=== PATIENT | female | born 1955 | race Caucasian/White ===

== ENCOUNTER 2017-01-24 13:32 | Emergency (ER) | payer OTHER ==
[~2017-01-24] VITALS: Ht 162.6 cm; Wt 53.3 kg
[~2017-01-24 13:32] MED LIST: AUGM875T PO; GABA300 PO; IBUP600 PO; MULT-65 PO; NAPR-576 PO; OXYC30TA3 PO; PROT40TA PO; RISP1 PO; SOMA350T PO; VITA400D PO; XANA0.5T PO; [UNRECOGNIZED DRUG - CODE] SQ
[2017-01-24 14:06] VITALS: BP 122/84; PULSE 88; RESP 16; TEMP 98.1; O2SAT 96
--- NOTE | 2017-01-24 15:42 | PD ---
HPI Chief Complaint: Fall Time Seen by Provider: 15:24 Travel History International Travel<30 days: No Contact w/Intl Traveler<30days: No Traveled to known affect area: No History of Present Illness HPI 61-year-old female presents to the emergency room for evaluation of right hip pain after trip and fall last. Patient fell over her cat. Denies hitting her loss of consciousness. She fell backwards and landed mostly on her right hip. Since then she has had paresthesias in her right lower extremity. She has been able to walk with a cane. She took 600 mg ibuprofen and muscle relaxer earlier today without significant relief in symptoms. Pain is constant, throbbing in nature. Worse with ambulation. She has history of right hip replacement for avascular necrosis that was done 12 years ago. PFSH Past Medical History Arthritis: Yes Asthma: Yes Autoimmune Disease: Yes (MS) Blood Disorders: No Anxiety: Yes Depression: Yes Heart Rhythm Problems: No Cancer: No Cardiovascular Problems: No High Cholesterol: No Chemotherapy: No Chest Pain: No Congestive Heart Failure: No COPD: Yes Cerebrovascular Accident: No Diabetes: No Diminished Hearing: No Endocrine: No Fibromyalgia: Yes Gastrointestinal Disorders: Yes (GERD) GERD: Yes Genitourinary: No Headaches: Yes Hepatitis: No Hiatal Hernia: No Hypertension: No Immune Disorder: Yes (MS) Implanted Vascular Access Dvce: Yes Kidney Stones: No Musculoskeletal: Yes (CERVICAL SPINE; TOTAL RIGHT HIP ) Neurologic: Yes (PT HAS MS;WALKS [place] HAS BALANCE & COORD PROBLEMS; VASNECROSIS; FIB MYALGHIA ) Psychiatric: Yes (ANXIETY & DEPRESSION ) Reproductive: No Respiratory: Yes (COPD) Immunizations Current: Yes Migraines: Yes Radiation Therapy: No Renal Failure: No Seizures: No Sickle Cell Disease: No Sleep Apnea: No Thyroid Disease: No Ulcer: No Menopausal: Yes Tubal Ligation: Yes Past Surgical History Abdominal Surgery: No AICD: No Arteriovenous Shunt: No Body Medical Devices: CERVICAL SCREWS & PLATES Cardiac Surgery: No Ear Surgery: No Endocrine Surgery: No Eye Surgery: No Genitourinary Surgery: No Gynecologic Surgery: Yes (TUBAL LIGATION 1986) Insulin Pump: No Joint Replacement: Yes (RIGHT TOTAL HIP REPLACEMENT) Neurologic Surgery: Yes (CERVICAL FUSION 2000) Oral Surgery: No Pacemaker: No Thoracic Surgery: No Other Surgery: Yes (CERVICAL FUSION 2000; TUBAL LIGATION 1986) Social History Alcohol Use: Yes (4-5 GLASSES WINE/DAY) Tobacco Use: No (1/2 pk) Substance Use: Yes (mariJUANA) Allergies-Medications (Allergen,Severity, Reaction): Coded Allergies: Sulfa (Sulfonamide Antibiotics) (Unverified Allergy, Intermediate, N/V, ) modafinil (Unverified Allergy, Mild, Rash, 01/24/17) Reported Meds & Prescriptions Reported Meds & Active Scripts Active Reported Adderall (Amphetamine-Dextroamphetamine) 30 Mg Tab 30 Mg PO BID Avoid late evening doses. Space doses at least 4 to 6 hours if more than once/day dosing. Ibuprofen 600 Mg Tab 600 Mg PO Q6H PRN Gabapentin 300 Mg Cap 300 Mg PO TID Oxycodone (Oxycodone HCl) 30 Mg Tab 30 Mg PO Q6H PRN Pantoprazole (Pantoprazole Sodium) 40 Mg Tab 40 Mg PO DAILY Soma (Carisoprodol) 350 Mg Tab 350 Mg PO QID PRN Alprazolam 1 Mg Tab 1 Mg PO Q6H PRN Rebif Inj (Interferon Beta 1a) 44 Mcg/0.5 Ml Syr 44 Mcg SQ Spiriva Handihaler (Tiotropium Inh) 18 Mcg Cap 18 Mcg INH DAILY 1 capsule = 18 mcg Review of Systems Except as stated in HPI: all other systems reviewed are Neg Physical Exam Narrative GENERAL: Well-nourished, well-developed female in no acute distress. Afebrile. Ambulatory with a cane. SKIN: Focused skin assessment warm/dry. More ecchymosis. HEAD: Normocephalic. EYES: No scleral icterus. No injection or drainage. NECK: Supple, trachea midline. No JVD or lymphadenopathy. CARDIOVASCULAR: Regular rate and rhythm without murmurs, gallops, or rubs. RESPIRATORY: Breath sounds equal bilaterally. No accessory muscle use. MUSCULOSKELETAL: No cyanosis, or edema. Full range of motion of the right hip. BACK: Nontender without obvious deformity. No CVA tenderness. Data Data Last Documented VS Vital Signs Date Time Temp Pulse Resp B/P (MAP) Pulse Ox O2 Delivery O2 Flow Rate FiO2 01/24/17 14:06 98.1 88 16 122/84 (97) 96 Orders Orders Hip, Uni(Ap&Lat) W Ap Pelvis (01/24/17 ) [facility] Medical Decision Making Medical Screen Exam Complete: Yes Emergency Medical Condition: Yes Medical Record Reviewed: Yes Differential Diagnosis Strain, sprain, fracture, contusion, dislocation Narrative Course 61-year-old female presents to the emergency room for evaluation of right hip pain after mechanical fall yesterday. She has associated paresthesias in the right lower extremity. Patient is ambulatory with a cane in the ED. There is no obvious deformity. No shortening or rotation. Right lower extremity is neurovascularly intact with less than 2 second capillary refill distally. There is no obvious edema, ecchymosis, erythema, or deformity. X-ray performed to evaluate for pelvic fracture. X-ray shows no acute abnormality. Patient has a follow-up appointment with her orthopedic surgeon (who recently performed ankle surgery) in 5 days. She was told to follow-up about her hip at that time as well. Told to return for worsening symptoms. She understands and agrees to plan. Diagnosis Primary Impression: Right hip pain Referrals: Orthopaedic Surgeon Primary Care Physician Additional Instructions: Rest and drink plenty of fluids. Take prescribed pain medications as directed. Apply ice to the affected area for 20 minutes at a time, as needed for pain and swelling. Follow-up with a primary care physician. Return to the emergency room for worsening symptoms. Disposition: 01 DISCHARGE HOME Condition: Stable Hallie Melendez Jan 24, 2017 15:42
[2017-01-24] MEDS ORDERED: REBI44IN SQ (16:05)
[2017-01-24] MEDS ORDERED: IBUP-232 PO (16:05)
[2017-01-24] MEDS ORDERED: ADDE30TA PO (16:05)
[2017-01-24] MEDS ORDERED: ALPR1TAB3 PO (16:05)
[2017-01-24] MEDS ORDERED: PANT40TA3 PO (16:05)
[2017-01-24] MEDS ORDERED: OXYC30TA PO (16:05)
[2017-01-24] MEDS ORDERED: GABA300C5 PO (16:05)
[2017-01-24] MEDS ORDERED: SPIRCAP INH (16:05)
[2017-01-24] MEDS ORDERED: SOMA350T PO (16:05)
--- NOTE | 2017-01-24 16:50 | RADRPT ---
EXAM DATE/TIME: 01/24/2017 16:05 [facility] COMPARISON: No previous studies available for comparison. INDICATIONS : Fall. Right hip pain. MEDICAL HISTORY : Osteoarthritis. SURGICAL HISTORY : None. Total hip ENCOUNTER: Initial ACUITY: 2 days PAIN SCORE: 8/10 LOCATION: Right pelvis FINDINGS: Examination of the right hip was performed with AP Pelvis. Postoperative right total hip replacement. Sclerosis at the left femoral head. Consider avascular necrosis. No acute fracture. CONCLUSION: 1. No acute fracture or dislocation. Postoperative right hip replacement. Avel Ken MD on January 24, 2017 at 16:47 Board Certified Radiologist. This report was verified electronically.
== END 2017-01-24 17:14 | disposition home or self-care (01) ==
LOC: PHED 13:32 → PHEFT 17:14
DX: M25.551 Pain in right hip (principal); Z96.641 Presence of right artificial hip joint
CPT/HCPCS: 73502; 99283

== ENCOUNTER 2017-02-05 14:03 | Emergency (ER) | payer OTHER ==
[~2017-02-05 14:03] MED LIST changes: +ADDE30TA PO; +ALPR1TAB3 PO; -AUGM875T PO; -GABA300 PO; +GABA300C5 PO; +IBUP-232 PO; -IBUP600 PO; -MULT-65 PO; -NAPR-576 PO; +OXYC30TA PO; -OXYC30TA3 PO; +PANT40TA3 PO; -PROT40TA PO; +REBI44IN SQ; -RISP1 PO; +SPIRCAP INH; -VITA400D PO; -XANA0.5T PO; -[UNRECOGNIZED DRUG - CODE] SQ
[2017-02-05 14:06] VITALS: BP 128/65; PULSE 96; RESP 20; TEMP 98.6; O2SAT 94
[2017-02-05 14:18] VITALS: O2SAT 94
[2017-02-05 14:34] LABS: AUTOMATED NEUTROPHIL # 2.1 TH/MM3 (1.8-7.7); BASOPHIL # 0.1 TH/MM3 (0-0.2); BASOPHIL % 3.2 % (0.0-2.0); EOSINOPHIL # 0.1 TH/MM3 (0-0.4); EOSINOPHIL % 1.6 % (0.0-4.0); HEMATOCRIT 39.8 % (35.0-46.0); HEMO FLAGS DIFF FINAL; LYMPH % 28.8 % (9.0-44.0); LYMPHOCYTE # 1.1 TH/MM3 (1.0-4.8); MEAN CELL VOLUME 98.3 FL (80.0-100.0); MEAN CORPUSCULAR HEMOGLOBIN 33.4 PG (27.0-34.0); MONO % 8.9 % (0.0-8.0); NEUT % 57.5 % (16.0-70.0); PLATELET COUNT 103 TH/MM3 (150-450); RED BLOOD COUNT 4.05 MIL/MM3 (4.00-5.30); RED CELL DISTRIBUTION WIDTH 12.5 % (11.6-17.2); WHITE BLOOD COUNT 3.7 TH/MM3 (4.0-11.0)
[2017-02-05 14:47] LABS: BICARBONATE 29.5 MEQ/L (21.0-32.0)
[2017-02-05 15:15] VITALS: BP 154/91; PULSE 77; RESP 17; O2SAT 96
[2017-02-05 15:21] LABS: BLOOD, URINE NEG (NEG); GLUCOSE,URINE NEG (NEG); KETONE, URINE NEG (NEG); NITRITE,URINE NEG (NEG)
[2017-02-05 15:30] LABS: URINE COLOR YELLOW (YELLW/STRAW)
[2017-02-05 15:31] LABS: BACTERIA, URINE FEW /hpf; COMMENT (UR) CULT NOT INDICATED; CULTURE IF INDICATED CULT NOT INDICATED; SQUAMOUS EPITHELIAL CELL URINE 0-5 /hpf (0-5); WBC, URINE 0-2 /hpf (0-5)
--- NOTE | 2017-02-05 16:27 | PD ---
HPI Chief Complaint: Alcohol/Drug Intoxication Time Seen by Provider: 14:44 Travel History International Travel<30 days: No Contact w/Intl Traveler<30days: No Traveled to known affect area: No History of Present Illness HPI Patient is a 61-year-old female who comes in from her physical therapy appointment where she was found unconscious. Patient does take oxycodone, 30 mg , chronic pain. She does not know if she took it this morning. She did say she took a Soma as well as some alcohol. EMS states that when they got there her pupils were pinpoint, they gave her Narcan because she had a respiratory rate of 4 and a low oxygen saturation. EMS does reports that after the Narcan, she was awake and breathing normally. She says she has no symptoms currently. She says she was feeling fine prior to going to physical therapy. She denies ever having any chest pain or shortness of breath. She did not pass out or hit her head. PFSH Past Medical History Arthritis: Yes Asthma: Yes Autoimmune Disease: Yes (MS) Blood Disorders: No Anxiety: Yes Depression: Yes Heart Rhythm Problems: No Cancer: No Cardiovascular Problems: No High Cholesterol: No Chemotherapy: No Chest Pain: No Congestive Heart Failure: No COPD: Yes Cerebrovascular Accident: No Diabetes: No Diminished Hearing: No Endocrine: No Fibromyalgia: Yes Gastrointestinal Disorders: Yes (GERD) GERD: Yes Genitourinary: No Headaches: Yes Hepatitis: No Hiatal Hernia: No Hypertension: No Immune Disorder: Yes (MS) Implanted Vascular Access Dvce: Yes Kidney Stones: No Medical other: Yes (OSTEOPEROSIS; LEGS ARE WEAK & NUMB FROM MS) Musculoskeletal: Yes (CERVICAL SPINE; TOTAL RIGHT HIP ) Neurologic: Yes (PT HAS MS;WALKS [place] HAS BALANCE & COORD PROBLEMS; VASNECROSIS; FIB MYALGHIA ) Psychiatric: Yes (ANXIETY & DEPRESSION ) Reproductive: No Respiratory: Yes (COPD) Immunizations Current: Yes Migraines: Yes Radiation Therapy: No Renal Failure: No Seizures: No Sickle Cell Disease: No Sleep Apnea: No Thyroid Disease: No Ulcer: No Menopausal: Yes Tubal Ligation: Yes Past Surgical History Abdominal Surgery: No AICD: No Arteriovenous Shunt: No Body Medical Devices: CERVICAL SCREWS & PLATES Cardiac Surgery: No Ear Surgery: No Endocrine Surgery: No Eye Surgery: No Genitourinary Surgery: No Gynecologic Surgery: Yes (TUBAL LIGATION 1986) Insulin Pump: No Joint Replacement: Yes (RIGHT TOTAL HIP REPLACEMENT) Neurologic Surgery: Yes (CERVICAL FUSION 2000) Oral Surgery: No Pacemaker: No Thoracic Surgery: No Other Surgery: Yes (CERVICAL FUSION 2000; TUBAL LIGATION 1986) Social History Alcohol Use: Yes (4-5 GLASSES WINE/DAY) Tobacco Use: Yes (e-cig) Substance Use: Yes (mariJUANA) Allergies-Medications (Allergen,Severity, Reaction): Coded Allergies: Sulfa (Sulfonamide Antibiotics) (Unverified Allergy, Intermediate, N/V, ) modafinil (Unverified Allergy, Mild, Rash, 02/05/17) carisoprodol (Verified Allergy, Unknown, 02/05/17) Reported Meds & Prescriptions Reported Meds & Active Scripts Active Reported Spiriva Handihaler (Tiotropium Inh) 18 Mcg Cap 18 Mcg INH DAILY 1 capsule = 18 mcg Adderall (Amphetamine-Dextroamphetamine) 30 Mg Tab 30 Mg PO BID Avoid late evening doses. Space doses at least 4 to 6 hours if more than once/day dosing. Ibuprofen 600 Mg Tab 600 Mg PO Q6H PRN Gabapentin 300 Mg Cap 300 Mg PO TID Oxycodone (Oxycodone HCl) 30 Mg Tab 30 Mg PO Q6H PRN Pantoprazole (Pantoprazole Sodium) 40 Mg Tab 40 Mg PO DAILY Soma (Carisoprodol) 350 Mg Tab 350 Mg PO QID PRN Alprazolam 1 Mg Tab 1 Mg PO Q6H PRN Rebif Inj (Interferon Beta 1a) 44 Mcg/0.5 Ml Syr 44 Mcg SQ Review of Systems Except as stated in HPI: all other systems reviewed are Neg General / Constitutional: No: Fever, Chills Eyes: No: Blurred Vision HENT: No: Headaches, Lightheadedness Cardiovascular: No: Chest Pain or Discomfort, Palpitations Respiratory: No: Shortness of Breath Gastrointestinal: No: Nausea, Vomiting Musculoskeletal: No: Myalgias, Edema Skin: No Rash, No Change in Pigmentation Neurologic: No: Weakness, Dizziness Physical Exam Narrative GENERAL: Awake and alert, in no acute distress. SKIN: Focused skin assessment warm/dry. HEAD: Atraumatic. Normocephalic. EYES: Pupils equal and round. No scleral icterus. Extraocular movements intact. ENT: Mucous membranes pink and moist. NECK: Trachea midline. No JVD. CARDIOVASCULAR: Regular rate and rhythm. No murmur appreciated. RESPIRATORY: No accessory muscle use. Clear to auscultation. Breath sounds equal bilaterally. GASTROINTESTINAL: Abdomen soft, non-tender, nondistended. MUSCULOSKELETAL: No obvious deformities. No clubbing. No cyanosis. No edema. NEUROLOGICAL: Awake and alert. No obvious cranial nerve deficits. Motor grossly within normal limits. Normal speech. PSYCHIATRIC: Appropriate mood and affect; insight and judgment normal. Data Data Last Documented VS Vital Signs Date Time Temp Pulse Resp B/P (MAP) Pulse Ox O2 Delivery O2 Flow Rate FiO2 02/05/17 15:15 77 17 154/91 (112) 96 Nasal Cannula 3.00 02/05/17 14:06 98.6 Orders Orders Oximetry (02/05/17 14:12) Iv Access Insert/Monitor (02/05/17 14:12) Ecg Monitoring (02/05/17 14:12) Oxygen Administration (02/05/17 14:12) Complete Blood Count With Diff (02/05/17 14:12) Basic Metabolic Panel (Bmp) (02/05/17 14:12) Alcohol (Ethanol) (02/05/17 14:12) Urinalysis - C+S If Indicated (02/05/17 14:12) Labs Laboratory Tests Test 02/05/17 14:22 02/05/17 15:10 White Blood Count 3.7 TH/MM3 Red Blood Count 4.05 MIL/MM3 Hemoglobin 13.5 GM/DL Hematocrit 39.8 % Mean Corpuscular Volume 98.3 FL Mean Corpuscular Hemoglobin 33.4 PG Mean Corpuscular Hemoglobin Concent 34.0 % Red Cell Distribution Width 12.5 % Platelet Count 103 TH/MM3 Mean Platelet Volume 8.2 FL Neutrophils (%) (Auto) 57.5 % Lymphocytes (%) (Auto) 28.8 % Monocytes (%) (Auto) 8.9 % Eosinophils (%) (Auto) 1.6 % Basophils (%) (Auto) 3.2 % Neutrophils # (Auto) 2.1 TH/MM3 Lymphocytes # (Auto) 1.1 TH/MM3 Monocytes # (Auto) 0.3 TH/MM3 Eosinophils # (Auto) 0.1 TH/MM3 Basophils # (Auto) 0.1 TH/MM3 CBC Comment DIFF FINAL Differential Comment Blood Urea Nitrogen 9 MG/DL Creatinine 0.76 MG/DL Random Glucose 77 MG/DL Calcium Level 8.6 MG/DL Sodium Level 136 MEQ/L Potassium Level 4.0 MEQ/L Chloride Level 100 MEQ/L Carbon Dioxide Level 29.5 MEQ/L Anion Gap 7 MEQ/L Estimat Glomerular Filtration Rate 78 ML/MIN Ethyl Alcohol Level 22 MG/DL Urine Color YELLOW Urine Turbidity CLEAR Urine pH 7.0 Urine Specific [place] 1.011 Urine Protein NEG mg/dL Urine Glucose (UA) NEG mg/dL Urine Ketones NEG mg/dL Urine Occult Blood NEG Urine Nitrite NEG Urine Bilirubin NEG Urine Leukocyte Esterase NEG Urine WBC 0-2 /hpf Urine Squamous Epithelial Cells 0-5 /hpf Urine Bacteria FEW /hpf Microscopic Urinalysis Comment CULT NOT INDICATED MDM Medical Decision Making Medical Screen Exam Complete: Yes Emergency Medical Condition: Yes Medical Record Reviewed: Yes Differential Diagnosis Opiate overdose versus electrolyte abnormality versus dehydration Narrative Course Patient is a 61-year-old female who comes in after an episode of unresponsiveness after physical therapy office. Symptoms resolved after Narcan. Currently she has no symptoms, and she says she was feeling well before going to physical therapy. Patient advised to be careful with her opiate use. Advised to not combine opiates and alcohol. Labs sent show no acute abnormalities. Patient will be discharged, advised follow-up with her doctor. Advised to return to the ED as needed for any worsening symptoms. Diagnosis Primary Impression: Opiate overdose Qualified Codes: T40.601A - Poisoning by unspecified narcotics, accidental ( unintentional), initial encounter Patient Instructions: General Instructions, Opioid Overdose (ED) Additional Instructions: Be careful in taking her oxycodone, especially when combining with other medications or alcohol. Follow-up with your doctor. Return to the ED as needed for any worsening symptoms. Disposition: 01 DISCHARGE HOME Condition: Stable Barbara Sue MD Feb 05, 2017 16:27
[2017-02-05 16:34] VITALS: BP 129/87
== END 2017-02-05 16:45 | disposition home or self-care (01) ==
LOC: PHED 14:03
DX: T40.601A Poisoning by unspecified narcotics, accidental (unintentional), initial encounter (principal); G89.29 Other chronic pain; J44.9 Chronic obstructive pulmonary disease, unspecified; M79.7 Fibromyalgia; F32.9 Major depressive disorder, single episode, unspecified; Z72.0 Tobacco use; Z79.891 Long term (current) use of opiate analgesic; Z72.89 Other problems related to lifestyle
CPT/HCPCS: 80048; 80307; 81001; 85025; 99283

== ENCOUNTER 2017-02-14 10:55 | Inpatient (IN) | payer OTHER, MEDICARE ==
[2017-02-14] VITALS (12 sets, daily range): BP systolic 110–194; BP diastolic 73–133; PULSE 71–134; RESP 15–19; TEMP 97.3–98.6; O2SAT 95–100
[~2017-02-14] VITALS: Ht 167.6 cm; Wt 52.0 kg
[2017-02-14] MEDS ORDERED: SODIUM CHLOR 0.9% 1000 ML INJ 1,000 ML IV SCH (11:02)
[2017-02-14] MEDS ORDERED: SODIUM CHLOR 0.9% 1000 ML INJ 1,000 ML IV ONE (11:15)
[2017-02-14] MEDS ORDERED: MIDAZOLAM HCL 2 MG/2 ML VIAL IV PUSH ONE ×3 (11:15→13:30)
[2017-02-14] MEDS ORDERED: LABETALOL HCL 100 MG/20 ML VIAL IV PUSH ONE (11:15)
[2017-02-14] MEDS ORDERED: FOSPHENYTOIN INJ 1,000 MGPE in SODIUM CHLORIDE 0.9% INJ 50 ML IV ONE (11:15)
--- NOTE | 2017-02-14 11:33 | PD ---
HPI Chief Complaint: Altered Mental Status Time Seen by Provider: 11:01 Travel History International Travel<30 days: No Contact w/Intl Traveler<30days: No Traveled to known affect area: No History of Present Illness HPI This is a 61-year-old female who presents to the emergency department with altered mental status. She evidently was in bed with her and he tried to wake her up and he couldn't. He told EMS that he witnessed 2 minute seizure. When EMS arrived they found her to be cyanotic and drooling. She's never had seizures before per her . EMS observed a lot of repetitive questioning and leftward gaze deviation. They said the last time she was seen normal was last evening. History is limited as the patient is unable to provide it and his altered and her is not at the bedside. PFSH Past Medical History Arthritis: Yes Asthma: Yes Autoimmune Disease: Yes (MS) Blood Disorders: No Anxiety: Yes Depression: Yes Heart Rhythm Problems: No Cancer: No Cardiovascular Problems: No High Cholesterol: No Chemotherapy: No Chest Pain: No Congestive Heart Failure: No COPD: Yes Cerebrovascular Accident: No Diabetes: No Diminished Hearing: No Endocrine: No Fibromyalgia: Yes Gastrointestinal Disorders: Yes (GERD) GERD: Yes Genitourinary: No Headaches: Yes Hepatitis: No Hiatal Hernia: No Hypertension: No Immune Disorder: Yes (MS) Implanted Vascular Access Dvce: Yes Kidney Stones: No Medical other: Yes (OSTEOPEROSIS; LEGS ARE WEAK & NUMB FROM MS) Musculoskeletal: Yes (CERVICAL SPINE; TOTAL RIGHT HIP ) Neurologic: Yes (PT HAS MS;WALKS [place] HAS BALANCE & COORD PROBLEMS; VASNECROSIS; FIB MYALGHIA ) Psychiatric: Yes (ANXIETY & DEPRESSION ) Reproductive: No Respiratory: Yes (COPD) Immunizations Current: Yes Migraines: Yes Radiation Therapy: No Renal Failure: No Seizures: No Sickle Cell Disease: No Sleep Apnea: No Thyroid Disease: No Ulcer: No Menopausal: Yes Tubal Ligation: Yes Past Surgical History Abdominal Surgery: No AICD: No Arteriovenous Shunt: No Body Medical Devices: CERVICAL SCREWS & PLATES Cardiac Surgery: No Ear Surgery: No Endocrine Surgery: No Eye Surgery: No Genitourinary Surgery: No Gynecologic Surgery: Yes (TUBAL LIGATION 1986) Insulin Pump: No Joint Replacement: Yes (RIGHT TOTAL HIP REPLACEMENT) Neurologic Surgery: Yes (CERVICAL FUSION 2000) Oral Surgery: No Pacemaker: No Thoracic Surgery: No Other Surgery: Yes (CERVICAL FUSION 2000; TUBAL LIGATION 1986) Social History Alcohol Use: Yes (4-5 GLASSES WINE/DAY) Tobacco Use: Yes (e-cig) Substance Use: No Allergies-Medications (Allergen,Severity, Reaction): Coded Allergies: Sulfa (Sulfonamide Antibiotics) (Unverified Allergy, Intermediate, N/V, ) modafinil (Unverified Allergy, Mild, Rash, 02/14/17) carisoprodol (Verified Allergy, Unknown, 02/14/17) Reported Meds & Prescriptions Reported Meds & Active Scripts Active Reported Spiriva Handihaler (Tiotropium Inh) 18 Mcg Cap 18 Mcg INH DAILY 1 capsule = 18 mcg Adderall (Amphetamine-Dextroamphetamine) 30 Mg Tab 30 Mg PO BID Avoid late evening doses. Space doses at least 4 to 6 hours if more than once/day dosing. Ibuprofen 600 Mg Tab 600 Mg PO Q6H PRN Gabapentin 300 Mg Cap 300 Mg PO TID Oxycodone (Oxycodone HCl) 30 Mg Tab 30 Mg PO Q6H PRN Pantoprazole (Pantoprazole Sodium) 40 Mg Tab 40 Mg PO DAILY Soma (Carisoprodol) 350 Mg Tab 350 Mg PO QID PRN Alprazolam 1 Mg Tab 1 Mg PO Q6H PRN Rebif Inj (Interferon Beta 1a) 44 Mcg/0.5 Ml Syr 44 Mcg SQ Review of Systems ROS Limitations: Altered Mental Status Physical Exam Narrative GENERAL: Frail SKIN: Focused skin assessment warm and dry. HEAD: Atraumatic. Normocephalic. EYES: Dilated, equal and reactive. No injection or drainage. Gaze deviation to the left with horizontal nystagmus ENT: Moist mucous membranes NECK: Trachea midline. CARDIOVASCULAR: Regular rate and rhythm. No murmur appreciated. RESPIRATORY: Clear to auscultation. Breath sounds equal bilaterally. GASTROINTESTINAL: Abdomen soft, non-tender, nondistended. MUSCULOSKELETAL: No obvious deformities. NEUROLOGICAL: Able to say her name, does not know where she is, repeats yes or no answers to questions and is unable to follow commands appropriately. Appears to have right sided neglect, has horizontal nystagmus beating to the left. Is able to sustain keeping her arms and legs up and off the bed. Is unable to cooperate with coordination testing or visual field testing. Data Data Last Documented VS Vital Signs Date Time Temp Pulse Resp B/P (MAP) Pulse Ox O2 Delivery O2 Flow Rate FiO2 02/14/17 12:31 91 182/114 02/14/17 11:07 97 Nasal Cannula 2.00 02/14/17 10:59 97.7 18 Orders Orders Electrocardiogram (02/14/17 11:02) Complete Blood Count With Diff (02/14/17 11:02) Comprehensive Metabolic Panel (02/14/17 11:02) Urinalysis - C+S If Indicated (02/14/17 11:02) Ct Brain W/O Iv Contrast(Rout) (02/14/17 11:02) Sodium Chlor 0.9% 1000 Ml Inj (Ns 1000 M (02/14/17 11:02) Drug Screen, Random Urine (02/14/17 11:02) Alcohol (Ethanol) (02/14/17 11:02) Tylenol (Acetaminophen) (02/14/17 11:02) Salicylates (Aspirin) (02/14/17 11:02) Fosphenytoin Inj (Cerebyx Inj) (02/14/17 11:15) Sodium Chlor 0.9% 1000 Ml Inj (Ns 1000 M (02/14/17 11:15) Labetalol Inj (Trandate Inj) (02/14/17 11:15) Midazolam Inj (Versed Inj) (02/14/17 11:15) Midazolam Inj (Versed Inj) (02/14/17 11:15) Nicardipine Inj (Cardene Inj) (02/14/17 12:15) Mri Brain W&W/O Contrast (02/14/17 ) Admit Order (Ed Use Only) (02/14/17 13:01) Labs Laboratory Tests Test 02/14/17 11:10 White Blood Count 8.7 TH/MM3 Red Blood Count 5.59 MIL/MM3 Hemoglobin 19.0 GM/DL Hematocrit 56.3 % Mean Corpuscular Volume 100.8 FL Mean Corpuscular Hemoglobin 34.0 PG Mean Corpuscular Hemoglobin Concent 33.7 % Red Cell Distribution Width 13.2 % Platelet Count 98 TH/MM3 Mean Platelet Volume 8.9 FL Neutrophils (%) (Auto) 81.4 % Lymphocytes (%) (Auto) 8.7 % Monocytes (%) (Auto) 9.7 % Eosinophils (%) (Auto) 0.0 % Basophils (%) (Auto) 0.2 % Neutrophils # (Auto) 7.1 TH/MM3 Lymphocytes # (Auto) 0.8 TH/MM3 Monocytes # (Auto) 0.8 TH/MM3 Eosinophils # (Auto) 0.0 TH/MM3 Basophils # (Auto) 0.0 TH/MM3 CBC Comment AUTO DIFF Differential Comment AUTO DIFF CONFIRMED Platelet Estimate LOW Platelet Morphology Comment NORMAL Blood Urea Nitrogen 14 MG/DL Creatinine 1.17 MG/DL Random Glucose 176 MG/DL Total Protein 8.7 GM/DL Albumin 4.1 GM/DL Calcium Level 10.1 MG/DL Alkaline Phosphatase 134 U/L Aspartate Amino Transf (AST/SGOT) 103 U/L Alanine Aminotransferase (ALT/SGPT) 70 U/L Total Bilirubin 0.8 MG/DL Sodium Level 139 MEQ/L Potassium Level 3.8 MEQ/L Chloride Level 102 MEQ/L Carbon Dioxide Level 25.6 MEQ/L Anion Gap 11 MEQ/L Estimat Glomerular Filtration Rate 47 ML/MIN Salicylates Level 4.1 MG/DL Acetaminophen Level LESS THAN 2.0 MCG/ML Ethyl Alcohol Level LESS THAN 3 MG/DL MDM Medical Decision Making Medical Screen Exam Complete: Yes Emergency Medical Condition: Yes Interpretation(s) afebrile, tachycardic, hypertensive hemoconcentration MCV is 100.8 Platelet count is 98 Transaminitis with AST greater than ALT consistent with possible alcohol liver disease electrolytes within normal limits Drug screen positive for benzodiazepines and cannabinoid Alcohol negative CT of the head is normal Differential Diagnosis Hemorrhagic stroke, ischemic stroke, hypertensive encephalopathy, alcohol withdrawal, benzodiazepine withdrawal Narrative Course This is a 61-year-old female who presents to the emergency department with altered mental status having had a witnessed seizure this morning by her . She's never had seizures before. She was last seen evening. She has an abnormal neurologic exam with leftward beating horizontal nystagmus, repetitive questioning, confusion and poor ability to answer questions. She's also intermittently agitated. On arrival she was hypertensive and tachycardic. She was given IV Versed for possible acute alcohol withdrawal. She was also given IV labetalol in the setting of marked hypertension and fosphenytoin due to her recent seizure. Labs were obtained which demonstrates some evidence of chronic alcoholism. CT of the head was reassuring. I suspect patient's symptoms are either secondary to an ischemic stroke, hypertensive encephalopathy, or severe benzodiazepine or alcohol withdrawal. I did make Dr. Juan with neurology aware of the patient. Patient will be admitted to the intensive care unit for further management. Critical Care Narrative Aggregate critical care time was 60 minutes. Time to perform other separately billable procedures was not included in the critical care time. My time did not include minutes spent treating any other patients simultaneously or on activities that did not directly contribute to the patient's treatment. The services I provided to this patient were to treat and/or prevent clinically significant deterioration that could result in: Disability, I provided critical care services requiring my management, as noted below: Chart data review, documentation time, medication orders and management, vital sign assessments/reviewing monitor data, ordering and reviewing lab tests, ordering and interpreting/reviewing x-rays and diagnostic studies, care of the patient and discussion of the patient with the admitting physicians. Physician Communication Physician Communication Discussed with Dr. Dickerson Diagnosis Primary Impression: Encephalopathy Admitting Information Admitting Physician Requests: Admit Erika Holguin MD Feb 14, 2017 11:33
--- NOTE | 2017-02-14 11:33 | RADRPT ---
EXAM DATE/TIME: 02/14/2017 11:17 [place] COMPARISON: MRI BRAIN W & W/O CONTRAST, April 16, 2014, 12:11. CT BRAIN W/O CONTRAST, April 15, 2014, 20: 04. INDICATIONS : Altered mental status. RADIATION DOSE: 28.41 CTDIvol (mGy) MEDICAL HISTORY : Multiple sclerosis. SURGICAL HISTORY : Fusion, cervical. ENCOUNTER: Initial ACUITY: 1 day PAIN SCALE: 0/10 LOCATION: Bilateral head TECHNIQUE: Multiple contiguous axial images were obtained of the head. Using automated exposure control and adj ustment of the mA and/or kV according to patient size, radiation dose was kept as low as reasonably a chievable to obtain optimal diagnostic quality images. DICOM format image data is available electro nically for review and comparison. FINDINGS: CEREBRUM: The ventricles are normal for age. No evidence of midline shift, mass lesion, hemorrhage or acute in farction. No extra-axial fluid collections are seen. Stable scattered subcortical white matter areas of decreased attenuation are again noted. POSTERIOR FOSSA: The cerebellum and brainstem are intact. The 4th ventricle is midline. The cerebellopontine angle i s unremarkable. EXTRACRANIAL: The visualized portion of the orbits is intact. SKULL: The calvaria is intact. No evidence of skull fracture. CONCLUSION: 1. Stable scattered subcortical white matter areas of decreased attenuation. 2. No acute infarct, acute hemorrhage, mass effect or extra-axial fluid collections. Daniele Cary MD on February 14, 2017 at 11:27 Board Certified Radiologist. This report was verified electronically.
[2017-02-14 11:50] LABS: AUTOMATED NEUTROPHIL # 7.1 TH/MM3 (1.8-7.7); BASOPHIL % 0.2 % (0.0-2.0); HEMATOCRIT 56.3 % (35.0-46.0); LYMPH % 8.7 % (9.0-44.0); LYMPHOCYTE # 0.8 TH/MM3 (1.0-4.8); MEAN CELL VOLUME 100.8 FL (80.0-100.0); MEAN CORPUSCULAR HGB CONC 33.7 % (32.0-36.0); MONO % 9.7 % (0.0-8.0); NEUT % 81.4 % (16.0-70.0); PLATELET COUNT 98 TH/MM3 (150-450); RED BLOOD COUNT 5.59 MIL/MM3 (4.00-5.30); RED CELL DISTRIBUTION WIDTH 13.2 % (11.6-17.2); WHITE BLOOD COUNT 8.7 TH/MM3 (4.0-11.0)
[2017-02-14 11:53] LABS: HEMO FLAGS AUTO DIFF
[2017-02-14 12:10] LABS: ALCOHOL LESS THAN 3 MG/DL (0-5); ALT (GPT) 70 U/L (10-53); ANION GAP 11 MEQ/L (5-15); AST (GOT) 103 U/L (15-37); BICARBONATE 25.6 MEQ/L (21.0-32.0); BLOOD UREA NITROGEN 14 MG/DL (7-18); CHLORIDE 102 MEQ/L (98-107); GLOMERULAR FILTRATION RATE 47 ML/MIN (>89); POTASSIUM 3.8 MEQ/L (3.5-5.1); SODIUM (NA) 139 MEQ/L (136-145)
[2017-02-14 12:11] LABS: ALKALINE PHOSPHATASE 134 U/L (45-117); TOTAL BILIRUBIN ADULT 0.8 MG/DL (0.2-1.0)
[2017-02-14] MEDS ORDERED: niCARdipine INJ 25 MG in SODIUM CHLOR 0.9% 250 ML INJ 240 ML IV ONE (12:15)
[2017-02-14 12:20] LABS: ACETAMINOPHEN LESS THAN 2.0 MCG/ML (10.0-30.0)
[2017-02-14 12:23] LABS: PLATELET ESTIMATE SMEAR LOW (NORMAL); PLATELET MORPHOLOGY NORMAL (NORMAL); SCAN/DIFF AUTO DIFF CONFIRMED
[2017-02-14] MEDS ORDERED: THIAMINE INJ 100 MG in SODIUM CHLORIDE 0.9% INJ 100 ML IV ONE (13:30)
[2017-02-14 13:50] LABS: BACTERIA, URINE RARE /hpf; BLOOD, URINE SMALL (NEG); COMMENT (UR) CATH-CULTURE IND; CULTURE IF INDICATED CATH CULTURE IND; GLUCOSE,URINE NEG (NEG); HYALINE CAST, URINE 7 /lpf (RARE); KETONE, URINE NEG (NEG); MUCUS URINE FEW /lpf (OCC); NITRITE,URINE NEG (NEG); SQUAMOUS EPITHELIAL CELL URINE 1 /hpf (0-5); URINE COLOR LIGHT-YELLOW (YELLW/STRAW)
[2017-02-14] MEDS ORDERED: MAGNESIUM HYDROXIDE SUSP 30 ML CUP PO PRN (14:00)
[2017-02-14] MEDS ORDERED: MAGNESIUM OXIDE 400 MG TAB PO PRN (14:00)
[2017-02-14] MEDS ORDERED: MAGNESIUM SULFATE INJ 4 GM in SODIUM CHLORIDE 0.9% INJ 92 ML IV PRN (14:00)
[2017-02-14] MEDS ORDERED: POTASSIUM CHLORIDE 25 MEQ EFFERVESCENT TAB PO PRN (14:00)
[2017-02-14] MEDS ORDERED: POTASSIUM PHOSPHATE MONOBASIC 500 MG TAB PO/TUBE PRN (14:00)
[2017-02-14] MEDS ORDERED: POTASSIUM PHOSPHATE INJ 30 MMOL in SODIUM CHLOR 0.9% 250 ML INJ 250 ML IV PRN (14:00)
[2017-02-14] MEDS ORDERED: SENNOSIDES 8.6 MG TAB PO PRN (14:00)
[2017-02-14] MEDS ORDERED: POTASSIUM CHLOR 40 MEQ PREMIX 100 ML IV PRN ×2 (14:00)
[2017-02-14] MEDS ORDERED: SODIUM CHLORIDE 0.9% FLUSH 10 ML FLUSH IV FLUSH PRN (14:00)
[2017-02-14] MEDS ORDERED: DEXTROSE 50% IN WATER 50 ML VIAL(D50) IV PUSH PRN (14:00)
[2017-02-14] MEDS ORDERED: ONDANSETRON HCL 4 MG/2 ML VIAL IV PUSH PRN (14:00)
[2017-02-14] MEDS ORDERED: LACTULOSE SYRUP 20 GM/30 ML CUP PO PRN (14:00)
[2017-02-14] MEDS ORDERED: MAGNESIUM SULFATE INJ 2 GM in SODIUM CHLORIDE 0.9% INJ 96 ML IV PRN (14:00)
[2017-02-14] MEDS ORDERED: BISACODYL 10 MG SUPP RECTAL PRN (14:00)
[2017-02-14] MEDS ORDERED: MISCELLANEOUS NURSING INFORMATION XX SCH (14:00)
[2017-02-14] MEDS ORDERED: POTASSIUM CHLOR 20 MEQ PREMIX 100 ML IV PRN (14:00)
[2017-02-14] MEDS ORDERED: DEXMEDETOMIDINE INJ 200 MCG in SODIUM CHLORIDE 0.9% INJ 50 ML IV PRN (14:00)
[2017-02-14] MEDS ORDERED: GLUCAGON 1 MG/ML VIAL OTHER PRN (14:00)
[2017-02-14] MEDS ORDERED: SODIUM PHOSPHATE INJ 30 MMOL in SODIUM CHLOR 0.9% 250 ML INJ 240 ML IV PRN (14:00)
[2017-02-14] MEDS ORDERED: CHLORHEXIDINE GLUCONATE 2 % 1 PACK (2 CLOTHS) TOP PRN (14:00)
[2017-02-14] MEDS ORDERED: POTASSIUM PHOSPHATE MONOBASIC 500 MG TAB PO PRN (14:00)
[2017-02-14] MEDS ORDERED: RESP: ALBUTEROL 2.5 MG/IPRATROPIUM 0.5 MG NEB (PRN) INH (14:00)
--- NOTE | 2017-02-14 14:57 | HHI.HP ---
HPI Service Critical Care Medicine Primary Care Physician Niurka Gillis MD Admission Diagnosis encephalopathy Diagnosis: (1) Thrombocytopenia (2) Altered mental status Diagnosis: Principal (3) Chronic pain Diagnosis: Secondary (4) Polypharmacy Diagnosis: Principal (5) Essential tremor Diagnosis: Secondary (6) Gastroesophageal reflux Diagnosis: Secondary (7) Renal insufficiency Diagnosis: Secondary (8) Fibromyalgia Diagnosis: Secondary (9) Chronic obstructive pulmonary disease Diagnosis: Secondary (10) Multiple sclerosis Diagnosis: Secondary (11) Hypertension Diagnosis: Secondary Travel History International Travel<30 Days: No Contact w/Intl Traveler <30 Da: No Traveled to Known Affected Are: No History of Present Illness This is a 61-year-old female that presented to the ED with altered mental status. Per report from the patient's , she was in bed with her and he tried to wake her up and he couldn't. He told EMS that he witnessed 2 minute seizure described as clenching of teeth, salivation, and unresponsiveness. When EMS arrived they found her to be cyanotic and drooling. She's never had seizures before per her . EMS observed a lot of repetitive questioning and leftward gaze deviation. They said the last time she was seen normal was last evening. The patient was loaded with fosphenytoin 1 g. The patient notably has an alcohol use disorder drinking 4-5 drinks (wine ) per day. Patient presented with hypertensive urgency with BP 180s/110. Nicardipine infusion was initiated. Patient's past medical history is significant for polypharmacy and concomitant use of opiates, antipsychotics, anti-anxiety, anti-depressive drugs in the setting of chronic alcohol use. Patient previously admitted in 2014 with similar presentation of altered mental status. Patient now with new onset seizure disorder. The patient was loaded with fosphenytoin in the ED imaging and lab studies are pending. Neurology has been consulted .Critical care medicine was consulted for management. History PFSH Past Medical History Arthritis: Yes Asthma: Yes Autoimmune Disease: Yes (MS) Blood Disorders: No Anxiety: Yes Depression: Yes Heart Rhythm Problems: No Cancer: No Cardiovascular Problems: No High Cholesterol: No Chemotherapy: No Chest Pain: No Congestive Heart Failure: No COPD: Yes Cerebrovascular Accident: No Diabetes: No Diminished Hearing: No Endocrine: No Fibromyalgia: Yes Gastrointestinal Disorders: Yes (GERD) GERD: Yes Genitourinary: No Headaches: Yes Hepatitis: No Hiatal Hernia: No Hypertension: No Immune Disorder: Yes (MS) Implanted Vascular Access Dvce: Yes Kidney Stones: No Medical other: Yes (OSTEOPOROSIS; LEGS ARE WEAK & NUMB FROM MS) Musculoskeletal: Yes (CERVICAL SPINE; TOTAL RIGHT HIP ) Neurologic: Yes (PT HAS MS;WALKS [place] HAS BALANCE & COORD PROBLEMS; VASC NECROSIS ; FIBROMYALGIA ) Psychiatric: Yes (ANXIETY & DEPRESSION ) Reproductive: No Respiratory: Yes (COPD) Immunizations Current: Yes Migraines: Yes Radiation Therapy: No Renal Failure: No Seizures: No Sickle Cell Disease: No Sleep Apnea: No Thyroid Disease: No Ulcer: No Menopausal: Yes Tubal Ligation: Yes Past Surgical History Abdominal Surgery: No AICD: No Arteriovenous Shunt: No Body Medical Devices: CERVICAL SCREWS & PLATES Cardiac Surgery: No Ear Surgery: No Endocrine Surgery: No Eye Surgery: No Genitourinary Surgery: No Gynecologic Surgery: Yes (TUBAL LIGATION 1986) Insulin Pump: No Joint Replacement: Yes (RIGHT TOTAL HIP REPLACEMENT) Neurologic Surgery: Yes (CERVICAL FUSION 2000) Oral Surgery: No Pacemaker: No Thoracic Surgery: No Other Surgery: Yes (CERVICAL FUSION 2000; TUBAL LIGATION 1986) Social History Alcohol Use: Yes (4-5 GLASSES WINE/DAY) Tobacco Use: Yes (e-cig) Substance Use: No Allergies-Medications Allergies-Medications (Allergen,Severity, Reaction): Coded Allergies: Sulfa (Sulfonamide Antibiotics) (Unverified Allergy, Intermediate, N/V, ) modafinil (Unverified Allergy, Mild, Rash, 02/14/17) carisoprodol (Verified Allergy, Unknown, 02/14/17) Reported Meds & Prescriptions Reported Meds & Active Scripts Active Reported Spiriva Handihaler (Tiotropium Inh) 18 Mcg Cap 18 Mcg INH DAILY 1 capsule = 18 mcg Adderall (Amphetamine-Dextroamphetamine) 30 Mg Tab 30 Mg PO BID Avoid late evening doses. Space doses at least 4 to 6 hours if more than once/day dosing. Ibuprofen 600 Mg Tab 600 Mg PO Q6H PRN Gabapentin 300 Mg Cap 300 Mg PO TID Oxycodone (Oxycodone HCl) 30 Mg Tab 30 Mg PO Q6H PRN Pantoprazole (Pantoprazole Sodium) 40 Mg Tab 40 Mg PO DAILY Soma (Carisoprodol) 350 Mg Tab 350 Mg PO QID PRN Alprazolam 1 Mg Tab 1 Mg PO Q6H PRN Rebif Inj (Interferon Beta 1a) 44 Mcg/0.5 Ml Syr 44 Mcg SQ ROS Review of Systems ROS Limitations: Altered Mental Status Physical Exam Vital Signs Vital Signs Date Time Temp Pulse Resp B/P (MAP) Pulse Ox O2 Delivery O2 Flow Rate FiO2 02/14/17 13:42 104 18 161/96 (117) 100 Nasal Cannula 2.00 02/14/17 12:31 91 182/114 02/14/17 12:28 91 182/114 (136) 02/14/17 11:25 90 178/119 (138) 02/14/17 11:07 134 194/133 (153) 97 Nasal Cannula 2.00 02/14/17 10:59 97.7 129 18 181/119 (139) 95 Physical Exam GENERAL: His is a well-developed well-nourished female confused thrashing in the bed, repetitive wording, word salad SKIN: Warm and dry. HEAD: Atraumatic. Normocephalic. EYES: Pupils equal and round. No scleral icterus. No injection or drainage. ENT: No nasal bleeding or discharge. Mucous membranes pink and moist. NECK: Trachea midline. No JVD. CARDIOVASCULAR: Normal rate, regular rhythm. RESPIRATORY: No accessory muscle use. Clear to auscultation. Breath sounds equal bilaterally. GASTROINTESTINAL: Abdomen soft, non-tender, nondistended. No guarding. MUSCULOSKELETAL: Extremities without clubbing, cyanosis, or edema. No obvious deformities. NEUROLOGICAL: GCS 14 Awake and confused. RASS 0. No gross focal/sensory deficits. Follows commands in all 4 extremities. Laboratory Laboratory Tests Test 02/14/17 11:10 02/14/17 13:20 White Blood Count 8.7 Red Blood Count 5.59 Hemoglobin 19.0 Hematocrit 56.3 Mean Corpuscular Volume 100.8 Mean Corpuscular Hemoglobin 34.0 Mean Corpuscular Hemoglobin Concent 33.7 Red Cell Distribution Width 13.2 Platelet Count 98 Mean Platelet Volume 8.9 Neutrophils (%) (Auto) 81.4 Lymphocytes (%) (Auto) 8.7 Monocytes (%) (Auto) 9.7 Eosinophils (%) (Auto) 0.0 Basophils (%) (Auto) 0.2 Neutrophils # (Auto) 7.1 Lymphocytes # (Auto) 0.8 Monocytes # (Auto) 0.8 Eosinophils # (Auto) 0.0 Basophils # (Auto) 0.0 CBC Comment AUTO DIFF Differential Comment AUTO DIFF CONFIRMED Platelet Estimate LOW Platelet Morphology Comment NORMAL Blood Urea Nitrogen 14 Creatinine 1.17 Random Glucose 176 Total Protein 8.7 Albumin 4.1 Calcium Level 10.1 Alkaline Phosphatase 134 Aspartate Amino Transf (AST/SGOT) 103 Alanine Aminotransferase (ALT/SGPT) 70 Total Bilirubin 0.8 Sodium Level 139 Potassium Level 3.8 Chloride Level 102 Carbon Dioxide Level 25.6 Anion Gap 11 Estimat Glomerular Filtration Rate 47 Salicylates Level 4.1 Acetaminophen Level LESS THAN 2.0 Ethyl Alcohol Level LESS THAN 3 Urine Color LIGHT-YELLOW Urine Turbidity CLEAR Urine pH 7.0 Urine Specific [place] 1.008 Urine Protein 100 Urine Glucose (UA) NEG Urine Ketones NEG Urine Occult Blood SMALL Urine Nitrite NEG Urine Bilirubin NEG Urine Urobilinogen LESS THAN 2.0 Urine Leukocyte Esterase NEG Urine RBC 2 Urine WBC LESS THAN 1 Urine Squamous Epithelial Cells 1 Urine Bacteria RARE Urine Hyaline Casts 7 Urine Mucus FEW Microscopic Urinalysis Comment CATH-CULTURE IND Urine Opiates Screen NEG Urine Barbiturates Screen NEG Urine Amphetamines Screen NEG Urine Benzodiazepines Screen POS Urine Cocaine Screen NEG Urine Cannabinoids Screen POS Date/Time Source Procedure Growth Status 02/14/17 13:20 Urine Catheterized Urine Urine Culture Pending Received Result Diagram: 02/14/17 1110 02/14/17 1110 Imaging Last Impressions Head CT 02/14/17 1102 Signed Impressions: Service Date/Time: Tuesday, February 14, 2017 11:17 - CONCLUSION: 1. Stable scattered subcortical white matter areas of decreased attenuation. 2. No acute infarct, acute hemorrhage, mass effect or extra-axial fluid collections. Daniele Cary MD Septic Shock Reassessment Septic shock perfusion: reassessment completed Caprini VTE Risk Assessment Caprini VTE Risk Assessment: Mod/High Risk (score >= 2) Caprini Risk Assessment Model Point Value = 1 Point Value = 2 Point Value = 3 Point Value = 5 Age 41-60 Minor surgery BMI > 25 kg/m2 Swollen legs Varicose veins or History of unexplained or recurrent spontaneous Oral contraceptives or hormone replacement Sepsis (< 1 month) Serious lung disease, including pneumonia (< 1 month) Abnormal pulmonary function Acute myocardial infarction Congestive heart failure (< 1 month) History of inflammatory bowel disease Medical patient at bed rest Age 61-74 Arthroscopic surgery Major open surgery (> 45 min) Laparoscopic surgery (> 45 min) Malignancy Confined to bed (> 72 hours) Immobilizing plaster cast Central venous access Age >= 75 History of VTE Family history of VTE Factor V Leiden Prothrombin [id number] Lupus anticoagulant Anticardiolipin antibodies Elevated serum homocysteine Heparin-induced thrombocytopenia Other congenital or acquired thrombophilia Stroke (< 1 month) Elective arthroplasty Hip, pelvis, or leg fracture Acute spinal cord injury (< 1 month) Prophylaxis Regimen Total Risk Factor Score Risk Level Prophylaxis Regimen 0-1 Low Early ambulation 2 Moderate Order ONE of the following: *Sequential Compression Device (SCD) *Heparin 5000 units SQ BID 3-4 Higher Order ONE of the following medications: *Heparin 5000 units SQ TID *Enoxaparin/Lovenox 40 mg SQ daily (WT < 150 kg, CrCl > 30 mL/min) *Enoxaparin/Lovenox 30 mg SQ daily (WT < 150 kg, CrCl > 10-29 mL/min) *Enoxaparin/Lovenox 30 mg SQ BID (WT < 150 kg, CrCl > 30 mL/min) AND/OR *Sequential Compression Device (SCD) 5 or more Highest Order ONE of the following medications: *Heparin 5000 units SQ TID (Preferred with Epidurals) *Enoxaparin/Lovenox 40 mg SQ daily (WT < 150 kg, CrCl > 30 mL/min) *Enoxaparin/Lovenox 30 mg SQ daily (WT < 150 kg, CrCl > 10-29 mL/min) *Enoxaparin/Lovenox 30 mg SQ BID (WT < 150 kg, CrCl > 30 mL/min) AND *Sequential Compression Device (SCD) Assessment and Plan Assessment and Plan Is a 61-year-old female that presented status post new onset seizure with altered mental status. Complexity of presentation includes polypharmacy to include chronic opioid use, antipsychotics, anti-depression and anti-anxiety medications, in the setting of EtOH use disorder and positive use of THC. Patient currently with "word salad", no nystagmus and confusion. Patient currently in hypertensive crisis currently requiring nicardipine infusion .Admit to ICU. Plan by systems: Neurologic: New onset seizure disorder Toxic vs. metabolic Encephalopathy THC use Multiple sclerosis Chronic pain syndrome Fibromyalgia Alcohol use disorder Anxiety disorder Depression Currently GCS 14, combative requiring restraints for patient safety Avoid sedative type medication-hold Soma 350 mg daily at bedtime (home medication) Follow-up urine drug screen positive for benzodiazepines, THC Monitor for alcohol withdrawal symptoms-Versed 2 mg every 4 hours, PRN for agitation, hospital pharmacy does not have Ativan due to shortage in the [place] Seizure precautions 02/14 CT brain-no acute infarct, or hemorrhage Obtain ammonia, TSH, B12 levels Follow-up MRI-previous MRI/04/2014 showed cerebral white matter disease representing chronic microvascular ischemic changes atypical for MS Thiamine folate MVI/daily Obtain EEG Neurology consulted Patient's home meds included Adderall 30 mg twice a day, Soma 350 mg daily at bedtime, oxycodone 30 mg every 6 hours Initiate Precedex infusion Versed 2 mg every 4 hours when necessary for agitation Keppra 500 mg loading dose, initiate Keppra 500 mg twice a day Respiratory: History of COPD Maintain O2 sat greater than 92%, currently on O2 at 2 L nasal cannula Bronchodilators every 4 hours for wheezing Continue Spiriva 18mcgs/da Cardiovascular: Hypertensive urgency Sinus tachycardia Patient received labetalol in the ED telemetry normal sinus rhythm Nicardipine infusion currently at 5 mg/an hour- patient initially presented with BP 180/110, now currently systolic blood pressure 150's Labetalol and hydralazine PRN for SBP > 180 Renal: Renal insufficiency Insert Jacobo catheter -- Strict I/Os FEN/GI: GERD Maintain NPO status for now, obtain formal swallow and clinically indicated Insert NGT for now Normal saline 84 cc/hour Bowel regimen Zofran for nausea Protonix GI prophylaxis Heme/ID: Thrombocytopenia Monitor CBC, patient chronically thrombocytopenic possibly secondary to EtOH use Obtain blood and urine cultures if clinically indicated Endocrine: Glucose monitoring per ICU protocol -- SSI Prophylaxis: GI Prophylaxis Protonix DVT Prophylaxis -- SCDs Heparin twice a day Lines: Peripheral IVs 2 Dispo: my billing statement This patient remains critically ill with one or more organ systems which are or may become a threat to life. I have spent in excess of 44 minutes discontinuously in the care and management of this patient. This time is exclusive of procedures, and includes, but is not limited to, evaluation of the patient, review of the medical record, discussions with family, consultants, nursing staff, or respiratory therapy, and documentation in the medical record. Code Status Full Discussed Condition With Dr. Highet, and ED RN at bedside Problem Qualifiers (1) Altered mental status: Qualified Codes: R41.0 - Disorientation, unspecified (2) Chronic pain: Qualified Codes: G89.4 - Chronic pain syndrome (3) Chronic obstructive pulmonary disease: Qualified Codes: J44.9 - Chronic obstructive pulmonary disease, unspecified (4) Hypertension: Qualified Codes: I10 - Essential (primary) hypertension Suma Dickerson MD Feb 14, 2017 14:57
[2017-02-14] MEDS ORDERED: FLUMAZENIL 0.5 MG/5 ML VIAL IV PUSH PRN (15:00)
[2017-02-14] MEDS ORDERED: levETIRAcetam INJ 500 MG in SODIUM CHLORIDE 0.9% INJ 100 ML IV ONE (15:15)
[2017-02-14] MEDS ORDERED: LABETALOL HCL 100 MG/20 ML VIAL IV PUSH PRN (15:15)
[2017-02-14] MEDS ORDERED: THIAMINE INJ 100 MG in SODIUM CHLORIDE 0.9% INJ 100 ML IV SCH ×2 (15:30→18:00)
[2017-02-14] MEDS: MIDAZOLAM HCL 2 MG/2 ML VIAL IV PUSH PRN (15:36)
[2017-02-14] MEDS: GABAPENTIN 300 MG CAP PO SCH ×2 (18:00→21:48)
[2017-02-14] MEDS: DEXMEDETOMIDINE INJ 1,000 MCG in SODIUM CHLOR 0.9% 250 ML INJ 240 ML IV PRN (18:57)
--- NOTE | 2017-02-14 20:29 | MB ---
cc: LETTY CANAS M.D. DATE OF CONSULTATION: 02/14/2017. REASON FOR CONSULTATION: HISTORY OF PRESENT ILLNESS: She is a 61 year old woman. She was admitted through the emergency room. I spoke to the emergency department physician earlier this afternoon when the patient was evaluated in the emergency department. The patient apparently was noted to be not responding well when the tried to wake her up in the morning. Subsequent to that, she had a 2 minute seizure and she was transported to the emergency room. She was repetitive and confused and had some gaze deviation. She was given fosphenytoin. This is a new onset seizure and the patient may have had some similar problems but no seizures in the past. She has a history of polypharmacy. She has been taking Rebif although reportedly an MRI brain in the past showed findings of microvascular disease, less likely demyelinating disease. She is unable to give much history. When I question her, she says the hospital doctors gave her the Rebif. She repeatedly talks about ibuprofen. According to the chart, there is a history of anxiety disorder and polypharmacy. MEDICATIONS: Her medications include: 1. Adderall. 2. Spiriva. 3. Ibuprofen. 4. Gabapentin. 5. Oxycodone. 6. Protonix. 7. Soma. 8. Alprazolam. 9. Rebif. PHYSICAL EXAMINATION: On exam, she was asleep, easily awakened and becomes somewhat restless sitting up and mentioned the word "ibuprofen" on multiple occasions when I was talking about something else. She follows simple commands and moved all four extremities grossly equally. Reflexes are 1+. Plantar response is probably flexor. Pupils were about she same size and reactive. She seems to be able to count fingers bilaterally. No obvious facial weakness. No evidence of tongue injury. IMAGING STUDIES: The CT brain was negative for acute process. An MRI of the brain was attempted but the patient was too active and unable to obtain the study. LABORATORY DATA: White count 8.7, hemoglobin 19.2, platelet count 98,000. Sodium and potassium normal. BUN 14, creatinine 1.17, glucose 176, AST and ALT elevated to 103 and 70, respectively. Urinalysis is mostly negative. ASSESSMENT: 1. New onset seizure. 2. Possible alcohol withdrawal seizure. 3. Polypharmacy. RECOMMENDATIONS / PLAN: 1. Neurologic-garcia we will obtain an MRI brain later on. 2. Requesting EEG. 3. Continue with anticonvulsant and I observed that she was started on Keppra, which is reasonable. She is on 500 milligrams twice a day. 4. Baseline medications include gabapentin. I will follow the neurological course. Thank you for asking us to assist in her care. MD BRIANA Real/DANIEL /8:03 PM /8:15 PM
[2017-02-14] MEDS: MULTIVITAMIN INJ 10 ML, FOLIC ACID INJ 1 MG in SODIUM CHLORID 0.9% 500 ML INJ 500 ML IV SCH (20:56)
[2017-02-14] MEDS: levETIRAcetam INJ 100 ML IV SCH (20:56)
[2017-02-14] MEDS: DOCUSATE SODIUM 50 MG/SENNA 8.6 MG TAB PO SCH (20:56)
[2017-02-14] MEDS: SODIUM CHLORIDE 0.9% FLUSH 10 ML FLUSH IV FLUSH SCH (20:58)
[2017-02-14] MEDS: INSULIN ASPART SUPPLEMENTAL SCALE SQ SCH (21:00)
[2017-02-14] MEDS: SODIUM CHLOR 0.9% 1000 ML INJ 1,000 ML IV SCH (21:22)
[2017-02-14] MEDS: ACETAMINOPHEN 325 MG TAB PO PRN (21:48)
[2017-02-15] VITALS (12 sets, daily range): BP systolic 102–146; BP diastolic 69–94; PULSE 48–115; RESP 17–29; TEMP 97.4–98.7; O2SAT 100
[2017-02-15 03:28] LABS: AUTOMATED NEUTROPHIL # 3.2 TH/MM3 (1.8-7.7); BASOPHIL % 0.4 % (0.0-2.0); HEMATOCRIT 43.9 % (35.0-46.0); LYMPH % 20.3 % (9.0-44.0); MEAN CELL VOLUME 100.8 FL (80.0-100.0); MEAN CORPUSCULAR HEMOGLOBIN 34.2 PG (27.0-34.0); MEAN CORPUSCULAR HGB CONC 33.9 % (32.0-36.0); MONO % 12.9 % (0.0-8.0); NEUT % 66.4 % (16.0-70.0); PLATELET COUNT 55 TH/MM3 (150-450); RED BLOOD COUNT 4.35 MIL/MM3 (4.00-5.30); RED CELL DISTRIBUTION WIDTH 13.1 % (11.6-17.2); WHITE BLOOD COUNT 4.8 TH/MM3 (4.0-11.0)
[2017-02-15 03:30] LABS: HEMO FLAGS AUTO DIFF
[2017-02-15 03:51] LABS: ALKALINE PHOSPHATASE 87 U/L (45-117); ALT (GPT) 44 U/L (10-53); ANION GAP 8 MEQ/L (5-15); AST (GOT) 48 U/L (15-37); BICARBONATE 25.2 MEQ/L (21.0-32.0); BLOOD UREA NITROGEN 15 MG/DL (7-18); CHLORIDE 112 MEQ/L (98-107); GLOMERULAR FILTRATION RATE 100 ML/MIN (>89); MAGNESIUM 1.9 MG/DL (1.5-2.5); POTASSIUM 3.5 MEQ/L (3.5-5.1); SODIUM (NA) 145 MEQ/L (136-145); TOTAL BILIRUBIN ADULT 0.6 MG/DL (0.2-1.0)
[2017-02-15 03:59] LABS: SCAN/DIFF AUTO DIFF CONFIRMED
[2017-02-15 04:00] LABS: PLATELET ESTIMATE SMEAR LOW (NORMAL); PLATELET MORPHOLOGY ENLARGED (NORMAL)
[2017-02-15] MEDS: CHLORHEXIDINE GLUCONATE 2 % 1 PACK (2 CLOTHS) TOP SCH (04:00)
[2017-02-15] MEDS: HEPARIN SODIUM - SQ 10,000 UNITS/ML VIAL SQ SCH ×2 (05:57→15:44)
[2017-02-15] MEDS: INSULIN ASPART SUPPLEMENTAL SCALE SQ SCH ×4 (08:00→20:30)
--- NOTE | 2017-02-15 08:40 | HHI.CCPN ---
Subjective Remarks/Hospital Course This is a 61-year-old female that presented to the ED with altered mental status. Per report from the patient's , she was in bed with her and he tried to wake her up and he couldn't. He told EMS that he witnessed 2 minute seizure described as clenching of teeth, salivation, and unresponsiveness. When EMS arrived they found her to be cyanotic and drooling. She's never had seizures before per her . EMS observed a lot of repetitive questioning and leftward gaze deviation. They said the last time she was seen normal was last evening. The patient was loaded with fosphenytoin 1 g. The patient notably has an alcohol use disorder drinking 4-5 drinks (wine ) per day. Patient presented with hypertensive urgency with BP 180s/110. Nicardipine infusion was initiated. Patient's past medical history is significant for polypharmacy and concomitant use of opiates, antipsychotics, anti-anxiety, anti-depressive drugs in the setting of chronic alcohol use. Patient previously admitted in 2014 with similar presentation of altered mental status. Patient now with new onset seizure disorder. The patient was loaded with fosphenytoin in the ED imaging and lab studies are pending. Neurology has been consulted .Critical care medicine was consulted for management. Subjective: 02/15: Afebrile. Patient more responsive this a.m. but still confused. Alert and oriented to name only. Patient continues on Precedex infusion for agitation. Patient continues on antiepileptic medications. No seizures noted since admission to hospital. MRI pending. Objective Vital Signs Date Time Temp Pulse Resp B/P (MAP) Pulse Ox O2 Delivery O2 Flow Rate FiO2 02/15/17 06:00 64 02/15/17 04:00 98.0 17 143/81 (101) 100 02/14/17 20:06 2.00 02/14/17 16:11 Room Air Intake and Output 02/15/17 02/15/17 02/16/17 08:00 16:00 00:00 Intake Total 1593.2 ml Output Total 1650 ml Balance -56.8 ml Result Diagram: 02/15/175 02/15/175 Imaging Last Impressions Head CT 02/14/17 1102 Signed Impressions: Service Date/Time: Tuesday, February 14, 2017 11:17 - CONCLUSION: 1. Stable scattered subcortical white matter areas of decreased attenuation. 2. No acute infarct, acute hemorrhage, mass effect or extra-axial fluid collections. Daniele Cary MD Objective Remarks GENERAL: His is a well-developed well-nourished female alert and responding to questions, inappropriately SKIN: Warm and dry. HEAD: Atraumatic. Normocephalic. EYES: Pupils equal and round. No scleral icterus. No injection or drainage. ENT: No nasal bleeding or discharge. Mucous membranes pink and moist. NECK: Trachea midline. No JVD. CARDIOVASCULAR: Normal rate, regular rhythm. RESPIRATORY: No accessory muscle use. Clear to auscultation. Breath sounds equal bilaterally. GASTROINTESTINAL: Abdomen soft, non-tender, nondistended. No guarding. MUSCULOSKELETAL: Extremities without clubbing, cyanosis, or edema. No obvious deformities. NEUROLOGICAL: GCS 14 Awake and confused. Alert to name only .RASS 0. No gross focal/sensory deficits. Follows commands in all 4 extremities. Cranial nerves II-XII grossly intact A/P Assessment and Plan Is a 61-year-old female that presented status post new onset seizure with altered mental status. Complexity of presentation includes polypharmacy to include chronic opioid use, antipsychotics, anti-depression and anti-anxiety medications, in the setting of EtOH use disorder and positive use of THC. Patient currently with "word salad", no nystagmus and confusion. Patient currently in hypertensive crisis currently requiring nicardipine infusion .Admit to ICU. Plan by systems: Neurologic: New onset seizure disorder Toxic vs. metabolic Encephalopathy THC use Multiple sclerosis Chronic pain syndrome Fibromyalgia Alcohol use disorder Anxiety disorder Depression Currently GCS 14, combative requiring restraints for patient safety Avoid sedative type medication-hold Soma 350 mg daily at bedtime (home medication) Follow-up urine drug screen positive for benzodiazepines, THC Monitor for alcohol withdrawal symptoms-Versed 2 mg every 4 hours, PRN for agitation, hospital pharmacy does not have Ativan due to shortage in the [place] Seizure precautions 02/14 CT brain-no acute infarct, or hemorrhage Ammonia 18 TSH- WNL B12 level Follow-up MRI-previous MRI/04/2014 showed cerebral white matter disease representing chronic microvascular ischemic changes atypical for MS Thiamine folate MVI/daily Obtain EEG Neurology following Dr. Juan Patient's home meds included Adderall 30 mg twice a day, Soma 350 mg daily at bedtime, oxycodone 30 mg every 6 hours (all placed on hold) Continue Precedex infusion Versed 2 mg every 4 hours when necessary for agitation Keppra 500 mg loading dose, initiate Keppra 500 mg twice a day F/U MRI-pending Respiratory: History of COPD Maintain O2 sat greater than 92%, currently on O2 at 2 L nasal cannula Bronchodilators every 4 hours for wheezing Continue Spiriva 18mcgs/da Cardiovascular: Hypertensive urgency-resolved Sinus tachycardia-resolved Patient received labetalol in the ED telemetry normal sinus rhythm Nicardipine infusion currently at 5 mg/an hour- patient initially presented with BP 180/110, now currently systolic blood pressure 150's. Discontinued on evening of 02/14 Labetalol and hydralazine PRN for SBP > 180 Renal: Renal insufficiency Insert Jacobo catheter -- Strict I/Os FEN/GI: GERD Obtain formal swallow Begin heart healthy diet Normal saline 84 cc/hour Bowel regimen Zofran for nausea Protonix GI prophylaxis Heme/ID: Thrombocytopenia Macrocytic anemia Monitor CBC, patient chronically thrombocytopenic possibly secondary to EtOH use. PLT CT 55 Transfuse for platelet count less than 50,000 Blood and urine cultures follow-up results Endocrine: Glucose monitoring per ICU protocol -- SSI Prophylaxis: GI Prophylaxis Protonix DVT Prophylaxis -- SCDs Heparin 5000 twice a day Lines: Peripheral IVs 2 Dispo: Level 3 Discussed with WELD TECHNICIAN at bedside Physician Suma Mckeon MD Feb 15, 2017 08:39
[2017-02-15] MEDS: DOCUSATE SODIUM 50 MG/SENNA 8.6 MG TAB PO SCH ×2 (09:00→20:30)
[2017-02-15] MEDS: PANTOPRAZOLE SODIUM 40 MG VIAL IV PUSH SCH (09:43)
[2017-02-15] MEDS: GABAPENTIN 300 MG CAP PO SCH ×2 (09:44→13:15)
[2017-02-15] MEDS: levETIRAcetam INJ 100 ML IV SCH ×2 (09:44→20:29)
[2017-02-15] MEDS: SODIUM CHLORIDE 0.9% FLUSH 10 ML FLUSH IV FLUSH SCH ×2 (09:44→20:29)
[2017-02-15] MEDS: DEXMEDETOMIDINE INJ 1,000 MCG in SODIUM CHLOR 0.9% 250 ML INJ 240 ML IV PRN (12:46)
[2017-02-15] MEDS: THIAMINE INJ 100 MG in SODIUM CHLORIDE 0.9% INJ 100 ML IV SCH (12:47)
--- NOTE | 2017-02-15 14:53 | HHI.PR ---
Review/Management Daily Summary 02/15 more alert and responsive admiots she was wild yesterday followscommands well, nonfocal pending mri and eeg keppra Subjective Subjective Comments No acute events reported No headache Active Medications Current Medications Medications (Trade) Dose Ordered Sig/Matt Route Start Time Stop Time Status Last Admin Sodium Chloride 1,000 ml @ 84 mls/hr [id number] IV 02/14/17 13:50 02/14/17 21:22 (NS Flush) 2 ml UNSCH PRN IV FLUSH 02/14/17 14:00 (NS Flush) 2 ml BID IV FLUSH 02/14/17 21:00 02/15/17 09:44 (Tylenol) 650 mg Q6H PRN PO 02/14/17 14:00 (Protonix Inj) 40 mg DAILY IV PUSH 02/15/17 09:00 02/15/17 09:43 (Versed Inj) 2 mg Q4HR PRN IV PUSH 02/14/17 14:00 02/14/17 15:36 (Zofran Inj) 4 mg Q6H PRN IV PUSH 02/14/17 14:00 (Duoneb Neb) 1 ampule Q4HR NEB PRN INH 02/14/17 14:00 (Heparin Inj) 5,000 units Q12H SQ 02/14/17 16:00 02/15/17 05:57 Miscellaneous Information 1 Q361D XX 02/14/17 14:00 (Chlorhexidine 2% Cloth) 3 pack Taper DAILY@04 TOP 02/15/17 04:00 02/11/18 03:59 02/15/17 04:00 (Chlorhexidine 2% Cloth) 3 pack UNSCH PRN TOP 02/14/17 14:00 (Elizabeth-Colace) 1 tab BID PO 02/14/17 21:00 (Milk Of Magnesia Liq) 30 ml Q12H PRN PO 02/14/17 14:00 (Senokot) 17.2 mg Q12H PRN PO 02/14/17 14:00 (Dulcolax Supp) 10 mg DAILY PRN RECTAL 02/14/17 14:00 (Lactulose Liq) 30 ml DAILY PRN PO 02/14/17 14:00 Potassium Chloride 100 ml @ 50 mls/hr Q2H PRN IV 02/14/17 14:00 Potassium Chloride 100 ml @ 50 mls/hr Q2H PRN IV 02/14/17 14:00 (K-Lyte Cl Eff) 50 meq UNSCH PRN PO 02/14/17 14:00 Potassium Chloride 100 ml @ 25 mls/hr UNSCH PRN IV 02/14/17 14:00 Potassium Chloride 100 ml @ 50 mls/hr Q2H PRN IV 02/14/17 14:00 Magnesium Sulfate 4 gm/Sodium Chloride 100 ml @ 50 mls/hr UNSCH PRN IV 02/14/17 14:00 (Mag-Ox) 800 mg UNSCH PRN PO 02/14/17 14:00 Magnesium Sulfate 2 gm/Sodium Chloride 100 ml @ 50 mls/hr UNSCH PRN IV 02/14/17 14:00 (K-Phos) 2,000 mg Q4H PRN PO 02/14/17 14:00 Sodium Phosphate 30 mmol/Sodium Chloride 250 ml @ 42 mls/hr UNSCH PRN IV 02/14/17 14:00 (K-Phos) 2,000 mg UNSCH PRN PO/TUBE 02/14/17 14:00 Potassium Phosphate 30 mmol/ Sodium Chloride 260 ml @ 42 mls/hr UNSCH PRN IV 02/14/17 14:00 (D50w (Vial) Inj) 50 ml UNSCH PRN IV PUSH 02/14/17 14:00 (Glucagon Inj) 1 mg UNSCH PRN OTHER 02/14/17 14:00 (NovoLOG SUPPLEMENTAL SCALE) 1 ACHS SLIDING SCALE SQ 02/14/17 17:00 Multivitamins 10 ml/Folic Acid 1 mg/Sodium Chloride 510.2 ml @ 125 mls/hr Q24H IV 02/14/17 17:00 02/19/17 16:59 02/14/17 20:56 (Romazicon Inj) 0.2 mg Q1M PRN IV PUSH 02/14/17 15:00 (Trandate Inj) 10 mg Q4H PRN IV PUSH 02/14/17 15:15 (Apresoline Inj) 20 mg Q4H PRN IV PUSH 02/14/17 15:15 Levetriacetam 100 ml @ 400 mls/hr Q12HR IV 02/14/17 21:00 02/15/17 09:44 Thiamine HCl 100 mg/Sodium Chloride 101 ml @ 100 mls/hr Q24H IV 02/15/17 09:00 02/17/17 10:01 02/15/17 12:47 Dexmedetomidine HCl 1000 mcg/ Sodium Chloride 250 ml @ 2.7 mls/hr TITRATE PRN IV 02/14/17 18:15 02/15/17 12:46 (Neurontin) 300 mg Q8H PO 02/16/17 08:00 Allergies Allergies Coded Allergies Sulfa (Sulfonamide Antibiotics) (Unverified Allergy, Intermediate, N/V, ) modafinil (Unverified Allergy, Mild, Rash, 02/14/17) carisoprodol (Verified Allergy, Unknown, 02/14/17) Exam I&O / VS 02/15/17 02/15/17 02/16/17 14:59 22:59 06:59 Intake Total 100 ml Balance 100 ml Intake IV Total 100 ml Vital Signs Date Time Temp Pulse Resp B/P (MAP) Pulse Ox O2 Delivery O2 Flow Rate FiO2 02/15/17 12:00 98.2 63 18 141/86 (104) 100 02/15/17 12:00 63 02/15/17 10:00 53 02/15/17 08:00 57 02/15/17 08:00 98.1 57 18 135/76 (95) 100 02/15/17 06:00 64 02/15/17 04:00 48 02/15/17 04:00 98.0 48 17 143/81 (101) 100 02/15/17 02:00 60 02/15/17 00:00 97.4 68 21 102/69 (80) 100 02/15/17 00:00 68 02/14/17 22:00 71 02/14/17 20:06 98 2.00 02/14/17 20:00 98.6 72 15 110/73 (85) 99 02/14/17 20:00 72 02/14/17 16:30 97.3 98 19 132/74 (93) 97 02/14/17 16:11 103 16 132/83 (99) 100 Room Air 02/14/17 15:36 104 16 138/89 (105) 96 Nasal Cannula 2.00 Objective Micro and Labs Laboratory Tests Test 02/14/17 17:30 02/14/17 21:38 02/15/17 03:15 Nasal Screen MRSA (PCR) MRSA NOT DETECTED Phosphorus Level 3.8 4.4 Ammonia 31 Vitamin B12 Level GREATER THAN 2000 Thyroid Stimulating Hormone 3rd Gen 2.480 White Blood Count 4.8 Red Blood Count 4.35 Hemoglobin 14.9 Hematocrit 43.9 Mean Corpuscular Volume 100.8 Mean Corpuscular Hemoglobin 34.2 Mean Corpuscular Hemoglobin Concent 33.9 Red Cell Distribution Width 13.1 Platelet Count 55 Mean Platelet Volume 8.2 Neutrophils (%) (Auto) 66.4 Lymphocytes (%) (Auto) 20.3 Monocytes (%) (Auto) 12.9 Eosinophils (%) (Auto) 0.0 Basophils (%) (Auto) 0.4 Neutrophils # (Auto) 3.2 Lymphocytes # (Auto) 1.0 Monocytes # (Auto) 0.6 Eosinophils # (Auto) 0.0 Basophils # (Auto) 0.0 CBC Comment AUTO DIFF Differential Comment AUTO DIFF CONFIRMED Platelet Estimate LOW Platelet Morphology Comment ENLARGED Blood Urea Nitrogen 15 Creatinine 0.61 Random Glucose 108 Total Protein 6.4 Albumin 3.1 Calcium Level 8.3 Magnesium Level 1.9 Alkaline Phosphatase 87 Aspartate Amino Transf (AST/SGOT) 48 Alanine Aminotransferase (ALT/SGPT) 44 Total Bilirubin 0.6 Sodium Level 145 Potassium Level 3.5 Chloride Level 112 Carbon Dioxide Level 25.2 Anion Gap 8 Estimat Glomerular Filtration Rate 100 Date/Time Source Procedure Growth Status 02/14/17 21:36 Blood Peripheral Aerobic Blood Culture - Preliminary NO GROWTH IN 1 DAY Resulted 02/14/17 21:36 Blood Peripheral Anaerobic Blood Culture - Preliminary NO GROWTH IN 1 DAY Resulted 02/14/17 13:20 Urine Catheterized Urine Urine Culture - Preliminary NO GROWTH IN 24 HOURS. Resulted Guero Juan MD Feb 15, 2017 14:53
--- NOTE | 2017-02-15 15:32 | EKG ---
Date Performed: 02/14/2017 Time Performed: 11:02:19 PTAGE: 61 years EKG: SINUS TACHYCARDIA BORDERLINE RIGHT AXIS DEVIATION NONSPECIFIC ST & T-WAVE ABNORMALITY ABNOR MAL RHYTHM ECG Compared to PREVIOUS TRACING , patient is now in sinus tachycardia, minor nonspecific ST & T-wave maia nges are seen in leads V5 and V6, which is possible ischemia. Clinical correlation recommended. PREVI OUS TRACIN04/15/2014 19.18 DOCTOR: Clari Constantino Interpretating Date/Time 02/15/2017 15:31:33
[2017-02-15] MEDS: MULTIVITAMIN INJ 10 ML, FOLIC ACID INJ 1 MG in SODIUM CHLORID 0.9% 500 ML INJ 500 ML IV SCH (17:00)
[2017-02-15] MEDS: SODIUM CHLOR 0.9% 1000 ML INJ 1,000 ML IV SCH (18:25)
[2017-02-15 18:46] LABS: C. DIFF EPI 027 PRESUMPTIVE NEGATIVE (NEGATIVE)
[2017-02-16] VITALS (13 sets, daily range): BP systolic 132–169; BP diastolic 68–90; PULSE 49–99; RESP 16–37; TEMP 97.8–99.2; O2SAT 96–100
[2017-02-16] MEDS: HEPARIN SODIUM - SQ 10,000 UNITS/ML VIAL SQ SCH ×2 (03:10→18:18)
[2017-02-16] MEDS: CHLORHEXIDINE GLUCONATE 2 % 1 PACK (2 CLOTHS) TOP SCH (03:10)
--- NOTE | 2017-02-16 05:17 | MG ---
cc: PAPITO MORENO MD Lab No: [id number] Date: 02/15/2017 Age: 61 Sex: F Race: DATE OF 1955 INDICATIONS FOR PROCEDURE History of possible seizure-type activity. FINDINGS 4-6 Hz posterior rhythm, 20-50 microvolts. T4 artifact. There is some rhythmic theta the right temporal region occurring around epoch 65. Episodes of bitemporal slowing. Reduced driving with photic stimulation. Good EEG variability reactivity. INTERPRETATION Mild to moderate encephalopathy. No active seizures. Clinical correlation. Papito Moreno MD MG/SSB /9:08 PM /5:10 AM
[2017-02-16] MEDS: SODIUM CHLOR 0.9% 1000 ML INJ 1,000 ML IV SCH ×2 (06:03→13:30)
[2017-02-16 07:52] LABS: HEMATOCRIT 39.2 % (35.0-46.0); MEAN CELL VOLUME 100.9 FL (80.0-100.0); MEAN CORPUSCULAR HEMOGLOBIN 33.9 PG (27.0-34.0); MEAN CORPUSCULAR HGB CONC 33.6 % (32.0-36.0); PLATELET COUNT 65 TH/MM3 (150-450); RED BLOOD COUNT 3.89 MIL/MM3 (4.00-5.30); RED CELL DISTRIBUTION WIDTH 12.8 % (11.6-17.2); WHITE BLOOD COUNT 5.1 TH/MM3 (4.0-11.0)
[2017-02-16 07:56] LABS: REVIEW FLAG FINAL
[2017-02-16 08:18] LABS: BICARBONATE 25.7 MEQ/L (21.0-32.0); POTASSIUM 3.3 MEQ/L (3.5-5.1)
[2017-02-16] MEDS: THIAMINE INJ 100 MG in SODIUM CHLORIDE 0.9% INJ 100 ML IV SCH (09:00)
[2017-02-16] MEDS: DOCUSATE SODIUM 50 MG/SENNA 8.6 MG TAB PO SCH ×2 (09:00→19:48)
[2017-02-16] MEDS: SODIUM CHLORIDE 0.9% FLUSH 10 ML FLUSH IV FLUSH SCH ×2 (09:00→19:48)
[2017-02-16] MEDS: PANTOPRAZOLE SODIUM 40 MG VIAL IV PUSH SCH (09:12)
[2017-02-16] MEDS: GABAPENTIN 300 MG CAP PO SCH ×3 (09:13→23:09)
[2017-02-16] MEDS: levETIRAcetam INJ 100 ML IV SCH ×2 (09:13→19:47)
--- NOTE | 2017-02-16 09:36 | HHI.CCPN ---
Subjective Remarks/Hospital Course This is a 61-year-old female that presented to the ED with altered mental status. Per report from the patient's , she was in bed with her and he tried to wake her up and he couldn't. He told EMS that he witnessed 2 minute seizure described as clenching of teeth, salivation, and unresponsiveness. When EMS arrived they found her to be cyanotic and drooling. She's never had seizures before per her . EMS observed a lot of repetitive questioning and leftward gaze deviation. They said the last time she was seen normal was last evening. The patient was loaded with fosphenytoin 1 g. The patient notably has an alcohol use disorder drinking 4-5 drinks (wine ) per day. Patient presented with hypertensive urgency with BP 180s/110. Nicardipine infusion was initiated. Patient's past medical history is significant for polypharmacy and concomitant use of opiates, antipsychotics, anti-anxiety, anti-depressive drugs in the setting of chronic alcohol use. Patient previously admitted in 2014 with similar presentation of altered mental status. Patient now with new onset seizure disorder. The patient was loaded with fosphenytoin in the ED imaging and lab studies are pending. Neurology has been consulted .Critical care medicine was consulted for management. Subjective: 02/15: Afebrile. Patient more responsive this a.m. but still confused. Alert and oriented to name only. Patient continues on Precedex infusion for agitation. Patient continues on antiepileptic medications. No seizures noted since admission to hospital. MRI pending. 02/16: Patient awake this morning alert, responsive confused regarding the year but is aware of place and name. Patient scheduled for MRI this a.m.. EEG revealed no seizure activity. Objective Vital Signs Date Time Temp Pulse Resp B/P (MAP) Pulse Ox O2 Delivery O2 Flow Rate FiO2 02/16/17 06:00 56 02/16/17 04:00 98.8 16 152/72 (98) 100 02/16/17 03:46 Nasal Cannula 2.00 Intake and Output 02/16/17 02/16/17 02/17/17 08:00 16:00 00:00 Intake Total 1240 ml Output Total 1200 ml Balance 40 ml Result Diagram: 02/16/17 0657 02/16/17 0657 Imaging Last Impressions Head CT 02/14/17 1102 Signed Impressions: Service Date/Time: Tuesday, February 14, 2017 11:17 - CONCLUSION: 1. Stable scattered subcortical white matter areas of decreased attenuation. 2. No acute infarct, acute hemorrhage, mass effect or extra-axial fluid collections. Daniele Cary MD Objective Remarks GENERAL: His is a well-developed well-nourished female alert and responding to questions appropriately. Unaware of the year, keep stating as 2006 SKIN: Warm and dry. HEAD: Atraumatic. Normocephalic. EYES: Pupils equal and round. No scleral icterus. No injection or drainage. ENT: No nasal bleeding or discharge. Mucous membranes pink and moist. NECK: Trachea midline. No JVD. CARDIOVASCULAR: Normal rate, regular rhythm. RESPIRATORY: No accessory muscle use. Clear to auscultation. Breath sounds equal bilaterally. GASTROINTESTINAL: Abdomen soft, non-tender, nondistended. No guarding. MUSCULOSKELETAL: Extremities without clubbing, cyanosis, or edema. No obvious deformities. NEUROLOGICAL: GCS 14 Awake and confused. Alert to name only .RASS 0. No gross focal/sensory deficits. Follows commands in all 4 extremities. Cranial nerves II-XII grossly intact Urinary Catheter: Yes Assessment to: Remove Vascular Central Line Catheter: No A/P Assessment and Plan Plan by systems: Neurologic: New onset seizure disorder Toxic vs. metabolic Encephalopathy THC use Multiple sclerosis Chronic pain syndrome Fibromyalgia Alcohol use disorder Anxiety disorder Depression Currently GCS 14, combative requiring restraints for patient safety Avoid sedative type medication-hold Soma 350 mg daily at bedtime (home medication) Follow-up urine drug screen positive for benzodiazepines, THC Monitor for alcohol withdrawal symptoms-Versed 2 mg every 4 hours, PRN for agitation, hospital pharmacy does not have Ativan due to shortage in the [place] Seizure precautions 02/14 CT brain-no acute infarct, or hemorrhage Ammonia 18 TSH- WNL B12 level Follow-up MRI-previous MRI/04/2014 showed cerebral white matter disease representing chronic microvascular ischemic changes atypical for MS Thiamine folate MVI/daily 02/15 EEG-mild to moderate encephalopathy. No seizure activity Neurology following Dr. Juan Patient's home meds included Adderall 30 mg twice a day, Soma 350 mg daily at bedtime, oxycodone 30 mg every 6 hours (all placed on hold) Discontinue Precedex infusion Versed 2 mg every 4 hours when necessary for agitation Keppra 500 mg loading dose, initiate Keppra 500 mg twice a day F/U MRI-pending Respiratory: History of COPD Maintain O2 sat greater than 92%, currently on O2 at 2 L nasal cannula Bronchodilators every 4 hours for wheezing Continue Spiriva 18mcgs/day Cardiovascular: Hypertensive urgency-resolved Sinus tachycardia-resolved Patient received labetalol in the ED telemetry normal sinus rhythm Nicardipine infusion currently at 5 mg/an hour- patient initially presented with BP 180/110, now currently systolic blood pressure 150's. Discontinued on evening of 02/14 Labetalol and hydralazine PRN for SBP > 180 Renal: Renal insufficiency Insert Jaocbo catheter -- Strict I/Os FEN/GI: GERD Heart healthy diet Normal saline 84 cc/hour, will discontinue upon toleration of diet Bowel regimen Zofran for nausea Protonix GI prophylaxis Heme/ID: Thrombocytopenia Macrocytic anemia Monitor CBC, patient chronically thrombocytopenic possibly secondary to EtOH use. PLT CT 55 Transfuse for platelet count less than 50,000 Blood and urine cultures follow-up results-NGTD Endocrine: Glucose monitoring per ICU protocol -- SSI Prophylaxis: GI Prophylaxis Protonix DVT Prophylaxis -- SCDs Heparin 5000 twice a day Lines: Peripheral IVs 2 Dispo: Level 2 Discussed with RESPIRATORY THERAPY DIRECTOR at bedside (Christiano). Plan for transfer to [facility] in a.m., planned to transfer to [facility] floor. Physician Suma Mckeon MD Feb 16, 2017 09:36
[2017-02-16] MEDS ORDERED: GADODIAMIDE PF 287 MG/ML 10 ML VIAL (for RAD MRI) IVCONTRAST ONE (10:38)
--- NOTE | 2017-02-16 11:05 | RADRPT ---
EXAM DATE/TIME: 02/16/2017 10:36 [facility] COMPARISON: MRI BRAIN W & W/O CONTRAST, April 16, 2014, 12:11. INDICATIONS : Altered mental status. CONTRAST: 10 cc Omniscan (gadodiamide) IV MEDICAL HISTORY : Multiple sclerosis. Hypertension. Chronic obstructive pulmonary disease. SURGICAL HISTORY : Fusion, cervical. Tubal ligation. Orthopaedic. ENCOUNTER: Initial ACUITY: 1 day PAIN SCORE: 0/10 LOCATION: cranial TECHNIQUE: Multiplanar, multisequence MRI of the brain was performed both prior to and following the administrat ion of paramagnetic contrast. FINDINGS: CEREBRUM: The ventricles are normal for age. No evidence of midline shift, mass lesion, hemorrhage or acute in farction. No extraaxial fluid collections are seen. The pituitary gland and suprasellar cistern are normal in configuration. WHITE MATTER: There are again numerous abnormal areas of increased signal on the flair images throughout the perive ntricular white matter left greater than right very similar to April 2014. It likely represents ch ronic microvascular ischemic changes. Distribution is atypical for multiple sclerosis. No new lesions are identified. POSTERIOR FOSSA: The cerebellum and brainstem are intact. The 4th ventricle is midline. The cerebellopontine angle is unremarkable. The cerebellar tonsils are normal in position. DIFFUSION IMAGING: No focal areas of restricted diffusion are seen. No evidence of acute infarction. EXTRACRANIAL: The visualized portions of the orbits and paranasal sinuses are unremarkable. POST-CONTRAST: No abnormal areas of parenchymal or dural enhancement. No evidence of blood-brain barrier breakdown. CONCLUSION: Stable examination . There are innumerable areas of increased signal in the paravertebral white matte r left rib right likely related to chronic ischemic demyelination change. No new mass is seen. No nathaly dence of an acute stroke. Jacky Love MD on February 16, 2017 at 11:01 Board Certified Radiologist. This report was verified electronically.
[2017-02-16] MEDS: MULTIVITAMIN INJ 10 ML, FOLIC ACID INJ 1 MG in SODIUM CHLORID 0.9% 500 ML INJ 500 ML IV SCH (17:00)
[2017-02-16] MEDS: INSULIN ASPART SUPPLEMENTAL SCALE SQ SCH ×2 (17:00→19:53)
--- NOTE | 2017-02-16 17:00 | HHI.PR ---
Review/Management Daily Summary 02/15 more alert and responsive admiots she was wild yesterday followscommands well, nonfocal pending mri and eeg keppra 02/16 alert and oriented anxious to move to floor and go home as well no seizutres mri normal will follow peripherally, outpt f/u with her usual neuro Subjective Subjective Comments No acute events reported No headache No chest pain No dyspnea Active Medications Current Medications Medications (Trade) Dose Ordered Sig/Matt Route Start Time Stop Time Status Last Admin Sodium Chloride 1,000 ml @ 84 mls/hr [id number] IV 02/14/17 13:50 02/16/17 06:03 (NS Flush) 2 ml UNSCH PRN IV FLUSH 02/14/17 14:00 (NS Flush) 2 ml BID IV FLUSH 02/14/17 21:00 02/15/17 09:44 (Tylenol) 650 mg Q6H PRN PO 02/14/17 14:00 (Protonix Inj) 40 mg DAILY IV PUSH 02/15/17 09:00 02/16/17 09:12 (Versed Inj) 2 mg Q4HR PRN IV PUSH 02/14/17 14:00 02/14/17 15:36 (Zofran Inj) 4 mg Q6H PRN IV PUSH 02/14/17 14:00 (Duoneb Neb) 1 ampule Q4HR NEB PRN INH 02/14/17 14:00 (Heparin Inj) 5,000 units Q12H SQ 02/14/17 16:00 02/16/17 03:10 Miscellaneous Information 1 [id number] XX 02/14/17 14:00 (Chlorhexidine 2% Cloth) 3 pack Taper DAILY@04 TOP 02/15/17 04:00 02/11/18 03:59 02/16/17 03:10 (Chlorhexidine 2% Cloth) 3 pack UNSCH PRN TOP 02/14/17 14:00 (Elizabeth-Colace) 1 tab BID PO 02/14/17 21:00 (Milk Of Magnesia Liq) 30 ml Q12H PRN PO 02/14/17 14:00 (Senokot) 17.2 mg Q12H PRN PO 02/14/17 14:00 (Dulcolax Supp) 10 mg DAILY PRN RECTAL 02/14/17 14:00 (Lactulose Liq) 30 ml DAILY PRN PO 02/14/17 14:00 Potassium Chloride 100 ml @ 50 mls/hr Q2H PRN IV 02/14/17 14:00 Potassium Chloride 100 ml @ 50 mls/hr Q2H PRN IV 02/14/17 14:00 (K-Lyte Cl Eff) 50 meq UNSCH PRN PO 02/14/17 14:00 Potassium Chloride 100 ml @ 25 mls/hr UNSCH PRN IV 02/14/17 14:00 Potassium Chloride 100 ml @ 50 mls/hr Q2H PRN IV 02/14/17 14:00 Magnesium Sulfate 4 gm/Sodium Chloride 100 ml @ 50 mls/hr UNSCH PRN IV 02/14/17 14:00 (Mag-Ox) 800 mg UNSCH PRN PO 02/14/17 14:00 Magnesium Sulfate 2 gm/Sodium Chloride 100 ml @ 50 mls/hr UNSCH PRN IV 02/14/17 14:00 (K-Phos) 2,000 mg Q4H PRN PO 02/14/17 14:00 Sodium Phosphate 30 mmol/Sodium Chloride 250 ml @ 42 mls/hr UNSCH PRN IV 02/14/17 14:00 (K-Phos) 2,000 mg UNSCH PRN PO/TUBE 02/14/17 14:00 Potassium Phosphate 30 mmol/ Sodium Chloride 260 ml @ 42 mls/hr UNSCH PRN IV 02/14/17 14:00 (D50w (Vial) Inj) 50 ml UNSCH PRN IV PUSH 02/14/17 14:00 (Glucagon Inj) 1 mg UNSCH PRN OTHER 02/14/17 14:00 (NovoLOG SUPPLEMENTAL SCALE) 1 ACHS SLIDING SCALE SQ 02/14/17 17:00 Multivitamins 10 ml/Folic Acid 1 mg/Sodium Chloride 510.2 ml @ 125 mls/hr Q24H IV 02/14/17 17:00 02/19/17 16:59 02/15/17 17:00 (Romazicon Inj) 0.2 mg Q1M PRN IV PUSH 02/14/17 15:00 (Trandate Inj) 10 mg Q4H PRN IV PUSH 02/14/17 15:15 (Apresoline Inj) 20 mg Q4H PRN IV PUSH 02/14/17 15:15 Levetriacetam 100 ml @ 400 mls/hr Q12HR IV 02/14/17 21:00 02/16/17 09:13 Thiamine HCl 100 mg/Sodium Chloride 101 ml @ 100 mls/hr Q24H IV 02/15/17 09:00 02/17/17 10:01 02/15/17 12:47 Dexmedetomidine HCl 1000 mcg/ Sodium Chloride 250 ml @ 2.7 mls/hr TITRATE PRN IV 02/14/17 18:15 02/15/17 12:46 (Neurontin) 300 mg Q8H PO 02/16/17 08:00 02/16/17 09:13 Allergies Allergies Coded Allergies Sulfa (Sulfonamide Antibiotics) (Unverified Allergy, Intermediate, N/V, ) modafinil (Unverified Allergy, Mild, Rash, 02/14/17) carisoprodol (Verified Allergy, Unknown, 02/14/17) Exam I&O / VS Vital Signs Date Time Temp Pulse Resp B/P (MAP) Pulse Ox O2 Delivery O2 Flow Rate FiO2 02/16/17 16:00 79 02/16/17 14:00 79 02/16/17 12:00 79 02/16/17 12:00 98.5 94 28 137/72 (93) 02/16/17 10:00 79 02/16/17 08:00 98.6 52 18 169/83 (111) 100 02/16/17 08:00 79 02/16/17 06:00 56 02/16/17 04:00 49 02/16/17 04:00 98.8 49 16 152/72 (98) 100 02/16/17 03:46 100 Nasal Cannula 2.00 02/16/17 02:00 69 02/16/17 00:00 60 02/16/17 00:00 99.2 60 20 132/68 (89) 100 02/15/17 22:00 55 02/15/17 20:00 98.7 62 19 146/80 (102) 100 02/15/17 20:00 62 02/15/17 18:00 61 Objective Radiology Results Last 48 hours Impressions Brain MRI 02/16/17 0000 Signed Impressions: Service Date/Time: Thursday, February 16, 2017 10:36 - CONCLUSION: Stable examination . There are innumerable areas of increased signal in the paravertebral white matter left rib right likely related to chronic ischemic demyelination change. No new mass is seen. No evidence of an acute stroke. Jacky Love MD Micro and Labs Laboratory Tests Test 02/16/17 06:57 White Blood Count 5.1 Red Blood Count 3.89 Hemoglobin 13.2 Hematocrit 39.2 Mean Corpuscular Volume 100.9 Mean Corpuscular Hemoglobin 33.9 Mean Corpuscular Hemoglobin Concent 33.6 Red Cell Distribution Width 12.8 Platelet Count 65 Mean Platelet Volume 9.6 Blood Urea Nitrogen 12 Creatinine 0.54 Random Glucose 80 Calcium Level 8.4 Sodium Level 143 Potassium Level 3.3 Chloride Level 110 Carbon Dioxide Level 25.7 Anion Gap 7 Estimat Glomerular Filtration Rate 115 Date/Time Source Procedure Growth Status 02/14/17 21:36 Blood Peripheral Aerobic Blood Culture - Preliminary NO GROWTH IN 2 DAYS Resulted 02/14/17 21:36 Blood Peripheral Anaerobic Blood Culture - Preliminary NO GROWTH IN 2 DAYS Resulted 02/14/17 13:20 Urine Catheterized Urine Urine Culture - Final NO GROWTH IN 48 HOURS. Complete Guero Juan MD Feb 16, 2017 17:00
[2017-02-16] MEDS: hydrALAZINE HCL 20 MG/ML VIAL IV PUSH PRN (23:09)
[2017-02-17] VITALS (14 sets, daily range): BP systolic 127–173; BP diastolic 69–88; PULSE 69–114; RESP 18–28; TEMP 98.2–99.6; O2SAT 96–100
[2017-02-17] MEDS: SODIUM CHLOR 0.9% 1000 ML INJ 1,000 ML IV SCH ×2 (00:44→13:20)
[2017-02-17] MEDS: METOPROLOL TARTRATE 5 MG/5 ML VIAL IV PUSH SCH ×4 (00:44→18:23)
[2017-02-17] MEDS: CHLORHEXIDINE GLUCONATE 2 % 1 PACK (2 CLOTHS) TOP SCH (03:13)
[2017-02-17] MEDS: HEPARIN SODIUM - SQ 10,000 UNITS/ML VIAL SQ SCH ×2 (03:13→15:43)
[2017-02-17] MEDS: hydrALAZINE HCL 20 MG/ML VIAL IV PUSH PRN ×2 (04:10→09:22)
--- NOTE | 2017-02-17 06:50 | HHI.CCPN ---
Subjective Remarks/Hospital Course This is a 61-year-old female that presented to the ED with altered mental status. Per report from the patient's , she was in bed with her and he tried to wake her up and he couldn't. He told EMS that he witnessed 2 minute seizure described as clenching of teeth, salivation, and unresponsiveness. When EMS arrived they found her to be cyanotic and drooling. She's never had seizures before per her . EMS observed a lot of repetitive questioning and leftward gaze deviation. They said the last time she was seen normal was last evening. The patient was loaded with fosphenytoin 1 g. The patient notably has an alcohol use disorder drinking 4-5 drinks (wine ) per day. Patient presented with hypertensive urgency with BP 180s/110. Nicardipine infusion was initiated. Patient's past medical history is significant for polypharmacy and concomitant use of opiates, antipsychotics, anti-anxiety, anti-depressive drugs in the setting of chronic alcohol use. Patient previously admitted in 2014 with similar presentation of altered mental status. Patient now with new onset seizure disorder. The patient was loaded with fosphenytoin in the ED imaging and lab studies are pending. Neurology has been consulted .Critical care medicine was consulted for management. Subjective: 02/15: Afebrile. Patient more responsive this a.m. but still confused. Alert and oriented to name only. Patient continues on Precedex infusion for agitation. Patient continues on antiepileptic medications. No seizures noted since admission to hospital. MRI pending. 02/16: Patient awake this morning alert, responsive confused regarding the year but is aware of place and name. Patient scheduled for MRI this a.m.. EEG revealed no seizure activity. 02/17: No acute events overnight. This a.m. patient alert and oriented 3. Patient tolerating diet. Plan for out of bed ambulation and increase in activity. Possible discharge home this a.m. after consultation with neurologist. Objective Vital Signs Date Time Temp Pulse Resp B/P (MAP) Pulse Ox O2 Delivery O2 Flow Rate FiO2 02/17/17 06:00 109 02/17/17 04:00 98.6 22 171/84 (113) 96 02/16/17 03:46 Nasal Cannula 2.00 Intake and Output 12/20/17 12/20/17 12/21/17 08:00 16:00 00:00 Intake Total 2190 ml Output Total 1650 ml Balance 540 ml Result Diagram: 02/16/17 0657 02/16/17 0657 Other Results Microbiology Date/Time Source Procedure Growth Status 02/14/17 13:20 Urine Catheterized Urine Urine Culture - Final NO GROWTH IN 48 HOURS. Complete Imaging Last Impressions Head CT 02/14/17 1102 Signed Impressions: Service Date/Time: Tuesday, February 14, 2017 11:17 - CONCLUSION: 1. Stable scattered subcortical white matter areas of decreased attenuation. 2. No acute infarct, acute hemorrhage, mass effect or extra-axial fluid collections. Daniele Cary MD Objective Remarks GENERAL: His is a well-developed well-nourished female alert and responding to questions. SKIN: Warm and dry. HEAD: Atraumatic. Normocephalic. EYES: Pupils equal and round. No scleral icterus. No injection or drainage. ENT: No nasal bleeding or discharge. Mucous membranes pink and moist. NECK: Trachea midline. No JVD. CARDIOVASCULAR: Normal rate, regular rhythm. RESPIRATORY: No accessory muscle use. Clear to auscultation. Breath sounds equal bilaterally. GASTROINTESTINAL: Abdomen soft, non-tender, nondistended. No guarding. MUSCULOSKELETAL: Extremities without clubbing, cyanosis, or edema. No obvious deformities. NEUROLOGICAL: GCS 15 Awake and alert .RASS 0. No gross focal/sensory deficits. Follows commands in all 4 extremities. Cranial nerves II-XII grossly intact A/P Assessment and Plan Plan by systems: Neurologic: New onset seizure disorder Toxic vs. metabolic Encephalopathy THC use Multiple sclerosis Chronic pain syndrome Fibromyalgia Alcohol use disorder Anxiety disorder Depression Currently GCS 14, combative requiring restraints for patient safety Avoid sedative type medication-hold Soma 350 mg daily at bedtime (home medication) Follow-up urine drug screen positive for benzodiazepines, THC Monitor for alcohol withdrawal symptoms-Versed 2 mg every 4 hours, PRN for agitation, hospital pharmacy does not have Ativan due to shortage in the [place] Seizure precautions 02/14 CT brain-no acute infarct, or hemorrhage Ammonia 18 TSH- WNL B12 level Follow-up MRI-previous MRI/04/2014 showed cerebral white matter disease representing chronic microvascular ischemic changes atypical for MS Thiamine folate MVI/daily 02/15 EEG-mild to moderate encephalopathy. No seizure activity Neurology following Dr. Juan Patient's home meds included Adderall 30 mg twice a day, Soma 350 mg daily at bedtime, oxycodone 30 mg every 6 hours (all placed on hold) Discontinue Precedex infusion Versed 2 mg every 4 hours when necessary for agitation Keppra 500 mg loading dose, initiate Keppra 500 mg twice a day 02/16 MRI-no acute stroke. Respiratory: History of COPD Maintain O2 sat greater than 92%, currently on O2 at 2 L nasal cannula Bronchodilators every 4 hours for wheezing Continue Spiriva 18mcgs/day Cardiovascular: Hypertensive urgency-resolved Sinus tachycardia-resolved Patient received labetalol in the ED telemetry normal sinus rhythm Nicardipine infusion currently at 5 mg/an hour- patient initially presented with BP 180/110, now currently systolic blood pressure 150's. Discontinued on evening of 02/14 Labetalol and hydralazine PRN for SBP > 180 Renal: Renal insufficiency Jacobo catheter discontinued -- Strict I/Os FEN/GI: GERD Heart healthy diet Normal saline 84 cc/hour, discontinued 02/17 Bowel regimen Zofran for nausea Protonix GI prophylaxis Heme/ID: Thrombocytopenia Macrocytic anemia Monitor CBC, patient chronically thrombocytopenic possibly secondary to EtOH use. Transfuse for platelet count less than 50,000 Blood and urine cultures follow-up results-NGTD Endocrine: Glucose monitoring per ICU protocol PT evaluation and treat out of bed with ambulation -- SSI Prophylaxis: GI Prophylaxis Protonix DVT Prophylaxis -- SCDs Heparin 5000 twice a day Lines: Peripheral IVs 2 Dispo: Level 2 Discussed with [employer] at bedside (Ignacia). Increase activity, discussed with neurology Dr. Juan for possible discharge home today. Physician Suma Mckeon MD Feb 17, 2017 06:50
[2017-02-17] MEDS: INSULIN ASPART SUPPLEMENTAL SCALE SQ SCH ×4 (08:00→20:24)
[2017-02-17] MEDS: GABAPENTIN 300 MG CAP PO SCH ×3 (08:42→23:45)
[2017-02-17] MEDS: levETIRAcetam INJ 100 ML IV SCH ×2 (08:43→19:44)
[2017-02-17] MEDS: PANTOPRAZOLE SODIUM 40 MG VIAL IV PUSH SCH (08:43)
[2017-02-17] MEDS: SODIUM CHLORIDE 0.9% FLUSH 10 ML FLUSH IV FLUSH SCH ×2 (08:44→19:44)
[2017-02-17] MEDS: DOCUSATE SODIUM 50 MG/SENNA 8.6 MG TAB PO SCH ×2 (08:44→19:42)
[2017-02-17] MEDS ORDERED: ATENOLOL 25 MG TAB PO SCH (09:00)
[2017-02-17] MEDS: MIDAZOLAM HCL 2 MG/2 ML VIAL IV PUSH PRN ×2 (10:08→15:43)
[2017-02-17] MEDS: THIAMINE INJ 100 MG in SODIUM CHLORIDE 0.9% INJ 100 ML IV SCH (12:00)
[2017-02-17] MEDS: MULTIVITAMIN INJ 10 ML, FOLIC ACID INJ 1 MG in SODIUM CHLORID 0.9% 500 ML INJ 500 ML IV SCH (15:44)
[2017-02-17] MEDS: POTASSIUM CHLOR 20 MEQ PREMIX 100 ML IV PRN (22:21)
[2017-02-18] VITALS (10 sets, daily range): BP systolic 139–179; BP diastolic 76–97; PULSE 78–102; RESP 14–21; TEMP 98.5–99.3; O2SAT 96–99
[2017-02-18] MEDS: POTASSIUM CHLOR 20 MEQ PREMIX 100 ML IV PRN (00:28)
[2017-02-18] MEDS: hydrALAZINE HCL 20 MG/ML VIAL IV PUSH PRN (01:08)
[2017-02-18] MEDS: SODIUM CHLOR 0.9% 1000 ML INJ 1,000 ML IV SCH (01:15)
[2017-02-18] MEDS: MIDAZOLAM HCL 2 MG/2 ML VIAL IV PUSH PRN ×2 (01:31→06:16)
[2017-02-18] MEDS: HEPARIN SODIUM - SQ 10,000 UNITS/ML VIAL SQ SCH (03:18)
[2017-02-18] MEDS: ACETAMINOPHEN 325 MG TAB PO PRN (03:18)
--- NOTE | 2017-02-18 07:51 | HHI.CCPN ---
Subjective Remarks/Hospital Course This is a 61-year-old female that presented to the ED with altered mental status. Per report from the patient's , she was in bed with her and he tried to wake her up and he couldn't. He told EMS that he witnessed 2 minute seizure described as clenching of teeth, salivation, and unresponsiveness. When EMS arrived they found her to be cyanotic and drooling. She's never had seizures before per her . EMS observed a lot of repetitive questioning and leftward gaze deviation. They said the last time she was seen normal was last evening. The patient was loaded with fosphenytoin 1 g. The patient notably has an alcohol use disorder drinking 4-5 drinks (wine ) per day. Patient presented with hypertensive urgency with BP 180s/110. Nicardipine infusion was initiated. Patient's past medical history is significant for polypharmacy and concomitant use of opiates, antipsychotics, anti-anxiety, anti-depressive drugs in the setting of chronic alcohol use. Patient previously admitted in 2014 with similar presentation of altered mental status. Patient now with new onset seizure disorder. The patient was loaded with fosphenytoin in the ED imaging and lab studies are pending. Neurology has been consulted .Critical care medicine was consulted for management. Subjective: 02/15: Afebrile. Patient more responsive this a.m. but still confused. Alert and oriented to name only. Patient continues on Precedex infusion for agitation. Patient continues on antiepileptic medications. No seizures noted since admission to hospital. MRI pending. 02/16: Patient awake this morning alert, responsive confused regarding the year but is aware of place and name. Patient scheduled for MRI this a.m.. EEG revealed no seizure activity. 02/17: No acute events overnight. This a.m. patient alert and oriented 3. Patient tolerating diet. Plan for out of bed ambulation and increase in activity. Possible discharge home this a.m. after consultation with neurologist. 02/18: Unable to discharge patient yesterday secondary to hypertension and tachycardia . Unable to initiate physical therapy with ambulation .The patient BP still elevated 185/87 this a.m., atenolol dosage increased to 50 mg/day. Plans for reinitiation of physical therapy with ambulation for possible discharge home today. Objective Vital Signs Date Time Temp Pulse Resp B/P (MAP) Pulse Ox O2 Delivery O2 Flow Rate FiO2 02/18/17 06:00 99 02/18/17 04:00 99.3 18 163/92 (115) 96 02/17/17 20:43 21 02/16/17 03:46 Nasal Cannula 2.00 Intake and Output 02/18/17 02/18/17 02/19/17 08:00 16:00 00:00 Intake Total 150 ml Balance 150 ml Result Diagram: 02/16/17 0657 02/17/17 2130 Imaging Last Impressions Head CT 02/14/17 1102 Signed Impressions: Service Date/Time: Tuesday, February 14, 2017 11:17 - CONCLUSION: 1. Stable scattered subcortical white matter areas of decreased attenuation. 2. No acute infarct, acute hemorrhage, mass effect or extra-axial fluid collections. Daniele Cary MD Objective Remarks GENERAL: His is a well-developed well-nourished female alert and responding to questions. Anxious to go home SKIN: Warm and dry. HEAD: Atraumatic. Normocephalic. EYES: Pupils equal and round. No scleral icterus. No injection or drainage. ENT: No nasal bleeding or discharge. Mucous membranes pink and moist. NECK: Trachea midline. No JVD. CARDIOVASCULAR: Normal rate, regular rhythm. RESPIRATORY: No accessory muscle use. Clear to auscultation. Breath sounds equal bilaterally. GASTROINTESTINAL: Abdomen soft, non-tender, nondistended. No guarding. MUSCULOSKELETAL: Extremities without clubbing, cyanosis, or edema. No obvious deformities. NEUROLOGICAL: GCS 15 Awake and alert .RASS 0. No gross focal/sensory deficits. Follows commands in all 4 extremities. Cranial nerves II-XII grossly intact Urinary Catheter: No A/P Assessment and Plan Plan by systems: Neurologic: New onset seizure disorder Toxic vs. metabolic Encephalopathy THC use Multiple sclerosis Chronic pain syndrome Fibromyalgia Alcohol use disorder Anxiety disorder Depression Currently GCS 14, combative requiring restraints for patient safety Avoid sedative type medication-hold Soma 350 mg daily at bedtime (home medication) Follow-up urine drug screen positive for benzodiazepines, THC Monitor for alcohol withdrawal symptoms-Versed 2 mg every 4 hours, PRN for agitation, hospital pharmacy does not have Ativan due to shortage in the [place] Seizure precautions 02/14 CT brain-no acute infarct, or hemorrhage Ammonia 18 TSH- WNL B12 level Follow-up MRI-previous MRI/04/2014 showed cerebral white matter disease representing chronic microvascular ischemic changes atypical for MS Thiamine folate MVI/daily 02/15 EEG-mild to moderate encephalopathy. No seizure activity Neurology following Dr. Juan Patient's home meds included Adderall 30 mg twice a day, Soma 350 mg daily at bedtime, oxycodone 30 mg every 6 hours Keppra 500 mg loading dose, initiate Keppra 500 mg twice a day 02/16 MRI-no acute stroke. Respiratory: History of COPD Maintain O2 sat greater than 92%, currently on O2 at 2 L nasal cannula Bronchodilators every 4 hours for wheezing Continue Spiriva 18mcgs/day Cardiovascular: Hypertensive urgency-resolved Sinus tachycardia-resolved Patient received labetalol in the ED telemetry normal sinus rhythm Nicardipine infusion currently at 5 mg/an hour- patient initially presented with BP 180/110, now currently systolic blood pressure 150's. Discontinued on evening of 02/14 Labetalol and hydralazine PRN for SBP > 180 Renal: Renal insufficiency Jacobo catheter discontinued -- Strict I/Os FEN/GI: GERD Heart healthy diet Normal saline 84 cc/hour, discontinued 02/17 Bowel regimen Zofran for nausea Protonix GI prophylaxis Heme/ID: Thrombocytopenia Macrocytic anemia Monitor CBC, patient chronically thrombocytopenic possibly secondary to EtOH use. Transfuse for platelet count less than 50,000 Blood and urine cultures follow-up results-NGTD Endocrine: Glucose monitoring per ICU protocol PT evaluation and treat out of bed with ambulation -- SSI Prophylaxis: GI Prophylaxis Protonix DVT Prophylaxis -- SCDs Heparin 5000 twice a day Lines: Peripheral IVs 2 Dispo: Level 2 Discussed with P[employer]ER B[employer]ER at bedside. Increase activity, discussed with neurology Dr. Juan for possible discharge home today. Discussed with Freyabenson this am. Physician Suma Mckeon MD Feb 18, 2017 07:51
[2017-02-18] MEDS: INSULIN ASPART SUPPLEMENTAL SCALE SQ SCH (08:00)
[2017-02-18] MEDS ORDERED: ATENOLOL 25 MG TAB PO SCH (08:00)
[2017-02-18] MEDS: DOCUSATE SODIUM 50 MG/SENNA 8.6 MG TAB PO SCH (08:26)
[2017-02-18] MEDS: GABAPENTIN 300 MG CAP PO SCH (08:43)
[2017-02-18] MEDS: PANTOPRAZOLE SODIUM 40 MG VIAL IV PUSH SCH (08:50)
[2017-02-18] MEDS: SODIUM CHLORIDE 0.9% FLUSH 10 ML FLUSH IV FLUSH SCH (08:51)
[2017-02-18] MEDS ORDERED: levETIRAcetam 500 MG TAB PO SCH (09:00)
== END 2017-02-18 11:38 | disposition home or self-care (01) | DRG 100 ==
LOC: NEPC 10:55 → NEDA 13:14 → HIMW 16:34
PROVIDERS: ADMIT Anesthesiology; ATTEND Anesthesiology
DX: G40.909 Epilepsy, unspecified, not intractable, without status epilepticus (principal); G93.41 Metabolic encephalopathy; G35 Multiple sclerosis; D69.6 Thrombocytopenia, unspecified; G89.4 Chronic pain syndrome; M79.7 Fibromyalgia; J44.9 Chronic obstructive pulmonary disease, unspecified; I16.0 Hypertensive urgency; R00.0 Tachycardia, unspecified; N28.9 Disorder of kidney and ureter, unspecified; K21.9 Gastro-esophageal reflux disease without esophagitis; D53.9 Nutritional anemia, unspecified; G25.0 Essential tremor; I10 Essential (primary) hypertension; R40.2413 Glasgow coma scale score 13-15, at hospital admission; M19.90 Unspecified osteoarthritis, unspecified site; M81.0 Age-related osteoporosis without current pathological fracture; H55.09 Other forms of nystagmus; F12.90 Cannabis use, unspecified, uncomplicated; F10.20 Alcohol dependence, uncomplicated; F17.290 Nicotine dependence, other tobacco product, uncomplicated; F41.8 Other specified anxiety disorders; Y90.0 Blood alcohol level of less than 20 mg/100 ml; Z78.1 Physical restraint status; Z79.891 Long term (current) use of opiate analgesic; Z88.2 Allergy status to sulfonamides; Z96.641 Presence of right artificial hip joint; Z98.1 Arthrodesis status
CPT/HCPCS: 70450; 70553; 76937; 80048; 80053; 80307; 81001; 82140; 82607; 82948; 83735; 84100; 84132; 84443; 85025; 85027; 87040; 87086; 87493; 87641; 93005; 95819; 96361; 96365; 96367; 96375; A9579; C9113; J0360; J1644; J1815; J1953; J2250; J3411; J3480; J7030; J7040; J7050; Q2009

== ENCOUNTER 2017-06-19 14:33 | Inpatient (IN) | payer OTHER, MEDICARE ==
[~2017-06-19] VITALS: Ht 154.9 cm; Wt 45.6 kg
[2017-06-19] VITALS (13 sets, daily range): BP systolic 76–168; BP diastolic 55–116; PULSE 85–106; RESP 14–16; TEMP 96.4–99.2; O2SAT 95–100
[2017-06-19] MEDS ORDERED: SODIUM CHLOR 0.9% 1000 ML INJ 1,000 ML IV ONE ×5 (14:44→23:00)
--- NOTE | 2017-06-19 15:07 | PD ---
HPI Chief Complaint: OD/ Ingestion Time Seen by Provider: 14:44 Travel History International Travel<30 days: No Contact w/Intl Traveler<30days: No Traveled to known affect area: No History of Present Illness HPI 61yo F with PMH of polypharmacy use including antipsychotics, antianxiety, antidepressants here with possible overdose of baclofen. Pt was last seen normal by at 10:30pm and went to work and came home at 1:30pm and found her on the bed unresponsive with white substance all over her and pills on the floor. There is 97 20mg of baclofen missing. Unknown if she took all of them. Pt was unresponsive when [facility] arrived but did localize pain when they place an IO. Pt was given versed and etomidate and intubated in the field. Pt's pupils were initially unreactive to light but reactive to light here in the ED. said she had no prior suicidal attempt. Pt was admitted at [facility] 01/2017 for altered mental status and had new onset seizure. PFSH Past Medical History Arthritis: Yes Asthma: Yes Autoimmune Disease: Yes (MS) Blood Disorders: No Anxiety: Yes Depression: Yes Heart Rhythm Problems: No Cancer: No Cardiovascular Problems: No High Cholesterol: No Chemotherapy: No Chest Pain: No Congestive Heart Failure: No COPD: Yes Cerebrovascular Accident: No Diabetes: No Diminished Hearing: No Endocrine: No Fibromyalgia: Yes Gastrointestinal Disorders: Yes (GERD) GERD: Yes Genitourinary: No Headaches: Yes Hepatitis: No Hiatal Hernia: No Hypertension: No Immune Disorder: Yes (MS) Implanted Vascular Access Dvce: Yes Kidney Stones: No Musculoskeletal: Yes (CERVICAL SPINE; TOTAL RIGHT HIP ) Neurologic: Yes (PT HAS MS;WALKS [place] HAS BALANCE & COORD PROBLEMS; VASNECROSIS; FIB MYALGHIA ) Psychiatric: Yes (ANXIETY & DEPRESSION ) Reproductive: No Respiratory: Yes (COPD) Immunizations Current: Yes Migraines: Yes Radiation Therapy: No Renal Failure: No Seizures: No Sickle Cell Disease: No Sleep Apnea: No Thyroid Disease: No Ulcer: No Menopausal: Yes Tubal Ligation: Yes Past Surgical History Abdominal Surgery: No AICD: No Arteriovenous Shunt: No Body Medical Devices: CERVICAL SCREWS & PLATES Cardiac Surgery: No Ear Surgery: No Endocrine Surgery: No Eye Surgery: No Genitourinary Surgery: No Gynecologic Surgery: Yes (TUBAL LIGATION 1986) Insulin Pump: No Joint Replacement: Yes (RIGHT TOTAL HIP REPLACEMENT) Neurologic Surgery: Yes (CERVICAL FUSION 2000) Oral Surgery: No Pacemaker: No Thoracic Surgery: No Other Surgery: Yes (CERVICAL FUSION 2000; TUBAL LIGATION 1986) Social History Alcohol Use: Yes (4-5 GLASSES WINE/DAY) Tobacco Use: Yes (e-cig) Substance Use: No Allergies-Medications (Allergen,Severity, Reaction): Coded Allergies: Sulfa (Sulfonamide Antibiotics) (Unverified Allergy, Intermediate, N/V, ) modafinil (Unverified Allergy, Mild, Rash, 02/14/17) carisoprodol (Verified Allergy, Unknown, 02/14/17) Reported Meds & Prescriptions Reported Meds & Active Scripts Active Reported Spiriva Handihaler (Tiotropium Inh) 18 Mcg Cap 18 Mcg INH DAILY 1 capsule = 18 mcg Adderall (Amphetamine-Dextroamphetamine) 30 Mg Tab 30 Mg PO BID Avoid late evening doses. Space doses at least 4 to 6 hours if more than once/day dosing. Ibuprofen 600 Mg Tab 600 Mg PO Q6H PRN Gabapentin 300 Mg Cap 300 Mg PO TID Oxycodone (Oxycodone HCl) 30 Mg Tab 30 Mg PO Q6H PRN Pantoprazole (Pantoprazole Sodium) 40 Mg Tab 40 Mg PO DAILY Soma (Carisoprodol) 350 Mg Tab 350 Mg PO QID PRN Alprazolam 1 Mg Tab 1 Mg PO Q6H PRN Rebif Inj (Interferon Beta 1a) 44 Mcg/0.5 Ml Syr 44 Mcg SQ Review of Systems Except as stated in HPI: all other systems reviewed are Neg Physical Exam Narrative GENERAL: 61yo F unresponsive. SKIN: Focused skin assessment warm/dry. HEAD: Atraumatic. Normocephalic. EYES: Pupils equal and round at 4mm bilaterally. ENT: No nasal bleeding or discharge. Mucous membranes pink and moist. MOUTH: +Thick white substance on tongue and around mouth. NECK: Trachea midline. No JVD. CARDIOVASCULAR: Regular rate and rhythm. No murmur appreciated. RESPIRATORY: No accessory muscle use. Clear to auscultation. Breath sounds equal bilaterally. GASTROINTESTINAL: Abdomen soft, non-tender, nondistended. MUSCULOSKELETAL: No obvious deformities. No clubbing. No cyanosis. No edema. NEUROLOGICAL: Unresponsive. Downward babinskis. Data Data Last Documented VS Vital Signs Date Time Temp Pulse Resp B/P (MAP) Pulse Ox O2 Delivery O2 Flow Rate FiO2 06/19/17 15:45 100 100 06/19/17 15:30 105 14 104/79 (87) Ventilator 06/19/17 14:38 99.2 Orders Orders Electrocardiogram (06/19/17 14:44) Complete Blood Count With Diff (06/19/17 14:44) Prothrombin Time / Inr (Pt) (06/19/17 14:44) Act Partial Throm Time (Ptt) (06/19/17 14:44) Osmolality,Serum (06/19/17 14:44) Urinalysis - C+S If Indicated (06/19/17 14:44) Chest, Single Ap (06/19/17 14:44) Ct Brain W/O Iv Contrast(Rout) (06/19/17 14:44) Arterial Blood Gas (Abg) (06/19/17 14:44) Blood Glucose (06/19/17 14:44) Iv Access Insert/Monitor (06/19/17 14:44) Ecg Monitoring (06/19/17 14:44) Oximetry (06/19/17 14:44) Alyia-Gastric Tube Insert/Mon (06/19/17 14:44) Urinary Catheter Insert/Apply (06/19/17 14:44) Sodium Chloride 0.9% Flush (Ns Flush) (06/19/17 14:45) Sodium Chlor 0.9% 1000 Ml Inj (Ns 1000 M (06/19/17 14:44) Call Poison Control (06/19/17 14:44) Drug Screen, Random Urine (06/19/17 14:44) Salicylates (Aspirin) (06/19/17 14:44) Creatine Kinase (Cpk) (06/19/17 14:53) Troponin I (06/19/17 14:53) Tylenol (Acetaminophen) (06/19/17 15:15) Alcohol (Ethanol) (06/19/17 15:15) Comprehensive Metabolic Panel (06/19/17 15:15) Ct Thorax/ Chest Wo Iv Contras (06/19/17 ) Piperacil-Tazo 4.5 Gm Premix (Zosyn 4.5 (06/19/17 16:15) Blood Culture (06/19/17 16:06) Admit Order (Ed Use Only) (06/19/17 16:13) Labs Laboratory Tests Test 06/19/17 15:00 06/19/17 15:15 06/19/17 15:21 06/19/17 15:34 Blood Gas Puncture Site RT RADIAL Blood Gas Patient Temperature 98.6 Blood Gas HCO3 27 mmol/L Blood Gas Base Excess 1.4 mmol/L Blood Gas Oxygen Saturation 97 % Arterial Blood pH 7.31 Arterial Blood Partial Pressure CO2 56 mmHg Arterial Blood Partial Pressure O2 202 mmHG Arterial Blood Oxygen Content 21.6 Vol % Arterial Blood Carboxyhemoglobin 1.8 % Arterial Blood Methemoglobin 0.7 % Blood Gas Hemoglobin 15.6 G/DL Oxygen Delivery Device VENTILATOR Blood Gas Ventilator Setting Blood Gas Inspired Oxygen 100 % White Blood Count 10.8 TH/MM3 Red Blood Count 4.74 MIL/MM3 Hemoglobin 14.9 GM/DL Hematocrit 46.3 % Mean Corpuscular Volume 97.5 FL Mean Corpuscular Hemoglobin 31.4 PG Mean Corpuscular Hemoglobin Concent 32.1 % Red Cell Distribution Width 18.7 % Platelet Count 229 TH/MM3 Mean Platelet Volume 8.3 FL Neutrophils (%) (Auto) 75.8 % Lymphocytes (%) (Auto) 15.0 % Monocytes (%) (Auto) 8.1 % Eosinophils (%) (Auto) 0.4 % Basophils (%) (Auto) 0.7 % Neutrophils # (Auto) 8.2 TH/MM3 Lymphocytes # (Auto) 1.6 TH/MM3 Monocytes # (Auto) 0.9 TH/MM3 Eosinophils # (Auto) 0.0 TH/MM3 Basophils # (Auto) 0.1 TH/MM3 CBC Comment DIFF FINAL Differential Comment Prothrombin Time 10.9 SEC Prothromb Time International Ratio 1.1 RATIO Activated Partial Thromboplast Time 26.1 SEC Blood Urea Nitrogen 16 MG/DL Creatinine 1.28 MG/DL Random Glucose 92 MG/DL Total Protein 8.5 GM/DL Albumin 3.1 GM/DL Calcium Level 9.1 MG/DL Alkaline Phosphatase 98 U/L Aspartate Amino Transf (AST/SGOT) 38 U/L Alanine Aminotransferase (ALT/SGPT) 22 U/L Total Bilirubin 0.5 MG/DL Sodium Level 139 MEQ/L Potassium Level 5.6 MEQ/L Chloride Level 104 MEQ/L Carbon Dioxide Level 27.3 MEQ/L Anion Gap 8 MEQ/L Estimat Glomerular Filtration Rate 43 ML/MIN Serum Osmolality 306 MOSM/KG Phosphorus Level 5.6 MG/DL Magnesium Level 2.4 MG/DL Total Creatine Kinase 144 U/L Troponin I LESS THAN 0.02 NG/ML Acetaminophen Level LESS THAN 2.0 MCG/ML Valproic Acid (Depakene) Level 56 MCG/ML Ethyl Alcohol Level LESS THAN 3 MG/DL Urine Color LIGHT-YELLOW Urine Turbidity CLEAR Urine pH 5.5 Urine Specific [place] 1.006 Urine Protein NEG mg/dL Urine Glucose (UA) NEG mg/dL Urine Ketones NEG mg/dL Urine Occult Blood NEG Urine Nitrite NEG Urine Bilirubin NEG Urine Urobilinogen LESS THAN 2.0 MG/DL Urine Leukocyte Esterase NEG Urine RBC 1 /hpf Urine Amorphous Sediment RARE Urine Bacteria OCC /hpf Microscopic Urinalysis Comment CULT NOT INDICATED Urine Opiates Screen NEG Urine Barbiturates Screen NEG Urine Amphetamines Screen NEG Urine Benzodiazepines Screen POS Urine Cocaine Screen NEG Urine Cannabinoids Screen POS Salicylates Level 2.2 MG/DL MDM Medical Decision Making Medical Screen Exam Complete: Yes Emergency Medical Condition: Yes Interpretation(s) EKG: Sinus tachycardia at 105bpm. Normal axis. ST depression II, III, aVF, V3- V6. TWI V2. Differential Diagnosis Overdose with baclofen vs. aspiration pneumonia Narrative Course 61yo F intubated after being unresponsive for possible baclofen overdose. Labs reviewed, no leukocytosis. H/H normal. K mildly elevated at 5.6. Troponin negative. CPK 144. ABG showed respiratory acidosis with pH of 7.31, pCO2 56, HCO3 27. RR rate increase from 14 to 16. CXR showed infiltrate or mass laterally in right base. Noncontrast CT chest recommended. CT chest showed consolidation right upper lobe. ET and NG tube in good position. Likely aspiration pneumonia, pt covered with zosyn. UA negative. Alcohol negative. Salicylate and acetaminophen negative. Utox positive for benzo and cannabinoids. CT brain negative. Discussed with poison control and recommends symptomatic treatment. Pt given NS IVF. Discussed with [employer] network analyst Dr. Moran and accepted to his service. Critical Care Narrative Aggregate critical care time was 45 minutes. Time to perform other separately billable procedures was not included in the critical care time. My time did not include minutes spent treating any other patients simultaneously or on activities that did not directly contribute to the patient's treatment. The services I provided to this patient were to treat and/or prevent clinically significant deterioration that could result in: cardiovascular collapse or . I provided critical care services requiring my management, as noted below: Chart data review, documentation time, medication orders and management, vital sign assessments/reviewing monitor data, ordering and reviewing lab tests, ordering and interpreting/reviewing x-rays and diagnostic studies, care of the patient and discussion of the patient with the admitting physicians. Diagnosis Primary Impression: Baclofen overdose Qualified Codes: T42.8X2A - Poisoning by antiparkinsonism drugs and other central muscle-tone depressants, intentional self-harm, initial encounter Admitting Information Admitting Physician Requests: Criselda Miller DO Jun 19, 2017 15:07
--- NOTE | 2017-06-19 15:30 | RADRPT ---
EXAM DATE/TIME: 06/19/2017 15:01 [facility] COMPARISON: No previous studies available for comparison. INDICATIONS : Post intubation. MEDICAL HISTORY : Unresponsive. SURGICAL HISTORY : Unresponsive. ENCOUNTER: Initial ACUITY: 1 day PAIN SCORE: Non-responsive. LOCATION: Bilateral chest FINDINGS: A single view of the chest demonstrates lungs to be hyperinflated. Infiltrate or nodule is identified laterally in the right base. Left perihilar scarring/atelectasis. No effusions. Heart size is normal . Endotracheal tube with the tip at the clavicular heads. Nasogastric tube is chromic the gastric lum en. Deformity of the proximal right humerus. Postsurgical changes in the left shoulder. CONCLUSION: 1. Hyperinflation suggesting some degree of COPD. 2. Linear atelectasis or scarring in the left perihilar distribution. Infiltrate or mass laterally in the right base. Noncontrasted CT scan of the chest performed for further characterization when patie nt is stable. 3. Endotracheal and nasogastric tubes appear to be appropriately positioned. 4. Chronic deformity of the proximal right humerus. Coleman Lang MD on June 19, 2017 at 15:25 Board Certified Radiologist. This report was verified electronically.
[2017-06-19 15:42] LABS: AMORPHOUS SEDIMENT, URINE RARE; BACTERIA, URINE OCC /hpf; BILIRUBIN, URINE NEG (NEG); BLOOD, URINE NEG (NEG); GLUCOSE,URINE NEG (NEG); KETONE, URINE NEG (NEG); NITRITE,URINE NEG (NEG); PH, URINE 5.5 (5.0-8.5); URINE COLOR LIGHT-YELLOW (YELLW/STRAW); URINE LEUKOCYTE ESTERASE NEG (NEG)
[2017-06-19 15:59] LABS: ALBUMIN 3.1 GM/DL (3.4-5.0); BICARBONATE 27.3 MEQ/L (21.0-32.0); BLOOD UREA NITROGEN 16 MG/DL (7-18); CALCIUM 9.1 MG/DL (8.5-10.1); CHLORIDE 104 MEQ/L (98-107); CREATININE 1.28 MG/DL (0.50-1.00); GLOMERULAR FILTRATION RATE 43 ML/MIN (>89); GLUCOSE,RANDOM 92 MG/DL (74-106); SODIUM (NA) 139 MEQ/L (136-145)
[2017-06-19 16:01] LABS: INTERNATIONAL NORMALIZED RATIO 1.1 RATIO; PROTHROMBIN TIME - PATIENT 10.9 SEC (9.8-11.6)
[2017-06-19 16:02] LABS: ALKALINE PHOSPHATASE 98 U/L (45-117); ALT (GPT) 22 U/L (10-53); AST (GOT) 38 U/L (15-37); AUTOMATED NEUTROPHIL # 8.2 TH/MM3 (1.8-7.7); BASOPHIL # 0.1 TH/MM3 (0-0.2); BASOPHIL % 0.7 % (0.0-2.0); EOSINOPHIL % 0.4 % (0.0-4.0); HEMATOCRIT 46.3 % (35.0-46.0); HEMOGLOBIN 14.9 GM/DL (11.6-15.3); LYMPHOCYTE # 1.6 TH/MM3 (1.0-4.8); MEAN CELL VOLUME 97.5 FL (80.0-100.0); MEAN CORPUSCULAR HEMOGLOBIN 31.4 PG (27.0-34.0); MEAN CORPUSCULAR HGB CONC 32.1 % (32.0-36.0); MEAN PLATELET VOLUME 8.3 FL (7.0-11.0); MONO % 8.1 % (0.0-8.0); MONOCYTE # 0.9 TH/MM3 (0-0.9); NEUT % 75.8 % (16.0-70.0); PLATELET COUNT 229 TH/MM3 (150-450); RED BLOOD COUNT 4.74 MIL/MM3 (4.00-5.30); RED CELL DISTRIBUTION WIDTH 18.7 % (11.6-17.2); TOTAL BILIRUBIN ADULT 0.5 MG/DL (0.2-1.0); TOTAL PROTEIN 8.5 GM/DL (6.4-8.2); TROPONIN I LESS THAN 0.02 NG/ML (0.02-0.05); WHITE BLOOD COUNT 10.8 TH/MM3 (4.0-11.0)
--- NOTE | 2017-06-19 16:04 | RADRPT ---
EXAM DATE/TIME: 06/19/2017 15:37 [facility] COMPARISON: CT BRAIN W/O CONTRAST, February 14, 2017, 11:17. INDICATIONS : Altered mental status. RADIATION DOSE: 56.35 CTDIvol (mGy) MEDICAL HISTORY : Multple sclerosis. Gastroesophageal reflux disease. SURGICAL HISTORY : Tubal ligation. ENCOUNTER: Initial ACUITY: 1 day PAIN SCALE: Non-responsive LOCATION: Bilateral head TECHNIQUE: Multiple contiguous axial images were obtained of the head. Using automated exposure control and adj ustment of the mA and/or kV according to patient size, radiation dose was kept as low as reasonably a chievable to obtain optimal diagnostic quality images. DICOM format image data is available electro nically for review and comparison. FINDINGS: CEREBRUM: The ventricles are normal for age. Stable scattered white matter changes, most prominent in the left external capsule. Mild, symmetric cortical atrophy No evidence of midline shift, mass lesion, hemorr minesh or acute infarction. No extra-axial fluid collections are seen. POSTERIOR FOSSA: The cerebellum and brainstem are intact. The 4th ventricle is midline. The cerebellopontine angle i s unremarkable. EXTRACRANIAL: The visualized portion of the orbits is intact. SKULL: The calvaria is intact. No evidence of skull fracture. CONCLUSION: 1. Chronic changes of mild, symmetric cortical atrophy and old white matter changes. 2. Nothing acute. Coleman Lang MD on June 19, 2017 at 15:59 Board Certified Radiologist. This report was verified electronically.
[2017-06-19 16:06] LABS: ACETAMINOPHEN LESS THAN 2.0 MCG/ML (10.0-30.0)
--- NOTE | 2017-06-19 16:11 | RADRPT ---
EXAM DATE/TIME: 06/19/2017 15:50 [facility] COMPARISON: No previous studies available for comparison. INDICATIONS : Respiratory distress. RADIATION DOSE: 5.34 CTDIvol (mGy) MEDICAL HISTORY : Multiple sclerosis. Gastroesophageal reflux disease. SURGICAL HISTORY : Tubal ligation. ENCOUNTER: Initial ACUITY: 1 day PAIN SCALE: Non-responsive LOCATION: Bilateral chest TECHNIQUE: Volumetric scanning of the chest was performed. Using automated exposure control and adjustment of t he mA and/or kV according to patient size, radiation dose was kept as low as reasonably achievable to obtain optimal diagnostic quality images. DICOM format image data is available electronically for r eview and comparison. Follow-up recommendations for detected pulmonary nodules are based at a minimum on nodule size and pa tient risk factors according to Fleischner Society Guidelines. FINDINGS: There is dense consolidation in the right upper lobe extending from the right hilar region to the api aleyda pleural surface. Air bronchograms are present. There is a small area of cavitation medially measu ring about 1.4 cm in diameter. There is peribronchial thickening and some distal airway disease. There is also patchy airspace disease in the right lower lobe and linear opacity in the left upper lo be. There is no pleural or pericardial effusion. A mildly enlarged precarinal lymph node measures about 1 1 mm in diameter. Endotracheal tube is in good position. Nasogastric tube is coiled in stomach. No acute findings in th e upper abdomen. CONCLUSION: 1. There is consolidation in the right upper lobe medially with air bronchograms and small area of ca vitation, probably infectious in nature although other etiologies not excluded. Mildly enlarged preca rinal lymph node. 2. Patchy airspace disease right lower lobe most characteristic of bronchopneumonia or mild aspiratio n. 3. Linear scarring or atelectasis left upper lobe. 4. Endotracheal tube and nasogastric tube in good position. No effusion. Avel Ken MD on June 19, 2017 at 16:02 Board Certified Radiologist. This report was verified electronically.
[2017-06-19] MEDS ORDERED: PIPERACIL-TAZO 4.5 GM PREMIX 100 ML IV ONE (16:15)
--- NOTE | 2017-06-19 16:15 | HHI.HP ---
[facility] Service Critical Care Medicine Primary Care Physician Niurka Gillis MD Admission Diagnosis Diagnosis: (1) Acute respiratory failure Diagnosis: Principal (2) Encephalopathy acute Diagnosis: Principal (3) Baclofen overdose Diagnosis: Principal (4) Acute kidney injury Diagnosis: Principal (5) Pneumonia Diagnosis: Principal (6) Aspiration into airway Diagnosis: Principal (7) Hyperkalemia Diagnosis: Principal (8) Hypertension Diagnosis: Secondary (9) Multiple sclerosis Diagnosis: Secondary (10) Chronic pain Diagnosis: Secondary (11) Polypharmacy Diagnosis: Secondary (12) Chronic obstructive pulmonary disease Diagnosis: Secondary (13) Fibromyalgia Diagnosis: Secondary (14) Alcohol dependence Diagnosis: Secondary Chief Complaint: Baclofen overdose Acute respiratory failure Altered mental status Travel History International Travel<30 Days: No Contact w/Intl Traveler <30 Da: No Traveled to Known Affected Are: No History of Present Illness Patient is a 61-year-old female with past medical history significant for multiple sclerosis, fibromyalgia, new onset seizure in January 2017, depression /anxiety, alcohol dependence, COPD who was found unresponsive on the floor by the at 1:30 PM today. He saw her normally yesterday night at 10:30 PM, when he left for work at 7 AM today he heard snoring. He does not sleep with her at night, and did not notice anything abnormal. When he came back from work at 130 pm that is when he found a unresponsive on the floor with the bottle of baclofen almost empty, apparently 97 tablets of 20mg of baclofen missing. Patient was not protecting airway and EMS intubated after giving 4 mg Versed and 20 mg of etomidate. Pt was admitted at [place] 01/2017 for altered mental status and had new onset seizure. According to was discharged home on Depakote I evaluated the patient in the emergency department. She remains unresponsive but pupils are sluggishly reactive. Very slight withdrawal to pain. CT of the head is negative for acute findings. Chest CT shows right upper lobe consolidation with cavitation indicating aspiration pneumonia. Patient will be placed on Zosyn and azithromycin. 2 L of normal saline boluses ordered and maintenance fluid at 84 mL/h. Sputum and blood cultures also ordered. also gives history that patient had been recently very depressed and agitated as she lost her driving privileges due to recent seizure. She has never attempted suicide before Review of Systems ROS Limitations: Intubated, Altered Mental Status Past Family Social History Allergies: Coded Allergies: Sulfa (Sulfonamide Antibiotics) (Unverified Allergy, Intermediate, N/V, ) modafinil (Unverified Allergy, Mild, Rash, 02/14/17) carisoprodol (Verified Allergy, Unknown, 02/14/17) Past Medical History New onset seizure disorder 01/2017 Alcohol dependence COPD THC use Multiple sclerosis Chronic pain syndrome Fibromyalgia Alcohol use disorder Anxiety disorder Depression Past Surgical History Cervical fusion 2000 Right hip replacement Tubal ligation Reported Medications Spiriva Handihaler (Tiotropium Inh) 18 Mcg Cap 18 Mcg INH DAILY Adderall (Amphetamine-Dextroamphetamine) 30 Mg Tab 30 Mg PO BID Ibuprofen 600 Mg Tab 600 Mg PO Q6H PRN Gabapentin 300 Mg Cap 300 Mg PO TID Oxycodone (Oxycodone HCl) 30 Mg Tab 30 Mg PO Q6H PRN Pantoprazole (Pantoprazole Sodium) 40 Mg Tab 40 Mg PO DAILY Soma (Carisoprodol) 350 Mg Tab 350 Mg PO QID PRN Alprazolam 1 Mg Tab 1 Mg PO Q6H PRN Rebif Inj (Interferon Beta 1a) 44 Mcg/0.5 Ml Syr 44 Mcg SQ Active Ordered Medications Reviewed Family History Unable to obtain as the patient is intubated Social History Continues to smoke not sure how much she drinks now, at least 2 glasses of wine at night Physical Exam Vital Signs Vital Signs Date Time Temp Pulse Resp B/P (MAP) Pulse Ox O2 Delivery O2 Flow Rate FiO2 06/19/17 15:45 100 100 06/19/17 15:30 105 14 104/79 (87) 100 Ventilator 06/19/17 14:47 14 100 Ventilator 06/19/17 14:45 100 06/19/17 14:40 100 100 06/19/17 14:38 99.2 106 14 168/116 (133) Physical Exam GENERAL: 61-year-old female intubated not on medication unresponsive SKIN: Warm/dry. HEAD: Atraumatic. Normocephalic. EYES: Pupils equal and round at 4mm bilaterally, sluggishly react. ENT: No nasal bleeding or discharge. Orotracheally intubated NECK: Trachea midline. No JVD. CARDIOVASCULAR: Regular rate and rhythm. No murmur appreciated. RESPIRATORY: Clear to auscultation. Breath sounds equal bilaterally. GASTROINTESTINAL: Abdomen soft, non-tender, nondistended. MUSCULOSKELETAL: No obvious deformities. No clubbing. No cyanosis. No edema. NEUROLOGICAL: Unresponsive, pupils as above. To deep central pain patient very slightly withdraws upper and lower extremities. No spontaneous eye opening or to pain Laboratory Laboratory Tests Test 06/19/17 15:00 06/19/17 15:15 06/19/17 15:21 06/19/17 15:34 Blood Gas Puncture Site RT RADIAL Blood Gas Patient Temperature 98.6 Blood Gas HCO3 27 Blood Gas Base Excess 1.4 Blood Gas Oxygen Saturation 97 Arterial Blood pH 7.31 Arterial Blood Partial Pressure CO2 56 Arterial Blood Partial Pressure O2 202 Arterial Blood Oxygen Content 21.6 Arterial Blood Carboxyhemoglobin 1.8 Arterial Blood Methemoglobin 0.7 Blood Gas Hemoglobin 15.6 Oxygen Delivery Device VENTILATOR Blood Gas Ventilator Setting Blood Gas Inspired Oxygen 100 White Blood Count 10.8 Red Blood Count 4.74 Hemoglobin 14.9 Hematocrit 46.3 Mean Corpuscular Volume 97.5 Mean Corpuscular Hemoglobin 31.4 Mean Corpuscular Hemoglobin Concent 32.1 Red Cell Distribution Width 18.7 Platelet Count 229 Mean Platelet Volume 8.3 Neutrophils (%) (Auto) 75.8 Lymphocytes (%) (Auto) 15.0 Monocytes (%) (Auto) 8.1 Eosinophils (%) (Auto) 0.4 Basophils (%) (Auto) 0.7 Neutrophils # (Auto) 8.2 Lymphocytes # (Auto) 1.6 Monocytes # (Auto) 0.9 Eosinophils # (Auto) 0.0 Basophils # (Auto) 0.1 CBC Comment DIFF FINAL Differential Comment Prothrombin Time 10.9 Prothromb Time International Ratio 1.1 Activated Partial Thromboplast Time 26.1 Blood Urea Nitrogen 16 Creatinine 1.28 Random Glucose 92 Total Protein 8.5 Albumin 3.1 Calcium Level 9.1 Alkaline Phosphatase 98 Aspartate Amino Transf (AST/SGOT) 38 Alanine Aminotransferase (ALT/SGPT) 22 Total Bilirubin 0.5 Sodium Level 139 Potassium Level 5.6 Chloride Level 104 Carbon Dioxide Level 27.3 Anion Gap 8 Estimat Glomerular Filtration Rate 43 Total Creatine Kinase 144 Troponin I LESS THAN 0.02 Acetaminophen Level LESS THAN 2.0 Ethyl Alcohol Level LESS THAN 3 Urine Color LIGHT-YELLOW Urine Turbidity CLEAR Urine pH 5.5 Urine Specific [place] 1.006 Urine Protein NEG Urine Glucose (UA) NEG Urine Ketones NEG Urine Occult Blood NEG Urine Nitrite NEG Urine Bilirubin NEG Urine Urobilinogen LESS THAN 2.0 Urine Leukocyte Esterase NEG Urine RBC 1 Urine Amorphous Sediment RARE Urine Bacteria OCC Microscopic Urinalysis Comment CULT NOT INDICATED Urine Opiates Screen NEG Urine Barbiturates Screen NEG Urine Amphetamines Screen NEG Urine Benzodiazepines Screen POS Urine Cocaine Screen NEG Urine Cannabinoids Screen POS Salicylates Level 2.2 Result Diagram: 06/19/17 1515 06/19/[address] chest shows right upper lobe consolidation with small cavitation CT of the head negative for acute finding Septic Shock Reassessment Septic shock perfusion: reassessment completed Caprini VTE Risk Assessment Caprini VTE Risk Assessment: Mod/High Risk (score >= 2) Caprini Risk Assessment Model Point Value = 1 Point Value = 2 Point Value = 3 Point Value = 5 Age 41-60 Minor surgery BMI > 25 kg/m2 Swollen legs Varicose veins or History of unexplained or recurrent spontaneous Oral contraceptives or hormone replacement Sepsis (< 1 month) Serious lung disease, including pneumonia (< 1 month) Abnormal pulmonary function Acute myocardial infarction Congestive heart failure (< 1 month) History of inflammatory bowel disease Medical patient at bed rest Age 61-74 Arthroscopic surgery Major open surgery (> 45 min) Laparoscopic surgery (> 45 min) Malignancy Confined to bed (> 72 hours) Immobilizing plaster cast Central venous access Age >= 75 History of VTE Family history of VTE Factor V Leiden Prothrombin [id number] Lupus anticoagulant Anticardiolipin antibodies Elevated serum homocysteine Heparin-induced thrombocytopenia Other congenital or acquired thrombophilia Stroke (< 1 month) Elective arthroplasty Hip, pelvis, or leg fracture Acute spinal cord injury (< 1 month) Prophylaxis Regimen Total Risk Factor Score Risk Level Prophylaxis Regimen 0-1 Low Early ambulation 2 Moderate Order ONE of the following: *Sequential Compression Device (SCD) *Heparin 5000 units SQ BID 3-4 Higher Order ONE of the following medications: *Heparin 5000 units SQ TID *Enoxaparin/Lovenox 40 mg SQ daily (WT < 150 kg, CrCl > 30 mL/min) *Enoxaparin/Lovenox 30 mg SQ daily (WT < 150 kg, CrCl > 10-29 mL/min) *Enoxaparin/Lovenox 30 mg SQ BID (WT < 150 kg, CrCl > 30 mL/min) AND/OR *Sequential Compression Device (SCD) 5 or more Highest Order ONE of the following medications: *Heparin 5000 units SQ TID (Preferred with Epidurals) *Enoxaparin/Lovenox 40 mg SQ daily (WT < 150 kg, CrCl > 30 mL/min) *Enoxaparin/Lovenox 30 mg SQ daily (WT < 150 kg, CrCl > 10-29 mL/min) *Enoxaparin/Lovenox 30 mg SQ BID (WT < 150 kg, CrCl > 30 mL/min) AND *Sequential Compression Device (SCD) Assessment and Plan Assessment and Plan A/P Baclofen overdose Altered mental status is due to above, anoxic injury cannot be ruled out Attempted suicide New onset seizure 01/2017 THC use Multiple sclerosis Chronic pain syndrome Fibromyalgia Alcohol dependence Anxiety/Depression -Intubated for airway protection, propofol for sedation and ventilator synchrony -Urine drug screen positive for benzodiazepines, THC -Ativan as needed for seizure and alcohol withdrawal, supplement thiamine -Stat EEG ordered, thinks she takes Depakote at home he will bring the medication list -CT head negative for acute findings -In the last admission was seen by Dr. Juan -Restart seizure medications once patient's brings it in -Psychiatric consult once extubated Respiratory: Acute respiratory failure Aspiration pneumonia COPD -Intubated for airway protection, continue assist control mechanical ventilation -maintain O2 sat greater than 90%, ventilator bundle, DuoNeb every 6 hours scheduled and as needed -Broad-spectrum antibiotics with Zosyn and azithromycin -Follow up on sputum culture Cardiovascular: -Monitor blood pressure closely -Check lactic acid and trend if high -Normal saline 2 L bolus and maintenance at 84 mL/h Renal: Acute kidney injury Hyperkalemia -Jacobo catheter, Strict I/Os -Fluid hydration as above -Repeat CMP in a.m. GI: GERD -Npo,Protonix GI prophylaxis Heme/ID: Aspiration pneumonia present on admission Probable sepsis -Monitor CBC, coags -Continue Zosyn and azithromycin -Follow up on sputum and blood culture Endocrine: -Electrolyte replacement per protocol Prophylaxis: GI Prophylaxis with Protonix, DVT Prophylaxis with SCDs and Lovenox CCT 42 MIN Code Status Full Discussed Condition With Dr. Rain and patient's Problem Qualifiers (1) Acute respiratory failure: Qualified Codes: J96.00 - Acute respiratory failure, unspecified whether with hypoxia or hypercapnia (2) Baclofen overdose: Qualified Codes: T42.8X2A - Poisoning by antiparkinsonism drugs and other central muscle-tone depressants, intentional self-harm, initial encounter (3) Pneumonia: Qualified Codes: J18.1 - Lobar pneumonia, unspecified organism (4) Aspiration into airway: Qualified Codes: T17.908A - Unspecified foreign body in respiratory tract, part unspecified causing other injury, initial encounter (5) Chronic pain: Qualified Codes: G89.29 - Other chronic pain (6) Chronic obstructive pulmonary disease: (7) Alcohol dependence: Gina Moran MD Jun 19, 2017 16:15
[2017-06-19] MEDS: SODIUM CHLORIDE 0.9% FLUSH 10 ML FLUSH IVF PRN (16:19)
[2017-06-19] MEDS ORDERED: NURSING INFORMATION XX SCH (16:30)
[2017-06-19] MEDS ORDERED: CHLORHEXIDINE GLUCONATE 2 % 1 PACK (2 CLOTHS) TOP PRN (16:30)
[2017-06-19] MEDS ORDERED: RESP: ALBUTEROL 2.5 MG/3 ML NEB (PRN) INH (16:30)
[2017-06-19] MEDS: RESP: ALBUTEROL 2.5 MG/IPRATROPIUM 0.5 MG NEB (SCH) NEB ×2 (16:47→21:01)
[2017-06-19 18:07] LABS: MAGNESIUM 2.4 MG/DL (1.5-2.5); PHOSPHORUS 5.6 MG/DL (2.5-4.9)
[2017-06-19] MEDS: ENOXAPARIN SODIUM 40 MG/0.4 ML SYRINGE SQ SCH (18:54)
[2017-06-19] MEDS: AZITHROMYCIN INJ 500 MG in SODIUM CHLOR 0.9% 250 ML INJ 250 ML IV SCH (18:55)
[2017-06-19] MEDS: GABAPENTIN 300 MG CAP PO SCH (18:56)
[2017-06-19] MEDS: CHLORHEXIDINE 0.12% (ORAL KIT) 15 ML CUP MT SCH (20:00)
[2017-06-19] MEDS: SODIUM POLYSTYRENE SULFONATE SUSP 15 GM/60 ML CUP OG-TUBE SCH ×2 (21:58→23:24)
[2017-06-19] MEDS: THIAMINE INJ 100 MG in SODIUM CHLORIDE 0.9% INJ 100 ML IV SCH (21:59)
[2017-06-19] MEDS: PIPERACIL-TAZO 3.375 GM PREMIX 50 ML IV SCH (21:59)
[2017-06-19] MEDS: SODIUM CHLOR 0.9% 1000 ML INJ 1,000 ML IV SCH (23:34)
[2017-06-20] VITALS (18 sets, daily range): BP systolic 68–189; BP diastolic 47–97; PULSE 63–123; RESP 16; TEMP 97.3–99; O2SAT 98–100
[2017-06-20] MEDS: SODIUM POLYSTYRENE SULFONATE SUSP 15 GM/60 ML CUP OG-TUBE SCH (01:56)
[2017-06-20] MEDS: VASOPRESSIN 40 U/D5W 100 ML Shock/septic shock, do NOT titrate until taper off IV SCH ×4 (01:57→17:55)
[2017-06-20] MEDS: RESP: ALBUTEROL 2.5 MG/IPRATROPIUM 0.5 MG NEB (SCH) NEB ×4 (03:48→20:34)
[2017-06-20] MEDS: CHLORHEXIDINE GLUCONATE 2 % 1 PACK (2 CLOTHS) TOP SCH (04:00)
[2017-06-20] MEDS: SODIUM CHLOR 0.9% 1000 ML INJ 1,000 ML IV SCH ×2 (04:32→18:26)
[2017-06-20] MEDS: PIPERACIL-TAZO 3.375 GM PREMIX 50 ML IV SCH ×4 (04:53→21:07)
[2017-06-20 06:02] LABS: AUTOMATED NEUTROPHIL # 5.2 TH/MM3 (1.8-7.7); BASOPHIL % 0.5 % (0.0-2.0); EOSINOPHIL # 0.1 TH/MM3 (0-0.4); HEMATOCRIT 33.3 % (35.0-46.0); HEMOGLOBIN 10.9 GM/DL (11.6-15.3); LYMPH % 12.9 % (9.0-44.0); LYMPHOCYTE # 0.8 TH/MM3 (1.0-4.8); MEAN CELL VOLUME 98.2 FL (80.0-100.0); MEAN CORPUSCULAR HEMOGLOBIN 32.3 PG (27.0-34.0); MEAN CORPUSCULAR HGB CONC 32.8 % (32.0-36.0); MEAN PLATELET VOLUME 8.5 FL (7.0-11.0); MONO % 5.2 % (0.0-8.0); MONOCYTE # 0.3 TH/MM3 (0-0.9); NEUT % 80.4 % (16.0-70.0); PLATELET COUNT 158 TH/MM3 (150-450); RED BLOOD COUNT 3.39 MIL/MM3 (4.00-5.30); RED CELL DISTRIBUTION WIDTH 18.5 % (11.6-17.2); WHITE BLOOD COUNT 6.4 TH/MM3 (4.0-11.0)
[2017-06-20 06:56] LABS: ALKALINE PHOSPHATASE 61 U/L (45-117); ALT (GPT) 13 U/L (10-53); AST (GOT) 21 U/L (15-37); BICARBONATE 21.1 MEQ/L (21.0-32.0); BLOOD UREA NITROGEN 16 MG/DL (7-18); CALCIUM 7.6 MG/DL (8.5-10.1); CHLORIDE 122 MEQ/L (98-107); CREATININE 0.94 MG/DL (0.50-1.00); GLOMERULAR FILTRATION RATE 61 ML/MIN (>89); GLUCOSE,RANDOM 135 MG/DL (74-106); SODIUM (NA) 152 MEQ/L (136-145); TOTAL BILIRUBIN ADULT 0.5 MG/DL (0.2-1.0); TOTAL PROTEIN 5.5 GM/DL (6.4-8.2)
--- NOTE | 2017-06-20 08:55 | HHI.CCPN ---
Subjective Remarks/Hospital Course Patient is a 61-year-old female with past medical history significant for multiple sclerosis, fibromyalgia, new onset seizure in January 2017, depression /anxiety, alcohol dependence, COPD who was found unresponsive on the floor by the at 1:30 PM today. He saw her normally yesterday night at 10:30 PM, when he left for work at 7 AM today he heard snoring. He does not sleep with her at night, and did not notice anything abnormal. When he came back from work at 130 pm that is when he found a unresponsive on the floor with the bottle of baclofen almost empty, apparently 97 tablets of 20mg of baclofen missing. Patient was not protecting airway and EMS intubated after giving 4 mg Versed and 20 mg of etomidate. Pt was admitted at [place] 01/2017 for altered mental status and had new onset seizure. According to was discharged home on Depakote I evaluated the patient in the emergency department. She remains unresponsive but pupils are sluggishly reactive. Very slight withdrawal to pain. CT of the head is negative for acute findings. Chest CT shows right upper lobe consolidation with cavitation indicating aspiration pneumonia. Patient will be placed on Zosyn and azithromycin. 2 L of normal saline boluses ordered and maintenance fluid at 84 mL/h. Sputum and blood cultures also ordered. also gives history that patient had been recently very depressed and agitated as she lost her driving privileges due to recent seizure. She has never attempted suicide before. Subjective: 06/20:Tmax 99.0. Patient remains encephalopathic. Patient currently remains on no sedation, unresponsive. During the morning the patient was noted to be sinus bradycardia with episodes of ventricular bigeminy with concurrent significant hypertension 220s over diastolic pressures at 110. Stat EKG performed, stat BMP of obtained. CT brain pending. Stat EEG obtained revealing subclinical PLED's. Neurology consulted. Objective Vital Signs Date Time Temp Pulse Resp B/P (MAP) Pulse Ox O2 Delivery O2 Flow Rate FiO2 06/20/17 08:17 100 40 06/20/17 06:00 65 06/20/17 04:00 99.0 16 121/78 (92) 126/67 (86) 06/19/17 15:30 Ventilator Intake and Output 06/20/17 06/20/17 06/21/17 08:00 16:00 00:00 Intake Total 3193.83 ml Output Total 400 ml Balance 2793.83 ml Result Diagram: 06/20/17 0430 06/20/17 0430 Other Results Laboratory Tests Test 06/19/17 15:00 06/19/17 17:15 Blood Gas Puncture Site RT RADIAL RT FEMORAL Blood Gas Patient Temperature 98.6 98.6 Blood Gas HCO3 27 mmol/L (22-26) 24 mmol/L (22-26) Blood Gas Base Excess 1.4 mmol/L (-2-2) 0.4 mmol/L (-2-2) Blood Gas Oxygen Saturation 97 % (90-100) 92 % (90-100) Arterial Blood pH 7.31 (7.380-7.420) 7.41 (7.380-7.420) Arterial Blood Partial Pressure CO2 56 mmHg (38-42) 39 mmHg (38-42) Arterial Blood Partial Pressure O2 202 mmHG (61-120) 73 mmHG (61-120) Arterial Blood Oxygen Content 21.6 Vol % (12.0-20.0) 18.6 Vol % (12.0-20.0) Arterial Blood Carboxyhemoglobin 1.8 % (0-4) 1.7 % (0-4) Arterial Blood Methemoglobin 0.7 % (0-2) 0.5 % (0-2) Blood Gas Hemoglobin 15.6 G/DL (12.0-16.0) 14.4 G/DL (12.0-16.0) Oxygen Delivery Device VENTILATOR VENTILATOR Blood Gas Ventilator Setting AC16/550/8PEEP Blood Gas Inspired Oxygen 100 % 50 % Imaging CT chest shows right upper lobe consolidation with small cavitation CT of the head negative for acute finding Objective Remarks GENERAL: 61-year-old female intubated not on medication unresponsive SKIN: Warm/dry. HEAD: Atraumatic. Normocephalic. EYES: Pupils equal and round at 4mm bilaterally, sluggishly react. ENT: No nasal bleeding or discharge. Orotracheally intubated NECK: Trachea midline. No JVD. CARDIOVASCULAR: Regular rate and rhythm. No murmur appreciated. RESPIRATORY: Clear to auscultation. Breath sounds equal bilaterally. GASTROINTESTINAL: Abdomen soft, non-tender, nondistended. MUSCULOSKELETAL: No obvious deformities. No clubbing. No cyanosis. No edema. NEUROLOGICAL: GCS 3T. Unresponsive, pupils as above. To deep central pain patient very slightly withdraws upper and lower extremities. No spontaneous eye opening or to pain A/P Assessment and Plan A/P Baclofen overdose Altered mental status is due to above, anoxic injury cannot be ruled out Attempted suicide New onset seizure 01/2017 THC use Multiple sclerosis Chronic pain syndrome Fibromyalgia Alcohol dependence Anxiety/Depression -Intubated for airway protection, propofol for sedation and ventilator synchrony -Urine drug screen positive for benzodiazepines, THC -Ativan as needed for seizure and alcohol withdrawal, supplement thiamine -Stat EEG ordered, thinks she takes Depakote at home he will bring the medication list-patient normally on Soma, gabapentin and alprazolam, no Depakote noted on reconciliation list -CT head negative for acute findings -In the last admission was seen by Dr. Juan -Restart seizure medications once patient's brings it in -Psychiatric consult once extubated -Poison control contacted on initial admission, and follow up this am -(Madalyn). 2/2 to long half life of baclofen and Soma continue symptomatic supportive care. -06/20 repeat EEG, revealing PLEDs. Neurology consulted. Keppra loaded -Follow-up CT brain Respiratory: Acute respiratory failure Aspiration pneumonia COPD -Intubated for airway protection, continue assist control mechanical ventilation -maintain O2 sat greater than 90%, ventilator bundle, DuoNeb every 6 hours scheduled and as needed -Broad-spectrum antibiotics with Zosyn and azithromycin -Follow up on sputum culture Cardiovascular: Hypertension Bradycardia -Monitor blood pressure closely -Check lactic acid and trend if high -Normal saline 2 L bolus and maintenance at 84 mL/h -Hydralazine 10 mg 1 dose. Hydralazine 20 mg every 4 hours as needed for systolic blood pressure greater than 160 Renal: Acute kidney injury Hyperkalemia -Jacobo catheter, Strict I/Os -Fluid hydration as above -Repeat CMP in a.m.-pending GI: GERD -Npo,Protonix GI prophylaxis Heme/ID: Aspiration pneumonia present on admission Probable sepsis -Monitor CBC, coags -Continue Zosyn and azithromycin -Follow up on sputum and blood culture Endocrine: -Electrolyte replacement per protocol Prophylaxis: GI Prophylaxis with Protonix, DVT Prophylaxis with SCDs and Lovenox my billing statement This patient remains critically ill with one or more organ systems which are or may become a threat to life. I have spent in excess of 35 minutes discontinuously in the care and management of this patient. This time is exclusive of procedures, and includes, but is not limited to, evaluation of the patient, review of the medical record, discussions with family, consultants, nursing staff, or respiratory therapy, and documentation in the medical record Discussed with BLENDING LINE ATTENDANT at bedside, due to the long half-life of baclofen and also possible ingestion of Soma patient had a prescription at home symptomatology may" mimic brain " for up to possibly a week or more, per Poison Control. Will continue supportive care, close monitoring. Physician Suma Mckeon MD Jun 20, 2017 08:55
[2017-06-20] MEDS: CHLORHEXIDINE 0.12% (ORAL KIT) 15 ML CUP MT SCH ×2 (09:30→20:00)
[2017-06-20] MEDS: PANTOPRAZOLE SOD 40 MG DELAYED RELEASE TAB PO SCH (09:31)
[2017-06-20] MEDS: THIAMINE INJ 100 MG in SODIUM CHLORIDE 0.9% INJ 100 ML IV SCH (09:31)
[2017-06-20] MEDS ORDERED: hydrALAZINE HCL 20 MG/ML VIAL ONE (09:48)
[2017-06-20] MEDS ORDERED: hydrALAZINE HCL 20 MG/ML VIAL IV PUSH ONE (10:00)
[2017-06-20 10:36] LABS: ALBUMIN 2.1 GM/DL (3.4-5.0); AST (GOT) 22 U/L (15-37); BICARBONATE 21.7 MEQ/L (21.0-32.0); BLOOD UREA NITROGEN 17 MG/DL (7-18); CHLORIDE 119 MEQ/L (98-107); CREATININE 0.84 MG/DL (0.50-1.00); GLOMERULAR FILTRATION RATE 69 ML/MIN (>89); GLUCOSE,RANDOM 158 MG/DL (74-106); SODIUM (NA) 151 MEQ/L (136-145)
[2017-06-20 10:39] LABS: ALKALINE PHOSPHATASE 61 U/L (45-117); ALT (GPT) 14 U/L (10-53); TOTAL BILIRUBIN ADULT 0.4 MG/DL (0.2-1.0); TOTAL PROTEIN 5.8 GM/DL (6.4-8.2)
--- NOTE | 2017-06-20 10:49 | RADRPT ---
EXAM DATE/TIME: 06/20/2017 10:32 [facility] COMPARISON: CT BRAIN W/O CONTRAST, June 19, 2017, 15:37. INDICATIONS : Evaluate for swelling, altered mental status, status post overdose.. RADIATION DOSE: 56.35 CTDIvol (mGy) MEDICAL HISTORY : Gastroesophageal reflux disease. Multiple sclerosis. Fibromyalgia, vascular necrosis, seizures SURGICAL HISTORY : Tubal ligation. ENCOUNTER: Subsequent ACUITY: 2 days PAIN SCALE: Non-responsive LOCATION: cranial TECHNIQUE: Multiple contiguous axial images were obtained of the head. Using automated exposure control and adj ustment of the mA and/or kV according to patient size, radiation dose was kept as low as reasonably a chievable to obtain optimal diagnostic quality images. DICOM format image data is available electro nically for review and comparison. FINDINGS: CEREBRUM: The ventricles are normal for age with mild atrophic change and chronic small vessel ischemic changes . No evidence of midline shift, mass lesion, hemorrhage or acute infarction. No extra-axial fluid co llections are seen. POSTERIOR FOSSA: The cerebellum and brainstem are intact. The 4th ventricle is midline. The cerebellopontine angle i s unremarkable. EXTRACRANIAL: The visualized portion of the orbits is intact. SKULL: The calvaria is intact. No evidence of skull fracture. CONCLUSION: Stable appearance from yesterday's head CT with no acute hemorrhage, mass or stroke. Michael Reeder MD on June 20, 2017 at 10:44 Board Certified Radiologist. This report was verified electronically.
[2017-06-20] MEDS: GABAPENTIN 300 MG CAP PO SCH ×3 (13:00→18:26)
[2017-06-20] MEDS ORDERED: levETIRAcetam INJ 100 ML IV ONE (13:15)
[2017-06-20] MEDS: hydrALAZINE HCL 20 MG/ML VIAL IV PUSH PRN ×2 (13:20→19:48)
[2017-06-20] MEDS: ENOXAPARIN SODIUM 40 MG/0.4 ML SYRINGE SQ SCH (16:08)
--- NOTE | 2017-06-20 17:36 | MG ---
cc: Guero Juan MD REQUESTING PHYSICIAN: Gina Moran MD An EEG was obtained on this 61-year-old patient, intubated, no apparent sedation. The patient is unresponsive. Prior EEG with some apparent mild to moderate encephalopathy. This EEG is showing burst suppression pattern. The bursts have some high amplitude activity including some spike discharges and last a second or less typically. The suppression lasts typically 2 or 3 seconds. This pattern persists throughout. INTERPRETATION: Markedly abnormal electroencephalogram with a burst suppression pattern. Although this could be related to heavy sedation, it certainly raises the possibility of severe anoxic brain injury. This is not an ictal EEG pattern. Guero Juan MD OFC/SB , 05:19 PM , 05:36 PM
[2017-06-20] MEDS: AZITHROMYCIN INJ 500 MG in SODIUM CHLOR 0.9% 250 ML INJ 250 ML IV SCH (18:26)
[2017-06-20] MEDS: levETIRAcetam INJ 500 MG in SODIUM CHLORIDE 0.9% INJ 100 ML IV SCH (21:07)
[2017-06-20] MEDS ORDERED: POTASSIUM CHLOR 40 MEQ PREMIX 100 ML IV PRN ×2 (21:30)
[2017-06-20] MEDS ORDERED: POTASSIUM PHOSPHATE INJ 30 MMOL in SODIUM CHLOR 0.9% 250 ML INJ 250 ML IV PRN (21:30)
[2017-06-20] MEDS ORDERED: SODIUM PHOSPHATE INJ 30 MMOL in SODIUM CHLOR 0.9% 250 ML INJ 240 ML IV PRN (21:30)
[2017-06-20] MEDS ORDERED: POTASSIUM CHLOR 20 MEQ PREMIX 100 ML IV PRN (21:30)
[2017-06-20] MEDS ORDERED: MAGNESIUM OXIDE 400 MG TAB PO PRN (21:30)
[2017-06-20] MEDS ORDERED: MAGNESIUM SULFATE INJ 4 GM in SODIUM CHLORIDE 0.9% INJ 92 ML IV PRN (21:30)
[2017-06-20] MEDS ORDERED: MAGNESIUM SULFATE INJ 2 GM in SODIUM CHLORIDE 0.9% INJ 96 ML IV PRN (21:30)
[2017-06-20] MEDS ORDERED: POTASSIUM PHOSPHATE MONOBASIC 500 MG TAB PO PRN (21:30)
[2017-06-20] MEDS ORDERED: POTASSIUM CHLORIDE 25 MEQ EFFERVESCENT TAB PO PRN (21:30)
[2017-06-20] MEDS ORDERED: POTASSIUM PHOSPHATE MONOBASIC 500 MG TAB PO/TUBE PRN (21:30)
[2017-06-20] MEDS: LABETALOL HCL 100 MG/20 ML VIAL IV PUSH PRN (21:43)
[2017-06-21] VITALS (17 sets, daily range): BP systolic 108–195; BP diastolic 65–104; PULSE 74–112; RESP 16–27; TEMP 97.7–98.9; O2SAT 97–100
--- NOTE | 2017-06-21 00:08 | EKG ---
Date Performed: 06/20/2017 Time Performed: 09:41:42 PTAGE: 61 years EKG: Sinus rhythm with bigeminal PVCs. Possible anterior infarct - age undetermined Low QRS voltages in precordial concepcion ds Abnormal ECG Compared to PREVIOUS TRACING , rate has decreased with bigeminy DOCTOR: Vito Archer Interpretating Date/Time 06/21/2017 00:06:29
[2017-06-21] MEDS: hydrALAZINE HCL 20 MG/ML VIAL IV PUSH PRN ×3 (00:38→09:17)
--- NOTE | 2017-06-21 00:39 | EKG ---
Date Performed: 06/19/2017 Time Performed: 14:50:19 PTAGE: 61 years EKG: SINUS TACHYCARDIA WITH SHORT UT INTERVAL POSSIBLE RIGHT ATRIAL ENLARGEMENT ST DEVIATION AND MODERATE T-WAVE ABNORMALITY, CONSIDER ANTERIOR ISCHEMIA ABNORMAL ECG INTERPRETATION BASED ON A DEFAU LT AGE OF 40 YEARS PREVIOUS TRACING : 02/14/2017 11.02 Compared to previous tracing, ST/T wave changes anter iorly now noted DOCTOR: Vito Archer Interpretating Date/Time 06/21/2017 00:37:46
[2017-06-21] MEDS: LABETALOL HCL 100 MG/20 ML VIAL IV PUSH PRN ×3 (03:19→12:12)
[2017-06-21] MEDS: PIPERACIL-TAZO 3.375 GM PREMIX 50 ML IV SCH ×4 (03:19→21:09)
[2017-06-21] MEDS: RESP: ALBUTEROL 2.5 MG/IPRATROPIUM 0.5 MG NEB (SCH) NEB ×4 (03:34→21:43)
[2017-06-21] MEDS: CHLORHEXIDINE GLUCONATE 2 % 1 PACK (2 CLOTHS) TOP SCH (04:00)
--- NOTE | 2017-06-21 04:42 | RADRPT ---
EXAM DATE/TIME: 06/21/2017 03:50 [facility] COMPARISON: CHEST SINGLE AP, June 19, 2017, 15:01. INDICATIONS : Shortness of breath, possible pulmonary disease. MEDICAL HISTORY : Multiple sclerosis. Hypertension Chronic obstructive pulmonary disease. SURGICAL HISTORY : Fusion, cervical. Tubal ligation. ENCOUNTER: Subsequent ACUITY: 3 days PAIN SCORE: Non-responsive. LOCATION: Bilateral chest FINDINGS: A single view of the chest demonstrates endotracheal tube in good position. NG enters stomach. Postop erative left shoulder joint replacement. Mild basilar airspace disease. Small pleural effusions. CONCLUSION: 1. Mild basilar airspace disease, slightly increased on right since June 19. Small effusions. Suppor t apparatus unchanged. Avel Ken MD on June 21, 2017 at 4:39 Board Certified Radiologist. This report was verified electronically.
[2017-06-21 05:07] LABS: ALT (GPT) 12 U/L (10-53); AST (GOT) 15 U/L (15-37); BLOOD UREA NITROGEN 10 MG/DL (7-18); CALCIUM 8.5 MG/DL (8.5-10.1); CHLORIDE 115 MEQ/L (98-107); CREATININE 0.54 MG/DL (0.50-1.00); GLOMERULAR FILTRATION RATE 115 ML/MIN (>89); MAGNESIUM 1.9 MG/DL (1.5-2.5); SODIUM (NA) 147 MEQ/L (136-145)
[2017-06-21 05:10] LABS: ALKALINE PHOSPHATASE 64 U/L (45-117); BICARBONATE 22.6 MEQ/L (21.0-32.0); GLUCOSE,RANDOM 103 MG/DL (74-106); TOTAL BILIRUBIN ADULT 0.5 MG/DL (0.2-1.0)
[2017-06-21 05:17] LABS: AUTOMATED NEUTROPHIL # 8.1 TH/MM3 (1.8-7.7); BASOPHIL # 0.1 TH/MM3 (0-0.2); BASOPHIL % 0.6 % (0.0-2.0); EOSINOPHIL % 0.3 % (0.0-4.0); HEMATOCRIT 35.9 % (35.0-46.0); HEMOGLOBIN 11.9 GM/DL (11.6-15.3); LYMPH % 7.1 % (9.0-44.0); LYMPHOCYTE # 0.7 TH/MM3 (1.0-4.8); MEAN CELL VOLUME 96.3 FL (80.0-100.0); MEAN CORPUSCULAR HEMOGLOBIN 31.9 PG (27.0-34.0); MEAN CORPUSCULAR HGB CONC 33.1 % (32.0-36.0); MEAN PLATELET VOLUME 8.3 FL (7.0-11.0); MONO % 6.8 % (0.0-8.0); MONOCYTE # 0.6 TH/MM3 (0-0.9); NEUT % 85.2 % (16.0-70.0); PLATELET COUNT 167 TH/MM3 (150-450); RED BLOOD COUNT 3.73 MIL/MM3 (4.00-5.30); RED CELL DISTRIBUTION WIDTH 18.4 % (11.6-17.2); WHITE BLOOD COUNT 9.5 TH/MM3 (4.0-11.0)
[2017-06-21] MEDS: SODIUM CHLOR 0.9% 1000 ML INJ 1,000 ML IV SCH ×2 (07:40→22:20)
[2017-06-21] MEDS: THIAMINE INJ 100 MG in SODIUM CHLORIDE 0.9% INJ 100 ML IV SCH (08:39)
[2017-06-21] MEDS: PANTOPRAZOLE SOD 40 MG DELAYED RELEASE TAB PO SCH (08:39)
[2017-06-21] MEDS: levETIRAcetam INJ 500 MG in SODIUM CHLORIDE 0.9% INJ 100 ML IV SCH ×3 (08:39→23:57)
[2017-06-21] MEDS: GABAPENTIN 300 MG CAP PO SCH ×3 (08:39→17:15)
[2017-06-21] MEDS: CHLORHEXIDINE 0.12% (ORAL KIT) 15 ML CUP MT SCH ×2 (08:52→20:23)
--- NOTE | 2017-06-21 09:03 | HHI.CCPN ---
Subjective Remarks/Hospital Course Patient is a 61-year-old female with past medical history significant for multiple sclerosis, fibromyalgia, new onset seizure in January 2017, depression /anxiety, alcohol dependence, COPD who was found unresponsive on the floor by the at 1:30 PM today. He saw her normally yesterday night at 10:30 PM, when he left for work at 7 AM today he heard snoring. He does not sleep with her at night, and did not notice anything abnormal. When he came back from work at 130 pm that is when he found a unresponsive on the floor with the bottle of baclofen almost empty, apparently 97 tablets of 20mg of baclofen missing. Patient was not protecting airway and EMS intubated after giving 4 mg Versed and 20 mg of etomidate. Pt was admitted at [place] 01/2017 for altered mental status and had new onset seizure. According to was discharged home on Depakote I evaluated the patient in the emergency department. She remains unresponsive but pupils are sluggishly reactive. Very slight withdrawal to pain. CT of the head is negative for acute findings. Chest CT shows right upper lobe consolidation with cavitation indicating aspiration pneumonia. Patient will be placed on Zosyn and azithromycin. 2 L of normal saline boluses ordered and maintenance fluid at 84 mL/h. Sputum and blood cultures also ordered. also gives history that patient had been recently very depressed and agitated as she lost her driving privileges due to recent seizure. She has never attempted suicide before. Subjective: 06/20:Tmax 99.0. Patient remains encephalopathic. Patient currently remains on no sedation, unresponsive. During the morning the patient was noted to be sinus bradycardia with episodes of ventricular bigeminy with concurrent significant hypertension 220s over diastolic pressures at 110. Stat EKG performed, stat BMP of obtained. CT brain pending. Stat EEG obtained revealing subclinical PLED's. Neurology consulted. 06/21: Remains critically ill at all for sedation no spontaneous eye opening or movements noted. To deep pain very slight withdrawal. EEG markedly abnormal with a burst suppression pattern. Anoxic brain injury cannot be ruled out. Neurology consulted. I have also requested repeat EEG> MRI if not improved in 1 -2 days. Still comatose due to long half-life of Baclofen and Soma Objective Vital Signs Date Time Temp Pulse Resp B/P (MAP) Pulse Ox O2 Delivery O2 Flow Rate FiO2 06/21/17 08:30 100 40 06/21/17 06:00 80 06/21/17 04:00 98.8 16 170/97 (121) 174/81 (112) 06/19/17 15:30 Ventilator Intake and Output 06/21/17 06/21/17 06/22/17 08:00 16:00 00:00 Intake Total 1095 ml Output Total 750 ml Balance 345 ml Result Diagram: 06/21/17 0503 06/21/[address] chest shows right upper lobe consolidation with small cavitation CT of the head negative for acute finding Objective Remarks GENERAL: 61-year-old female intubated not on medication unresponsive SKIN: Warm/dry. HEAD: Atraumatic. Normocephalic. EYES: Pupils equal and round at 4mm bilaterally, reactive ENT: No nasal bleeding or discharge. Orotracheally intubated NECK: Trachea midline. No JVD. CARDIOVASCULAR: Regular rate and rhythm. No murmur appreciated. RESPIRATORY: Clear to auscultation. Breath sounds equal bilaterally. GASTROINTESTINAL: Abdomen soft, non-tender, nondistended. MUSCULOSKELETAL: No obvious deformities. No clubbing. No cyanosis. No edema. NEUROLOGICAL: Intubated not on sedation. Unresponsive, pupils as above. To deep central pain patient very slightly withdraws upper and lower extremities. No spontaneous eye opening or to pain A/P Assessment and Plan A/P Baclofen overdose/Attempted suicide Probable anoxic brain injury Burst suppression pattern on EEG Seizure, new onset 01/2017 THC use Multiple sclerosis Chronic pain syndrome Fibromyalgia Alcohol dependence Anxiety/Depression -Intubated for airway protection, remains off all continuos sedation since admission -EEG showing burst suppression pattern. Keppra started yesterday -Repeat EEG, neurology consulted. There is concern about possible anoxic brain injury. MRI tomorrow if neuro exam not improved -Urine drug screen positive for benzodiazepines, THC -Ativan as needed for seizure and alcohol withdrawal, supplement thiamine - thinks she takes Depakote at home-patient normally on Soma, gabapentin and alprazolam, no Depakote noted on reconciliation list -Restart seizure medications once patient's brings it in 9has not updated on med rec yet -CT head negative for acute findings -In the last admission was seen by Dr. Juan -Psychiatric consult if meaningful neuro recovery -Poison control contacted, due to long half life of baclofen and Soma continue symptomatic supportive care. -06/20 repeat EEG, revealing PLEDs. Neurology consulted. Keppra loaded -CT brain negative Respiratory: Acute respiratory failure Aspiration pneumonia COPD -Intubated for airway protection, continue assist control mechanical ventilation -maintain O2 sat greater than 90%, ventilator bundle, DuoNeb every 6 hours scheduled and as needed -Broad-spectrum antibiotics with Zosyn and azithromycin -Follow up on sputum culture-negative to date Cardiovascular: Hypertension Bradycardia -Monitor blood pressure closely -Labetalol and hydralazine as needed for SBP more than 160 -Normal saline maintenance at 84 mL/h -Hydralazine 10 mg 1 dose. Hydralazine 20 mg every 4 hours as needed for systolic blood pressure greater than 160 -Start scheduled metoprolol 50 every 12 Renal: Acute kidney injury Hyperkalemia -Jacobo catheter, Strict I/Os -Fluid hydration as above GI: GERD -Start tube feeds with Jevity,Protonix GI prophylaxis Heme/ID: Aspiration pneumonia present on admission Probable sepsis -Monitor CBC, coags -Continue Zosyn and azithromycin -Follow up on sputum and blood culture. Negative to date Endocrine: -Electrolyte replacement per protocol Prophylaxis: GI Prophylaxis with Protonix, DVT Prophylaxis with SCDs and Lovenox my billing statement This patient remains critically ill with one or more organ systems which are or may become a threat to life. I have spent in excess of 35 minutes discontinuously in the care and management of this patient. This time is exclusive of procedures, and includes, but is not limited to, evaluation of the patient, review of the medical record, discussions with family, consultants, nursing staff, or respiratory therapy, and documentation in the medical record Due to the long half-life of baclofen and also possible ingestion of Soma patient had a prescription patient may appear comatose for up to possibly a week or more, per Poison Control. Will continue supportive care, close monitoring. Gina Moran MD Jun 21, 2017 09:03
[2017-06-21] MEDS: METOPROLOL TARTRATE 50 MG TAB PO SCH ×2 (10:16→20:23)
[2017-06-21] MEDS: VASOPRESSIN 40 U/D5W 100 ML Shock/septic shock, do NOT titrate until taper off IV SCH ×2 (10:35)
[2017-06-21] MEDS: niCARdipine 25 MG/NS 250 ML Vial2Bag or IV room IV PRN ×6 (12:27→23:34)
--- NOTE | 2017-06-21 15:55 | MG ---
cc: Todd Cee MD, PhD TEST NUMBER: [id number]. TECHNIQUE: A 17-channel EEG. DESCRIPTION: The background rhythm reveals a burst suppression pattern consistent with bilateral PLEDs occurring every 3-4 seconds. No other lateralizing features identified. The background activity between the PLEDs is slow in the delta frequency. INTERPRETATION: Severely abnormal study consistent with a severe degree of encephalopathy, probable anoxic encephalopathy. Todd Cee MD, PhD EDWARD/SB , 03:41 PM , 03:54 PM
--- NOTE | 2017-06-21 16:20 | MB ---
cc: Todd Cee MD, PhD DATE: 06/21/2017 HISTORY OF PRESENT ILLNESS: Ms. Seo is a 61-year-old woman with multiple sclerosis, seizure disorder, who was found unresponsive by her yesterday. She has been intubated and nonresponsive. No tonic-clonic activity. PAST MEDICAL/SURGICAL HISTORY: She has a history of alcohol dependence, new onset seizure last January, COPD, multiple sclerosis, cervical spondylosis, cervical spine fusion in 2000, right hip replacement. MEDICATIONS: 1. Spiriva. 2. Adderall. 3. Ibuprofen. 4. Gabapentin. 5. Oxycodone. 6. . 7. Alprazolam. 6. Rebif. PHYSICAL EXAMINATION: VITAL SIGNS: Blood pressure is 187/104, pulse 74, respiratory rate is 16, temperature 98.6 degrees. NEUROLOGICAL EXAMINATION: Higher function cortical functions: She is sedated, nonresponsive. Cranial Nerves: The pupils are 3 mm, symmetric, minimally reactive. Extraocular movements are sluggish to doll's eyes maneuver. Motor Exam: No spontaneous limb movement, no posturing. EEG shows bilateral PLEDs with a burst suppression pattern. CT brain is normal. LABORATORY DATA: White count 9500, hemoglobin 9.9, hematocrit 35%, platelet count 167,000. Sodium is 147, potassium 3.3, chloride 115, CO2 is 22.6, BUN is 10, creatinine 0.54, glucose is 103. Ammonia was 17. PT 10.9, INR 1.1, APTT 26.1. Tox screen positive for benzodiazepines and cannabinoids. Alcohol level negative. IMPRESSION: Severe anoxic encephalopathy. EEG showing bilateral periodic lateralized epileptiform discharges in a burst suppression fashion. Prognosis is poor. PLAN: She is on Keppra at 500 mg q.12 hours. We will increase to 500 mg q. 6 hours. Todd Cee MD, PhD EDWARD/SB , 03:56 PM , 04:19 PM
[2017-06-21] MEDS: ENOXAPARIN SODIUM 40 MG/0.4 ML SYRINGE SQ SCH (16:46)
[2017-06-21] MEDS: AZITHROMYCIN INJ 500 MG in SODIUM CHLOR 0.9% 250 ML INJ 250 ML IV SCH (17:09)
[2017-06-21 20:43] LABS: PHOSPHORUS 2.3 MG/DL (2.5-4.9)
[2017-06-21] MEDS: PROPOFOL 1000 MG/100 ML INJ 100 ML IV PRN (20:54)
[2017-06-22] VITALS (23 sets, daily range): BP systolic 117–144; BP diastolic 67–85; PULSE 75–109; RESP 11–20; TEMP 97.2–99; O2SAT 99–100
[2017-06-22] MEDS: niCARdipine 25 MG/NS 250 ML Vial2Bag or IV room IV PRN ×2 (02:45)
[2017-06-22] MEDS: PIPERACIL-TAZO 3.375 GM PREMIX 50 ML IV SCH ×4 (03:19→20:27)
[2017-06-22] MEDS: CHLORHEXIDINE GLUCONATE 2 % 1 PACK (2 CLOTHS) TOP SCH (03:20)
[2017-06-22] MEDS: RESP: ALBUTEROL 2.5 MG/IPRATROPIUM 0.5 MG NEB (SCH) NEB ×4 (04:45→20:48)
[2017-06-22] MEDS: levETIRAcetam INJ 500 MG in SODIUM CHLORIDE 0.9% INJ 100 ML IV SCH ×3 (05:25→17:03)
[2017-06-22 05:29] LABS: ALBUMIN 2.2 GM/DL (3.4-5.0); ALKALINE PHOSPHATASE 72 U/L (45-117); ALT (GPT) 12 U/L (10-53); AST (GOT) 27 U/L (15-37); BICARBONATE 23.8 MEQ/L (21.0-32.0); BLOOD UREA NITROGEN 9 MG/DL (7-18); CHLORIDE 114 MEQ/L (98-107); CREATININE 0.55 MG/DL (0.50-1.00); GLOMERULAR FILTRATION RATE 113 ML/MIN (>89); GLUCOSE,RANDOM 99 MG/DL (74-106); SODIUM (NA) 146 MEQ/L (136-145); TOTAL BILIRUBIN ADULT 0.7 MG/DL (0.2-1.0); TOTAL PROTEIN 6.9 GM/DL (6.4-8.2)
[2017-06-22] MEDS: PROPOFOL 1000 MG/100 ML INJ 100 ML IV PRN (05:44)
[2017-06-22] MEDS: POTASSIUM CHLOR 20 MEQ PREMIX 100 ML IV PRN ×4 (05:56→12:46)
[2017-06-22] MEDS: THIAMINE INJ 100 MG in SODIUM CHLORIDE 0.9% INJ 100 ML IV SCH (08:07)
[2017-06-22] MEDS: CHLORHEXIDINE 0.12% (ORAL KIT) 15 ML CUP MT SCH ×2 (08:07→20:00)
[2017-06-22] MEDS: GABAPENTIN 300 MG CAP PO SCH ×3 (08:08→17:02)
[2017-06-22] MEDS: METOPROLOL TARTRATE 50 MG TAB PO SCH ×2 (08:08→20:27)
[2017-06-22] MEDS: PANTOPRAZOLE SOD 40 MG DELAYED RELEASE TAB PO SCH (08:08)
--- NOTE | 2017-06-22 08:26 | HHI.CCPN ---
Subjective Remarks/Hospital Course Patient is a 61-year-old female with past medical history significant for multiple sclerosis, fibromyalgia, new onset seizure in January 2017, depression /anxiety, alcohol dependence, COPD who was found unresponsive on the floor by the at 1:30 PM today. He saw her normally yesterday night at 10:30 PM, when he left for work at 7 AM today he heard snoring. He does not sleep with her at night, and did not notice anything abnormal. When he came back from work at 130 pm that is when he found a unresponsive on the floor with the bottle of baclofen almost empty, apparently 97 tablets of 20mg of baclofen missing. Patient was not protecting airway and EMS intubated after giving 4 mg Versed and 20 mg of etomidate. Pt was admitted at [facility] 01/2017 for altered mental status and had new onset seizure. According to was discharged home on Depakote I evaluated the patient in the emergency department. She remains unresponsive but pupils are sluggishly reactive. Very slight withdrawal to pain. CT of the head is negative for acute findings. Chest CT shows right upper lobe consolidation with cavitation indicating aspiration pneumonia. Patient will be placed on Zosyn and azithromycin. 2 L of normal saline boluses ordered and maintenance fluid at 84 mL/h. Sputum and blood cultures also ordered. also gives history that patient had been recently very depressed and agitated as she lost her driving privileges due to recent seizure. She has never attempted suicide before. Subjective: 06/20:Tmax 99.0. Patient remains encephalopathic. Patient currently remains on no sedation, unresponsive. During the morning the patient was noted to be sinus bradycardia with episodes of ventricular bigeminy with concurrent significant hypertension 220s over diastolic pressures at 110. Stat EKG performed, stat BMP of obtained. CT brain pending. Stat EEG obtained revealing subclinical PLED's. Neurology consulted. 06/21: Remains critically ill at all for sedation no spontaneous eye opening or movements noted. To deep pain very slight withdrawal. EEG markedly abnormal with a burst suppression pattern. Anoxic brain injury cannot be ruled out. Neurology consulted. I have also requested repeat EEG> MRI if not improved in 1 -2 days. Still comatose due to long half-life of Baclofen and Soma 06/22: No events over the night. Cardene tapered off. T-max of 98.6. Patient remains intubated, on minimal sedation with propofol, opens eyes to voice stimuli and follows some commands. Urine output is adequate. ROS: -Unobtainable, patient is intubated Objective Vital Signs Date Time Temp Pulse Resp B/P (MAP) Pulse Ox O2 Delivery O2 Flow Rate FiO2 06/22/17 08:17 40 06/22/17 07:43 100 06/22/17 04:00 98.6 93 17 117/69 (85) 06/19/17 15:30 Ventilator Intake and Output 06/22/17 06/22/17 06/23/17 08:00 16:00 00:00 Intake Total 100 ml Output Total 3150 ml Balance -3050 ml Result Diagram: 06/21/17 0509 06/22/17 0457 Other Results Microbiology Date/Time Source Procedure Growth Status 06/19/17 18:00 Sputum Endotracheal Gram Stain - Final Complete 06/19/17 18:00 Sputum Endotracheal Sputum Culture - Final HEAVY GROWTH NORMAL RESPIRATORY RAJNI Complete Imaging CT chest shows right upper lobe consolidation with small cavitation CT of the head negative for acute finding Objective Remarks GENERAL: Middle-aged lady, intubated, on minimal sedation, arousable, ill- appearing. SKIN: Warm and dry. HEAD: Atraumatic. Normocephalic. EYES: Pupils equal and round, dilated, reactive. Sclera are anicteric. ENT: No nasal bleeding or discharge. Orally intubated NECK: Trachea midline. No JVD. CARDIOVASCULAR: Regular S1 and S2 rate. No murmurs appreciated. RESPIRATORY: Clear to auscultation. Breath sounds equal bilaterally. Good air entry. No wheezes. GASTROINTESTINAL: Abdomen soft, non-tender, nondistended. Bowel sounds present. MUSCULOSKELETAL: No obvious deformities. No clubbing. No cyanosis. No edema. NEUROLOGICAL: Intubated on minimal sedation. Opens eyes to voice stimuli and follows some commands, + tracking, squeezes fingers with bilateral hands, wiggles toes more over the right foot. A/P Assessment and Plan A/P Baclofen overdose/Attempted suicide Acute encephalopathy secondary to above Burst suppression pattern on EEG Seizure, new onset 01/2017 THC use Multiple sclerosis Chronic pain syndrome Fibromyalgia Alcohol dependence Anxiety/Depression -Intubated for airway protection, remains on minimal sedation for vent synchrony -EEG showing burst suppression pattern. Keppra started yesterday by neurology -Repeat EEG, neurology consulted. There is concern about possible anoxic brain injury. Possible MRI today -Urine drug screen positive for benzodiazepines, THC -Ativan as needed for seizure and alcohol withdrawal, supplement thiamine - thinks she takes Depakote at home-patient normally on Soma, gabapentin and alprazolam, no Depakote noted on reconciliation list -Restart seizure medications once patient's brings it in -CT head negative for acute findings -In the last admission was seen by Dr. Juan -Psychiatric consult if meaningful neuro recovery -Poison control contacted, due to long half life of baclofen and Soma continue symptomatic supportive care -06/20 repeat EEG, revealing PLEDs. Neurology consulted. Keppra loaded Respiratory: Acute respiratory failure Aspiration pneumonia COPD -Intubated for airway protection, continue assist control mechanical ventilation -Maintain O2 sat greater than 90%, ventilator bundle, DuoNeb every 6 hours scheduled and as needed -Continue PRVC at current vent settings, no auto PEEP, patient synchronized with the ventilator, PIP 22, on FiO2 of 0.4 and a PEEP of 8 -Broad-spectrum antibiotics with Zosyn. Stop azithromycin today -Follow up on sputum culture-negative to date Cardiovascular: Hypertension Bradycardia -Monitor blood pressure closely -Labetalol and hydralazine as needed for SBP more than 160 -Normal saline maintenance at 84 mL/h -Hydralazine 10 mg 1 dose. Hydralazine 20 mg every 4 hours as needed for systolic blood pressure greater than 160 -Start scheduled metoprolol 50 every 12 -Off Cardene drip Renal: Acute kidney injury Hyperkalemia -Jacobo catheter, Strict I/Os -Fluid hydration as above -Excellent urine output GI: GERD -On tube feeds with Jevity,Protonix GI prophylaxis Heme/ID: Aspiration pneumonia present on admission Probable sepsis -Monitor CBC, coags -Continue Zosyn, stop azithromycin -Follow up on sputum and blood culture. Negative to date Endocrine: -Electrolyte replacement per protocol Prophylaxis: GI Prophylaxis with Protonix, DVT Prophylaxis with SCDs and Lovenox Due to the long half-life of baclofen and also possible ingestion of Soma patient had a prescription patient may appear comatose for up to possibly a week or more, per Poison Control. Will continue supportive care, close monitoring. Jose Mortensen MD Jun 22, 2017 08:26
[2017-06-22] MEDS: DEXMEDETOMIDINE INJ 200 MCG in SODIUM CHLORIDE 0.9% INJ 50 ML IV PRN ×2 (10:06→11:54)
[2017-06-22] MEDS: ENOXAPARIN SODIUM 40 MG/0.4 ML SYRINGE SQ SCH (16:11)
[2017-06-22] MEDS: AZITHROMYCIN INJ 500 MG in SODIUM CHLOR 0.9% 250 ML INJ 250 ML IV SCH (17:03)
[2017-06-22] MEDS: VASOPRESSIN 40 U/D5W 100 ML Shock/septic shock, do NOT titrate until taper off IV SCH ×2 (19:55)
[2017-06-23] VITALS (12 sets, daily range): BP systolic 132–181; BP diastolic 82–97; PULSE 82–103; RESP 18–26; TEMP 97.2–98.4; O2SAT 93–100
[2017-06-23] MEDS: hydrALAZINE HCL 20 MG/ML VIAL IV PUSH PRN ×2 (00:05→05:34)
[2017-06-23] MEDS: LORazepam 2 MG/ML VIAL IV PUSH PRN (00:05)
[2017-06-23] MEDS: levETIRAcetam INJ 500 MG in SODIUM CHLORIDE 0.9% INJ 100 ML IV SCH ×4 (00:05→17:54)
[2017-06-23] MEDS: LABETALOL HCL 100 MG/20 ML VIAL IV PUSH PRN ×2 (03:08→15:05)
[2017-06-23] MEDS: CHLORHEXIDINE GLUCONATE 2 % 1 PACK (2 CLOTHS) TOP SCH (03:08)
[2017-06-23] MEDS: PIPERACIL-TAZO 3.375 GM PREMIX 50 ML IV SCH ×4 (04:00→21:24)
[2017-06-23] MEDS: RESP: ALBUTEROL 2.5 MG/IPRATROPIUM 0.5 MG NEB (SCH) NEB ×3 (04:48→15:06)
[2017-06-23 05:56] LABS: ALBUMIN 2.6 GM/DL (3.4-5.0); ALKALINE PHOSPHATASE 85 U/L (45-117); ALT (GPT) 18 U/L (10-53); AST (GOT) 49 U/L (15-37); BICARBONATE 22.9 MEQ/L (21.0-32.0); BLOOD UREA NITROGEN 14 MG/DL (7-18); CALCIUM 9.7 MG/DL (8.5-10.1); CHLORIDE 111 MEQ/L (98-107); GLOMERULAR FILTRATION RATE 126 ML/MIN (>89); GLUCOSE,RANDOM 73 MG/DL (74-106); PHOSPHORUS 3.5 MG/DL (2.5-4.9); SODIUM (NA) 144 MEQ/L (136-145); TOTAL BILIRUBIN ADULT 0.6 MG/DL (0.2-1.0); TOTAL PROTEIN 7.8 GM/DL (6.4-8.2)
[2017-06-23 06:05] LABS: AUTOMATED NEUTROPHIL # 5.8 TH/MM3 (1.8-7.7); BASOPHIL % 0.2 % (0.0-2.0); EOSINOPHIL % 0.3 % (0.0-4.0); HEMATOCRIT 40.4 % (35.0-46.0); HEMOGLOBIN 13.7 GM/DL (11.6-15.3); LYMPHOCYTE # 1.1 TH/MM3 (1.0-4.8); MEAN CELL VOLUME 97.8 FL (80.0-100.0); MEAN CORPUSCULAR HEMOGLOBIN 33.1 PG (27.0-34.0); MEAN CORPUSCULAR HGB CONC 33.8 % (32.0-36.0); MEAN PLATELET VOLUME 8.6 FL (7.0-11.0); MONOCYTE # 0.7 TH/MM3 (0-0.9); NEUT % 76.5 % (16.0-70.0); PLATELET COUNT 212 TH/MM3 (150-450); RED BLOOD COUNT 4.13 MIL/MM3 (4.00-5.30); RED CELL DISTRIBUTION WIDTH 17.9 % (11.6-17.2); WHITE BLOOD COUNT 7.6 TH/MM3 (4.0-11.0)
[2017-06-23 07:12] LABS: BANDS 6 % (0-6); CORRECTED NUCLEATED RBC 1 /100 WBC (0-0); LYMPHOCYTES 19 % (9-44); MONOCYTES 7 % (0-8); NEUTROPHIL # MANUAL DIFF 5.6 TH/MM3 (1.8-7.7); NUCLEATED RED BLOOD CELL 1 (0-0); POLYS (SEG NEUTROPHILS) 68 % (16-70)
[2017-06-23] MEDS: GABAPENTIN 300 MG CAP PO SCH ×3 (08:31→17:54)
[2017-06-23] MEDS: PANTOPRAZOLE SOD 40 MG DELAYED RELEASE TAB PO SCH (08:31)
[2017-06-23] MEDS: METOPROLOL TARTRATE 50 MG TAB PO SCH ×2 (08:31→21:24)
[2017-06-23] MEDS: THIAMINE INJ 100 MG in SODIUM CHLORIDE 0.9% INJ 100 ML IV SCH (08:32)
[2017-06-23] MEDS: CHLORHEXIDINE 0.12% (ORAL KIT) 15 ML CUP MT SCH ×2 (08:33→20:00)
--- NOTE | 2017-06-23 09:11 | HHI.PR ---
Review/Management Diagnosis encephalopathy---probable post ictal state, significantly improved Seizure--continue keppra at current dose repeat EEG. MRI brain to follow up on her MS Diagnosis/Plan: Subjective Subjective Comments No acute events reported No headache no sz now extubated Active Medications Current Medications Medications (Trade) Dose Ordered Sig/Matt Route Start Time Stop Time Status Last Admin (NS Flush) 2 ml UNSCH PRN IVF 06/19/17 14:45 06/19/17 16:19 (Neurontin) 300 mg TID PO 06/19/17 18:00 Future hold 06/23/17 08:31 (Protonix) 40 mg DAILY PO 06/20/17 09:00 06/23/17 08:31 (Duoneb Neb) 1 ampule Q6HR NEB NEB 06/19/17 16:30 06/23/17 09:06 (Albuterol Neb) 2.5 mg Q4HR NEB PRN INH 06/19/17 16:30 (Peridex 0.12% Liq) 15 ml BID@08,20 MT 06/19/17 20:00 06/23/17 08:33 (Lovenox Inj) 40 mg Q24H SQ 06/19/17 17:00 06/22/17 16:11 Miscellaneous Information 1 [id number] XX 06/19/17 16:30 (Chlorhexidine 2% Cloth) 3 pack Taper DAILY@04 TOP 06/20/17 04:00 06/16/18 03:59 06/23/17 03:08 (Chlorhexidine 2% Cloth) 3 pack UNSCH PRN TOP 06/19/17 16:30 Piperacillin Sod/ Tazobactam Sod 50 ml @ 100 mls/hr Q6H IV 06/19/17 22:00 06/23/17 04:00 (Ativan Inj) 1 mg Q4H PRN IV PUSH 06/19/17 17:00 06/23/17 00:05 Thiamine HCl 100 mg/Sodium Chloride 101 ml @ 101 mls/hr DAILY IV 06/19/17 18:00 06/23/17 08:32 Vasopressin 40 units/Dextrose 100 ml @ 6 mls/hr [id number] IV 06/20/17 01:15 06/20/17 01:57 (Apresoline Inj) 20 mg Q4H PRN IV PUSH 06/20/17 13:00 06/23/17 05:34 (Trandate Inj) 10 mg Q4H PRN IV PUSH 06/20/17 21:30 06/23/17 03:08 Potassium Chloride 100 ml @ 50 mls/hr Q2H PRN IV 06/20/17 21:30 Potassium Chloride 100 ml @ 50 mls/hr Q2H PRN IV 06/20/17 21:30 06/22/17 12:46 (K-Lyte Cl Eff) 50 meq UNSCH PRN PO 06/20/17 21:30 06/20/17 21:43 Potassium Chloride 100 ml @ 25 mls/hr UNSCH PRN IV 06/20/17 21:30 Potassium Chloride 100 ml @ 50 mls/hr Q2H PRN IV 06/20/17 21:30 Magnesium Sulfate 4 gm/Sodium Chloride 100 ml @ 50 mls/hr UNSCH PRN IV 06/20/17 21:30 (Mag-Ox) 800 mg UNSCH PRN PO 06/20/17 21:30 Magnesium Sulfate 2 gm/Sodium Chloride 100 ml @ 50 mls/hr UNSCH PRN IV 06/20/17 21:30 (K-Phos) 2,000 mg Q4H PRN PO 06/20/17 21:30 Sodium Phosphate 30 mmol/Sodium Chloride 250 ml @ 42 mls/hr UNSCH PRN IV 06/20/17 21:30 (K-Phos) 2,000 mg UNSCH PRN PO/TUBE 06/20/17 21:30 Potassium Phosphate 30 mmol/ Sodium Chloride 260 ml @ 42 mls/hr UNSCH PRN IV 06/20/17 21:30 06/21/17 05:57 (Lopressor) 50 mg Q12HR PO 06/21/17 09:15 06/23/17 08:31 Nicardipine HCl 25 mg/Sodium Chloride 250 ml @ 50 mls/hr TITRATE PRN IV 06/21/17 12:15 06/22/17 02:45 Levetriacetam 500 mg/Sodium Chloride 105 ml @ 420 mls/hr Q6HR IV 06/21/17 18:00 06/23/17 05:32 Dexmedetomidine HCl 200 mcg/ Sodium Chloride 52 ml @ 2.72 mls/hr TITRATE PRN IV 06/22/17 10:00 06/22/17 11:54 Allergies Allergies Coded Allergies Sulfa (Sulfonamide Antibiotics) (Unverified Allergy, Intermediate, N/V, ) modafinil (Unverified Allergy, Mild, Rash, 02/14/17) carisoprodol (Verified Allergy, Unknown, 02/14/17) Exam I&O / VS Vital Signs Date Time Temp Pulse Resp B/P (MAP) Pulse Ox O2 Delivery O2 Flow Rate FiO2 06/23/17 06:00 97 06/23/17 04:00 98.0 92 26 162/94 (116) 97 06/23/17 04:00 96 06/23/17 02:00 94 06/23/17 00:00 87 06/23/17 00:00 97.2 87 18 173/97 (122) 100 06/22/17 22:00 82 06/22/17 20:48 100 Nasal Cannula 2.00 06/22/17 20:00 97.2 96 20 144/83 (103) 100 06/22/17 20:00 90 06/22/17 18:00 85 19 130/81 (97) 100 06/22/17 18:00 85 06/22/17 17:00 89 20 133/79 (97) 100 06/22/17 16:00 81 06/22/17 16:00 98.1 81 20 136/77 (96) 100 06/22/17 15:00 89 19 128/79 (95) 100 06/22/17 14:39 100 Nasal Cannula 2.00 06/22/17 14:38 100 Nasal Cannula 2 06/22/17 14:00 75 06/22/17 14:00 75 18 123/76 (92) 100 06/22/17 13:00 88 11 137/77 (97) 100 06/22/17 12:00 40 06/22/17 12:00 84 06/22/17 12:00 99.0 84 15 125/73 (90) 100 06/22/17 11:30 100 40 06/22/17 11:00 86 18 119/69 (86) 100 06/22/17 10:00 93 06/22/17 10:00 93 12 139/77 (97) 100 Exam Comments extubated. More alert Cn-intact PERRL MOTOR--no focal deficits Objective Micro and Labs Laboratory Tests Test 06/22/17 13:50 06/22/17 18:10 06/23/17 04:12 Blood Gas Puncture Site LT RADIAL Blood Gas Patient Temperature 98.6 Blood Gas HCO3 22 Blood Gas Base Excess -0.8 Blood Gas Oxygen Saturation 97 Arterial Blood pH 7.49 Arterial Blood Partial Pressure CO2 29 Arterial Blood Partial Pressure O2 139 Arterial Blood Oxygen Content 17.1 Arterial Blood Carboxyhemoglobin 0.8 Arterial Blood Methemoglobin 1.3 Blood Gas Hemoglobin 12.4 Oxygen Delivery Device VENTILATOR Blood Gas Ventilator Setting CPAP5/10PS Blood Gas Inspired Oxygen 40 Potassium Level 3.9 3.8 White Blood Count 7.6 Red Blood Count 4.13 Hemoglobin 13.7 Hematocrit 40.4 Mean Corpuscular Volume 97.8 Mean Corpuscular Hemoglobin 33.1 Mean Corpuscular Hemoglobin Concent 33.8 Red Cell Distribution Width 17.9 Platelet Count 212 Mean Platelet Volume 8.6 Neutrophils (%) (Auto) 76.5 Lymphocytes (%) (Auto) 14.0 Monocytes (%) (Auto) 9.0 Eosinophils (%) (Auto) 0.3 Basophils (%) (Auto) 0.2 Neutrophils # (Auto) 5.8 Lymphocytes # (Auto) 1.1 Monocytes # (Auto) 0.7 Eosinophils # (Auto) 0.0 Basophils # (Auto) 0.0 CBC Comment AUTO DIFF Differential Total Cells Counted 100 Neutrophils % (Manual) 68 Band Neutrophils % 6 Lymphocytes % 19 Monocytes % 7 Neutrophils # (Manual) 5.6 Nucleated Red Blood Cells 1 Differential Comment FINAL DIFF MANUAL Platelet Estimate NORMAL Platelet Morphology Comment NORMAL Blood Urea Nitrogen 14 Creatinine 0.50 Random Glucose 73 Total Protein 7.8 Albumin 2.6 Calcium Level 9.7 Phosphorus Level 3.5 Magnesium Level 2.0 Alkaline Phosphatase 85 Aspartate Amino Transf (AST/SGOT) 49 Alanine Aminotransferase (ALT/SGPT) 18 Total Bilirubin 0.6 Sodium Level 144 Chloride Level 111 Carbon Dioxide Level 22.9 Anion Gap 10 Estimat Glomerular Filtration Rate 126 Date/Time Source Procedure Growth Status 06/19/17 16:30 Blood Peripheral Aerobic Blood Culture - Preliminary NO GROWTH IN 3 DAYS Resulted 06/19/17 16:30 Blood Peripheral Anaerobic Blood Culture - Preliminary NO GROWTH IN 3 DAYS Resulted 06/19/17 18:00 Sputum Endotracheal Gram Stain - Final Complete 06/19/17 18:00 Sputum Endotracheal Sputum Culture - Final HEAVY GROWTH NORMAL RESPIRATORY RAJNI Complete Todd Cee MD PhD Jun 23, 2017 09:11
--- NOTE | 2017-06-23 10:08 | HHI.PR ---
Subjective Remarks Follow-up metabolic and toxic encephalopathy June 23, 2017-patient seen and examined, no seizure activity reported. The patient is alert and oriented to self however she is confused and delusional. Vital stable Objective Vitals Vital Signs Date Time Temp Pulse Resp B/P (MAP) Pulse Ox O2 Delivery O2 Flow Rate FiO2 06/23/17 06:00 97 06/23/17 04:00 98.0 92 26 162/94 (116) 97 06/23/17 04:00 96 06/23/17 02:00 94 06/23/17 00:00 87 06/23/17 00:00 97.2 87 18 173/97 (122) 100 06/22/17 22:00 82 06/22/17 20:48 100 Nasal Cannula 2.00 06/22/17 20:00 97.2 96 20 144/83 (103) 100 06/22/17 20:00 90 06/22/17 18:00 85 19 130/81 (97) 100 06/22/17 18:00 85 06/22/17 17:00 89 20 133/79 (97) 100 06/22/17 16:00 81 06/22/17 16:00 98.1 81 20 136/77 (96) 100 06/22/17 15:00 89 19 128/79 (95) 100 06/22/17 14:39 100 Nasal Cannula 2.00 06/22/17 14:38 100 Nasal Cannula 2 06/22/17 14:00 75 06/22/17 14:00 75 18 123/76 (92) 100 06/22/17 13:00 88 11 137/77 (97) 100 06/22/17 12:00 40 06/22/17 12:00 84 06/22/17 12:00 99.0 84 15 125/73 (90) 100 06/22/17 11:30 100 40 06/22/17 11:00 86 18 119/69 (86) 100 I/O 06/22/17 06/22/17 06/22/17 06/23/17 06/23/17 06/23/17 07:00 15:00 23:00 07:00 15:00 23:00 Intake Total 100 ml 2091.1 ml 681 ml 120 ml Output Total 3150 ml 2950 ml 3300 ml Balance -3050 ml 2091.1 ml -2269 ml -3180 ml Intake Oral 236 ml 120 ml IV Total 100 ml 2091.1 ml 405 ml Other 40 ml Output Urine Total 3150 ml 2950 ml 3300 ml # Bowel Movements 1 Result Diagram: 06/23/172 06/23/17 0412 Imaging Last Impressions Chest X-Ray 06/21/17 0600 Signed Impressions: Service Date/Time: Wednesday, June 21, 2017 03:50 - CONCLUSION: 1. Mild basilar airspace disease, slightly increased on right since June 19. Small effusions. Support apparatus unchanged. Avel Ken MD Head CT 06/20/17 0000 Signed Impressions: Service Date/Time: Tuesday, June 20, 2017 10:32 - CONCLUSION: Stable appearance from yesterday's head CT with no acute hemorrhage, mass or stroke. Michael Reeder MD Chest CT 06/19/17 0000 Signed Impressions: Service Date/Time: Monday, June 19, 2017 15:50 - CONCLUSION: 1. There is consolidation in the right upper lobe medially with air bronchograms and small area of cavitation, probably infectious in nature although other etiologies not excluded. Mildly enlarged precarinal lymph node. 2. Patchy airspace disease right lower lobe most characteristic of bronchopneumonia or mild aspiration. 3. Linear scarring or atelectasis left upper lobe. 4. Endotracheal tube and nasogastric tube in good position. No effusion. Avel Ken MD Objective Remarks GENERAL: NAD SKIN: Warm and dry. HEAD: Normocephalic. EYES: No scleral icterus. No injection or drainage. NECK: Supple, trachea midline. No JVD or lymphadenopathy. CARDIOVASCULAR: Regular rate and rhythm without murmurs, gallops, or rubs. RESPIRATORY: Breath sounds equal bilaterally. No accessory muscle use. GASTROINTESTINAL: Abdomen soft, non-tender, nondistended. MUSCULOSKELETAL: No cyanosis, or edema. BACK: Nontender without obvious deformity. No CVA tenderness. A/P Problem List: (1) Acute respiratory failure ICD Code: J96.00 - Acute respiratory failure, unspecified whether with hypoxia or hypercapnia (2) Encephalopathy acute ICD Code: G93.40 - Encephalopathy, unspecified (3) Baclofen overdose ICD Code: T42.8X1A - Poisoning by antiparkinsonism drugs and other central muscle-tone depressants, accidental (unintentional), initial encounter (4) Acute kidney injury ICD Code: N17.9 - Acute kidney failure, unspecified (5) Pneumonia ICD Code: J18.9 - Pneumonia, unspecified organism (6) Aspiration into airway ICD Code: T17.908A - Unspecified foreign body in respiratory tract, part unspecified causing other injury, initial encounter (7) Hyperkalemia ICD Code: E87.5 - Hyperkalemia (8) Hypertension ICD Code: I10 - Hypertension Status: Acute (9) Multiple sclerosis ICD Code: G35 - Multiple sclerosis Status: Chronic (10) Chronic pain ICD Code: G89.29 - Chronic pain Status: Acute (11) Polypharmacy ICD Code: Z79.899 - Polypharmacy Status: Acute (12) Chronic obstructive pulmonary disease ICD Code: J44.9 - Chronic obstructive pulmonary disease Status: Chronic (13) Fibromyalgia ICD Code: M79.7 - Fibromyalgia Status: Chronic (14) Alcohol dependence ICD Code: F10.20 - Alcohol dependence, uncomplicated Assessment and Plan 61-year-old female with Baclofen overdose/Attempted suicide Acute encephalopathy secondary to above Anoraxic brain injury Burst suppression pattern on EEG Seizure, new onset 01/2017 THC use Multiple sclerosis Chronic pain syndrome Fibromyalgia Alcohol dependence Anxiety/Depression -Repeat EEG pending, neurology ff. -Urine drug screen positive for benzodiazepines, THC -Ativan as needed for seizure and alcohol withdrawal, supplement thiamine -Continue with Keppra -Psychiatric consult if meaningful neuro recovery -Poison control contacted, due to long half life of baclofen and Soma continue symptomatic supportive care -06/20 repeat EEG, revealing PLEDs. Acute respiratory failure Aspiration pneumonia COPD -Maintain O2 sat greater than 90%, ventilator bundle, DuoNeb every 6 hours scheduled and as needed -Continue PRVC at current vent settings, no auto PEEP, patient synchronized with the ventilator, PIP 22, on FiO2 of 0.4 and a PEEP of 8 -Broad-spectrum antibiotics with Zosyn. -Follow up on sputum culture-negative to date Hypertension Bradycardia -Labetalol and hydralazine as needed for SBP more than 160 -Normal saline maintenance at 84 mL/h -Hydralazine 10 mg 1 dose. Hydralazine 20 mg every 4 hours as needed for systolic blood pressure greater than 160 -Metoprolol 50 every 12 -Off Cardene drip Acute kidney injury Hyperkalemia -Jacobo catheter, Strict I/Os -Fluid hydration as above GERD Protonix GI prophylaxis Aspiration pneumonia present on admission Probable sepsis -Continue Zosyn, s/p azithromycin -Follow up on sputum and blood culture. Negative to date Prophylaxis: GI Prophylaxis with Protonix, DVT Prophylaxis with SCDs and Lovenox Problem Qualifiers (1) Acute respiratory failure: Qualified Codes: J96.00 - Acute respiratory failure, unspecified whether with hypoxia or hypercapnia (2) Baclofen overdose: Qualified Codes: T42.8X2A - Poisoning by antiparkinsonism drugs and other central muscle-tone depressants, intentional self-harm, initial encounter (3) Pneumonia: Qualified Codes: J18.1 - Lobar pneumonia, unspecified organism (4) Aspiration into airway: Qualified Codes: T17.908A - Unspecified foreign body in respiratory tract, part unspecified causing other injury, initial encounter (5) Chronic pain: Qualified Codes: G89.29 - Other chronic pain (6) Chronic obstructive pulmonary disease: (7) Alcohol dependence: Tayo Barbosa MD Jun 23, 2017 10:08
--- NOTE | 2017-06-23 12:12 | PD.PSY.CON ---
Provisional Diagnosis Admission Date Jun 19, 2017 at 16:14 [employer] [place]. Adjustment disorder with depressed mood History of Present Illness Service Psychiatry Consult Requested By ICU Reason for Consult Suicidal attempt Primary Care Physician Niurka Gillis MD HPI The patient is a 61-year-old woman, domiciled with her in [place], unemployed, supported by [facility], with psychiatric history of depression, but not admission, no previous SAs, alcohol use disorder, with an extensive medical history significant for multiple sclerosis, fibromyalgia, new onset seizure in January 2017, COPD, who was found unresponsive on the floor by the at 1:30 PM today. He saw her normally yesterday night at 10:30 PM, when he left for work at 7 AM today he heard snoring. He does not sleep with her at night, and did not notice anything abnormal. When he came back from work at 130 pm that is when he found a unresponsive on the floor with the bottle of baclofen almost empty, apparently 97 tablets of 20mg of baclofen missing. Patient was not protecting airway and EMS intubated after giving 4 mg Versed and 20 mg of etomidate. Pt was admitted at [facility] 01/2017 for altered mental status and had new onset seizure. EMR reviewed. Collateral from [facility] was obtained. He says that he does not understand why the patient overdosed. They have been having arguments in the last weeks regarding he is selling her car "because she cannot drive anymore due to her seizure" and she has been very irritable accusing him of things that he had never done. On psychiatric evaluation the patient is irritable, very confused. She says that she is here because her has been hiding $10,000 from her. She states that he had another woman in her back "and after that I tried to overdose". She also states "he brought her mother to live with us rather than my mother". She says that they have a big fight after that she overdosed. The patient seems to be kind of confused, unreliable, making several accusations to her , kind of agitated, with fluctuating level of consciousness. The patient tells me that she is watching the TV "and the TV is talking about my problems now you can watch it". She is unable to tell me where she is, she told me that is July 1998, she does not know who is the flight technician. Patient reports daily use of alcohol, 1-2 cups of wine. Denies the use of illegal drugs. Review of Systems Constitutional: DENIES: Diaphoretic episodes, Fatigue, Fever, Weight gain, Weight loss, Chills, Dizziness, Change in appetite, Night Sweats Endocrine: DENIES: Abnorml menstrual pattern, Heat/cold intolerance, Polydipsia , Polyuria, Polyphagia Eyes: DENIES: Blurred vision, Diplopia, Eye inflammation, Eye pain, Vision loss , Photosensitivity, Double Vision Ears, nose, mouth, throat: DENIES: Tinnitus, Hearing loss, Vertigo, Nasal discharge, Oral lesions, Throat pain, Hoarseness, Ear Pain, Running Nose, Epistaxis, Sinus Pain, Toothache, Odynophagia Respiratory: DENIES: Apneas, Cough, Snoring, Wheezing, Hemoptysis, Sputum production, Shortness of breath Cardiovascular: DENIES: Chest pain, Palpitations, Syncope, Dyspnea on Exertion , PND, Lower Extremity Edema, Orthopnea, Claudication Gastrointestinal: DENIES: Abdominal pain, Black stools, Bloody stools, Constipation, Diarrhea, Nausea, Vomiting, Difficulty Swallowing, Anorexia Genitourinary: DENIES: Abnormal vaginal bleeding, Dysmenorrhea, Dyspareunia, Sexual dysfunction, Urinary frequency, Urinary incontinence, Urgency, Hematuria , Dysuria, Nocturia, Vaginal discharge Musculoskeletal: DENIES: Joint pain, Muscle aches, Stiffness, Joint Swelling, Back pain, Neck pain Integumentary: DENIES: Abnormal pigmentation, Pruritus, Rash, Nail changes, Breast masses, Breast skin changes, Nipple discharge Hematologic/lymphatic: DENIES: Bruising, Lymphadenopathy Immunologic/allergic: DENIES: Eczema, Urticaria Neurologic: DENIES: Abnormal gait, Headache, Localized weakness, Paresthesias, Seizures, Speech Problems, Tremor, Poor Balance Psychiatric: COMPLAINS OF: Anxiety, Depression, Suicidal Ideation, Delusions, DENIES: Confusion, Mood changes, Hallucinations, Agitation, Homicidal Ideation Past Family Social History Coded Allergies: Sulfa (Sulfonamide Antibiotics) (Unverified Allergy, Intermediate, N/V, ) modafinil (Unverified Allergy, Mild, Rash, 02/14/17) carisoprodol (Verified Allergy, Unknown, 02/14/17) Reported Medications Tiotropium Inh (Spiriva Handihaler) 18 Mcg Cap, 18 MCG INH DAILY for COPD, #30 CAP 0 Refills 1 capsule = 18 mcg 01/24/17 Amphetamine-Dextroamphetamine (Adderall) 30 Mg Tab, 30 MG PO BID for Hyperactivity Control, #60 TAB 0 Refills Avoid late evening doses. Space doses at least 4 to 6 hours if more than once/day dosing. 01/24/17 Ibuprofen (Ibuprofen) 600 Mg Tab, 600 MG PO Q6H Y for Pain/Inflammation, #40 TAB 0 Refills 01/24/17 Gabapentin (Gabapentin) 300 Mg Cap, 300 MG PO TID, #90 CAP 0 Refills 01/24/17 Oxycodone (Oxycodone) 30 Mg Tab, 30 MG PO Q6H Y for PAIN, TAB 0 Refills 01/24/17 Pantoprazole (Pantoprazole) 40 Mg Tab, 40 MG PO DAILY for Reflux, #30 TAB 0 Refills 01/24/17 Carisoprodol (Soma) 350 Mg Tab, 350 MG PO QID Y for PAIN, TAB 0 Refills 01/24/17 Alprazolam (Alprazolam) 1 Mg Tab, 1 MG PO Q6H Y for ANXIETY, TAB 0 Refills 01/24/17 Interferon Beta-1A Inj (Rebif Inj) 44 Mcg/0.5 Ml Syr, 44 MCG SQ for Multiple sclerosis, SYRINGE 0 Refills 01/24/17 Current Medications Medications (Trade) Dose Ordered Sig/Matt Route Start Time Stop Time Status Last Admin (NS Flush) 2 ml UNSCH PRN IVF 06/19/17 14:45 06/19/17 16:19 (Neurontin) 300 mg TID PO 06/19/17 18:00 Future hold 06/23/17 08:31 (Protonix) 40 mg DAILY PO 06/20/17 09:00 06/23/17 08:31 (Duoneb Neb) 1 ampule Q6HR NEB NEB 06/19/17 16:30 06/23/17 09:06 (Albuterol Neb) 2.5 mg Q4HR NEB PRN INH 06/19/17 16:30 (Peridex 0.12% Liq) 15 ml BID@08,20 MT 06/19/17 20:00 06/23/17 08:33 (Lovenox Inj) 40 mg Q24H SQ 06/19/17 17:00 06/22/17 16:11 Miscellaneous Information 1 [id number] XX 06/19/17 16:30 (Chlorhexidine 2% Cloth) 3 pack Taper DAILY@04 TOP 06/20/17 04:00 06/16/18 03:59 06/23/17 03:08 (Chlorhexidine 2% Cloth) 3 pack UNSCH PRN TOP 06/19/17 16:30 Piperacillin Sod/ Tazobactam Sod 50 ml @ 100 mls/hr Q6H IV 06/19/17 22:00 06/23/17 10:24 (Ativan Inj) 1 mg Q4H PRN IV PUSH 06/19/17 17:00 06/23/17 00:05 Thiamine HCl 100 mg/Sodium Chloride 101 ml @ 101 mls/hr DAILY IV 06/19/17 18:00 06/23/17 08:32 Vasopressin 40 units/Dextrose 100 ml @ 6 mls/hr [id number] IV 06/20/17 01:15 06/20/17 01:57 (Apresoline Inj) 20 mg Q4H PRN IV PUSH 06/20/17 13:00 06/23/17 05:34 (Trandate Inj) 10 mg Q4H PRN IV PUSH 06/20/17 21:30 06/23/17 03:08 Potassium Chloride 100 ml @ 50 mls/hr Q2H PRN IV 06/20/17 21:30 Potassium Chloride 100 ml @ 50 mls/hr Q2H PRN IV 06/20/17 21:30 06/22/17 12:46 (K-Lyte Cl Eff) 50 meq UNSCH PRN PO 06/20/17 21:30 06/20/17 21:43 Potassium Chloride 100 ml @ 25 mls/hr UNSCH PRN IV 06/20/17 21:30 Potassium Chloride 100 ml @ 50 mls/hr Q2H PRN IV 06/20/17 21:30 Magnesium Sulfate 4 gm/Sodium Chloride 100 ml @ 50 mls/hr UNSCH PRN IV 06/20/17 21:30 (Mag-Ox) 800 mg UNSCH PRN PO 06/20/17 21:30 Magnesium Sulfate 2 gm/Sodium Chloride 100 ml @ 50 mls/hr UNSCH PRN IV 06/20/17 21:30 (K-Phos) 2,000 mg Q4H PRN PO 06/20/17 21:30 Sodium Phosphate 30 mmol/Sodium Chloride 250 ml @ 42 mls/hr UNSCH PRN IV 06/20/17 21:30 (K-Phos) 2,000 mg UNSCH PRN PO/TUBE 06/20/17 21:30 Potassium Phosphate 30 mmol/ Sodium Chloride 260 ml @ 42 mls/hr UNSCH PRN IV 06/20/17 21:30 06/21/17 05:57 (Lopressor) 50 mg Q12HR PO 06/21/17 09:15 06/23/17 08:31 Nicardipine HCl 25 mg/Sodium Chloride 250 ml @ 50 mls/hr TITRATE PRN IV 06/21/17 12:15 06/22/17 02:45 Levetriacetam 500 mg/Sodium Chloride 105 ml @ 420 mls/hr Q6HR IV 06/21/17 18:00 06/23/17 05:32 Dexmedetomidine HCl 200 mcg/ Sodium Chloride 52 ml @ 2.72 mls/hr TITRATE PRN IV 06/22/17 10:00 06/22/17 11:54 Family Psych History No family psychiatric history Social History Patient was born and raised in [place], she lives in [place] with her , she has 1 son, she is retired, supported by [employer], her highest level of education is high school Patient's Strengths (min. 2) Family support Physical Exam Patient is kind of agitated, but no tremors, no withdrawal present at this moment Vital Signs Vital Signs Date Time Temp Pulse Resp B/P (MAP) Pulse Ox O2 Delivery O2 Flow Rate FiO2 06/23/17 10:00 82 06/23/17 08:00 98.0 25 149/96 (113) 96 06/22/17 20:48 Nasal Cannula 2.00 06/22/17 12:00 40 I/O 06/23/17 06/23/17 06/23/17 07:59 15:59 23:59 Intake Total 120 ml Output Total 3300 ml Balance -3180 ml Lab Results Test 06/22/17 13:50 06/22/17 18:10 06/23/17 04:12 Blood Gas Puncture Site LT RADIAL Blood Gas Patient Temperature 98.6 Blood Gas HCO3 22 mmol/L Blood Gas Base Excess -0.8 mmol/L Blood Gas Oxygen Saturation 97 % Arterial Blood pH 7.49 Arterial Blood Partial Pressure CO2 29 mmHg Arterial Blood Partial Pressure O2 139 mmHg Arterial Blood Oxygen Content 17.1 Vol % Arterial Blood Carboxyhemoglobin 0.8 % Arterial Blood Methemoglobin 1.3 % Blood Gas Hemoglobin 12.4 G/DL Oxygen Delivery Device VENTILATOR Blood Gas Ventilator Setting CPAP5/10PS Blood Gas Inspired Oxygen 40 % Potassium Level 3.9 MEQ/L 3.8 MEQ/L White Blood Count 7.6 TH/MM3 Red Blood Count 4.13 MIL/MM3 Hemoglobin 13.7 GM/DL Hematocrit 40.4 % Mean Corpuscular Volume 97.8 FL Mean Corpuscular Hemoglobin 33.1 PG Mean Corpuscular Hemoglobin Concent 33.8 % Red Cell Distribution Width 17.9 % Platelet Count 212 TH/MM3 Mean Platelet Volume 8.6 FL Neutrophils (%) (Auto) 76.5 % Lymphocytes (%) (Auto) 14.0 % Monocytes (%) (Auto) 9.0 % Eosinophils (%) (Auto) 0.3 % Basophils (%) (Auto) 0.2 % Neutrophils # (Auto) 5.8 TH/MM3 Lymphocytes # (Auto) 1.1 TH/MM3 Monocytes # (Auto) 0.7 TH/MM3 Eosinophils # (Auto) 0.0 TH/MM3 Basophils # (Auto) 0.0 TH/MM3 CBC Comment AUTO DIFF Differential Total Cells Counted 100 Neutrophils % (Manual) 68 % Band Neutrophils % 6 % Lymphocytes % 19 % Monocytes % 7 % Neutrophils # (Manual) 5.6 TH/MM3 Nucleated Red Blood Cells 1 /100 WBC Differential Comment FINAL DIFF MANUAL Platelet Estimate NORMAL Platelet Morphology Comment NORMAL Blood Urea Nitrogen 14 MG/DL Creatinine 0.50 MG/DL Random Glucose 73 MG/DL Total Protein 7.8 GM/DL Albumin 2.6 GM/DL Calcium Level 9.7 MG/DL Phosphorus Level 3.5 MG/DL Magnesium Level 2.0 MG/DL Alkaline Phosphatase 85 U/L Aspartate Amino Transf (AST/SGOT) 49 U/L Alanine Aminotransferase (ALT/SGPT) 18 U/L Total Bilirubin 0.6 MG/DL Sodium Level 144 MEQ/L Chloride Level 111 MEQ/L Carbon Dioxide Level 22.9 MEQ/L Anion Gap 10 MEQ/L Estimat Glomerular Filtration Rate 126 ML/MIN Date/Time Source Procedure Growth Status 06/19/17 16:30 Blood Peripheral Aerobic Blood Culture - Preliminary NO GROWTH IN 4 DAYS Resulted 06/19/17 16:30 Blood Peripheral Anaerobic Blood Culture - Preliminary NO GROWTH IN 4 DAYS Resulted 06/19/17 18:00 Sputum Endotracheal Gram Stain - Final Complete 06/19/17 18:00 Sputum Endotracheal Sputum Culture - Final HEAVY GROWTH NORMAL RESPIRATORY RAJNI Complete Mental Status Examination Appearance: Appropriate Consciousness: Alert Orientation: Person Motor Activity: Normal gait Speech: Unremarkable Language: Adequate Fund of Knowledge: Inadequate Attention and Concentration: Adequate Memory: Unremarkable Mood: Appropriate Affect: Appropriate Thought Process & Associations: Disorganized Thought Content: Appropriate Hallucination Type: None Delusion Type: Bizarre, Paranoid Suicidal Ideation: Yes Suicidal Plan: Yes Suicidal Intention: No Homicidal Ideation: No Homicidal Plan: No Homicidal Intention: No Insight: Poor Judgment: Poor Assessment & Plan Problem List: (1) Unspecified psychosis ICD Codes: F29 - Unspecified psychosis not due to a substance or known physiological condition Assessment & Plan Estimated LOS: Jovanny Burgess MD Jun 23, 2017 12:12
[2017-06-23] MEDS: VASOPRESSIN 40 U/D5W 100 ML Shock/septic shock, do NOT titrate until taper off IV SCH ×2 (12:35)
--- NOTE | 2017-06-23 14:58 | MG ---
cc: Todd Cee MD, PhD TEST NUMBER: [id number]. TECHNIQUE: A 17-channel EEG. DESCRIPTION: The background rhythm reveals a symmetrical alpha rhythm, frequency of 8 Hz. Amplitude is 20 microvolts. There are no lateralizing features seen. There was no epileptiform activity. No sharp activity identified. There is occasional eye movement artifact present. There is a fair amount of muscle artifact present due to head tremors. Photic stimulation results in a normal driving response. INTERPRETATION: This is a normal EEG. Todd Cee MD, PhD EDWARD/SB , 02:46 PM , 02:57 PM
[2017-06-23] MEDS ORDERED: GADODIAMIDE PF 287 MG/ML 10 ML VIAL (for RAD MRI) IVCONTRAST ONE (16:18)
--- NOTE | 2017-06-23 17:09 | RADRPT ---
EXAM DATE/TIME: 06/23/2017 16:04 [facility] COMPARISON: No previous studies available for comparison. INDICATIONS : Possible Anoxia CONTRAST: 9 cc Omniscan (gadodiamide) IV MEDICAL HISTORY : Multiple sclerosis. Hypertension. Chronic obstructive pulmonary disease SURGICAL HISTORY : Fusion, cervical. Tubal ligation. Orthopaedic ENCOUNTER: Subsequent ACUITY: 4-6 days PAIN SCORE: Nonresponsive. LOCATION: Brain TECHNIQUE: Multiplanar, multisequence MRI of the brain was performed both prior to and following the administrat ion of paramagnetic contrast. FINDINGS: CEREBRUM: Widespread diffuse atrophy . The ventricles are normal for age. No evidence of midline shift, mass lesion, hemorrhage or acute infarction. No extraaxial fluid collections are seen. The pituitary gla nd and suprasellar cistern are normal in configuration. WHITE MATTER: No significant signal abnormalities are seen in the white matter. POSTERIOR FOSSA: The cerebellum and brainstem are intact. The 4th ventricle is midline. The cerebellopontine angle is unremarkable. The cerebellar tonsils are normal in position. DIFFUSION IMAGING: No focal areas of restricted diffusion are seen. No evidence of acute infarction. EXTRACRANIAL: The visualized portions of the orbits and paranasal sinuses are unremarkable. POST-CONTRAST: No abnormal areas of parenchymal or dural enhancement. No evidence of blood-brain barrier breakdown. CONCLUSION: No acute disease. Widespread diffuse atrophy Jacky Love MD on June 23, 2017 at 17:06 Board Certified Radiologist. This report was verified electronically.
[2017-06-23] MEDS: ENOXAPARIN SODIUM 40 MG/0.4 ML SYRINGE SQ SCH (17:53)
[2017-06-23] MEDS: QUEtiapine FUMARATE 25 MG TAB PO SCH (21:24)
[2017-06-24] VITALS (12 sets, daily range): BP systolic 108–175; BP diastolic 66–101; PULSE 79–114; RESP 18–25; TEMP 98.2–99.3; O2SAT 96–98
[2017-06-24] MEDS: levETIRAcetam INJ 500 MG in SODIUM CHLORIDE 0.9% INJ 100 ML IV SCH ×4 (00:56→18:04)
[2017-06-24] MEDS: LABETALOL HCL 100 MG/20 ML VIAL IV PUSH PRN (01:35)
[2017-06-24] MEDS: PIPERACIL-TAZO 3.375 GM PREMIX 50 ML IV SCH ×4 (03:25→20:54)
[2017-06-24] MEDS: CHLORHEXIDINE GLUCONATE 2 % 1 PACK (2 CLOTHS) TOP SCH (03:25)
[2017-06-24] MEDS: hydrALAZINE HCL 20 MG/ML VIAL IV PUSH PRN ×2 (03:25→08:17)
[2017-06-24] MEDS: VASOPRESSIN 40 U/D5W 100 ML Shock/septic shock, do NOT titrate until taper off IV SCH ×2 (04:55)
[2017-06-24] MEDS: METOPROLOL TARTRATE 50 MG TAB PO SCH ×2 (07:57→20:54)
[2017-06-24] MEDS: QUEtiapine FUMARATE 25 MG TAB PO SCH ×2 (07:57→20:54)
[2017-06-24] MEDS: PANTOPRAZOLE SOD 40 MG DELAYED RELEASE TAB PO SCH (07:57)
[2017-06-24] MEDS: GABAPENTIN 300 MG CAP PO SCH ×3 (07:57→18:04)
[2017-06-24] MEDS: THIAMINE INJ 100 MG in SODIUM CHLORIDE 0.9% INJ 100 ML IV SCH (07:58)
[2017-06-24] MEDS: CHLORHEXIDINE 0.12% (ORAL KIT) 15 ML CUP MT SCH ×2 (07:58→20:00)
[2017-06-24 08:22] LABS: AUTOMATED NEUTROPHIL # 3.9 TH/MM3 (1.8-7.7); BASOPHIL % 0.4 % (0.0-2.0); EOSINOPHIL # 0.1 TH/MM3 (0-0.4); EOSINOPHIL % 1.2 % (0.0-4.0); HEMATOCRIT 42.3 % (35.0-46.0); HEMOGLOBIN 13.9 GM/DL (11.6-15.3); LYMPH % 20.8 % (9.0-44.0); LYMPHOCYTE # 1.3 TH/MM3 (1.0-4.8); MEAN CORPUSCULAR HEMOGLOBIN 31.6 PG (27.0-34.0); MEAN CORPUSCULAR HGB CONC 32.9 % (32.0-36.0); MEAN PLATELET VOLUME 8.9 FL (7.0-11.0); MONO % 13.5 % (0.0-8.0); MONOCYTE # 0.8 TH/MM3 (0-0.9); NEUT % 64.1 % (16.0-70.0); PLATELET COUNT 241 TH/MM3 (150-450); RED BLOOD COUNT 4.41 MIL/MM3 (4.00-5.30); RED CELL DISTRIBUTION WIDTH 17.1 % (11.6-17.2); WHITE BLOOD COUNT 6.1 TH/MM3 (4.0-11.0)
--- NOTE | 2017-06-24 08:38 | HHI.PR ---
Subjective Remarks Follow-up metabolic and toxic encephalopathy June 23, 2017-patient seen and examined, no seizure activity reported. The patient is alert and oriented to self however she is confused and delusional. Vital stable June 24, 2017-patient seen and examined, still making accusations about her . Reports of shortness of breath however denies any chest pain or dizziness. Objective Vitals Vital Signs Date Time Temp Pulse Resp B/P (MAP) Pulse Ox O2 Delivery O2 Flow Rate FiO2 06/24/17 06:00 97 06/24/17 04:00 98.2 90 18 132/80 (97) 96 06/24/17 04:00 90 06/24/17 02:00 79 06/24/17 00:00 98.3 84 20 156/96 (116) 98 Arterial Line 06/24/17 00:00 84 06/23/17 22:00 95 06/23/17 20:00 98.0 92 19 132/83 (99) 94 Arterial Line 06/23/17 20:00 92 06/23/17 18:00 88 06/23/17 16:00 98.2 85 21 155/94 (114) 95 06/23/17 16:00 85 06/23/17 14:00 90 06/23/17 12:00 98.4 93 23 181/82 (115) 93 06/23/17 12:00 93 06/23/17 10:00 82 I/O 06/23/17 06/23/17 06/23/17 06/24/17 06/24/17 06/24/17 07:00 15:00 23:00 07:00 15:00 23:00 Intake Total 120 ml 250 ml Output Total 3300 ml 1575 ml 750 ml Balance -3180 ml -1325 ml -750 ml Intake Oral 120 ml 250 ml Output Urine Total 3300 ml 1575 ml 750 ml # Bowel Movements 1 0 0 Result Diagram: 06/23/17 0412 06/23/17 0412 Imaging Last Impressions Brain MRI 06/23/17 0000 Signed Impressions: Service Date/Time: Friday, June 23, 2017 16:04 - CONCLUSION: No acute disease. Widespread diffuse atrophy Jacky Love MD Chest X-Ray 06/21/17 0600 Signed Impressions: Service Date/Time: Wednesday, June 21, 2017 03:50 - CONCLUSION: 1. Mild basilar airspace disease, slightly increased on right since June 19. Small effusions. Support apparatus unchanged. Avel Ken MD Head CT 06/20/17 0000 Signed Impressions: Service Date/Time: Tuesday, June 20, 2017 10:32 - CONCLUSION: Stable appearance from yesterday's head CT with no acute hemorrhage, mass or stroke. Michael Reeder MD Chest CT 06/19/17 0000 Signed Impressions: Service Date/Time: Monday, June 19, 2017 15:50 - CONCLUSION: 1. There is consolidation in the right upper lobe medially with air bronchograms and small area of cavitation, probably infectious in nature although other etiologies not excluded. Mildly enlarged precarinal lymph node. 2. Patchy airspace disease right lower lobe most characteristic of bronchopneumonia or mild aspiration. 3. Linear scarring or atelectasis left upper lobe. 4. Endotracheal tube and nasogastric tube in good position. No effusion. Avel Ken MD Objective Remarks GENERAL: NAD SKIN: Warm and dry. HEAD: Normocephalic. EYES: No scleral icterus. No injection or drainage. NECK: Supple, trachea midline. No JVD or lymphadenopathy. CARDIOVASCULAR: Regular rate and rhythm without murmurs, gallops, or rubs. RESPIRATORY: Breath sounds equal bilaterally. No accessory muscle use. GASTROINTESTINAL: Abdomen soft, non-tender, nondistended. MUSCULOSKELETAL: No cyanosis, or edema. BACK: Nontender without obvious deformity. No CVA tenderness. A/P Problem List: (1) Acute respiratory failure ICD Code: J96.00 - Acute respiratory failure, unspecified whether with hypoxia or hypercapnia (2) Encephalopathy acute ICD Code: G93.40 - Encephalopathy, unspecified (3) Baclofen overdose ICD Code: T42.8X1A - Poisoning by antiparkinsonism drugs and other central muscle-tone depressants, accidental (unintentional), initial encounter (4) Acute kidney injury ICD Code: N17.9 - Acute kidney failure, unspecified (5) Pneumonia ICD Code: J18.9 - Pneumonia, unspecified organism (6) Aspiration into airway ICD Code: T17.908A - Unspecified foreign body in respiratory tract, part unspecified causing other injury, initial encounter (7) Hyperkalemia ICD Code: E87.5 - Hyperkalemia (8) Hypertension ICD Code: I10 - Hypertension Status: Acute (9) Multiple sclerosis ICD Code: G35 - Multiple sclerosis Status: Chronic (10) Chronic pain ICD Code: G89.29 - Chronic pain Status: Acute (11) Polypharmacy ICD Code: Z79.899 - Polypharmacy Status: Acute (12) Chronic obstructive pulmonary disease ICD Code: J44.9 - Chronic obstructive pulmonary disease Status: Chronic (13) Fibromyalgia ICD Code: M79.7 - Fibromyalgia Status: Chronic (14) Alcohol dependence ICD Code: F10.20 - Alcohol dependence, uncomplicated Assessment and Plan 61-year-old female with Baclofen overdose/Attempted suicide Acute encephalopathy secondary to above 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 6 hour -Poison control contacted, due to long half life of baclofen and Soma continue symptomatic supportive care -06/20 repeat EEG, revealing PLEDs. -Repeat EEG 06/23/2017 read as normal, neurology ff -Brain MRI 06/23/2017 without any intracranial abnormality Acute respiratory failure Aspiration pneumonia COPD -Maintain O2 sat greater than 90%, ventilator bundle, DuoNeb every 6 hours scheduled and as needed -Continue PRVC at current vent settings, no auto PEEP, patient synchronized with the ventilator, PIP 22, on FiO2 of 0.4 and a PEEP of 8 -Broad-spectrum antibiotics with Zosyn. -Follow up on sputum culture-negative to date Hypertension Bradycardia -Labetalol and hydralazine as needed for SBP more than 160 -Hydralazine 10 mg 1 dose. Hydralazine 20 mg every 4 hours as needed for systolic blood pressure greater than 160 -Metoprolol 50 every 12 -Off Cardene drip Acute kidney injury Hyperkalemia -Jacobo catheter, Strict I/Os -Fluid hydration as above GERD Protonix GI prophylaxis Aspiration pneumonia present on admission Probable sepsis -Continue Zosyn, s/p azithromycin -Follow up on sputum and blood culture. Negative to date Unspecified psychosis Suicidal ideation/attempt Appreciate input from psychiatry Continue Seroquel 25 mg twice daily Continue Haldol 2 mg IM every 8 as needed Prophylaxis: GI Prophylaxis with Protonix, DVT Prophylaxis with SCDs and Lovenox Problem Qualifiers (1) Acute respiratory failure: Qualified Codes: J96.00 - Acute respiratory failure, unspecified whether with hypoxia or hypercapnia (2) Baclofen overdose: Qualified Codes: T42.8X2A - Poisoning by antiparkinsonism drugs and other central muscle-tone depressants, intentional self-harm, initial encounter (3) Pneumonia: Qualified Codes: J18.1 - Lobar pneumonia, unspecified organism (4) Aspiration into airway: Qualified Codes: T17.908A - Unspecified foreign body in respiratory tract, part unspecified causing other injury, initial encounter (5) Chronic pain: Qualified Codes: G89.29 - Other chronic pain (6) Chronic obstructive pulmonary disease: (7) Alcohol dependence: Tayo Barbosa MD Jun 24, 2017 08:38
[2017-06-24 08:53] LABS: ALBUMIN 2.8 GM/DL (3.4-5.0); AST (GOT) 40 U/L (15-37); BICARBONATE 22.7 MEQ/L (21.0-32.0); BLOOD UREA NITROGEN 19 MG/DL (7-18); CALCIUM 9.6 MG/DL (8.5-10.1); CHLORIDE 109 MEQ/L (98-107); CREATININE 0.74 MG/DL (0.50-1.00); GLOMERULAR FILTRATION RATE 80 ML/MIN (>89); GLUCOSE,RANDOM 76 MG/DL (74-106); MAGNESIUM 2.1 MG/DL (1.5-2.5); SODIUM (NA) 143 MEQ/L (136-145)
[2017-06-24 08:56] LABS: LYMPHOCYTES 15 % (9-44); MONOCYTES 11 % (0-8); MYELOCYTES 2 % (0-0); NEUTROPHIL # MANUAL DIFF 4.5 TH/MM3 (1.8-7.7); POLYS (SEG NEUTROPHILS) 71 % (16-70)
[2017-06-24 08:58] LABS: ALKALINE PHOSPHATASE 86 U/L (45-117); ALT (GPT) 21 U/L (10-53); PHOSPHORUS 3.9 MG/DL (2.5-4.9); TOTAL BILIRUBIN ADULT 0.8 MG/DL (0.2-1.0); TOTAL PROTEIN 7.7 GM/DL (6.4-8.2)
[2017-06-24] MEDS: THIAMINE HCL 100 MG TAB PO SCH (10:00)
[2017-06-24] MEDS: ENOXAPARIN SODIUM 40 MG/0.4 ML SYRINGE SQ SCH (18:04)
[2017-06-25] VITALS: BP 148/88; PULSE 90; RESP 18; TEMP 98.7; O2SAT 96
[2017-06-25] MEDS: LORazepam 2 MG/ML VIAL IV PUSH PRN ×6 (01:29→23:14)
[2017-06-25] MEDS: levETIRAcetam INJ 500 MG in SODIUM CHLORIDE 0.9% INJ 100 ML IV SCH ×4 (01:30→16:40)
[2017-06-25] MEDS: CHLORHEXIDINE GLUCONATE 2 % 1 PACK (2 CLOTHS) TOP SCH (03:53)
[2017-06-25] MEDS: PIPERACIL-TAZO 3.375 GM PREMIX 50 ML IV SCH ×4 (03:53→21:28)
[2017-06-25 07:23] VITALS: BP 165/86; PULSE 101; RESP 20; TEMP 98; O2SAT 98
[2017-06-25] MEDS: CHLORHEXIDINE 0.12% (ORAL KIT) 15 ML CUP MT SCH ×2 (08:00→20:00)
[2017-06-25] MEDS: THIAMINE HCL 100 MG TAB PO SCH (08:50)
[2017-06-25] MEDS: METOPROLOL TARTRATE 50 MG TAB PO SCH ×2 (08:50→21:29)
[2017-06-25] MEDS: PANTOPRAZOLE SOD 40 MG DELAYED RELEASE TAB PO SCH (08:50)
[2017-06-25] MEDS: GABAPENTIN 300 MG CAP PO SCH ×3 (08:51→16:40)
[2017-06-25] MEDS: QUEtiapine FUMARATE 25 MG TAB PO SCH ×2 (08:51→21:28)
[2017-06-25 09:00] LABS: AUTOMATED NEUTROPHIL # 5.6 TH/MM3 (1.8-7.7); BASOPHIL % 0.5 % (0.0-2.0); EOSINOPHIL # 0.1 TH/MM3 (0-0.4); EOSINOPHIL % 1.1 % (0.0-4.0); HEMATOCRIT 35.4 % (35.0-46.0); HEMOGLOBIN 12.2 GM/DL (11.6-15.3); LYMPH % 17.1 % (9.0-44.0); LYMPHOCYTE # 1.5 TH/MM3 (1.0-4.8); MEAN CELL VOLUME 95.1 FL (80.0-100.0); MEAN CORPUSCULAR HEMOGLOBIN 32.8 PG (27.0-34.0); MEAN CORPUSCULAR HGB CONC 34.5 % (32.0-36.0); MEAN PLATELET VOLUME 9.1 FL (7.0-11.0); MONOCYTE # 1.5 TH/MM3 (0-0.9); NEUT % 64.3 % (16.0-70.0); PLATELET COUNT 204 TH/MM3 (150-450); RED BLOOD COUNT 3.73 MIL/MM3 (4.00-5.30); RED CELL DISTRIBUTION WIDTH 16.8 % (11.6-17.2); WHITE BLOOD COUNT 8.7 TH/MM3 (4.0-11.0)
[2017-06-25 09:25] LABS: ALBUMIN 2.6 GM/DL (3.4-5.0); AST (GOT) 33 U/L (15-37); BICARBONATE 22.4 MEQ/L (21.0-32.0); BLOOD UREA NITROGEN 18 MG/DL (7-18); CALCIUM 9.4 MG/DL (8.5-10.1); CHLORIDE 111 MEQ/L (98-107); CREATININE 0.69 MG/DL (0.50-1.00); GLOMERULAR FILTRATION RATE 87 ML/MIN (>89); GLUCOSE,RANDOM 92 MG/DL (74-106); MAGNESIUM 1.8 MG/DL (1.5-2.5); SODIUM (NA) 142 MEQ/L (136-145)
[2017-06-25 09:26] LABS: ALT (GPT) 22 U/L (10-53); PHOSPHORUS 2.1 MG/DL (2.5-4.9)
[2017-06-25 09:28] LABS: ALKALINE PHOSPHATASE 77 U/L (45-117); TOTAL BILIRUBIN ADULT 0.7 MG/DL (0.2-1.0); TOTAL PROTEIN 6.9 GM/DL (6.4-8.2)
[2017-06-25 12:00] VITALS: BP 107/67; PULSE 83; RESP 20; TEMP 98.7; O2SAT 99
--- NOTE | 2017-06-25 13:54 | HHI.PR ---
Subjective Remarks Follow-up metabolic and toxic encephalopathy June 23, 2017-patient seen and examined, no seizure activity reported. The patient is alert and oriented to self however she is confused and delusional. Vital stable June 24, 2017-patient seen and examined, still making accusations about her . Reports of shortness of breath however denies any chest pain or dizziness. June 25, 2017-patient seen and examined, still confused. No acute event overnight. Afebrile. Denies any shortness of breath. Objective Vitals Vital Signs Date Time Temp Pulse Resp B/P (MAP) Pulse Ox O2 Delivery O2 Flow Rate FiO2 06/25/17 12:00 98.7 83 20 107/67 (80) 99 06/25/17 07:23 98.0 101 20 165/86 (112) 98 06/25/17 00:00 98.7 90 18 148/88 (108) 96 06/24/17 22:00 81 06/24/17 20:00 99.3 107 23 111/66 (81) 97 06/24/17 20:00 107 06/24/17 18:00 114 06/24/17 16:00 107 06/24/17 16:00 98.4 107 25 108/67 (81) 98 06/24/17 14:00 104 I/O 06/24/17 06/24/17 06/24/17 06/25/17 06/25/17 06/25/17 06:59 14:59 22:59 06:59 14:59 22:59 Intake Total 325 ml 240 ml Output Total 750 ml 625 ml 250 ml Balance -750 ml -300 ml -10 ml Intake Oral 325 ml 240 ml Output Urine Total 750 ml 625 ml 250 ml # Bowel Movements 0 1 1 Result Diagram: 06/25/17 0801 06/25/17 0801 Imaging Last Impressions Brain MRI 06/23/17 0000 Signed Impressions: Service Date/Time: Friday, June 23, 2017 16:04 - CONCLUSION: No acute disease. Widespread diffuse atrophy Jacky Love MD Chest X-Ray 06/21/17 0600 Signed Impressions: Service Date/Time: Wednesday, June 21, 2017 03:50 - CONCLUSION: 1. Mild basilar airspace disease, slightly increased on right since June 19. Small effusions. Support apparatus unchanged. Avel Ken MD Head CT 06/20/17 0000 Signed Impressions: Service Date/Time: Tuesday, June 20, 2017 10:32 - CONCLUSION: Stable appearance from yesterday's head CT with no acute hemorrhage, mass or stroke. Michael Reeder MD Chest CT 06/19/17 0000 Signed Impressions: Service Date/Time: Monday, June 19, 2017 15:50 - CONCLUSION: 1. There is consolidation in the right upper lobe medially with air bronchograms and small area of cavitation, probably infectious in nature although other etiologies not excluded. Mildly enlarged precarinal lymph node. 2. Patchy airspace disease right lower lobe most characteristic of bronchopneumonia or mild aspiration. 3. Linear scarring or atelectasis left upper lobe. 4. Endotracheal tube and nasogastric tube in good position. No effusion. Avel Ken MD Objective Remarks GENERAL: NAD SKIN: Warm and dry. HEAD: Normocephalic. EYES: No scleral icterus. No injection or drainage. NECK: Supple, trachea midline. No JVD or lymphadenopathy. CARDIOVASCULAR: Regular rate and rhythm without murmurs, gallops, or rubs. RESPIRATORY: Breath sounds equal bilaterally. No accessory muscle use. GASTROINTESTINAL: Abdomen soft, non-tender, nondistended. MUSCULOSKELETAL: No cyanosis, or edema. BACK: Nontender without obvious deformity. No CVA tenderness. A/P Problem List: (1) Acute respiratory failure ICD Code: J96.00 - Acute respiratory failure, unspecified whether with hypoxia or hypercapnia (2) Encephalopathy acute ICD Code: G93.40 - Encephalopathy, unspecified (3) Baclofen overdose ICD Code: T42.8X1A - Poisoning by antiparkinsonism drugs and other central muscle-tone depressants, accidental (unintentional), initial encounter (4) Acute kidney injury ICD Code: N17.9 - Acute kidney failure, unspecified (5) Pneumonia ICD Code: J18.9 - Pneumonia, unspecified organism (6) Aspiration into airway ICD Code: T17.908A - Unspecified foreign body in respiratory tract, part unspecified causing other injury, initial encounter (7) Hyperkalemia ICD Code: E87.5 - Hyperkalemia (8) Hypertension ICD Code: I10 - Hypertension Status: Acute (9) Multiple sclerosis ICD Code: G35 - Multiple sclerosis Status: Chronic (10) Chronic pain ICD Code: G89.29 - Chronic pain Status: Acute (11) Polypharmacy ICD Code: Z79.899 - Polypharmacy Status: Acute (12) Chronic obstructive pulmonary disease ICD Code: J44.9 - Chronic obstructive pulmonary disease Status: Chronic (13) Fibromyalgia ICD Code: M79.7 - Fibromyalgia Status: Chronic (14) Alcohol dependence ICD Code: F10.20 - Alcohol dependence, uncomplicated Assessment and Plan 61-year-old female with Baclofen overdose/Attempted suicide Acute encephalopathy secondary to above 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 6 hour -Poison control contacted, due to long half life of baclofen and Soma continue symptomatic supportive care -06/20 repeat EEG, revealing PLEDs. -Repeat EEG 06/23/2017 read as normal, neurology ff -Brain MRI 06/23/2017 without any intracranial abnormality Acute respiratory failure Aspiration pneumonia COPD -Maintain O2 sat greater than 90%, ventilator bundle, DuoNeb every 6 hours scheduled and as needed -Continue PRVC at current vent settings, no auto PEEP, patient synchronized with the ventilator, PIP 22, on FiO2 of 0.4 and a PEEP of 8 -Broad-spectrum antibiotics with Zosyn. -Follow up on sputum culture-negative to date Hypertension Bradycardia -Labetalol and hydralazine as needed for SBP more than 160 -Hydralazine 20 mg every 4 hours as needed for systolic blood pressure greater than 160 -Metoprolol 50 every 12 -Off Cardene drip Acute kidney injury Hyperkalemia -Jacobo catheter, Strict I/Os -Fluid hydration as above GERD Protonix GI prophylaxis Aspiration pneumonia present on admission Probable sepsis -Continue Zosyn, s/p azithromycin -Follow up on sputum and blood culture. Negative to date Unspecified psychosis Suicidal ideation/attempt Appreciate input from psychiatry Continue Seroquel 25 mg twice daily Continue Haldol 2 mg IM every 8 as needed Prophylaxis: GI Prophylaxis with Protonix, DVT Prophylaxis with SCDs and Lovenox Problem Qualifiers (1) Acute respiratory failure: Qualified Codes: J96.00 - Acute respiratory failure, unspecified whether with hypoxia or hypercapnia (2) Baclofen overdose: Qualified Codes: T42.8X2A - Poisoning by antiparkinsonism drugs and other central muscle-tone depressants, intentional self-harm, initial encounter (3) Pneumonia: Qualified Codes: J18.1 - Lobar pneumonia, unspecified organism (4) Aspiration into airway: Qualified Codes: T17.908A - Unspecified foreign body in respiratory tract, part unspecified causing other injury, initial encounter (5) Chronic pain: Qualified Codes: G89.29 - Other chronic pain (6) Chronic obstructive pulmonary disease: (7) Alcohol dependence: Tayo Barbosa MD Jun 25, 2017 13:54
[2017-06-25] MEDS: VASOPRESSIN 40 U/D5W 100 ML Shock/septic shock, do NOT titrate until taper off IV SCH ×2 (14:35)
[2017-06-25 16:00] VITALS: BP 138/89; PULSE 109; RESP 18; TEMP 97.4; O2SAT 96
[2017-06-25] MEDS: ENOXAPARIN SODIUM 40 MG/0.4 ML SYRINGE SQ SCH (16:40)
[2017-06-25 20:00] VITALS: BP 116/79; PULSE 90; RESP 18; TEMP 98.1; O2SAT 91
[2017-06-25] MEDS: SODIUM CHLORIDE 0.9% FLUSH 10 ML FLUSH IVF PRN (21:31)
[2017-06-25 23:00] VITALS: BP 151/96; PULSE 97; RESP 16; TEMP 97.3; O2SAT 98
[2017-06-26] MEDS: levETIRAcetam INJ 500 MG in SODIUM CHLORIDE 0.9% INJ 100 ML IV SCH ×4 (00:24→16:27)
[2017-06-26] MEDS: LORazepam 2 MG/ML VIAL IV PUSH PRN ×3 (03:08→23:00)
[2017-06-26] MEDS: SODIUM CHLORIDE 0.9% FLUSH 10 ML FLUSH IVF PRN ×2 (03:08→23:02)
[2017-06-26] MEDS: CHLORHEXIDINE GLUCONATE 2 % 1 PACK (2 CLOTHS) TOP SCH (04:00)
[2017-06-26] MEDS: PIPERACIL-TAZO 3.375 GM PREMIX 50 ML IV SCH ×4 (04:10→23:03)
[2017-06-26 06:18] LABS: AUTOMATED NEUTROPHIL # 5.8 TH/MM3 (1.8-7.7); BASOPHIL # 0.1 TH/MM3 (0-0.2); BASOPHIL % 0.6 % (0.0-2.0); EOSINOPHIL # 0.1 TH/MM3 (0-0.4); EOSINOPHIL % 0.7 % (0.0-4.0); HEMATOCRIT 36.9 % (35.0-46.0); HEMOGLOBIN 12.4 GM/DL (11.6-15.3); LYMPH % 16.9 % (9.0-44.0); LYMPHOCYTE # 1.5 TH/MM3 (1.0-4.8); MEAN CELL VOLUME 95.3 FL (80.0-100.0); MEAN CORPUSCULAR HEMOGLOBIN 31.9 PG (27.0-34.0); MEAN CORPUSCULAR HGB CONC 33.5 % (32.0-36.0); MEAN PLATELET VOLUME 9.1 FL (7.0-11.0); MONO % 14.5 % (0.0-8.0); MONOCYTE # 1.3 TH/MM3 (0-0.9); NEUT % 67.3 % (16.0-70.0); PLATELET COUNT 229 TH/MM3 (150-450); RED BLOOD COUNT 3.87 MIL/MM3 (4.00-5.30); RED CELL DISTRIBUTION WIDTH 15.9 % (11.6-17.2); WHITE BLOOD COUNT 8.6 TH/MM3 (4.0-11.0)
[2017-06-26 06:42] LABS: ALBUMIN 2.8 GM/DL (3.4-5.0); ALT (GPT) 21 U/L (10-53); AST (GOT) 29 U/L (15-37); BICARBONATE 23.8 MEQ/L (21.0-32.0); BLOOD UREA NITROGEN 14 MG/DL (7-18); CALCIUM 9.5 MG/DL (8.5-10.1); CHLORIDE 106 MEQ/L (98-107); CREATININE 0.69 MG/DL (0.50-1.00); GLOMERULAR FILTRATION RATE 87 ML/MIN (>89); GLUCOSE,RANDOM 93 MG/DL (74-106); MAGNESIUM 1.8 MG/DL (1.5-2.5); PHOSPHORUS 2.2 MG/DL (2.5-4.9); SODIUM (NA) 140 MEQ/L (136-145)
[2017-06-26 06:44] LABS: ALKALINE PHOSPHATASE 76 U/L (45-117); TOTAL PROTEIN 7.5 GM/DL (6.4-8.2)
[2017-06-26] MEDS: VASOPRESSIN 40 U/D5W 100 ML Shock/septic shock, do NOT titrate until taper off IV SCH ×2 (07:15)
[2017-06-26 08:00] VITALS: BP 162/106; PULSE 111; RESP 17; TEMP 97.8; O2SAT 96
[2017-06-26] MEDS: CHLORHEXIDINE 0.12% (ORAL KIT) 15 ML CUP MT SCH (08:00)
[2017-06-26] MEDS: METOPROLOL TARTRATE 50 MG TAB PO SCH ×3 (08:52→23:00)
[2017-06-26] MEDS: QUEtiapine FUMARATE 25 MG TAB PO SCH ×2 (08:52→23:00)
[2017-06-26] MEDS: GABAPENTIN 300 MG CAP PO SCH ×3 (08:52→16:26)
[2017-06-26] MEDS: THIAMINE HCL 100 MG TAB PO SCH (08:52)
[2017-06-26] MEDS: PANTOPRAZOLE SOD 40 MG DELAYED RELEASE TAB PO SCH (08:52)
[2017-06-26 12:00] VITALS: BP 138/83; PULSE 124; RESP 17; TEMP 97.8; O2SAT 97
--- NOTE | 2017-06-26 12:01 | HHI.PR ---
Subjective Remarks Follow-up metabolic and toxic encephalopathy June 23, 2017-patient seen and examined, no seizure activity reported. The patient is alert and oriented to self however she is confused and delusional. Vital stable June 24, 2017-patient seen and examined, still making accusations about her . Reports of shortness of breath however denies any chest pain or dizziness. June 25, 2017-patient seen and examined, still confused. No acute event overnight. Afebrile. Denies any shortness of breath. June 26, 2017-patient seen and examined, she was resting. Per sitter's report , during breakfast patient has some coughing spell and did not eat much. However per RN patient was able to swallow medication this a.m. Objective Vitals Vital Signs Date Time Temp Pulse Resp B/P (MAP) Pulse Ox O2 Delivery O2 Flow Rate FiO2 06/26/17 08:00 97.8 111 17 162/106 (124) 96 06/25/17 23:00 97.3 97 16 151/96 (114) 98 06/25/17 20:00 06/25/17 16:00 97.4 109 18 138/89 (105) 96 06/25/17 12:00 98.7 83 20 107/67 (80) 99 I/O 06/25/17 06/25/17 06/25/17 06/26/17 06/26/17 06/26/17 07:00 15:00 23:00 07:00 15:00 23:00 Intake Total 0 ml Balance 0 ml Intake Oral 0 ml # Voids 0 # Bowel Movements 0 Result Diagram: 06/26/17 0541 06/26/17 0541 Imaging Last Impressions Brain MRI 06/23/17 0000 Signed Impressions: Service Date/Time: Friday, June 23, 2017 16:04 - CONCLUSION: No acute disease. Widespread diffuse atrophy Jacky Love MD Chest X-Ray 06/21/17 0600 Signed Impressions: Service Date/Time: Wednesday, June 21, 2017 03:50 - CONCLUSION: 1. Mild basilar airspace disease, slightly increased on right since June 19. Small effusions. Support apparatus unchanged. Avel Ken MD Head CT 06/20/17 0000 Signed Impressions: Service Date/Time: Tuesday, June 20, 2017 10:32 - CONCLUSION: Stable appearance from yesterday's head CT with no acute hemorrhage, mass or stroke. Michael Reeder MD Chest CT 06/19/17 0000 Signed Impressions: Service Date/Time: Monday, June 19, 2017 15:50 - CONCLUSION: 1. There is consolidation in the right upper lobe medially with air bronchograms and small area of cavitation, probably infectious in nature although other etiologies not excluded. Mildly enlarged precarinal lymph node. 2. Patchy airspace disease right lower lobe most characteristic of bronchopneumonia or mild aspiration. 3. Linear scarring or atelectasis left upper lobe. 4. Endotracheal tube and nasogastric tube in good position. No effusion. Avel Ken MD Objective Remarks GENERAL: NAD SKIN: Warm and dry. HEAD: Normocephalic. EYES: No scleral icterus. No injection or drainage. NECK: Supple, trachea midline. No JVD or lymphadenopathy. CARDIOVASCULAR: Regular rate and rhythm without murmurs, gallops, or rubs. RESPIRATORY: Breath sounds equal bilaterally. No accessory muscle use. GASTROINTESTINAL: Abdomen soft, non-tender, nondistended. MUSCULOSKELETAL: No cyanosis, or edema. BACK: Nontender without obvious deformity. No CVA tenderness. A/P Problem List: (1) Acute respiratory failure ICD Code: J96.00 - Acute respiratory failure, unspecified whether with hypoxia or hypercapnia (2) Encephalopathy acute ICD Code: G93.40 - Encephalopathy, unspecified (3) Baclofen overdose ICD Code: T42.8X1A - Poisoning by antiparkinsonism drugs and other central muscle-tone depressants, accidental (unintentional), initial encounter (4) Acute kidney injury ICD Code: N17.9 - Acute kidney failure, unspecified (5) Pneumonia ICD Code: J18.9 - Pneumonia, unspecified organism (6) Aspiration into airway ICD Code: T17.908A - Unspecified foreign body in respiratory tract, part unspecified causing other injury, initial encounter (7) Hyperkalemia ICD Code: E87.5 - Hyperkalemia (8) Hypertension ICD Code: I10 - Hypertension Status: Acute (9) Multiple sclerosis ICD Code: G35 - Multiple sclerosis Status: Chronic (10) Chronic pain ICD Code: G89.29 - Chronic pain Status: Acute (11) Polypharmacy ICD Code: Z79.899 - Polypharmacy Status: Acute (12) Chronic obstructive pulmonary disease ICD Code: J44.9 - Chronic obstructive pulmonary disease Status: Chronic (13) Fibromyalgia ICD Code: M79.7 - Fibromyalgia Status: Chronic (14) Alcohol dependence ICD Code: F10.20 - Alcohol dependence, uncomplicated Assessment and Plan 61-year-old female with Baclofen overdose/Attempted suicide Acute encephalopathy secondary to above 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 6 hour -Poison control contacted, due to long half life of baclofen and Soma continue symptomatic supportive care -06/20 repeat EEG, revealing PLEDs. -Repeat EEG 06/23/2017 read as normal, neurology ff -Brain MRI 06/23/2017 without any intracranial abnormality Acute respiratory failure Aspiration pneumonia COPD -Maintain O2 sat greater than 90%, ventilator bundle, DuoNeb every 6 hours scheduled and as needed -Broad-spectrum antibiotics with Zosyn. -Follow up on sputum culture-negative to date Hypertension Bradycardia -Hydralazine 20 mg every 4 hours as needed for systolic blood pressure greater than 160 -Metoprolol 50 every 12 -Off Cardene drip Acute kidney injury Hyperkalemia Resolved GERD Protonix GI prophylaxis Aspiration pneumonia present on admission Probable sepsis -Continue Zosyn, s/p azithromycin -Follow up on sputum and blood culture. Negative to date Unspecified psychosis Suicidal ideation/attempt Appreciate input from psychiatry Continue Seroquel 25 mg twice daily Continue Haldol 2 mg IM every 8 as needed Prophylaxis: GI Prophylaxis with Protonix, DVT Prophylaxis with SCDs and Lovenox Discharge Planning Likely discharge to [facility] within the next 24 hours Problem Qualifiers (1) Acute respiratory failure: Qualified Codes: J96.00 - Acute respiratory failure, unspecified whether with hypoxia or hypercapnia (2) Baclofen overdose: Qualified Codes: T42.8X2A - Poisoning by antiparkinsonism drugs and other central muscle-tone depressants, intentional self-harm, initial encounter (3) Pneumonia: Qualified Codes: J18.1 - Lobar pneumonia, unspecified organism (4) Aspiration into airway: Qualified Codes: T17.908A - Unspecified foreign body in respiratory tract, part unspecified causing other injury, initial encounter (5) Chronic pain: Qualified Codes: G89.29 - Other chronic pain (6) Chronic obstructive pulmonary disease: (7) Alcohol dependence: Tayo Barbosa MD Jun 26, 2017 12:01
[2017-06-26 16:00] VITALS: BP 143/86; PULSE 129; RESP 17; TEMP 98.3; O2SAT 97
[2017-06-26] MEDS: ENOXAPARIN SODIUM 40 MG/0.4 ML SYRINGE SQ SCH (16:27)
[2017-06-26 17:16] VITALS: BP 139/94; PULSE 126
[2017-06-26 20:00] VITALS: BP 154/80; PULSE 133; RESP 18; TEMP 98.6; O2SAT 96
[2017-06-27] VITALS: BP 151/99; PULSE 123; RESP 17; TEMP 99.1; O2SAT 96
[2017-06-27] MEDS: levETIRAcetam INJ 500 MG in SODIUM CHLORIDE 0.9% INJ 100 ML IV SCH ×2 (02:27→06:14)
[2017-06-27] MEDS: PIPERACIL-TAZO 3.375 GM PREMIX 50 ML IV SCH ×2 (03:33→09:33)
[2017-06-27] MEDS: CHLORHEXIDINE GLUCONATE 2 % 1 PACK (2 CLOTHS) TOP SCH (03:37)
[2017-06-27] MEDS: CHLORHEXIDINE 0.12% (ORAL KIT) 15 ML CUP MT SCH ×2 (03:39→08:00)
[2017-06-27] MEDS: LORazepam 2 MG/ML VIAL IV PUSH PRN (04:11)
[2017-06-27 08:00] VITALS: BP 131/84; PULSE 119; RESP 17; TEMP 99.3; O2SAT 95
[2017-06-27] MEDS: THIAMINE HCL 100 MG TAB PO SCH (08:05)
[2017-06-27] MEDS: PANTOPRAZOLE SOD 40 MG DELAYED RELEASE TAB PO SCH (08:05)
[2017-06-27] MEDS: GABAPENTIN 300 MG CAP PO SCH ×2 (08:05→11:47)
[2017-06-27] MEDS: QUEtiapine FUMARATE 25 MG TAB PO SCH (08:05)
[2017-06-27] MEDS: METOPROLOL TARTRATE 50 MG TAB PO SCH (08:05)
--- NOTE | 2017-06-27 10:11 | HHI.PR ---
Subjective Remarks Follow-up metabolic and toxic encephalopathy June 23, 2017-patient seen and examined, no seizure activity reported. The patient is alert and oriented to self however she is confused and delusional. Vital stable June 24, 2017-patient seen and examined, still making accusations about her . Reports of shortness of breath however denies any chest pain or dizziness. June 25, 2017-patient seen and examined, still confused. No acute event overnight. Afebrile. Denies any shortness of breath. June 26, 2017-patient seen and examined, she was resting. Per sitter's report , during breakfast patient has some coughing spell and did not eat much. However per RN patient was able to swallow medication this a.m. June 27, 2017-patient seen and examined, confused this morning. Did not take much of p.o. however no report of coughing spell. Case discussed with Dr. Cee , neurology Objective Vitals Vital Signs Date Time Temp Pulse Resp B/P (MAP) Pulse Ox O2 Delivery O2 Flow Rate FiO2 06/27/17 08:00 99.3 119 17 131/84 (100) 95 06/27/17 00:00 99.1 123 17 151/99 (116) 96 06/26/17 20:00 98.6 133 18 154/80 (104) 96 06/26/17 17:16 126 139/94 (109) 06/26/17 16:00 98.3 129 17 143/86 (105) 97 06/26/17 12:00 97.8 124 17 138/83 (101) 97 I/O 06/26/17 06/26/17 06/26/17 06/27/17 06/27/17 06/27/17 07:00 15:00 23:00 07:00 15:00 23:00 Intake Total 1020 ml 180 ml Balance 1020 ml 180 ml Intake Oral 710 ml 180 ml IV Total 310 ml # Voids 4 4 # Bowel Movements 0 Result Diagram: 06/26/17 0541 06/26/17 0541 Imaging Last Impressions Brain MRI 06/23/17 0000 Signed Impressions: Service Date/Time: Friday, June 23, 2017 16:04 - CONCLUSION: No acute disease. Widespread diffuse atrophy Jacky Love MD Chest X-Ray 06/21/17 0600 Signed Impressions: Service Date/Time: Wednesday, June 21, 2017 03:50 - CONCLUSION: 1. Mild basilar airspace disease, slightly increased on right since June 19. Small effusions. Support apparatus unchanged. Avel Ken MD Head CT 06/20/17 0000 Signed Impressions: Service Date/Time: Tuesday, June 20, 2017 10:32 - CONCLUSION: Stable appearance from yesterday's head CT with no acute hemorrhage, mass or stroke. Michael Reeder MD Chest CT 06/19/17 0000 Signed Impressions: Service Date/Time: Monday, June 19, 2017 15:50 - CONCLUSION: 1. There is consolidation in the right upper lobe medially with air bronchograms and small area of cavitation, probably infectious in nature although other etiologies not excluded. Mildly enlarged precarinal lymph node. 2. Patchy airspace disease right lower lobe most characteristic of bronchopneumonia or mild aspiration. 3. Linear scarring or atelectasis left upper lobe. 4. Endotracheal tube and nasogastric tube in good position. No effusion. Avel Ken MD Objective Remarks GENERAL: NAD. Confused SKIN: Warm and dry. HEAD: Normocephalic. EYES: No scleral icterus. No injection or drainage. NECK: Supple, trachea midline. No JVD or lymphadenopathy. CARDIOVASCULAR: Regular rate and rhythm without murmurs, gallops, or rubs. RESPIRATORY: Breath sounds equal bilaterally. No accessory muscle use. GASTROINTESTINAL: Abdomen soft, non-tender, nondistended. MUSCULOSKELETAL: No cyanosis, or edema. BACK: Nontender without obvious deformity. No CVA tenderness. Procedures None A/P Problem List: (1) Acute respiratory failure ICD Code: J96.00 - Acute respiratory failure, unspecified whether with hypoxia or hypercapnia Status: Resolved (2) Encephalopathy acute ICD Code: G93.40 - Encephalopathy, unspecified (3) Baclofen overdose ICD Code: T42.8X1A - Poisoning by antiparkinsonism drugs and other central muscle-tone depressants, accidental (unintentional), initial encounter (4) Acute kidney injury ICD Code: N17.9 - Acute kidney failure, unspecified (5) Pneumonia ICD Code: J18.9 - Pneumonia, unspecified organism (6) Aspiration into airway ICD Code: T17.908A - Unspecified foreign body in respiratory tract, part unspecified causing other injury, initial encounter (7) Hyperkalemia ICD Code: E87.5 - Hyperkalemia (8) Hypertension ICD Code: I10 - Hypertension Status: Acute (9) Multiple sclerosis ICD Code: G35 - Multiple sclerosis Status: Chronic (10) Chronic pain ICD Code: G89.29 - Chronic pain Status: Acute (11) Polypharmacy ICD Code: Z79.899 - Polypharmacy Status: Acute (12) Chronic obstructive pulmonary disease ICD Code: J44.9 - Chronic obstructive pulmonary disease Status: Chronic (13) Fibromyalgia ICD Code: M79.7 - Fibromyalgia Status: Chronic (14) Alcohol dependence ICD Code: F10.20 - Alcohol dependence, uncomplicated Assessment and Plan 61-year-old female with Baclofen overdose/Attempted suicide Acute encephalopathy secondary to above Anoraxic brain injury Burst suppression pattern on EEG Seizure, new onset 01/2017 THC use Multiple sclerosis Chronic pain syndrome Fibromyalgia Alcohol dependence Anxiety/Depression -Urine drug screen positive for benzodiazepines, THC -Ativan as needed for seizure and alcohol withdrawal, supplement thiamine -Neurology to switch Keppra IV 500 mg q. 6 hour to p.o. today prior to discharge to psych -Poison control contacted, due to long half life of baclofen and Soma continue symptomatic supportive care -06/20 repeat EEG, revealing PLEDs. -Repeat EEG 06/23/2017 read as normal, neurology ff -Brain MRI 06/23/2017 without any intracranial abnormality Acute respiratory failure Aspiration pneumonia COPD -Maintain O2 sat greater than 90%, ventilator bundle, DuoNeb every 6 hours scheduled and as needed -d/c Broad-spectrum antibiotics with Zosyn. -Follow up on sputum culture-negative to date Hypertension Bradycardia -Hydralazine 20 mg every 4 hours as needed for systolic blood pressure greater than 160 -Metoprolol 50 every 12 -Off Cardene drip Acute kidney injury Hyperkalemia Resolved GERD Protonix GI prophylaxis Aspiration pneumonia present on admission Probable sepsis -d/c Zosyn, s/p azithromycin -Follow up on sputum and blood culture. Negative to date Unspecified psychosis Suicidal ideation/attempt Appreciate input from psychiatry Continue Seroquel 25 mg twice daily Continue Haldol 2 mg IM every 8 as needed Prophylaxis: GI Prophylaxis with Protonix, DVT Prophylaxis with SCDs and Lovenox Discharge Planning Likely discharge to [facility] within the next 24 hours Problem Qualifiers (1) Acute respiratory failure: Qualified Codes: J96.00 - Acute respiratory failure, unspecified whether with hypoxia or hypercapnia (2) Baclofen overdose: Qualified Codes: T42.8X2A - Poisoning by antiparkinsonism drugs and other central muscle-tone depressants, intentional self-harm, initial encounter (3) Pneumonia: Qualified Codes: J18.1 - Lobar pneumonia, unspecified organism (4) Aspiration into airway: Qualified Codes: T17.908A - Unspecified foreign body in respiratory tract, part unspecified causing other injury, initial encounter (5) Chronic pain: Qualified Codes: G89.29 - Other chronic pain (6) Chronic obstructive pulmonary disease: (7) Alcohol dependence: Tayo Barbosa MD Jun 27, 2017 10:11
--- NOTE | 2017-06-27 10:12 | HHI.PR ---
Review/Management Diagnosis encephalopathy--- Seizure--continue keppra at current dose, change to PO Diagnosis/Plan: Subjective Subjective Comments No acute events reported No headache No sz Active Medications Current Medications Medications (Trade) Dose Ordered Sig/Matt Route Start Time Stop Time Status Last Admin (NS Flush) 2 ml UNSCH PRN IVF 06/19/17 14:45 06/26/17 23:02 (Neurontin) 300 mg TID PO 06/19/17 18:00 Future hold 06/27/17 08:05 (Protonix) 40 mg DAILY PO 06/20/17 09:00 06/27/17 08:05 (Albuterol Neb) 2.5 mg Q4HR NEB PRN INH 06/19/17 16:30 (Peridex 0.12% Liq) 15 ml BID@08,20 MT 06/19/17 20:00 06/27/17 03:39 (Lovenox Inj) 40 mg Q24H SQ 06/19/17 17:00 06/26/17 16:27 Miscellaneous Information 1 Q361D XX 06/19/17 16:30 (Chlorhexidine 2% Cloth) Taper DAILY@04 TOP 06/20/17 04:00 06/16/18 03:59 06/24/17 03:25 (Chlorhexidine 2% Cloth) 3 pack UNSCH PRN TOP 06/19/17 16:30 (Ativan Inj) 1 mg Q4H PRN IV PUSH 06/19/17 17:00 06/27/17 04:11 (Apresoline Inj) 20 mg Q4H PRN IV PUSH 06/20/17 13:00 06/24/17 08:17 (Trandate Inj) 10 mg Q4H PRN IV PUSH 06/20/17 21:30 06/24/17 01:35 (Lopressor) 50 mg Q12HR PO 06/21/17 09:15 06/27/17 08:05 Levetriacetam 500 mg/Sodium Chloride 105 ml @ 420 mls/hr Q6HR IV 06/21/17 18:00 06/27/17 06:14 (SEROquel) 25 mg BID PO 06/23/17 21:00 06/27/17 08:05 (Vitamin B1) 100 mg DAILY PO 06/24/17 10:00 06/27/17 08:05 Allergies Allergies Coded Allergies Sulfa (Sulfonamide Antibiotics) (Unverified Allergy, Intermediate, N/V, ) modafinil (Unverified Allergy, Mild, Rash, 02/14/17) carisoprodol (Verified Allergy, Unknown, 02/14/17) Exam I&O / VS Vital Signs Date Time Temp Pulse Resp B/P (MAP) Pulse Ox O2 Delivery O2 Flow Rate FiO2 06/27/17 08:00 99.3 119 17 131/84 (100) 95 06/27/17 00:00 99.1 123 17 151/99 (116) 96 06/26/17 20:00 98.6 133 18 154/80 (104) 96 06/26/17 17:16 126 139/94 (109) 06/26/17 16:00 98.3 129 17 143/86 (105) 97 06/26/17 12:00 97.8 124 17 138/83 (101) 97 Exam Comments Alert, disoriented to date and place follow commands. Poor recent memory. confused PERRL, EOM intact MOTOR--5/5 BUE Objective Radiology Results mri brain--no acute change Micro and Labs Date/Time Source Procedure Growth Status 06/19/17 16:30 Blood Peripheral Aerobic Blood Culture - Final NO GROWTH IN 5 DAYS Complete 06/19/17 16:30 Blood Peripheral Anaerobic Blood Culture - Final NO GROWTH IN 5 DAYS Complete 06/19/17 18:00 Sputum Endotracheal Gram Stain - Final Complete 06/19/17 18:00 Sputum Endotracheal Sputum Culture - Final HEAVY GROWTH NORMAL RESPIRATORY RAJNI Complete Todd Cee MD PhD Jun 27, 2017 10:12
[2017-06-27] MEDS ORDERED: SERO25TA PO (10:14)
[2017-06-27] MEDS ORDERED: THIA100 PO (10:14)
[2017-06-27] MEDS ORDERED: METO-309 PO (10:14)
--- NOTE | 2017-06-27 10:19 | HHI.DS ---
Discharge Summary Admission Date Jun 19, 2017 at 16:14 Discharge Date: Jun 27, 2017 Admitting Diagnosis (1) Acute respiratory failure ICD Code: J96.00 - Acute respiratory failure, unspecified whether with hypoxia or hypercapnia Diagnosis: Principal Status: Resolved (2) Encephalopathy acute ICD Code: G93.40 - Encephalopathy, unspecified Diagnosis: Principal (3) Baclofen overdose ICD Code: T42.8X1A - Poisoning by antiparkinsonism drugs and other central muscle-tone depressants, accidental (unintentional), initial encounter Diagnosis: Principal (4) Acute kidney injury ICD Code: N17.9 - Acute kidney failure, unspecified Diagnosis: Principal (5) Pneumonia ICD Code: J18.9 - Pneumonia, unspecified organism Diagnosis: Principal (6) Aspiration into airway ICD Code: T17.908A - Unspecified foreign body in respiratory tract, part unspecified causing other injury, initial encounter Diagnosis: Principal (7) Hyperkalemia ICD Code: E87.5 - Hyperkalemia Diagnosis: Principal (8) Hypertension ICD Code: I10 - Hypertension Diagnosis: Secondary Status: Acute (9) Multiple sclerosis ICD Code: G35 - Multiple sclerosis Diagnosis: Secondary Status: Chronic (10) Chronic pain ICD Code: G89.29 - Chronic pain Diagnosis: Secondary Status: Acute (11) Polypharmacy ICD Code: Z79.899 - Polypharmacy Diagnosis: Secondary Status: Acute (12) Chronic obstructive pulmonary disease ICD Code: J44.9 - Chronic obstructive pulmonary disease Diagnosis: Secondary Status: Chronic (13) Fibromyalgia ICD Code: M79.7 - Fibromyalgia Diagnosis: Secondary Status: Chronic (14) Alcohol dependence ICD Code: F10.20 - Alcohol dependence, uncomplicated Diagnosis: Secondary Procedures None Brief History - From Admission Patient is a 61-year-old female with past medical history significant for multiple sclerosis, fibromyalgia, new onset seizure in January 2017, depression /anxiety, alcohol dependence, COPD who was found unresponsive on the floor by the at 1:30 PM today. He saw her normally yesterday night at 10:30 PM, when he left for work at 7 AM today he heard snoring. He does not sleep with her at night, and did not notice anything abnormal. When he came back from work at 130 pm that is when he found a unresponsive on the floor with the bottle of baclofen almost empty, apparently 97 tablets of 20mg of baclofen missing. Patient was not protecting airway and EMS intubated after giving 4 mg Versed and 20 mg of etomidate. Pt was admitted at [facility] 01/2017 for altered mental status and had new onset seizure. According to was discharged home on Depakote I evaluated the patient in the emergency department. She remains unresponsive but pupils are sluggishly reactive. Very slight withdrawal to pain. CT of the head is negative for acute findings. Chest CT shows right upper lobe consolidation with cavitation indicating aspiration pneumonia. Patient will be placed on Zosyn and azithromycin. 2 L of normal saline boluses ordered and maintenance fluid at 84 mL/h. Sputum and blood cultures also ordered. also gives history that patient had been recently very depressed and agitated as she lost her driving privileges due to recent seizure. She has never attempted suicide before CBC/BMP: 06/26/17 0541 06/26/17 0541 Significant Findings Laboratory Tests Test 06/25/17 08:01 06/26/17 05:41 Red Blood Count 3.73 MIL/MM3 (4.00-5.30) 3.87 MIL/MM3 (4.00-5.30) Monocytes (%) (Auto) 17.0 % (0.0-8.0) 14.5 % (0.0-8.0) Monocytes # (Auto) 1.5 TH/MM3 (0-0.9) 1.3 TH/MM3 (0-0.9) Albumin 2.6 GM/DL (3.4-5.0) 2.8 GM/DL (3.4-5.0) Phosphorus Level 2.1 MG/DL (2.5-4.9) 2.2 MG/DL (2.5-4.9) Chloride Level 111 MEQ/L (98-107) Estimat Glomerular Filtration Rate 87 ML/MIN (>89) 87 ML/MIN (>89) Imaging Last Impressions Brain MRI 06/23/17 0000 Signed Impressions: Service Date/Time: Friday, June 23, 2017 16:04 - CONCLUSION: No acute disease. Widespread diffuse atrophy Jacky Love MD Chest X-Ray 06/21/17 0600 Signed Impressions: Service Date/Time: Wednesday, June 21, 2017 03:50 - CONCLUSION: 1. Mild basilar airspace disease, slightly increased on right since June 19. Small effusions. Support apparatus unchanged. Avel Ken MD Head CT 06/20/17 0000 Signed Impressions: Service Date/Time: Tuesday, June 20, 2017 10:32 - CONCLUSION: Stable appearance from yesterday's head CT with no acute hemorrhage, mass or stroke. Michael Reeder MD Chest CT 06/19/17 0000 Signed Impressions: Service Date/Time: Monday, June 19, 2017 15:50 - CONCLUSION: 1. There is consolidation in the right upper lobe medially with air bronchograms and small area of cavitation, probably infectious in nature although other etiologies not excluded. Mildly enlarged precarinal lymph node. 2. Patchy airspace disease right lower lobe most characteristic of bronchopneumonia or mild aspiration. 3. Linear scarring or atelectasis left upper lobe. 4. Endotracheal tube and nasogastric tube in good position. No effusion. Avel Ken MD PE at Discharge GENERAL: NAD. Confused SKIN: Warm and dry. HEAD: Normocephalic. EYES: No scleral icterus. No injection or drainage. NECK: Supple, trachea midline. No JVD or lymphadenopathy. CARDIOVASCULAR: Regular rate and rhythm without murmurs, gallops, or rubs. RESPIRATORY: Breath sounds equal bilaterally. No accessory muscle use. GASTROINTESTINAL: Abdomen soft, non-tender, nondistended. MUSCULOSKELETAL: No cyanosis, or edema. BACK: Nontender without obvious deformity. No CVA tenderness. Hospital Course While in hospital, patient was treated for: Baclofen overdose/Attempted suicide Acute encephalopathy secondary to above Anoraxic brain injury Burst suppression pattern on EEG Seizure, new onset 01/2017 THC use Multiple sclerosis Chronic pain syndrome Fibromyalgia Alcohol dependence Anxiety/Depression -Urine drug screen positive for benzodiazepines, THC -Ativan as needed for seizure and alcohol withdrawal, supplement thiamine -Neurology to switch Keppra IV 500 mg q. 6 hour to p.o. prior to discharge to psych -Poison control contacted, due to long half life of baclofen and Soma continue symptomatic supportive care -06/20 repeat EEG, revealing PLEDs. -Repeat EEG 06/23/2017 read as normal, neurology ff -Brain MRI 06/23/2017 without any intracranial abnormality Acute respiratory failure -resolved Aspiration pneumonia COPD -Maintain O2 sat greater than 90%, ventilator bundle, DuoNeb every 6 hours scheduled and as needed -Treated with broad-spectrum antibiotics with Zosyn. -Follow up on sputum culture-negative to date Hypertension Bradycardia -Hydralazine 20 mg every 4 hours as needed for systolic blood pressure greater than 160 -Initially treated with Cardene drip then switched to p.o. Lopressor 50 mg every 12 hours Acute kidney injury Hyperkalemia Resolved s/p treatment GERD Protonix GI prophylaxis Aspiration pneumonia present on admission Probable sepsis -Responded well with treatment with Zosyn and azithromycin -Follow up on sputum and blood culture. Negative to date Unspecified psychosis Suicidal ideation/attempt Appreciate input from psychiatry Patient was treated with Seroquel 25 mg twice daily Patient was treated with Haldol 2 mg IM every 8 as needed Prophylaxis: GI Prophylaxis with Protonix, DVT Prophylaxis with SCDs and Lovenox Pt Condition on Discharge: Stable Discharge Disposition: Disc to Psych Care Fac Discharge Time: > 30 minutes Discharge Instructions DIET: Follow Instructions for: Heart Healthy Diet Activities you can perform: Regular-No Restrictions Follow up Referrals: Neurology PCP Follow-up - 2-3 Days Psychiatry Adult - 2-3 Days New Medications: Levetiracetam (Keppra) 500 Mg Tab 1000 MG PO Q12HR for Control Seizures, #60 TAB Metoprolol Tartrate (Lopressor) 50 Mg Tab 50 MG PO Q12HR for Blood Pressure Management, #60 TAB Quetiapine (Seroquel) 25 Mg Tab 25 MG PO BID for Control Anxiety, #60 TAB Thiamine HCl (Gnp Vitamin B-1) 100 Mg Tab 100 MG PO DAILY for Alcohol Detox, #30 TAB Continued Medications: Alprazolam (Alprazolam) 1 Mg Tab 1 MG PO Q6H PRN for ANXIETY, TAB 0 Refills Gabapentin (Gabapentin) 300 Mg Cap 300 MG PO TID, #90 CAP 0 Refills Ibuprofen (Ibuprofen) 600 Mg Tab 600 MG PO Q6H PRN for Pain/Inflammation, #40 TAB 0 Refills Interferon Beta-1A Inj (Rebif Inj) 44 Mcg/0.5 Ml Syr 44 MCG SQ for Multiple sclerosis, SYRINGE 0 Refills Pantoprazole (Pantoprazole) 40 Mg Tab 40 MG PO DAILY for Reflux, #30 TAB 0 Refills Tiotropium Inh (Spiriva Handihaler) 18 Mcg Cap 18 MCG INH DAILY for COPD, #30 CAP 0 Refills 1 capsule = 18 mcg Discontinued Medications: Amphetamine-Dextroamphetamine (Adderall) 30 Mg Tab 30 MG PO BID for Hyperactivity Control, #60 TAB 0 Refills Avoid late evening doses. Space doses at least 4 to 6 hours if more than once/day dosing. Carisoprodol (Soma) 350 Mg Tab 350 MG PO QID PRN for PAIN, TAB 0 Refills Oxycodone (Oxycodone) 30 Mg Tab 30 MG PO Q6H PRN for PAIN, TAB 0 Refills Tayo Barbosa MD Jun 27, 2017 10:19
[2017-06-27] MEDS ORDERED: LEVE500 PO (10:43)
[2017-06-27 12:00] VITALS: BP 140/85; PULSE 107; RESP 17; TEMP 99.5; O2SAT 99
[2017-06-27] MEDS ORDERED: levETIRAcetam 500 MG TAB PO SCH (21:00)
== END 2017-06-27 14:34 | DRG 917 ==
LOC: NEPC 14:33 → NEDA 16:14 → HIMW 17:30 → N07A 06-24 23:33
PROVIDERS: ADMIT Hospitalist; ATTEND Hospitalist
PROC: 5A1945Z Respiratory Ventilation, 24-96 Consecutive Hours (ICD-10-PCS; principal; 2017-06-19)
DX: T42.8X2A Poisoning by antiparkinsonism drugs and other central muscle-tone depressants, intentional self-harm, initial encounter (principal); J96.00 Acute respiratory failure, unspecified whether with hypoxia or hypercapnia; J69.0 Pneumonitis due to inhalation of food and vomit; G93.1 Anoxic brain damage, not elsewhere classified; G92 Toxic encephalopathy; A41.9 Sepsis, unspecified organism; N17.9 Acute kidney failure, unspecified; E87.2 Acidosis; G35 Multiple sclerosis; F32.9 Major depressive disorder, single episode, unspecified; E87.5 Hyperkalemia; I10 Essential (primary) hypertension; G40.909 Epilepsy, unspecified, not intractable, without status epilepticus; G89.4 Chronic pain syndrome; R00.8 Other abnormalities of heart beat; R00.1 Bradycardia, unspecified; J44.9 Chronic obstructive pulmonary disease, unspecified; K21.9 Gastro-esophageal reflux disease without esophagitis; M79.7 Fibromyalgia; M19.90 Unspecified osteoarthritis, unspecified site; F10.20 Alcohol dependence, uncomplicated; F12.90 Cannabis use, unspecified, uncomplicated; F17.200 Nicotine dependence, unspecified, uncomplicated; F41.9 Anxiety disorder, unspecified; F29 Unspecified psychosis not due to a substance or known physiological condition; Y90.0 Blood alcohol level of less than 20 mg/100 ml; Y92.003 Bedroom of unspecified non-institutional (private) residence as the place of occurrence of the external cause; Z88.2 Allergy status to sulfonamides; Z96.641 Presence of right artificial hip joint; Z98.1 Arthrodesis status
CPT/HCPCS: 36600; 36620; 43753; 51702; 70450; 70553; 71045; 71250; 80053; 80164; 80307; 81001; 82140; 82550; 82805; 83605; 83735; 83930; 84100; 84132; 84146; 84484; 85007; 85025; 85027; 85610; 85730; 87040; 87070; 87205; 87641; 93005; 94002; 94003; 94150; 94640; 94664; 95819; 96360; A9579; J0360; J0456; J1650; J1953; J2060; J2543; J3411; J3480; J7030; J7050

== ENCOUNTER 2017-06-27 14:52 | Inpatient (IN) | payer OTHER, MEDICARE ==
[~2017-06-27 14:52] MED LIST changes: +LEVE500 PO; +METO-309 PO; +SERO25TA PO; +THIA100 PO
[2017-06-27] MEDS ORDERED: MAGNESIUM HYDROXIDE SUSP 30 ML CUP PO PRN (15:30)
[2017-06-27] MEDS ORDERED: ALUMINUM/MAGNESIUM/SIMETH 30 ML CUP PO PRN (15:30)
[2017-06-27] MEDS ORDERED: LORazepam 2 MG/ML VIAL IM PRN ×2 (15:30)
[2017-06-27] MEDS ORDERED: ACETAMINOPHEN 325 MG TAB PO PRN (15:30)
[2017-06-27] MEDS: TIOTROPIUM BROMIDE 18 MCG INH INH SCH (17:13)
[2017-06-27] MEDS: GABAPENTIN 300 MG CAP PO SCH (17:14)
[2017-06-27 17:35] VITALS: BP 121/86; PULSE 117; RESP 16; TEMP 98; O2SAT 93
[2017-06-27] MEDS: QUEtiapine FUMARATE 25 MG TAB PO SCH (20:32)
[2017-06-27] MEDS: levETIRAcetam 500 MG TAB PO SCH (20:32)
[2017-06-27] MEDS: METOPROLOL TARTRATE 50 MG TAB PO SCH (20:32)
[2017-06-27] MEDS: LORazepam 0.5 MG TAB PO PRN (20:32)
[2017-06-28] MEDS: LORazepam 1 MG TAB PO PRN (04:37)
[2017-06-28] MEDS: IBUPROFEN 600 MG TAB PO PRN ×2 (04:38→17:50)
[2017-06-28 05:50] VITALS: BP 141/69; PULSE 114; RESP 16; TEMP 97.8; O2SAT 93
[2017-06-28 08:15] LABS: BICARBONATE 23.5 MEQ/L (21.0-32.0); BLOOD UREA NITROGEN 21 MG/DL (7-18); CALCIUM 9.9 MG/DL (8.5-10.1); CHLORIDE 102 MEQ/L (98-107); CREATININE 0.73 MG/DL (0.50-1.00); GLOMERULAR FILTRATION RATE 81 ML/MIN (>89); GLUCOSE,RANDOM 89 MG/DL (74-106); SODIUM (NA) 135 MEQ/L (136-145)
[2017-06-28 08:16] LABS: CHOLESTEROL 105 MG/DL (120-200); TRIGLYCERIDES 79 MG/DL (42-150)
[2017-06-28 08:20] LABS: CHOLESTEROL/ HDL RATIO 2.43 RATIO; HDL CHOLESTEROL 43.1 MG/DL (40.0-60.0); LDL CHOLESTEROL 46 MG/DL (0-99)
[2017-06-28] MEDS: METOPROLOL TARTRATE 50 MG TAB PO SCH ×2 (09:00→21:30)
[2017-06-28] MEDS: REMOVE OLD PATCH T-DERMAL SCH (09:00)
[2017-06-28] MEDS: TIOTROPIUM BROMIDE 18 MCG INH INH SCH (09:00)
[2017-06-28] MEDS: GABAPENTIN 300 MG CAP PO SCH ×3 (09:00→16:55)
[2017-06-28] MEDS: levETIRAcetam 500 MG TAB PO SCH ×2 (09:00→21:30)
[2017-06-28] MEDS: PANTOPRAZOLE SOD 40 MG DELAYED RELEASE TAB PO SCH (09:00)
[2017-06-28] MEDS: NICOTINE 21 MG/24 HR PATCH T-DERMAL SCH (09:00)
[2017-06-28] MEDS: QUEtiapine FUMARATE 25 MG TAB PO SCH ×2 (09:00→21:30)
[2017-06-28] MEDS: THIAMINE HCL 100 MG TAB PO SCH (09:00)
[2017-06-28 10:48] LABS: HEMOGLOBIN A1C 4.2 % (4.3-6.0)
[2017-06-28 11:08] VITALS: BP 117/57; PULSE 78; RESP 16; TEMP 97.6; O2SAT 97
[2017-06-28 18:07] VITALS: BP 131/69; PULSE 116; RESP 16; TEMP 97.2; O2SAT 95
--- NOTE | 2017-06-28 21:20 | HHI.HP ---
Provisional Diagnosis Admission Date Jun 27, 2017 at 14:52 [place] I. Unspecified psychosis Certification of Person's Competence To Provide Express and Informed Consent I have personally examined Mercy Seo , a person being served at [facility] on, Jun 28, 2017 21:00. Express and informed consent means consent voluntarily given in writing, by a competent person, after sufficient explanation and disclosure of the subject matter involved to enable the person to make a knowing and willful decision without any element of force, fraud, deceit, duress, or other form of constraint or coercion. This person is 18 years of age or older, is not now known to be incompetent to consent to treatment with a guardian advocate, and does not have a health care surrogate or proxy currently making medical treatment decisions. I have found this person to be one of the following: [] Competent to provide express and informed consent, as defined above, for voluntary admission to this facility and is competent to provide express and informed consent for treatment. He/she has the consistent capacity to make well reasoned, willful, and knowing decisions concerning his or her medical or mental health treatment. The person fully and consistently understands the purpose of the admission for examination/placement and is fully capable of personally exercising all rights assured under [place]xxx] Incompetent to provide express and informed consent to voluntary admission , and this is incompetent to provide express and informed consent to treatment. The person must be transferred to involuntary status and a petition for a guardian advocate filed with the Circuit Court. [] Refusing to provide express and informed consent to voluntary admission but is competent to provide express and informed consent for treatment. The person must be discharged or transferred to involuntary status. Form shall be completed within 24 hours of a person's arrival at the receiving facility and filed in the clinical record of each person: 1. Admitted on a voluntary basis 2. Permitted to provide express and informed consent to his/her own treatment 3. Allowed to transfer from involuntary to voluntary status 4. Prior to permitting a person to consent to his or her own treatment after having been previously found incompetent to consent to treatment. History of Present Illness Capacity: Lacks Capacity HPI Patient is a 61-year-old woman, , domiciled with , on SSI, with a past psychiatric history of depression, no previous psychiatric admissions, no previous suicide attempts or self-injurious behavior substance use history significant for alcohol use disorder, in the past medical history significant for multiple sclerosis, fibromyalgia, new onset seizures January 2013, COPD who was found unresponsive on the floor by her with suspected suicide attempt via overdose and admitted to the medical unit for stabilization and after psychiatric consultation was admitted to the inpatient psychiatry for further evaluation and management. As per consult note: ...was found unresponsive on the floor by the at 1:30 PM today. He saw her normally yesterday night at 10:30 PM, when he left for work at 7 AM today he heard snoring. He does not sleep with her at night, and did not notice anything abnormal. When he came back from work at 130 pm that is when he found a unresponsive on the floor with the bottle of baclofen almost empty, apparently 97 tablets of 20mg of baclofen missing. Patient was not protecting airway and EMS intubated after giving 4 mg Versed and 20 mg of etomidate. Pt was admitted at [facility] 01/2017 for altered mental status and had new onset seizure. EMR reviewed. Collateral from Ivis Rayray was obtained. He says that he does not understand why the patient overdosed. They have been having arguments in the last weeks regarding he is selling her car "because she cannot drive anymore due to her seizure" and she has been very irritable accusing him of things that he had never done. On psychiatric evaluation the patient is irritable, very confused. She says that she is here because her has been hiding $10,000 from her. She states that he had another woman in her back "and after that I tried to overdose". She also states "he brought her mother to live with us rather than my mother". She says that they have a big fight after that she overdosed. The patient seems to be kind of confused, unreliable, making several accusations to her , kind of agitated, with fluctuating level of consciousness. The patient tells me that she is watching the TV "and the TV is talking about my problems now you can watch it". She is unable to tell me where she is, she told me that is July 1998, she does not know who is the traffic safety administrator. Patient reports daily use of alcohol, 1-2 cups of wine. Denies the use of illegal drugs. B, cooperative, alert and oriented to person and place only not to date. Patient states that he was recently upset her and upon attempting to clean out her room stating was having some back pain which she continue to take baclofen tablets to alleviate the pain but denies any suicide attempt. Patient states that recent stressors was that she was feeling lonely. Patient this time denies any suicide ideations, perceptual services but continues to be noted to be somewhat disorganized at times and confused during interview. Collateral information obtained by patient's reported the patient be noted to be confused during hospitalization as well as his recent visit. He consents to continuation of psychotropic medications as he is assigned healthcare surrogate for this admission. Family psychiatric history: Denies Past psychiatric history: Previous psychiatric diagnoses of depression, no previous psychiatric admissions, suicide attempts or self-injurious behavior. Patient had last been attended by mental health provider (therapist) in the last several years ago but none since. Substance use history: Reports using E cigarettes, alcohol use 2-4 drinks per day, last being on day of overdose. Patient also reports remote history of cocaine use 40 years ago along with Quaaludes. Past medical history: MS, COPD, fibromyalgia, recent diagnosis of seizure disorder in January 2017. Allergies: Sulfas, carisoprodol, modafinil Social history: , domiciled , unemployed on [employer], born and raised in [place], has 1 son, retired, high school degree. Collateral contact: Ivis () [phone] Review of Systems Except as stated in HPI: all other systems reviewed are Neg Past Psych History Violence risk - others (6 mos) low Violence risk - self (6 mos) Elevated due to recent overdose. Substance Abuse History Drugs/Alcohol past 12 months Reports using E cigarettes, alcohol use 2-4 drinks per day, last being on day of overdose. Patient also reports remote history of cocaine use 40 years ago along with Quaaludes. Past Family Social History Coded Allergies: Sulfa (Sulfonamide Antibiotics) (Unverified Allergy, Intermediate, N/V, ) modafinil (Unverified Allergy, Mild, Rash, 02/14/17) carisoprodol (Verified Allergy, Unknown, 02/14/17) Active Scripts Levetiracetam (Keppra) 500 Mg Tab, 1000 MG PO Q12HR for Control Seizures, #60 TAB Prov:Tayo Barbosa MD 06/27/17 Quetiapine (Seroquel) 25 Mg Tab, 25 MG PO BID for Control Anxiety, #60 TAB Prov:Tayo Barbosa MD 06/27/17 Thiamine HCl (Gnp Vitamin B-1) 100 Mg Tab, 100 MG PO DAILY for Alcohol Detox, # 30 TAB Prov:Tayo Barbosa MD 06/27/17 Metoprolol Tartrate (Lopressor) 50 Mg Tab, 50 MG PO Q12HR for Blood Pressure Management, #60 TAB Prov:Tayo Barbosa MD 06/27/17 Reported Medications Tiotropium Inh (Spiriva Handihaler) 18 Mcg Cap, 18 MCG INH DAILY for COPD, #30 CAP 0 Refills 1 capsule = 18 mcg 01/24/17 Ibuprofen (Ibuprofen) 600 Mg Tab, 600 MG PO Q6H Y for Pain/Inflammation, #40 TAB 0 Refills 01/24/17 Gabapentin (Gabapentin) 300 Mg Cap, 300 MG PO TID, #90 CAP 0 Refills 01/24/17 Pantoprazole (Pantoprazole) 40 Mg Tab, 40 MG PO DAILY for Reflux, #30 TAB 0 Refills 01/24/17 Alprazolam (Alprazolam) 1 Mg Tab, 1 MG PO Q6H Y for ANXIETY, TAB 0 Refills 01/24/17 Interferon Beta-1A Inj (Rebif Inj) 44 Mcg/0.5 Ml Syr, 44 MCG SQ for Multiple sclerosis, SYRINGE 0 Refills 01/24/17 Discontinued Reported Medications Amphetamine-Dextroamphetamine (Adderall) 30 Mg Tab, 30 MG PO BID for Hyperactivity Control, #60 TAB 0 Refills Avoid late evening doses. Space doses at least 4 to 6 hours if more than once/day dosing. 01/24/17 Oxycodone (Oxycodone) 30 Mg Tab, 30 MG PO Q6H Y for PAIN, TAB 0 Refills 01/24/17 Carisoprodol (Soma) 350 Mg Tab, 350 MG PO QID Y for PAIN, TAB 0 Refills 01/24/17 Current Medications Medications (Trade) Dose Ordered Sig/Matt Route Start Time Stop Time Status Last Admin (Neurontin) 300 mg TID PO 06/27/17 18:00 4/30/18 16:55 (Motrin) 600 mg Q6H PRN PO 06/27/17 15:30 06/28/17 17:50 (Keppra) 1,000 mg Q12HR PO 06/27/17 21:00 06/28/17 09:00 (Lopressor) 50 mg Q12HR PO 06/27/17 21:00 06/28/17 09:00 (SEROquel) 25 mg BID PO 06/27/17 21:00 06/28/17 09:00 (Spiriva Inh) 18 mcg DAILY INH 06/27/17 16:00 06/28/17 09:00 (Ativan) 1 mg Q6H PRN PO 06/27/17 15:30 06/28/17 04:37 (Ativan Inj) 1 mg Q6H PRN IM 06/27/17 15:30 (Ativan) 0.5 mg Q12H PRN PO 06/27/17 15:30 06/27/17 20:32 (Ativan Inj) 0.5 mg Q12H PRN IM 06/27/17 15:30 (Tylenol) 650 mg Q4H PRN PO 06/27/17 15:30 (Milk Of Magnesia Liq) 30 ml DAILY PRN PO 06/27/17 15:30 (Mag-Al Plus Susp Liq) 30 ml Q6H PRN PO 06/27/17 15:30 (Habitrol 21 Mg Patch.24 Hr) 1 patch DAILY T-DERMAL 06/28/17 09:00 06/28/17 09:00 Miscellaneous Information 1 DAILY T-DERMAL 06/28/17 09:00 (Protonix) 40 mg DAILY PO 06/28/17 09:00 06/28/17 09:00 (Vitamin B1) 100 mg DAILY PO 06/28/17 09:00 06/28/17 09:00 Family Psych History Denies Social History , domiciled , unemployed on SSI, born and raised in [place], has 1 son, retired, high school degree. Patient's Strengths (min. 2) Verbal and communicative Physical Exam Not noted to be in acute distress, no gross motor abnormalities, no signs of tremor or EPS, no psychomotor agitation or retardation. Vital Signs Vital Signs Date Time Temp Pulse Resp B/P (MAP) Pulse Ox O2 Delivery O2 Flow Rate FiO2 06/28/17 18:07 97.2 116 16 131/69 (89) 95 I/O 06/28/17 06/28/17 06/29/17 08:00 16:00 00:00 Intake Total 360 ml 720 ml Balance 360 ml 720 ml Lab Results Test 06/28/17 06:50 Blood Urea Nitrogen 21 MG/DL Creatinine 0.73 MG/DL Random Glucose 89 MG/DL Calcium Level 9.9 MG/DL Sodium Level 135 MEQ/L Potassium Level 3.8 MEQ/L Chloride Level 102 MEQ/L Carbon Dioxide Level 23.5 MEQ/L Anion Gap 10 MEQ/L Estimat Glomerular Filtration Rate 81 ML/MIN Hemoglobin A1c 4.2 % Triglycerides Level 79 MG/DL Cholesterol Level 105 MG/DL LDL Cholesterol 46 MG/DL HDL Cholesterol 43.1 MG/DL Cholesterol/HDL Ratio 2.43 RATIO Mental Status Examination Appearance: Disheveled Consciousness: Alert Orientation: Person, Place Speech: Unremarkable Language: Adequate Fund of Knowledge: Inadequate Attention and Concentration: Easily Distracted Memory: Impaired Mood: Other ("ok") Affect: Anxious Thought Process & Associations: Disorganized (at times) Thought Content: Other Hallucination Type: None Delusion Type: Paranoid Suicidal Ideation: No Suicidal Plan: No Suicidal Intention: No Homicidal Ideation: No Homicidal Plan: No Homicidal Intention: No Insight: Poor Judgment: Poor Assessment & Plan Problem List: (1) Unspecified psychosis ICD Codes: F29 - Unspecified psychosis not due to a substance or known physiological condition Assessment & Plan Estimated LOS: 3-5 days. Patient is a 61-year-old woman who carries a diagnosis of depression, no previous psychiatric admissions, previous suicide attempt or self-injurious behavior with the substance use history significant alcohol use disorder was recently admitted to the medical floor for stabilization after recent suicide attempt via overdose, currently transferred to the medical/psychiatry unit for further evaluation and management. Patient continues to require inpatient stabilization at this time, continues to be noted to be confused and disorganized at times and paranoid. We will continue quetiapine 25 mg p.o. twice daily for psychosis, continue monitor mood and behavior. Patient's will serve as health care surrogate during this admission. Hospitalist consult placed for continued follow-up after recent discharge from medical floor. Petition for involuntary hospitalization started , second opinion requested.. Discharge planning in progress. Discharge Planning Patient to return back to residence Tayo Guzman MD Jun 28, 2017 21:20
[2017-06-29 04:25] VITALS: BP 111/63; PULSE 91; RESP 17; TEMP 97.3; O2SAT 90
[2017-06-29 07:22] VITALS: PULSE 68; O2SAT 96
[2017-06-29 08:25] VITALS: BP 125/74; PULSE 99; RESP 18; O2SAT 99
[2017-06-29] MEDS: METOPROLOL TARTRATE 50 MG TAB PO SCH ×2 (09:00→20:40)
[2017-06-29] MEDS: PANTOPRAZOLE SOD 40 MG DELAYED RELEASE TAB PO SCH (09:00)
[2017-06-29] MEDS: QUEtiapine FUMARATE 25 MG TAB PO SCH ×2 (09:00→20:40)
[2017-06-29] MEDS: levETIRAcetam 500 MG TAB PO SCH ×2 (09:00→20:40)
[2017-06-29] MEDS: REMOVE OLD PATCH T-DERMAL SCH (09:00)
[2017-06-29] MEDS: THIAMINE HCL 100 MG TAB PO SCH (09:00)
[2017-06-29] MEDS: TIOTROPIUM BROMIDE 18 MCG INH INH SCH (09:00)
[2017-06-29] MEDS: GABAPENTIN 300 MG CAP PO SCH ×3 (09:00→17:33)
[2017-06-29] MEDS: NICOTINE 21 MG/24 HR PATCH T-DERMAL SCH (09:00)
--- NOTE | 2017-06-29 10:49 | PD.TTN ---
Patient Problems 1. Discharge planning 2. Medication compliance 3. Knowledge deficit 4. Lack of coping skills Progress Toward Goals Provider Present: Dr. Cheyanne Guzman Provider Input: 06/28/2017; new admission, patient will be assess for treatment and medication management, and dc needs Nurse(s) Present: MALIK Key Nurse(s) Input: 06/28/2017 Patient will require possible PT assessment to determine level of needs when dc. Patient is eating, and taking her meds, complaint of physical discomfort. Psychiatric Counselors Present: MOE Martinez Psych Therapist Input: 06/28/2017; new admission bio and contact will be completed and needs assess Group Spec/RT/OT/PITTS Present: Davon Goff OT Group Spec/RT/OT/PITTS Input: 06/28/2017; new admission assessment will be completed Documentation Scribe: Taylor Funes June 29, 2017 10:49
[2017-06-29] MEDS: IBUPROFEN 600 MG TAB PO PRN (12:10)
--- NOTE | 2017-06-29 13:31 | PD.PSY.CON ---
Provisional Diagnosis Admission Date Jun 27, 2017 at 14:52 [place] I. Unspecified psychosis History of Present Illness Service Psychiatry Consult Requested By Psychiatry Reason for Consult Second Primary Care Physician Niurka Gillis MD HPI Patient is a 61-year-old woman, , domiciled with , on SSI, with a past psychiatric history of depression, no previous psychiatric admissions, no previous suicide attempts or self-injurious behavior substance use history significant for alcohol use disorder, in the past medical history significant for multiple sclerosis, fibromyalgia, new onset seizures January 2013, COPD who was found unresponsive on the floor by her with suspected suicide attempt via overdose and admitted to the medical unit for stabilization and after psychiatric consultation was admitted to the inpatient psychiatry for further evaluation and management. As per consult note: ...was found unresponsive on the floor by the at 1:30 PM today. He saw her normally yesterday night at 10:30 PM, when he left for work at 7 AM today he heard snoring. He does not sleep with her at night, and did not notice anything abnormal. When he came back from work at 130 pm that is when he found a unresponsive on the floor with the bottle of baclofen almost empty, apparently 97 tablets of 20mg of baclofen missing. Patient was not protecting airway and EMS intubated after giving 4 mg Versed and 20 mg of etomidate. Pt was admitted at [facility] 01/2017 for altered mental status and had new onset seizure. EMR reviewed. Collateral from Ivis Seo was obtained. He says that he does not understand why the patient overdosed. They have been having arguments in the last weeks regarding he is selling her car "because she cannot drive anymore due to her seizure" and she has been very irritable accusing him of things that he had never done. On psychiatric evaluation the patient is irritable, very confused. She says that she is here because her has been hiding $10,000 from her. She states that he had another woman in her back "and after that I tried to overdose". She also states "he brought her mother to live with us rather than my mother". She says that they have a big fight after that she overdosed. The patient seems to be kind of confused, unreliable, making several accusations to her , kind of agitated, with fluctuating level of consciousness. The patient tells me that she is watching the TV "and the TV is talking about my problems now you can watch it". She is unable to tell me where she is, she told me that is July 1998, she does not know who is the flatbed company driver. Patient reports daily use of alcohol, 1-2 cups of wine. Denies the use of illegal drugs.B, cooperative, alert and oriented to person and place only not to date. Patient states that he was recently upset her and upon attempting to clean out her room stating was having some back pain which she continue to take baclofen tablets to alleviate the pain but denies any suicide attempt. Patient states that recent stressors was that she was feeling lonely. Patient this time denies any suicide ideations, perceptual services but continues to be noted to be somewhat disorganized at times and confused during interview. Collateral information obtained by patient's reported the patient be noted to be confused during hospitalization as well as his recent visit. He consents to continuation of psychotropic medications as he is assigned healthcare surrogate for this admission. The patient is a 61-year-old woman, domiciled with her in [place], unemployed, supported by [facility], with psychiatric history of depression, but not admission, no previous SAs, alcohol use disorder, with an extensive medical history significant for multiple sclerosis, fibromyalgia, new onset seizure in January 2017, COPD, hospitalized on the [facility] after a suicidal attempt by overdosing. The patient was consulted to me for second opinion. The patient was found in her room, she is calm, cooperative, pleasant. The patient reports that she feels much better now. She denies suicidal enemas ideation, she denies visual and auditory hallucinations. The patient says that her only problem that she does not trust her anymore. "I do not know if he is good or bad with me, I do not trust anymore". She is fully oriented 3. No attention deficit, no fluctuation of consciousness. Review of Systems Constitutional: DENIES: Diaphoretic episodes, Fatigue, Fever, Weight gain, Weight loss, Chills, Dizziness, Change in appetite, Night Sweats Endocrine: DENIES: Abnorml menstrual pattern, Heat/cold intolerance, Polydipsia , Polyuria, Polyphagia Eyes: DENIES: Blurred vision, Diplopia, Eye inflammation, Eye pain, Vision loss , Photosensitivity, Double Vision Ears, nose, mouth, throat: DENIES: Tinnitus, Hearing loss, Vertigo, Nasal discharge, Oral lesions, Throat pain, Hoarseness, Ear Pain, Running Nose, Epistaxis, Sinus Pain, Toothache, Odynophagia Cardiovascular: DENIES: Chest pain, Palpitations, Syncope, Dyspnea on Exertion , PND, Lower Extremity Edema, Orthopnea, Claudication Gastrointestinal: DENIES: Abdominal pain, Black stools, Bloody stools, Constipation, Diarrhea, Nausea, Vomiting, Difficulty Swallowing, Anorexia Genitourinary: DENIES: Abnormal vaginal bleeding, Dysmenorrhea, Dyspareunia, Sexual dysfunction, Urinary frequency, Urinary incontinence, Urgency, Hematuria , Dysuria, Nocturia, Vaginal discharge Musculoskeletal: DENIES: Joint pain, Muscle aches, Stiffness, Joint Swelling, Back pain, Neck pain Integumentary: DENIES: Abnormal pigmentation, Pruritus, Rash, Nail changes, Breast masses, Breast skin changes, Nipple discharge Hematologic/lymphatic: DENIES: Bruising, Lymphadenopathy Immunologic/allergic: DENIES: Eczema, Urticaria Neurologic: DENIES: Abnormal gait, Headache, Localized weakness, Paresthesias, Seizures, Speech Problems, Tremor, Poor Balance Psychiatric: DENIES: Anxiety, Confusion, Mood changes, Depression, Hallucinations, Agitation, Suicidal Ideation, Homicidal Ideation, Delusions Past Family Social History Coded Allergies: Sulfa (Sulfonamide Antibiotics) (Unverified Allergy, Intermediate, N/V, ) modafinil (Unverified Allergy, Mild, Rash, 02/14/17) carisoprodol (Verified Allergy, Unknown, 02/14/17) Active Scripts Levetiracetam (Keppra) 500 Mg Tab, 1000 MG PO Q12HR for Control Seizures, #60 TAB Prov:Tayo Barbosa MD 06/27/17 Quetiapine (Seroquel) 25 Mg Tab, 25 MG PO BID for Control Anxiety, #60 TAB Prov:Tayo Barbosa MD 06/27/17 Thiamine HCl (Gnp Vitamin B-1) 100 Mg Tab, 100 MG PO DAILY for Alcohol Detox, # 30 TAB Prov:Tayo Barbosa MD 06/27/17 Metoprolol Tartrate (Lopressor) 50 Mg Tab, 50 MG PO Q12HR for Blood Pressure Management, #60 TAB Prov:Tayo Barbosa MD 06/27/17 Reported Medications Tiotropium Inh (Spiriva Handihaler) 18 Mcg Cap, 18 MCG INH DAILY for COPD, #30 CAP 0 Refills 1 capsule = 18 mcg 01/24/17 Ibuprofen (Ibuprofen) 600 Mg Tab, 600 MG PO Q6H Y for Pain/Inflammation, #40 TAB 0 Refills 01/24/17 Gabapentin (Gabapentin) 300 Mg Cap, 300 MG PO TID, #90 CAP 0 Refills 01/24/17 Pantoprazole (Pantoprazole) 40 Mg Tab, 40 MG PO DAILY for Reflux, #30 TAB 0 Refills 01/24/17 Alprazolam (Alprazolam) 1 Mg Tab, 1 MG PO Q6H Y for ANXIETY, TAB 0 Refills 01/24/17 Interferon Beta-1A Inj (Rebif Inj) 44 Mcg/0.5 Ml Syr, 44 MCG SQ for Multiple sclerosis, SYRINGE 0 Refills 01/24/17 Discontinued Reported Medications Amphetamine-Dextroamphetamine (Adderall) 30 Mg Tab, 30 MG PO BID for Hyperactivity Control, #60 TAB 0 Refills Avoid late evening doses. Space doses at least 4 to 6 hours if more than once/day dosing. 01/24/17 Oxycodone (Oxycodone) 30 Mg Tab, 30 MG PO Q6H Y for PAIN, TAB 0 Refills 01/24/17 Carisoprodol (Soma) 350 Mg Tab, 350 MG PO QID Y for PAIN, TAB 0 Refills 01/24/17 Current Medications Medications (Trade) Dose Ordered Sig/Matt Route Start Time Stop Time Status Last Admin (Neurontin) 300 mg TID PO 06/27/17 18:00 06/29/17 13:00 (Motrin) 600 mg Q6H PRN PO 06/27/17 15:30 06/29/17 12:10 (Keppra) 1,000 mg Q12HR PO 06/27/17 21:00 06/29/17 09:00 (Lopressor) 50 mg Q12HR PO 06/27/17 21:00 06/29/17 09:00 (SEROquel) 25 mg BID PO 06/27/17 21:00 06/29/17 09:00 (Spiriva Inh) 18 mcg DAILY INH 06/27/17 16:00 06/29/17 09:00 (Ativan) 1 mg Q6H PRN PO 06/27/17 15:30 06/28/17 04:37 (Ativan Inj) 1 mg Q6H PRN IM 06/27/17 15:30 (Ativan) 0.5 mg Q12H PRN PO 06/27/17 15:30 06/27/17 20:32 (Ativan Inj) 0.5 mg Q12H PRN IM 06/27/17 15:30 (Tylenol) 650 mg Q4H PRN PO 06/27/17 15:30 (Milk Of Magnesia Liq) 30 ml DAILY PRN PO 06/27/17 15:30 (Mag-Al Plus Susp Liq) 30 ml Q6H PRN PO 06/27/17 15:30 (Habitrol 21 Mg Patch.24 Hr) 1 patch DAILY T-DERMAL 06/28/17 09:00 06/29/17 09:00 Miscellaneous Information 1 DAILY T-DERMAL 06/28/17 09:00 06/29/17 09:00 (Protonix) 40 mg DAILY PO 06/28/17 09:00 06/29/17 09:00 (Vitamin B1) 100 mg DAILY PO 06/28/17 09:00 06/29/17 09:00 Patient's Strengths (min. 2) Verbal and communicative Physical Exam Vital Signs Vital Signs Date Time Temp Pulse Resp B/P (MAP) Pulse Ox O2 Delivery O2 Flow Rate FiO2 06/29/17 08:25 99 18 125/74 (91) 99 06/29/17 04:25 97.3 I/O 06/29/17 06/29/17 06/30/17 08:00 16:00 00:00 Intake Total 120 ml Balance 120 ml Mental Status Examination Appearance: Disheveled Consciousness: Alert Orientation: Person, Place Speech: Unremarkable Language: Adequate Fund of Knowledge: Inadequate Attention and Concentration: Easily Distracted Memory: Impaired Mood: Other ("ok") Affect: Anxious Thought Process & Associations: Disorganized (at times) Thought Content: Other Hallucination Type: None Delusion Type: Paranoid Suicidal Ideation: No Suicidal Plan: No Suicidal Intention: No Homicidal Ideation: No Homicidal Plan: No Homicidal Intention: No Insight: Poor Judgment: Poor Assessment & Plan Problem List: (1) Unspecified psychosis ICD Codes: F29 - Unspecified psychosis not due to a substance or known physiological condition Assessment & Plan: I have seen and examined this patient, reviewed documentation, I agree and concur with Dr. Guzman assessment and plan. Consult appreciated Assessment & Plan Estimated LOS: Jovanny Burgess MD June 29, 2017 13:31
--- NOTE | 2017-06-29 15:17 | EKG ---
Date Performed: 06/29/2017 Time Performed: 09:14:07 PTAGE: 61 years EKG: SINUS TACHYCARDIA WITH SHORT FL INTERVAL WITH FREQUENT VENTRICULAR PREMATURE COMPLEXES MODE RATE ST DEPRESSION ABNORMAL ECG Compared to prior electrocardiogram, rate has increased and Premature ventricular contractions are more marked PREVIOUS TRACING : 06/20/2017 09.41 DOCTOR: Don Melchor Interpretating Date/Time 06/29/2017 15:16:17
--- NOTE | 2017-06-29 16:04 | PD.CONS ---
[facility] Reason for Consult Medical management Primary Care Physician Niurka Gillis MD Diagnoses: History of Present Illness 61-year-old female with history of depression and anxiety, recently admitted to inpatient medicine and treated for seizure. Patient was discharged in stable condition to inpatient med psych.[facility] was consulted for medical management. During my exam, patient denies any chest pain or shortness of breath. She has had no seizure activity reported. Vitals remained stable. Review of Systems Except as stated in HPI: all other systems reviewed are Neg Past Family Social History Allergies: Coded Allergies: Sulfa (Sulfonamide Antibiotics) (Unverified Allergy, Intermediate, N/V, ) modafinil (Unverified Allergy, Mild, Rash, 02/14/17) carisoprodol (Verified Allergy, Unknown, 02/14/17) Past Medical History New onset seizure disorder 01/2017 Alcohol dependence COPD THC use Multiple sclerosis Chronic pain syndrome Fibromyalgia Alcohol use disorder Anxiety disorder Depression Past Surgical History Cervical fusion 2000 Right hip replacement Tubal ligation Reported Medications See EMR Family History Positive for lung cancer. Social History Patient has been for 39 years. Patient admits to at least a 35 pack year use of tobacco, currently smoking Ecigarettes. Ethanol consumption is on a regular and social basis. Physical Exam Vital Signs Vital Signs Date Time Temp Pulse Resp B/P (MAP) Pulse Ox O2 Delivery O2 Flow Rate FiO2 06/29/17 08:25 99 18 125/74 (91) 99 06/29/17 07:22 68 96 06/29/17 04:25 97.3 91 17 111/63 (79) 90 06/28/17 18:07 97.2 116 16 131/69 (89) 95 Physical Exam GENERAL: This is a well-nourished, well-developed patient, in no apparent distress. SKIN: No rashes, ecchymoses or lesions. Cool and dry. HEAD: Atraumatic. Normocephalic. No temporal or scalp tenderness. EYES: Pupils equal round and reactive. Extraocular motions intact. No scleral icterus. No injection or drainage. ENT: Nose without bleeding, purulent drainage or septal hematoma. Throat without erythema, tonsillar hypertrophy or exudate. Uvula midline. Airway patent. NECK: Trachea midline. No JVD or lymphadenopathy. Supple, nontender, no meningeal signs. CARDIOVASCULAR: Regular rate and rhythm without murmurs, gallops, or rubs. RESPIRATORY: Clear to auscultation. Breath sounds equal bilaterally. No wheezes , rales, or rhonchi. GASTROINTESTINAL: Abdomen soft, non-tender, nondistended. No hepato-splenomegaly , or palpable masses. No guarding. MUSCULOSKELETAL: Extremities without clubbing, cyanosis, or edema. No joint tenderness, effusion, or edema noted. No calf tenderness. Negative Homans sign bilaterally. NEUROLOGICAL: Awake and alert. Cranial nerves II through XII intact. Motor and sensory grossly within normal limits. Five out of 5 muscle strength in all muscle groups. Normal speech. Result Diagram: 06/28/17 0650 Assessment and Plan Assessment and Plan 61-year-old female with Unspecified psychosis Suicidal ideation/attempt Management per psychiatry Seizure, new onset 01/2017 -Continue Keppra COPD -Bronchodilator as needed Hypertension -Hydralazine 20 mg every 4 hours as needed for systolic blood pressure greater than 160 -Metoprolol 50 every 12H GERD Protonix GI prophylaxis Aspiration pneumonia present on admission -Completed IV antibiotics therapy Code Status Full code Tayo Barbosa MD June 29, 2017 16:04
[2017-06-29] MEDS ORDERED: RESP: ALBUTEROL 2.5 MG/IPRATROPIUM 0.5 MG NEB (PRN) NEB (16:15)
--- NOTE | 2017-06-29 16:18 | HHI.PYPN ---
Subjective Remarks Patient seen for follow up; chart reviewed. Discussion with nursing staff reported patient found with irregular HR readings. Patient was found more alert and oriented today, although had some difficulty with date but was able to answer correctly. Patient states especially feeling that her relationship with her has been better. Patient did speak about her daily alcohol use 1-2 glasses of wine daily. Patient mentions having been visited by her which went well. Review of Systems Except as stated in HPI: all other systems reviewed are Neg Mental Status Examination Appearance: Appropriate Consciousness: Alert Orientation: Person, Place Speech: Unremarkable Language: Adequate Fund of Knowledge: Inadequate Attention and Concentration: Easily Distracted Memory: Impaired Mood: Other ("better") Affect: Anxious Thought Process & Associations: Disorganized (at times) Thought Content: Other Hallucination Type: None Delusion Type: Paranoid (Less so today) Suicidal Ideation: No Suicidal Plan: No Suicidal Intention: No Homicidal Ideation: No Homicidal Plan: No Homicidal Intention: No Insight: Poor Judgment: Poor Results Vitals/IOs Vital Signs Date Time Temp Pulse Resp B/P (MAP) Pulse Ox O2 Delivery O2 Flow Rate FiO2 06/29/17 08:25 99 18 125/74 (91) 99 06/29/17 04:25 97.3 Intake and Output 06/29/17 06/29/17 06/30/17 08:00 16:00 00:00 Intake Total 120 ml Balance 120 ml Assessment & Plan Problem List: (1) Unspecified psychosis ICD Codes: F29 - Unspecified psychosis not due to a substance or known physiological condition Assessment & Plan Patient this time noted to be slightly less confused, other continue to struggle with orientation but was able to answer appropriately. Patient continues with difficulty with ambulation, awaiting evaluation by physical therapy. We will continue current treatment. Continue monitor mood and behavior. Discharge planning in progress. Justification for Cont. Inpt. At risk of further decompensation at lower level of care. Tayo Guzman MD June 29, 2017 16:18
[2017-06-29] MEDS: LORazepam 1 MG TAB PO PRN (17:33)
[2017-06-29 18:03] VITALS: PULSE 104; RESP 18; TEMP 97.6; O2SAT 94
[2017-06-29 18:11] VITALS: BP 133/82; PULSE 104; RESP 18; TEMP 97.6; O2SAT 94
[2017-06-30] MEDS: IBUPROFEN 600 MG TAB PO PRN (02:50)
[2017-06-30 06:13] VITALS: BP 149/80; PULSE 98; RESP 18; TEMP 97.5; O2SAT 96
[2017-06-30] MEDS: LORazepam 0.5 MG TAB PO PRN (06:25)
[2017-06-30] MEDS: PANTOPRAZOLE SOD 40 MG DELAYED RELEASE TAB PO SCH (08:48)
[2017-06-30] MEDS: METOPROLOL TARTRATE 50 MG TAB PO SCH ×2 (08:48→20:34)
[2017-06-30] MEDS: levETIRAcetam 500 MG TAB PO SCH ×2 (08:48→20:34)
[2017-06-30] MEDS: THIAMINE HCL 100 MG TAB PO SCH (08:48)
[2017-06-30] MEDS: TIOTROPIUM BROMIDE 18 MCG INH INH SCH (08:48)
[2017-06-30] MEDS: GABAPENTIN 300 MG CAP PO SCH ×3 (08:48→17:37)
[2017-06-30] MEDS: QUEtiapine FUMARATE 25 MG TAB PO SCH ×2 (08:48→20:34)
[2017-06-30] MEDS: NICOTINE 21 MG/24 HR PATCH T-DERMAL SCH (08:49)
[2017-06-30] MEDS: REMOVE OLD PATCH T-DERMAL SCH (09:00)
--- NOTE | 2017-06-30 09:42 | HHI.PR ---
Subjective Remarks Patient seen and examined No chest pain or shortness of breath Afebrile Objective Vitals Vital Signs Date Time Temp Pulse Resp B/P (MAP) Pulse Ox O2 Delivery O2 Flow Rate FiO2 06/30/17 06:13 97.5 98 18 149/80 (103) 96 06/29/17 18:11 97.6 104 18 133/82 (99) 94 06/29/17 18:03 97.6 104 18 94 I/O 06/29/17 06/29/17 06/29/17 06/30/17 06/30/17 06/30/17 07:00 15:00 23:00 07:00 15:00 23:00 Intake Total 120 ml 1800 ml 240 ml 360 ml Output Total 2 ml Balance 120 ml 1798 ml 240 ml 360 ml Intake Oral 120 ml 1800 ml 240 ml 360 ml Output Stool Total 2 ml # Voids 2 4 3 Result Diagram: 06/28/17 0650 Objective Remarks GENERAL: NAD SKIN: Warm and dry. HEAD: Normocephalic. EYES: No scleral icterus. No injection or drainage. NECK: Supple, trachea midline. No JVD or lymphadenopathy. CARDIOVASCULAR: Regular rate and rhythm without murmurs, gallops, or rubs. RESPIRATORY: Breath sounds equal bilaterally. No accessory muscle use. GASTROINTESTINAL: Abdomen soft, non-tender, nondistended. MUSCULOSKELETAL: No cyanosis, or edema. BACK: Nontender without obvious deformity. No CVA tenderness. A/P Assessment and Plan 61-year-old female with Unspecified psychosis Suicidal ideation/attempt Management per psychiatry Seizure, new onset 01/2017 -Continue Keppra COPD -Bronchodilator as needed Hypertension -Hydralazine 20 mg every 4 hours as needed for systolic blood pressure greater than 160 -Metoprolol 50 every 12H GERD Protonix GI prophylaxis Aspiration pneumonia present on admission -Completed IV antibiotics therapy She is medically stable for discharge Tayo Barbosa MD June 30, 2017 09:42
[2017-06-30] MEDS ORDERED: METO-309 PO (13:08)
[2017-06-30] MEDS ORDERED: LEVE500 PO (13:08)
[2017-06-30] MEDS ORDERED: SPIRCAP INH (13:08)
[2017-06-30] MEDS: LORazepam 1 MG TAB PO PRN ×2 (14:59→23:42)
[2017-06-30 18:16] VITALS: BP 129/77; PULSE 109; RESP 16; TEMP 97.6; O2SAT 98
--- NOTE | 2017-06-30 21:57 | HHI.PYPN ---
Subjective Remarks Patient seen for follow up; chart reviewed. Discussion nursing staff reported the patient with improving mental status noted to be less confused and alert and oriented 3 today. Patient was found lying hospital bed noted be good spirits, cooperative. Patient reports that she had a visit with which went well. Patient states that she is now motivated to continue to improve her life stating that she previously was "basically gave up on life" but also reiterating that she did not have a suicide attempt. Patient reports her mood has been "good", denies any difficulty with sleep last evening eating and drinking well. Patient is alert and oriented 3. Patient denies any visual or auditory hallucinations or delusions. Review of Systems Except as stated in HPI: all other systems reviewed are Neg Mental Status Examination Appearance: Appropriate Consciousness: Alert Orientation: Person, Place, Date/Time Speech: Unremarkable Language: Adequate Fund of Knowledge: Inadequate Attention and Concentration: Easily Distracted Memory: Impaired Mood: Appropriate Affect: Appropriate Thought Process & Associations: Intact, Linear Thought Content: Appropriate Hallucination Type: None Delusion Type: None Suicidal Ideation: No Suicidal Plan: No Suicidal Intention: No Homicidal Ideation: No Homicidal Plan: No Homicidal Intention: No Insight: Fair Judgment: Impulsive Results Vitals/IOs Vital Signs Date Time Temp Pulse Resp B/P (MAP) Pulse Ox O2 Delivery O2 Flow Rate FiO2 06/30/17 18:16 97.6 109 16 129/77 (94) 98 Intake and Output 06/30/17 06/30/17 07/01/17 08:00 16:00 00:00 Intake Total 600 ml 240 ml 120 ml Balance 600 ml 240 ml 120 ml Assessment & Plan Problem List: (1) Unspecified psychosis ICD Codes: F29 - Unspecified psychosis not due to a substance or known physiological condition Assessment & Plan Patient this time with improved mood, no longer noted to be confused, alert and oriented 3 will continue to monitor for consistency of improvement. Patient with likely discharge tomorrow after medical clearance. Continue current treatment. Continue monitor mood and behavior. Discharge planning in progress. Justification for Cont. Inpt. At risk of further decompensation at lower level of care. Tayo Guzman MD June 30, 2017 21:57
[2017-07-01 06:12] VITALS: BP 147/71; PULSE 78; RESP 18; TEMP 97.9; O2SAT 98
[2017-07-01] MEDS ORDERED: THIA100 PO (07:52)
[2017-07-01] MEDS ORDERED: PANT40TA3 PO (07:52)
[2017-07-01] MEDS ORDERED: SERO25TA PO (07:52)
--- NOTE | 2017-07-01 07:56 | HHI.DS ---
Psychiatry Discharge Summary Inpatient Psychiatric care?: Yes Advance Directive: Yes Mental Health AdvanceDirective: Yes Name and Number: [facility] Health Care Proxy: Yes Admission Admission Date Jun 27, 2017 at 14:52 Admission Diagnosis: (1) Unspecified psychosis ICD Code: F29 - Unspecified psychosis not due to a substance or known physiological condition Brief History Patient is a 61-year-old woman, , domiciled with , on SSI, with a past psychiatric history of depression, no previous psychiatric admissions, no previous suicide attempts or self-injurious behavior substance use history significant for alcohol use disorder, in the past medical history significant for multiple sclerosis, fibromyalgia, new onset seizures January 2013, COPD who was found unresponsive on the floor by her with suspected suicide attempt via overdose and admitted to the medical unit for stabilization and after psychiatric consultation was admitted to the inpatient psychiatry for further evaluation and management. As per consult note: ...was found unresponsive on the floor by the at 1:30 PM today. He saw her normally yesterday night at 10:30 PM, when he left for work at 7 AM today he heard snoring. He does not sleep with her at night, and did not notice anything abnormal. When he came back from work at 130 pm that is when he found a unresponsive on the floor with the bottle of baclofen almost empty, apparently 97 tablets of 20mg of baclofen missing. Patient was not protecting airway and EMS intubated after giving 4 mg Versed and 20 mg of etomidate. Pt was admitted at [facility] 01/2017 for altered mental status and had new onset seizure. EMR reviewed. Collateral from Ivis Seo was obtained. He says that he does not understand why the patient overdosed. They have been having arguments in the last weeks regarding he is selling her car "because she cannot drive anymore due to her seizure" and she has been very irritable accusing him of things that he had never done. On psychiatric evaluation the patient is irritable, very confused. She says that she is here because her has been hiding $10,000 from her. She states that he had another woman in her back "and after that I tried to overdose". She also states "he brought her mother to live with us rather than my mother". She says that they have a big fight after that she overdosed. The patient seems to be kind of confused, unreliable, making several accusations to her , kind of agitated, with fluctuating level of consciousness. The patient tells me that she is watching the TV "and the TV is talking about my problems now you can watch it". She is unable to tell me where she is, she told me that is July 1998, she does not know who is the oil producer. Patient reports daily use of alcohol, 1-2 cups of wine. Denies the use of illegal drugs.B, cooperative, alert and oriented to person and place only not to date. Patient states that he was recently upset her and upon attempting to clean out her room stating was having some back pain which she continue to take baclofen tablets to alleviate the pain but denies any suicide attempt. Patient states that recent stressors was that she was feeling lonely. Patient this time denies any suicide ideations, perceptual services but continues to be noted to be somewhat disorganized at times and confused during interview. Collateral information obtained by patient's reported the patient be noted to be confused during hospitalization as well as his recent visit. He consents to continuation of psychotropic medications as he is assigned healthcare surrogate for this admission. The patient is a 61-year-old woman, domiciled with her in [place], unemployed, supported by [facility], with psychiatric history of depression, but not admission, no previous SAs, alcohol use disorder, with an extensive medical history significant for multiple sclerosis, fibromyalgia, new onset seizure in January 2017, COPD, hospitalized on the [facility] after a suicidal attempt by overdosing. The patient was consulted to me for second opinion. The patient was found in her room, she is calm, cooperative, pleasant. The patient reports that she feels much better now. She denies suicidal enemas ideation, she denies visual and auditory hallucinations. The patient says that her only problem that she does not trust her anymore. "I do not know if he is good or bad with me, I do not trust anymore". She is fully oriented 3. No attention deficit, no fluctuation of consciousness. Tobacco Use In Past 30 Days: 5 or More Cigarettes/Day Alcohol Use: 4 or More Times Per Week Hospital Course Patient is a 61-year-old woman, , domiciled with , on [facility], with a past psychiatric history of depression, no previous psychiatric admissions, no previous suicide attempts or self-injurious behavior substance use history significant for alcohol use disorder, in the past medical history significant for multiple sclerosis, fibromyalgia, new onset seizures January 2013, COPD who was found unresponsive on the floor by her with suspected suicide attempt via overdose and admitted to the medical unit for stabilization from acute respiratory failre and after psychiatric consultation she was admitted to the inpatient psychiatry for further evaluation and management. Patient started on quetiapine 25mg which she tolerated well with no notable adverse drug reactions. Patient was noted to have been with confusion initially which began to resolve throughout admission. She denied having any suicidal or homicidal ideation stating that she simply miscalculated the amount ingested at that time. She was observed by staff to not have had any behavioral disturbances, not having made any suicidal or homicidal statements and maintained stable mood through admission and was noted to participate with staff adequately. Patient was noted to be engaging with staff and not noted to be internally preoccupied or responding to internal stimuli as per observation of behavior during hospitalization. Patient reported feeling more hopeful, future oriented and motivated to continue treatment. Upon discharge patient stated that she was feeling good, reported well with the treatment, as well as motivation to continue recommendations and denied any SI, HI, perceptual disturbances or delusions. Weighing the acute, chronic, and protective factors and based on the available evidence, I windows architect to a reasonable degree of medical certainty that the patient is at low imminent risk of harm to self or others from a mental illness as defined under the Good act and his level of function is adequate as observed on the unit for planned level of outpatient care. He was counseled regarding warning signs for need to return to the psychiatric emergency room as part of a general safety plan. Patient advised to call 911 or go nearest ED in case of emergency. Patient agreed with plan. Results Blood Pressure 147 / 71 Vital Signs Date Time Temp Pulse Resp B/P (MAP) Pulse Ox O2 Delivery O2 Flow Rate FiO2 07/01/17 06:12 97.9 78 18 147/71 (96) 98 Laboratory Results Test 06/28/17 06:50 Cholesterol Level 105 MG/DL (120-200) HDL Cholesterol 43.1 MG/DL (40.0-60.0) Hemoglobin A1c 4.2 % (4.3-6.0) LDL Cholesterol 46 MG/DL (0-99) Triglycerides Level 79 MG/DL (42-150) Summary of Procedures none Pending results at discharge: No Medications # of Antipsychotic meds at D/C: 1 Approp Antipsych med options 1 - Minimum of three failed multiple trials of monotherapy. 2 - Documented plan to taper to monotherapy due to previous use of multiple meds OR cross-taper in progress at D/C. 3 - Documentation of augmentation of Clozapine. 4 - Justification other than those listed in allowable values 1-3, document here : Discharge Discharge Date: July 01, 2017 Discharge Diagnosis: (1) Unspecified psychosis ICD Code: F29 - Unspecified psychosis not due to a substance or known physiological condition Pt Condition on Discharge: Stable Discharge Disposition: Disch w/ Home Health Serv Discharge Instructions Diet Instructions: Heart Healthy Diet Activities you can perform: Weight Bearing as Ashley Discharge Time > 30 minutes Mental Status Examination Appearance: Appropriate Consciousness: Alert Orientation: Person, Place, Date/Time Speech: Unremarkable Language: Adequate Fund of Knowledge: Inadequate Attention and Concentration: Easily Distracted Memory: Impaired Mood: Appropriate Affect: Appropriate Thought Process & Associations: Intact, Linear Thought Content: Appropriate Hallucination Type: None Delusion Type: None Suicidal Ideation: No Suicidal Plan: No Suicidal Intention: No Homicidal Ideation: No Homicidal Plan: No Homicidal Intention: No Insight: Fair Judgment: Impulsive Discharge/Advance Care Plan Health Problems: (1) Unspecified psychosis Goals to promote your health * To prevent worsening of your condition and complications * To maintain your health at the optimal level Directions to meet your goals Take your medications as prescribed Follow your dietary instruction Follow activity as directed Keep your appointments as scheduled Take your immunizations and boosters as scheduled If your symptoms worsen call your PCP, if no PCP go to Urgent Care Center or Emergency Room For 21/09 questions related to your inpatient stay or results of tests pending at discharge, please contact Dr. Tayo Guzman at Smoking is Dangerous to Your Health. Avoid second hand smoking Tayo Guzman MD July 01, 2017 07:56
[2017-07-01] MEDS: TIOTROPIUM BROMIDE 18 MCG INH INH SCH (09:00)
[2017-07-01] MEDS: PANTOPRAZOLE SOD 40 MG DELAYED RELEASE TAB PO SCH (09:00)
[2017-07-01] MEDS: REMOVE OLD PATCH T-DERMAL SCH (09:00)
[2017-07-01] MEDS: QUEtiapine FUMARATE 25 MG TAB PO SCH (09:00)
[2017-07-01] MEDS: GABAPENTIN 300 MG CAP PO SCH (09:00)
[2017-07-01] MEDS: NICOTINE 21 MG/24 HR PATCH T-DERMAL SCH (09:00)
[2017-07-01] MEDS: THIAMINE HCL 100 MG TAB PO SCH (09:00)
[2017-07-01] MEDS: METOPROLOL TARTRATE 50 MG TAB PO SCH (09:00)
[2017-07-01] MEDS: levETIRAcetam 500 MG TAB PO SCH (09:00)
[2017-07-01] MEDS: LORazepam 0.5 MG TAB PO PRN (09:54)
== END 2017-07-01 11:55 | disposition home health service (06) | DRG 885 ==
LOC: H4EA 14:52
PROVIDERS: ADMIT Student in an Organized Health Care Education/Training Program; ATTEND Student in an Organized Health Care Education/Training Program
DX: F29 Unspecified psychosis not due to a substance or known physiological condition (principal); G35 Multiple sclerosis; I10 Essential (primary) hypertension; F32.9 Major depressive disorder, single episode, unspecified; M79.7 Fibromyalgia; J44.9 Chronic obstructive pulmonary disease, unspecified; T42.8X2A Poisoning by antiparkinsonism drugs and other central muscle-tone depressants, intentional self-harm, initial encounter; G40.909 Epilepsy, unspecified, not intractable, without status epilepticus; F41.9 Anxiety disorder, unspecified; G89.4 Chronic pain syndrome; K21.9 Gastro-esophageal reflux disease without esophagitis; F10.20 Alcohol dependence, uncomplicated; F12.90 Cannabis use, unspecified, uncomplicated; F17.290 Nicotine dependence, other tobacco product, uncomplicated; Z88.2 Allergy status to sulfonamides
CPT/HCPCS: 80048; 80061; 83036; 93005

== ENCOUNTER 2017-11-03 17:16 | Observation (INO) ==
[2017-11-03] MEDS ORDERED: Sod Chloride 0.9% Inj 1,000 ML IV.SIG ONE (17:21)
--- NOTE | 2017-11-03 17:29 | ED ---
HPI General Chief Complaint: Altered Mental Status Stated Complaint: AMS Source: patient Mode of arrival: EMS Limitations: altered mental status History of Present Illness HPI narrative: Patient was transported by EMS and all history was given by EMS. Apparently the found the patient poorly responsive, and found around alcohol, so the patient is believed to be intoxicated. Patient also has a history of COPD she does not use oxygen at home according to the . Patient has a long-standing history of abuse both alcohol and sometimes of opiates. But according to the he keeps track of the opiates himself and does not allow her access to. MD complaint: decreased responsiveness Onset (ago): day(s) (1) Timing confirmed by: spouse Consistency of symptoms: waxing and waning Context: alcohol abuse and history of similar presentation Associated symptoms: denies other symptoms Related Data Home Medications Medication Instructions Recorded Confirmed Unable to Obtain Home Meds 11/03/17 11/03/17 Allergies Allergy/AdvReac Type Severity Reaction Status Date / Time Sulfa (Sulfonamide Allergy Intermediate N/V Unverified 02/14/17 11:15 Antibiotics) modafinil Allergy Mild Rash Unverified 02/14/17 11:15 carisoprodol Allergy Unknown Verified 02/14/17 11:15 Review of Systems ROS: all other systems reviewed are negative PMFSH History History Provided By: Patient Medical History Medical History Medical history unknown (Acute) Social History Social History Substance History: Unable to Obtain Smoking Status: Unknown if ever smoked How Often Do You Have a Drink Containing Alcohol: 4 or more times a week Recent Travel in [facility] within the Last 8 Weeks: No Recent Out of Country Travel within the Last 8 Weeks: No Exam Narrative Exam Narrative: GENERAL: female sleeping, sonorous snoring SKIN: Warm and dry. HEAD: Atraumatic. Normocephalic. EYES: Pupils equal and round. No scleral icterus. No injection or drainage. ENT: No nasal bleeding or discharge. Mucous membranes pink and moist. NECK: Trachea midline. No JVD. CARDIOVASCULAR: Regular rate and rhythm. no rubs or gallops RESPIRATORY: No accessory muscle use. Clear to auscultation. Breath sounds equal bilaterally. GASTROINTESTINAL: Abdomen soft, non-tender, nondistended. No rebound or guarding MUSCULOSKELETAL: Extremities without clubbing, cyanosis, or edema. No obvious deformities. NEUROLOGICAL: Sleepy, somnolent arousable to voice , a/o to name only, breathing spontaneously on her own. Course Initial Documented Vital Signs Pulse Oximetry 94 L 11/03/17 17:21 Last Documented Vital Signs Temperature 98.7 F 11/03/17 18:00 Pulse Rate 88 11/03/17 21:28 Respiratory Rate 17 11/03/17 21:28 Blood Pressure 182/112 H 11/03/17 21:28 Pulse Oximetry 100 11/03/17 21:28 NIH Stroke Scale NIHSS Time Completed NIHSS Time Completed: 17:25 NIH Stroke Scale Level of Consciousness: 1-Drowsy Orientation Questions: 1-One task correct Responds to Commands: 1-One task correct Gaze Eye Movement: 0-Horizontal movement WNL Visual Garcia: 0-No visual field defect Facial Movement: 0-Normal Motor Functions Arm LEFT: 0-No drift Motor Functions Arm RIGHT: 0-No drift Motor Functions Leg LEFT: 0-No drift Motor Functions Leg RIGHT: 0-No drift Limb Ataxia: 0-No ataxia Sensory Loss: 0-No sensory loss Best Language: 0-Normal Articulation: 1-Mild dysarthia Extinction or Inattention Sensory: 0-Absent Total: 4 Medical Decision Making MDM Narrative Medical decision making narrative: Please note that the patient smells of alcohol, and that may be the reason why her NIH scale was normal. Patient also has access to opiates but allegedly the has those locked up and only provides her with medications as needed does not allow her to handle it herself. ABG performed on 2 L nasal cannula show a pH of 7.46, PCO2 39, PaO2 was 73, carbon monoxide of 5.1%. This is consistent with the patient that has no evidence of CO2 retention, but corrected hypoxemia on 2 L. Carbon monoxide elevation is most likely secondary to smoking. Chest x-ray has no radiographic evidence of pneumonia. CBC does not show any leukocytosis anemia or left shift, however it does show a relative thrombocytopenia of 148,000, however not as low as in previous such as January 2017 when he was 65,000. Coagulation profile is within normal limits UA is consistent with a UTI Electrolytes are all within normal limits with the exception of elevation of the creatinine of 1.2 and decreased GFR 46 based on the previous this is most likely secondary to dehydration as she has had normal creatinine and normal GFR is in the past going all the way back to May 2017. First set of cardiac enzymes negative, beta natruretic peptide is normal Normal liver and pancreatic enzymes Tox screen showed minimal amount of alcohol 30, Tylenol level of 2.7 which is non-elevated, salicylate of 3.2 which is not nontoxic as well Medical Screen Exam Complete: Yes Emergency Medical Condition: Yes Differential Diagnosis Differential Diagnosis: Altered mental status versus substance abuse versus intracranial hemorrhage versus sepsis versus UTI /pneumonia Medical Records Medical records reviewed: Yes I reviewed the patient's medical records. Upon review the patient was admitted in June 2017 for a possible overdose, back then she was also found to be snoring and unresponsive found on the floor. During that admission the patient apparently was intubated. Psychiatry evaluation found her to have depression seen by Dr. Guzman On January 2017 the patient was also admitted for encephalopathy/altered mental status also ended up in the ICU, at that time she was found to have chronic pain polypharmacy essential tremor GERD renal insufficiency, COPD multiple sclerosis hypertension fibromyalgia per history. Lab Data Result diagrams: 11/03/17 17:45 11/03/17 17:45 Lab Results 11/03/17 11/03/17 11/03/17 Range/Units 17:34 17:45 17:45 CBC w Diff Auto diff final WBC 6.9 (4.0-11.0) th/mm3 RBC 3.85 L (4.00-5.30) mil/mm3 Hgb 12.7 (11.6-15.3) gm/dL Hct 38.3 (35.0-46.0) % MCV 99.7 (80.0-100.0) fL MCH 32.9 (27.0-34.0) pg MCHC 33.0 (32.0-36.0) % RDW 14.3 (11.6-17.2) % Plt Count 148 L (150-450) th/mm3 MPV 8.0 (7.0-11.0) fL Neut % (Auto) 62.7 (16.0-70.0) % Lymph % (Auto) 21.5 (9.0-44.0) % Donley % (Auto) 10.4 H (0.0-8.0) % Eos % (Auto) 3.5 (0.0-4.0) % Baso % (Auto) 1.9 (0.0-2.0) % Neut # (Auto) 4.4 (1.8-7.7) th/mm3 Lymph # (Auto) 1.5 (1.0-4.8) th/mm3 Donley # (Auto) 0.7 (0.0-0.9) th/mm3 Eos # (Auto) 0.2 (0.0-0.4) th/mm3 Baso # (Auto) 0.1 (0.0-0.2) th/mm3 WBC Differential . Differential Comment . PT (9.8-11.6) sec INR Ratio APTT (24.3-30.1) sec Puncture Site Right radial Patient Temperature 98.6 O2 Saturation 89 L* (90-100) % ABG pH 7.47 H (7.380-7.420) ABG pCO2 39 (38-42) mmHg ABG pO2 73 (61-120) mmHg ABG HCO3 28 H (22-26) mmol/L ABG O2 Content 16.9 (12.0-20.0) Vol % ABG Base Excess 4.3 H (-2-2) mmol/L ABG Methemoglobin 1.4 (0-2) % Albaro Test Present Hemoglobin 13.4 (12.0-16.0) G/DL Carboxyhemoglobin 5.1 H* (0-4) % O2 Delivery Device Nasal cannula Liter Flow 2.00 L/M Inspired O2 28 % Critical Value Yes Sodium 140 (136-145) meq/L Potassium 4.3 (3.5-5.1) meq/L Chloride 102 (98-107) meq/L Carbon Dioxide 31.7 (21.0-32.0) meq/L Anion Gap 6 (5-15) meq/L BUN 7 (7-18) mg/dL Creatinine 1.20 H (0.50-1.00) mg/dL Estimated GFR 46 L (>89) mL/min POC Glucose (68-110) mg/dl Random Glucose 68 L (74-106) mg/dL Calcium 8.1 L (8.5-10.1) mg/dL Total Bilirubin 0.4 (0.2-1.0) mg/dL AST 28 (15-37) U/L ALT 18 (10-53) U/L Alkaline Phosphatase 72 (45-117) U/L Total Creatine Kinase 76 (26-192) U/L Troponin I Less than 0.02 L (0.02-0.05) ng/mL B-Natriuretic Peptide (0-100) pg/mL Total Protein 6.4 (6.4-8.2) g/dL Albumin 2.6 L (3.4-5.0) g/dL Urine Color (Yellw/Straw) Urine Clarity (Clear) Urine pH (5.0-8.5) Ur Specific [place] (1.002-1.035) Urine Protein (Neg-Trace) mg/dL Urine Glucose (UA) (Negative) mg/dL Urine Ketones (Negative) mg/dL Urine Occult Blood (Negative) Urine Nitrate (Negative) Urine Bilirubin (Negative) Urine Urobilinogen (Less than 2) mg/dL Ur Leukocyte Esterase (Negative) Urine RBC (0-3) /hpf Urine WBC (0-5) /hpf Urine WBC Clumps (None) Ur Squamous Epith Cells (0-5) /hpf Urine Bacteria (None) /hpf Micro UA Comment Ur Microscopic Review Urine Culture Comments Salicylates (2.8-20.0) mg/dL Urine Opiates Screen (Neg) Acetaminophen 2.7 L (10.0-30.0) mcg/mL Ur Barbiturates Screen (Neg) Ur Amphetamines Screen (Neg) U Benzodiazepines Scrn (Neg) Urine Cocaine Screen (Neg) U Cannabinoids Screen (Neg) Serum Alcohol 30 H (0-5) mg/dL 11/03/17 11/03/17 11/03/17 Range/Units 17:45 17:45 17:45 CBC w Diff WBC (4.0-11.0) th/mm3 RBC (4.00-5.30) mil/mm3 Hgb (11.6-15.3) gm/dL Hct (35.0-46.0) % MCV (80.0-100.0) fL MCH (27.0-34.0) pg MCHC (32.0-36.0) % RDW (11.6-17.2) % Plt Count (150-450) th/mm3 MPV (7.0-11.0) fL Neut % (Auto) (16.0-70.0) % Lymph % (Auto) (9.0-44.0) % Donley % (Auto) (0.0-8.0) % Eos % (Auto) (0.0-4.0) % Baso % (Auto) (0.0-2.0) % Neut # (Auto) (1.8-7.7) th/mm3 Lymph # (Auto) (1.0-4.8) th/mm3 Donley # (Auto) (0.0-0.9) th/mm3 Eos # (Auto) (0.0-0.4) th/mm3 Baso # (Auto) (0.0-0.2) th/mm3 WBC Differential Differential Comment PT 11.5 (9.8-11.6) sec INR 1.1 Ratio APTT 28.2 (24.3-30.1) sec Puncture Site Patient Temperature O2 Saturation (90-100) % ABG pH (7.380-7.420) ABG pCO2 (38-42) mmHg ABG pO2 (61-120) mmHg ABG HCO3 (22-26) mmol/L ABG O2 Content (12.0-20.0) Vol % ABG Base Excess (-2-2) mmol/L ABG Methemoglobin (0-2) % Albaro Test Hemoglobin (12.0-16.0) G/DL Carboxyhemoglobin (0-4) % O2 Delivery Device Liter Flow L/M Inspired O2 % Critical Value Sodium (136-145) meq/L Potassium (3.5-5.1) meq/L Chloride (98-107) meq/L Carbon Dioxide (21.0-32.0) meq/L Anion Gap (5-15) meq/L BUN (7-18) mg/dL Creatinine (0.50-1.00) mg/dL Estimated GFR (>89) mL/min POC Glucose (68-110) mg/dl Random Glucose (74-106) mg/dL Calcium (8.5-10.1) mg/dL Total Bilirubin (0.2-1.0) mg/dL AST (15-37) U/L ALT (10-53) U/L Alkaline Phosphatase (45-117) U/L Total Creatine Kinase (26-192) U/L Troponin I (0.02-0.05) ng/mL B-Natriuretic Peptide 123 H (0-100) pg/mL Total Protein (6.4-8.2) g/dL Albumin (3.4-5.0) g/dL Urine Color (Yellw/Straw) Urine Clarity (Clear) Urine pH (5.0-8.5) Ur Specific [place] (1.002-1.035) Urine Protein (Neg-Trace) mg/dL Urine Glucose (UA) (Negative) mg/dL Urine Ketones (Negative) mg/dL Urine Occult Blood (Negative) Urine Nitrate (Negative) Urine Bilirubin (Negative) Urine Urobilinogen (Less than 2) mg/dL Ur Leukocyte Esterase (Negative) Urine RBC (0-3) /hpf Urine WBC (0-5) /hpf Urine WBC Clumps (None) Ur Squamous Epith Cells (0-5) /hpf Urine Bacteria (None) /hpf Micro UA Comment Ur Microscopic Review Urine Culture Comments Salicylates 3.2 (2.8-20.0) mg/dL Urine Opiates Screen (Neg) Acetaminophen (10.0-30.0) mcg/mL Ur Barbiturates Screen (Neg) Ur Amphetamines Screen (Neg) U Benzodiazepines Scrn (Neg) Urine Cocaine Screen (Neg) U Cannabinoids Screen (Neg) Serum Alcohol (0-5) mg/dL 11/03/17 11/03/17 11/03/17 Range/Units 18:04 19:29 21:50 CBC w Diff WBC (4.0-11.0) th/mm3 RBC (4.00-5.30) mil/mm3 Hgb (11.6-15.3) gm/dL Hct (35.0-46.0) % MCV (80.0-100.0) fL MCH (27.0-34.0) pg MCHC (32.0-36.0) % RDW (11.6-17.2) % Plt Count (150-450) th/mm3 MPV (7.0-11.0) fL Neut % (Auto) (16.0-70.0) % Lymph % (Auto) (9.0-44.0) % Donley % (Auto) (0.0-8.0) % Eos % (Auto) (0.0-4.0) % Baso % (Auto) (0.0-2.0) % Neut # (Auto) (1.8-7.7) th/mm3 Lymph # (Auto) (1.0-4.8) th/mm3 Donley # (Auto) (0.0-0.9) th/mm3 Eos # (Auto) (0.0-0.4) th/mm3 Baso # (Auto) (0.0-0.2) th/mm3 WBC Differential Differential Comment PT (9.8-11.6) sec INR Ratio APTT (24.3-30.1) sec Puncture Site Patient Temperature O2 Saturation (90-100) % ABG pH (7.380-7.420) ABG pCO2 (38-42) mmHg ABG pO2 (61-120) mmHg ABG HCO3 (22-26) mmol/L ABG O2 Content (12.0-20.0) Vol % ABG Base Excess (-2-2) mmol/L ABG Methemoglobin (0-2) % Albaro Test Hemoglobin (12.0-16.0) G/DL Carboxyhemoglobin (0-4) % O2 Delivery Device Liter Flow L/M Inspired O2 % Critical Value Sodium (136-145) meq/L Potassium (3.5-5.1) meq/L Chloride (98-107) meq/L Carbon Dioxide (21.0-32.0) meq/L Anion Gap (5-15) meq/L BUN (7-18) mg/dL Creatinine (0.50-1.00) mg/dL Estimated GFR (>89) mL/min POC Glucose 63 L (68-110) mg/dl Random Glucose (74-106) mg/dL Calcium (8.5-10.1) mg/dL Total Bilirubin (0.2-1.0) mg/dL AST (15-37) U/L ALT (10-53) U/L Alkaline Phosphatase (45-117) U/L Total Creatine Kinase (26-192) U/L Troponin I (0.02-0.05) ng/mL B-Natriuretic Peptide (0-100) pg/mL Total Protein (6.4-8.2) g/dL Albumin (3.4-5.0) g/dL Urine Color Yellow (Yellw/Straw) Urine Clarity Cloudy H (Clear) Urine pH 6.5 (5.0-8.5) Ur Specific [place] Less/equal 1.005 (1.002-1.035) Urine Protein Negative (Neg-Trace) mg/dL Urine Glucose (UA) Negative (Negative) mg/dL Urine Ketones Negative (Negative) mg/dL Urine Occult Blood Trace (Negative) Urine Nitrate Positive H (Negative) Urine Bilirubin Negative (Negative) Urine Urobilinogen 0.2 (Less than 2) mg/dL Ur Leukocyte Esterase Large H (Negative) Urine RBC 0-3 (0-3) /hpf Urine WBC 51-189 H (0-5) /hpf Urine WBC Clumps Few H (None) Ur Squamous Epith Cells Greater than 10 H (0-5) /hpf Urine Bacteria Many H (None) /hpf Micro UA Comment Culture indicated Ur Microscopic Review Microscopic reviewed Urine Culture Comments Culture indicated Salicylates (2.8-20.0) mg/dL Urine Opiates Screen Pos H (Neg) Acetaminophen (10.0-30.0) mcg/mL Ur Barbiturates Screen Neg (Neg) Ur Amphetamines Screen Neg (Neg) U Benzodiazepines Scrn Pos H (Neg) Urine Cocaine Screen Neg (Neg) U Cannabinoids Screen Pos H (Neg) Serum Alcohol (0-5) mg/dL Imaging Data Radiologist's impression: Chest X-Ray 11/03/17 17:21 CONCLUSION: No radiographic evidence of pneumonia. Head CT 11/03/17 17:21 CONCLUSION: 1. No acute infarct, acute hemorrhage, midline shift or extra-axial fluid collections. 2. Mild stable atrophy and scattered areas of decreased attenuation within the periventricular and subcortical white matter bilaterally. . Discharge Plan Discharge Disposition Patient Disposition: 30 Still Patient Discharge Condition Condition: Stable Discharge Details Diagnosis: Altered mental status, Acute UTI Physicians Team ED Provider: Gavin Hutchins Primary Care Provider: UNKNOWN, Attending Provider: Reyna Martin Discharge Interventions Interventions: ED Discharge Assessment Last Done: 11/03/17 20:50 Status ED Status: Left Department Discharge Information Discharge Date/Time: 11/03/17 20:50
--- NOTE | 2017-11-03 17:38 | XR ---
EXAM DATE: 11/03/2017 5:33 PM EDT AGE/SEX: 61 years / Female INDICATIONS: Pneumonia. CLINICAL DATA: This is the patient's initial encounter. Patient reports that signs and symptoms have been present for 1 day and indicates a pain score of Nonresponsive. MEDICAL/SURGICAL HISTORY: Non-responsive. Non-responsive. COMPARISON: No prior exams available for comparison. FINDINGS: AP upright portable view of the chest demonstrate hyperinflation of the lungs. The lungs are clear. H eart size is mildly enlarged. Pulmonary vasculature is normal. Osseous structures are significant for anterior cervical fusion of the lower cervical spine, total left shoulder prosthesis and severe dege nerative changes with avascular necrosis of the right femoral head. CONCLUSION: No radiographic evidence of pneumonia. Electronically signed by: Herminia Welch MD 11/03/2017 5:37 PM EDT
[2017-11-03 17:39] LABS: ABG Base Excess 4.3 mmol/L (-2-2); ABG PCO2 39 mmHg (38-42); ABG PO2 73 mmHg (61-120)
[2017-11-03 17:56] LABS: Baso # (Auto) 0.1 th/mm3 (0.0-0.2); Baso % (Auto) 1.9 % (0.0-2.0); Eos # (Auto) 0.2 th/mm3 (0.0-0.4); Eos % (Auto) 3.5 % (0.0-4.0); Hematocrit 38.3 % (35.0-46.0); Hemoglobin 12.7 gm/dL (11.6-15.3); Lymph # (Auto) 1.5 th/mm3 (1.0-4.8); Lymph % (Auto) 21.5 % (9.0-44.0); Mean Corpuscular Hemoglobin 32.9 pg (27.0-34.0); Mean Corpuscular Volume 99.7 fL (80.0-100.0); Mono # (Auto) 0.7 th/mm3 (0.0-0.9); Mono % (Auto) 10.4 % (0.0-8.0); Neut # (Auto) 4.4 th/mm3 (1.8-7.7); Neut % (Auto) 62.7 % (16.0-70.0); Platelet Count 148 th/mm3 (150-450); Red Blood Count 3.85 mil/mm3 (4.00-5.30); Red Cell Distribution Width 14.3 % (11.6-17.2); White Blood Count 6.9 th/mm3 (4.0-11.0)
[2017-11-03 18:04] LABS: Chloride 102 meq/L (98-107); Potassium 4.3 meq/L (3.5-5.1); Sodium 140 meq/L (136-145)
[2017-11-03 18:07] LABS: Albumin 2.6 g/dL (3.4-5.0); Calcium 8.1 mg/dL (8.5-10.1)
[2017-11-03 18:08] LABS: Anion Gap 6 meq/L (5-15); Blood Urea Nitrogen 7 mg/dL (7-18); Carbon Dioxide 31.7 meq/L (21.0-32.0); Glucose,Random 68 mg/dL (74-106)
[2017-11-03 18:09] LABS: Activated Partial Thrombo Time 28.2 sec (24.3-30.1); INR 1.1 Ratio; Prothrombin Time 11.5 sec (9.8-11.6)
[2017-11-03 18:11] LABS: Alanine Aminotransferase 18 U/L (10-53); Aspartate Aminotransferase 28 U/L (15-37); Glomerular Filtration Rate 46 mL/min (>89)
[2017-11-03 18:12] LABS: Alcohol 30 mg/dL (0-5); Total Protein 6.4 g/dL (6.4-8.2)
[2017-11-03 18:12] LABS: Bilirubin,Urine Negative (Negative); Clarity,Urine Cloudy (Clear); Color,Urine Yellow (Yellw/Straw); Glucose,Urine (UA) Negative (Negative); Leukocyte Esterase,Urine Large (Negative); Nitrite,Urine Positive (Negative); PH,Urine 6.5 (5.0-8.5); Specific Gravity,Urine Less/Equal 1.005 (1.002-1.035); Urobilinogen,Urine 0.2 mg/dL (Less than 2)
[2017-11-03 18:13] LABS: Alkaline Phosphatase 72 U/L (45-117)
[2017-11-03 18:17] LABS: Creatine Kinase 76 U/L (26-192)
[2017-11-03 18:18] LABS: Bacteria,Urine Many /hpf; RBC,Urine 0-3 /hpf (0-3); Squamous Epithelial Cell,Urine Greater than 10 /hpf (0-5); WBC,Urine 51-189 /hpf (0-5)
[2017-11-03 18:49] LABS: Acetaminophen 2.7 mcg/mL (10.0-30.0)
--- NOTE | 2017-11-03 19:23 | CT ---
EXAM DATE: 11/03/2017 7:16 PM EDT AGE/SEX: 61 years / Female INDICATIONS: Altered mental status. CLINICAL DATA: This is the patient's initial encounter. Patient reports that signs and symptoms have been present for 1 day and indicates a pain score of Nonresponsive. MEDICAL/SURGICAL HISTORY: Non-responsive. Non-responsive. RADIATION DOSE: 49.87 CTDI (mGy) COMPARISON: [facility] [place], CT BRAIN W/O CONTRAST, 06/20/2017. [facility] [place], CT BRAIN W/O CONTRAST, 06/19/2017. . TECHNIQUE: CT of the head without contrast. Using automated exposure control and adjustment of the mA and/or kV according to patient size, radiation dose was kept as low as reasonably achievable to ob tain optimal diagnostic quality images. DICOM format image data is available electronically for revi ew and comparison. FINDINGS: Cerebrum: Mild atrophy is stable. Scattered areas of decreased attenuation are noted within the nola ventricular and subcortical white matter bilaterally and are stable. No evidence of midline shift, ma ss lesion, hemorrhage or acute infarction. No extraaxial fluid collections are seen. Posterior Fossa: The cerebellum and brainstem are intact. The 4th ventricle is midline. The cerebe llopontine angle is unremarkable. Extracranial: The visualized portion of the orbits is intact. Skull: The calvaria is intact. No evidence of skull fracture. CONCLUSION: 1. No acute infarct, acute hemorrhage, midline shift or extra-axial fluid collections. 2. Mild stable atrophy and scattered areas of decreased attenuation within the periventricular and s ubcortical white matter bilaterally. . Electronically signed by: Daniele Cary MD 11/03/2017 7:21 PM EDT
[2017-11-03 19:41] LABS: Cannabinoid Screen,Urine Pos (Neg)
[2017-11-03] MEDS ORDERED: Haloperidol Inj 5 MG/ML Ampul IV.PUSH PRN (19:47)
[2017-11-03] MEDS ORDERED: LORazepam 1 MG Tablet PO PRN (19:47)
[2017-11-03 19:50] LABS: Amphetamine Screen,Urine Neg (Neg)
[2017-11-03 19:51] LABS: Barbiturate Screen,Urine Neg (Neg)
[2017-11-03 19:54] LABS: Cocaine Screen,Urine Neg (Neg)
[2017-11-03 19:57] LABS: Opiate Screen,Urine Pos (Neg)
[2017-11-03] MEDS: Dextrose 50% in Water 50 ML Vial IV.PUSH PRN (23:08)
[2017-11-04 05:02] LABS: Baso % (Auto) 0.4 % (0.0-2.0); Eos # (Auto) 0.2 th/mm3 (0.0-0.4); Eos % (Auto) 3.8 % (0.0-4.0); Hemoglobin 14.4 gm/dL (11.6-15.3); Lymph # (Auto) 1.1 th/mm3 (1.0-4.8); Lymph % (Auto) 20.3 % (9.0-44.0); Mean Corpuscular Hemoglobin 31.9 pg (27.0-34.0); Mean Corpuscular Volume 99.7 fL (80.0-100.0); Mean Platelet Volume 8.1 fL (7.0-11.0); Mono # (Auto) 0.7 th/mm3 (0.0-0.9); Mono % (Auto) 12.6 % (0.0-8.0); Neut # (Auto) 3.4 th/mm3 (1.8-7.7); Neut % (Auto) 62.9 % (16.0-70.0); Platelet Count 154 th/mm3 (150-450); Red Blood Count 4.51 mil/mm3 (4.00-5.30); Red Cell Distribution Width 14.5 % (11.6-17.2); White Blood Count 5.4 th/mm3 (4.0-11.0)
[2017-11-04 05:15] LABS: Chloride 107 meq/L (98-107); Potassium 4.3 meq/L (3.5-5.1); Sodium 146 meq/L (136-145)
[2017-11-04 05:19] LABS: Calcium 8.5 mg/dL (8.5-10.1)
[2017-11-04 05:20] LABS: Albumin 2.6 g/dL (3.4-5.0); Anion Gap 5 meq/L (5-15); Blood Urea Nitrogen 7 mg/dL (7-18); Carbon Dioxide 33.7 meq/L (21.0-32.0); Glucose,Random 67 mg/dL (74-106)
[2017-11-04 05:23] LABS: Alanine Aminotransferase 18 U/L (10-53); Aspartate Aminotransferase 23 U/L (15-37); Glomerular Filtration Rate 70 mL/min (>89)
[2017-11-04 05:24] LABS: Total Protein 6.8 g/dL (6.4-8.2)
[2017-11-04 05:26] LABS: Alkaline Phosphatase 75 U/L (45-117)
[2017-11-04] MEDS: Dextrose 50% in Water 50 ML Vial IV.PUSH PRN (05:29)
[2017-11-04] MEDS ORDERED: Folic Acid 1 MG Tablet PO SCH (09:00)
[2017-11-04] MEDS ORDERED: Multivitamin/Minerals Therapeutic Tablet PO SCH (09:00)
--- NOTE | 2017-11-04 10:15 | P.HP ---
History of Present Illness Service: Hospitalist Primary Care Physician: UNKNOWN Chief Complaint: Altered mental status. History of Present Illness: Ms. Seo is a pleasant 61-year-old female with a history of MS, spinal stenosis, alcoholism, COPD who was admitted to the hospital on 11/03/2017 due to intoxication and poor responsiveness. At the time of this interview on , patient is alert coherent and oriented. She reports drinking 4-5 drinks a day. When asked about reasons for her heavy drinking, patient states that she does not have a car and she does not work she is bored at home. That is why she drinks a lot. She denies any chest pain, shortness of breath, fever or chills. Denies any changes in bowel or bladder habits. She would like to go home. Past medical history: MS, spinal stenosis, alcoholism, COPD Past surgical history: Multiple joint replacements, neck fusion surgery. Social history: Patient smokes about half a pack a day, drinks alcohol. Denies using illicit drugs. Family history: Mother had lung cancer. Review of Systems All other systems reviewed negative except as stated in HPI [facility] - History History Provided By: Patient - Medical History Medical History: Medical History (Last Reviewed 11/03/17 @ 17:48 by Gavni Hutchins) Medical history unknown - Tobacco History Second Hand Smoke Exposure: No Tobacco Use In Past 30 Days: No Smoking Status: Former smoker Tobacco Type: Cigarettes - Alcohol History How Often Do You Have a Drink Containing Alcohol: 4 or more times a week - Substance Use History Substance History: Active Abuse - Substance Use Type Marijuana Type: marijuana Status: Active Route Used: Inhalation Frequency: once a week - Travel History Recent Travel in the [place] Within the Last 8 Weeks: No Recent Travel Out of the Country Within the Last 8 Weeks: No - Immunization History Tetanus Immunization: Unable to Assess Hx Influenza Vaccine This Season: Unable to Assess Medications and Allergies Active Medications: Active Medications Clonidine HCl (Catapres) 0.1 mg PO Q6H PRN PRN Reason: sbp>160 or DBP>100; HR > 60 Last Admin: 11/03/17 22:08 Dose: 0.1 mg Dextrose (D50w Vial) 50 ml IV.PUSH UNSCH PRN PRN Reason: PER HYPOGLYCEMIA PROTOCOL Last Admin: 11/04/17 05:29 Dose: 50 ml Flumazenil (Romazecon Inj) 0.2 mg IV.PUSH Q1M PRN PRN Reason: OVERSEDATION Folic Acid (Folic Acid) 1 mg PO DAILY [facility] Stop: 11/09/17 08:59 Glucagon (Glucagon Inj) 1 mg OTHER PRN PRN PRN Reason: for Hypoglycemia Protocol Haloperidol Lactate (Haldol Inj) 1 mg IV.PUSH Q15M PRN PRN Reason: for severe agitation Ceftriaxone Sodium 1,000 mg/ (Sodium Chloride) 100 mls @ 200 mls/hr IV.SIG Q24H DEBORAH Lorazepam (Ativan) 1 mg PO Q4H PRN PRN Reason: for CIWA 8-10 Lorazepam (Ativan) 2 mg PO Q2H PRN PRN Reason: for CIWA 11-14 Lorazepam (Ativan Inj) 2 mg IV.PUSH Q2H PRN PRN Reason: for CIWA 11-14 Lorazepam (Ativan Inj) 2 mg IV.PUSH Q1H PRN PRN Reason: for CIWA 15-20 Lorazepam (Ativan Inj) 2 mg IV.PUSH Q15M PRN PRN Reason: for CIWA > 20 Lorazepam (Ativan Inj) 1 mg IV.PUSH Q4H PRN PRN Reason: for CIWA 8-10 Multivitamins/Minerals (Theragran-M) 1 tab PO DAILY [facility] Stop: 11/09/17 08:59 Ondansetron HCl (Zofran Inj) 4 mg IV.PUSH Q6H PRN PRN Reason: NAUSEA OR VOMITING Pantoprazole Sodium (Protonix) 40 mg PO DAILY [facility] Thiamine HCl (Vitamin B1) 100 mg PO DAILY [facility] Allergies Allergy/AdvReac Type Severity Reaction Status Date / Time Sulfa (Sulfonamide Allergy Intermediate N/V Unverified 02/14/17 11:15 Antibiotics) modafinil Allergy Mild Rash Unverified 02/14/17 11:15 carisoprodol Allergy Unknown Verified 02/14/17 11:15 Home Medications Medication Instructions Recorded Confirmed Type Unable to Obtain Home Meds 11/03/17 11/03/17 History Exam Vital signs: Vital Signs 11/03/17 17:21 11/03/17 18:00 11/03/17 18:48 Temperature 98.7 F Pulse Rate 92 H 88 Respiratory Rate 16 16 Blood Pressure 181/115 H 171/105 H Pulse Oximetry 94 L 94 L 95 11/03/17 20:00 11/03/17 20:50 11/03/17 21:02 Temperature Pulse Rate 95 H Respiratory Rate 17 Blood Pressure 179/112 H Pulse Oximetry 93 L 11/03/17 21:03 11/03/17 21:28 11/04/17 00:00 Temperature Pulse Rate 84 88 82 Respiratory Rate 24 17 11 L Blood Pressure 179/104 H 182/112 H 117/74 Pulse Oximetry 93 L 100 97 11/04/17 03:00 11/04/17 04:00 11/04/17 05:00 Temperature Pulse Rate 74 74 72 Respiratory Rate 10 L 10 L 10 L Blood Pressure 125/75 112/72 104/78 Pulse Oximetry 100 100 100 11/04/17 06:00 11/04/17 08:49 Temperature Pulse Rate 80 Respiratory Rate 10 L Blood Pressure 118/75 Pulse Oximetry 100 93 L Intake & Output 11/03/17 11/04/17 11/04/17 18:59 06:59 18:59 Intake Total 1000 / 1000 100 / 100 Balance 1000 / 1000 100 / 100 Weight 72.699 kg 57.4 kg 57.6 kg Intake: IV 1000 / 1000 100 / 100 NS Inj 1,000 ML @ Wide Open IV. 1000 / 1000 SIG BOLUS ONE Rx#:[id number] Rocephin Inj 1,000 MG In NS Inj 100 / 100 100 ML @ 200 mls/hr IV.SIG ONCE ONE Rx#:[id number] Other: Date of Last Bowel Movement 11/03/17 Weight On Admission 57.4 kg Narrative: GENERAL: This is a well-nourished, well-developed patient, in no apparent distress. SKIN: No rashes, ecchymoses or lesions. Warm and dry. HEAD: Atraumatic. Normocephalic. No temporal or scalp tenderness. EYES: Pupils equal round and reactive. No injection or drainage. ENT: Nose without bleeding, purulent drainage or septal hematoma. Airway patent. NECK: Trachea midline. No lymphadenopathy. Supple, nontender, no meningeal signs. CARDIOVASCULAR: Regular rate and rhythm without murmurs, gallops, or rubs. No JVD. RESPIRATORY: Clear to auscultation. Breath sounds equal bilaterally. No wheezes , rales, or rhonchi. GASTROINTESTINAL: Abdomen soft, non-tender, nondistended. No guarding. MUSCULOSKELETAL: Extremities without clubbing, cyanosis, or edema. NEUROLOGICAL: Awake and alert. Cranial nerves II through XII intact. No focal neurological deficits. Normal speech. Results - Labs CBC & Chem 7: 11/04/17 04:30 11/04/17 04:30 Labs: Laboratory Results - last 24 hr 11/03/17 11/03/17 11/03/17 17:34 17:45 17:45 CBC w Diff Auto diff final WBC 6.9 RBC 3.85 L Hgb 12.7 Hct 38.3 MCV 99.7 MCH 32.9 MCHC 33.0 RDW 14.3 Plt Count 148 L MPV 8.0 Neut % (Auto) 62.7 Lymph % (Auto) 21.5 [place] % (Auto) 10.4 H Eos % (Auto) 3.5 Baso % (Auto) 1.9 Neut # (Auto) 4.4 Lymph # (Auto) 1.5 [place] # (Auto) 0.7 Eos # (Auto) 0.2 Baso # (Auto) 0.1 WBC Differential . Differential Comment . PT INR APTT Puncture Site Right radial Patient Temperature 98.6 O2 Saturation 89 L* ABG pH 7.47 H ABG pCO2 39 ABG pO2 73 ABG HCO3 28 H ABG O2 Content 16.9 ABG Base Excess 4.3 H ABG Methemoglobin 1.4 [place] Test Present Hemoglobin 13.4 Carboxyhemoglobin 5.1 H* O2 Delivery Device Nasal cannula Liter Flow 2.00 Inspired O2 28 Critical Value Yes Sodium 140 Potassium 4.3 Chloride 102 Carbon Dioxide 31.7 Anion Gap 6 BUN 7 Creatinine 1.20 H Estimated GFR 46 L POC Glucose Random Glucose 68 L Calcium 8.1 L Total Bilirubin 0.4 AST 28 ALT 18 Alkaline Phosphatase 72 Total Creatine Kinase 76 Troponin I Less than 0.02 L B-Natriuretic Peptide Total Protein 6.4 Albumin 2.6 L Urine Color Urine Clarity Urine pH Ur Specific [place] Urine Protein Urine Glucose (UA) Urine Ketones Urine Occult Blood Urine Nitrate Urine Bilirubin Urine Urobilinogen Ur Leukocyte Esterase Urine RBC Urine WBC Urine WBC Clumps Ur Squamous Epith Cells Urine Bacteria Micro UA Comment Ur Microscopic Review Urine Culture Comments Salicylates Urine Opiates Screen Acetaminophen 2.7 L Ur Barbiturates Screen Ur Amphetamines Screen U Benzodiazepines Scrn Urine Cocaine Screen U Cannabinoids Screen Serum Alcohol 30 H 11/03/17 11/03/17 11/03/17 17:45 17:45 17:45 CBC w Diff WBC RBC Hgb Hct MCV MCH MCHC RDW Plt Count MPV Neut % (Auto) Lymph % (Auto) [place] % (Auto) Eos % (Auto) Baso % (Auto) Neut # (Auto) Lymph # (Auto) [place] # (Auto) Eos # (Auto) Baso # (Auto) WBC Differential Differential Comment PT 11.5 INR 1.1 APTT 28.2 Puncture Site Patient Temperature O2 Saturation ABG pH ABG pCO2 ABG pO2 ABG HCO3 ABG O2 Content ABG Base Excess ABG Methemoglobin [place] Test Hemoglobin Carboxyhemoglobin O2 Delivery Device Liter Flow Inspired O2 Critical Value Sodium Potassium Chloride Carbon Dioxide Anion Gap BUN Creatinine Estimated GFR POC Glucose Random Glucose Calcium Total Bilirubin AST ALT Alkaline Phosphatase Total Creatine Kinase Troponin I B-Natriuretic Peptide 123 H Total Protein Albumin Urine Color Urine Clarity Urine pH Ur Specific [place] Urine Protein Urine Glucose (UA) Urine Ketones Urine Occult Blood Urine Nitrate Urine Bilirubin Urine Urobilinogen Ur Leukocyte Esterase Urine RBC Urine WBC Urine WBC Clumps Ur Squamous Epith Cells Urine Bacteria Micro UA Comment Ur Microscopic Review Urine Culture Comments Salicylates 3.2 Urine Opiates Screen Acetaminophen Ur Barbiturates Screen Ur Amphetamines Screen U Benzodiazepines Scrn Urine Cocaine Screen U Cannabinoids Screen Serum Alcohol 11/03/17 11/03/17 11/03/17 18:04 19:29 21:50 CBC w Diff WBC RBC Hgb Hct MCV MCH MCHC RDW Plt Count MPV Neut % (Auto) Lymph % (Auto) [place] % (Auto) Eos % (Auto) Baso % (Auto) Neut # (Auto) Lymph # (Auto) [place] # (Auto) Eos # (Auto) Baso # (Auto) WBC Differential Differential Comment PT INR APTT Puncture Site Patient Temperature O2 Saturation ABG pH ABG pCO2 ABG pO2 ABG HCO3 ABG O2 Content ABG Base Excess ABG Methemoglobin [place] Test Hemoglobin Carboxyhemoglobin O2 Delivery Device Liter Flow Inspired O2 Critical Value Sodium Potassium Chloride Carbon Dioxide Anion Gap BUN Creatinine Estimated GFR POC Glucose 63 L Random Glucose Calcium Total Bilirubin AST ALT Alkaline Phosphatase Total Creatine Kinase Troponin I B-Natriuretic Peptide Total Protein Albumin Urine Color Yellow Urine Clarity Cloudy H Urine pH 6.5 Ur Specific [place] Less/equal 1.005 Urine Protein Negative Urine Glucose (UA) Negative Urine Ketones Negative Urine Occult Blood Trace Urine Nitrate Positive H Urine Bilirubin Negative Urine Urobilinogen 0.2 Ur Leukocyte Esterase Large H Urine RBC 0-3 Urine WBC 51-189 H Urine WBC Clumps Few H Ur Squamous Epith Cells Greater than 10 H Urine Bacteria Many H Micro UA Comment Culture indicated Ur Microscopic Review Microscopic reviewed Urine Culture Comments Culture indicated Salicylates Urine Opiates Screen Pos H Acetaminophen Ur Barbiturates Screen Neg Ur Amphetamines Screen Neg U Benzodiazepines Scrn Pos H Urine Cocaine Screen Neg U Cannabinoids Screen Pos H Serum Alcohol 11/03/17 11/04/17 11/04/17 23:35 00:18 04:30 CBC w Diff Auto diff final WBC 5.4 RBC 4.51 Hgb 14.4 Hct 45.0 MCV 99.7 MCH 31.9 MCHC 32.0 RDW 14.5 Plt Count 154 MPV 8.1 Neut % (Auto) 62.9 Lymph % (Auto) 20.3 [place] % (Auto) 12.6 H Eos % (Auto) 3.8 Baso % (Auto) 0.4 Neut # (Auto) 3.4 Lymph # (Auto) 1.1 [place] # (Auto) 0.7 Eos # (Auto) 0.2 Baso # (Auto) 0.0 WBC Differential . Differential Comment . PT INR APTT Puncture Site Patient Temperature O2 Saturation ABG pH ABG pCO2 ABG pO2 ABG HCO3 ABG O2 Content ABG Base Excess ABG Methemoglobin [place] Test Hemoglobin Carboxyhemoglobin O2 Delivery Device Liter Flow Inspired O2 Critical Value Sodium Potassium Chloride Carbon Dioxide Anion Gap BUN Creatinine Estimated GFR POC Glucose 209 H 191 H Random Glucose Calcium Total Bilirubin AST ALT Alkaline Phosphatase Total Creatine Kinase Troponin I B-Natriuretic Peptide Total Protein Albumin Urine Color Urine Clarity Urine pH Ur Specific [place] Urine Protein Urine Glucose (UA) Urine Ketones Urine Occult Blood Urine Nitrate Urine Bilirubin Urine Urobilinogen Ur Leukocyte Esterase Urine RBC Urine WBC Urine WBC Clumps Ur Squamous Epith Cells Urine Bacteria Micro UA Comment Ur Microscopic Review Urine Culture Comments Salicylates Urine Opiates Screen Acetaminophen Ur Barbiturates Screen Ur Amphetamines Screen U Benzodiazepines Scrn Urine Cocaine Screen U Cannabinoids Screen Serum Alcohol 11/04/17 11/04/17 11/04/17 04:30 05:22 06:03 CBC w Diff WBC RBC Hgb Hct MCV MCH MCHC RDW Plt Count MPV Neut % (Auto) Lymph % (Auto) [place] % (Auto) Eos % (Auto) Baso % (Auto) Neut # (Auto) Lymph # (Auto) [place] # (Auto) Eos # (Auto) Baso # (Auto) WBC Differential Differential Comment PT INR APTT Puncture Site Patient Temperature O2 Saturation ABG pH ABG pCO2 ABG pO2 ABG HCO3 ABG O2 Content ABG Base Excess ABG Methemoglobin [place] Test Hemoglobin Carboxyhemoglobin O2 Delivery Device Liter Flow Inspired O2 Critical Value Sodium 146 H Potassium 4.3 Chloride 107 Carbon Dioxide 33.7 H Anion Gap 5 BUN 7 Creatinine 0.83 Estimated GFR 70 L POC Glucose 65 L 191 H Random Glucose 67 L Calcium 8.5 Total Bilirubin 0.5 AST 23 ALT 18 Alkaline Phosphatase 75 Total Creatine Kinase Troponin I B-Natriuretic Peptide Total Protein 6.8 Albumin 2.6 L Urine Color Urine Clarity Urine pH Ur Specific [place] Urine Protein Urine Glucose (UA) Urine Ketones Urine Occult Blood Urine Nitrate Urine Bilirubin Urine Urobilinogen Ur Leukocyte Esterase Urine RBC Urine WBC Urine WBC Clumps Ur Squamous Epith Cells Urine Bacteria Micro UA Comment Ur Microscopic Review Urine Culture Comments Salicylates Urine Opiates Screen Acetaminophen Ur Barbiturates Screen Ur Amphetamines Screen U Benzodiazepines Scrn Urine Cocaine Screen U Cannabinoids Screen Serum Alcohol 11/04/17 08:08 CBC w Diff WBC RBC Hgb Hct MCV MCH MCHC RDW Plt Count MPV Neut % (Auto) Lymph % (Auto) [place] % (Auto) Eos % (Auto) Baso % (Auto) Neut # (Auto) Lymph # (Auto) [place] # (Auto) Eos # (Auto) Baso # (Auto) WBC Differential Differential Comment PT INR APTT Puncture Site Patient Temperature O2 Saturation ABG pH ABG pCO2 ABG pO2 ABG HCO3 ABG O2 Content ABG Base Excess ABG Methemoglobin [place] Test Hemoglobin Carboxyhemoglobin O2 Delivery Device Liter Flow Inspired O2 Critical Value Sodium Potassium Chloride Carbon Dioxide Anion Gap BUN Creatinine Estimated GFR POC Glucose 76 Random Glucose Calcium Total Bilirubin AST ALT Alkaline Phosphatase Total Creatine Kinase Troponin I B-Natriuretic Peptide Total Protein Albumin Urine Color Urine Clarity Urine pH Ur Specific [place] Urine Protein Urine Glucose (UA) Urine Ketones Urine Occult Blood Urine Nitrate Urine Bilirubin Urine Urobilinogen Ur Leukocyte Esterase Urine RBC Urine WBC Urine WBC Clumps Ur Squamous Epith Cells Urine Bacteria Micro UA Comment Ur Microscopic Review Urine Culture Comments Salicylates Urine Opiates Screen Acetaminophen Ur Barbiturates Screen Ur Amphetamines Screen U Benzodiazepines Scrn Urine Cocaine Screen U Cannabinoids Screen Serum Alcohol - Imaging Impressions Chest X-Ray 11/03/17 17:21 CONCLUSION: No radiographic evidence of pneumonia. Head CT 11/03/17 17:21 CONCLUSION: 1. No acute infarct, acute hemorrhage, midline shift or extra-axial fluid collections. 2. Mild stable atrophy and scattered areas of decreased attenuation within the periventricular and subcortical white matter bilaterally. . Caprini VTE Risk Assessment Caprini VTE Risk Assessment: No/Low Risk (score <= 1) Caprini Risk Assessment Model: Point Value = 1 Point Value = 2 Point Value = 3 Point Value = 5 Age 41-60 Minor surgery BMI > 25 kg/m2 Swollen legs Varicose veins or History of unexplained or recurrent spontaneous Oral contraceptives or hormone replacement Sepsis (< 1 month) Serious lung disease, including pneumonia (< 1 month) Abnormal pulmonary function Acute myocardial infarction Congestive heart failure (< 1 month) History of inflammatory bowel disease Medical patient at bed rest Age 61-74 Arthroscopic surgery Major open surgery (> 45 min) Laparoscopic surgery (> 45 min) Malignancy Confined to bed (> 72 hours) Immobilizing plaster cast Central venous access Age >= 75 History of VTE Family history of VTE Factor V Leiden Prothrombin [id number] Lupus anticoagulant Anticardiolipin antibodies Elevated serum homocysteine Heparin-induced thrombocytopenia Other congenital or acquired thrombophilia Stroke (< 1 month) Elective arthroplasty Hip, pelvis, or leg fracture Acute spinal cord injury (< 1 month) Prophylaxis Regimen: Total Risk Factor Score Risk Level Prophylaxis Regimen 0-1 Low Early ambulation 2 Moderate Order ONE of the following: *Sequential Compression Device (SCD) *Heparin 5000 units SQ BID 3-4 Higher Order ONE of the following medications: *Heparin 5000 units SQ TID *Enoxaparin/Lovenox 40 mg SQ daily (WT < 150 kg, CrCl > 30 mL/min) *Enoxaparin/Lovenox 30 mg SQ daily (WT < 150 kg, CrCl > 10-29 mL/min) *Enoxaparin/Lovenox 30 mg SQ BID (WT < 150 kg, CrCl > 30 mL/min) AND/OR *Sequential Compression Device (SCD) 5 or more Highest Order ONE of the following medications: *Heparin 5000 units SQ TID (Preferred with Epidurals) *Enoxaparin/Lovenox 40 mg SQ daily (WT < 150 kg, CrCl > 30 mL/min) *Enoxaparin/Lovenox 30 mg SQ daily (WT < 150 kg, CrCl > 10-29 mL/min) *Enoxaparin/Lovenox 30 mg SQ BID (WT < 150 kg, CrCl > 30 mL/min) AND *Sequential Compression Device (SCD) Assessment and Plan - Plan Ms. Seo is a pleasant 61-year-old female with a history of alcoholism, COPD, MS, spinal stenosis who was admitted to the hospital due to poor responsiveness as well as intoxication. Acute alcohol intoxication -Patient is strongly advised to seek help with regards to alcohol abuse. She mentions that her sister works at [employer]. -Patient also knows about [facility] Yuen -We will give her a prescription of Librium. Patient was advised repeatedly that she cannot drink alcohol while she takes Librium. Patient verbalized understanding. On and was present. History of multiple sclerosis History of COPD -No acute concerns. Full code. Ambulation. Discharge patient to home Condition on discharge: Improved Regular Diet as tolerated Ad Lelo activity Rx written: Librium 25 mg every 8 hours for 10 days Folic acid 1 mg daily for 30 days Thiamine 100 mg daily for 30 days. Follow-up with primary care physician within 1-2 weeks.
== END 2017-11-04 14:00 | disposition home or self-care (01) ==
LOC: PHED 17:16 → PHEDA 17:16 → PHICU 21:17
PROVIDERS: ADMIT Hospitalist; ATTEND Hospitalist